=== PATIENT | female | born 1960 | race Two or more races ===

== ENCOUNTER → 2020-07-12 10:35 | Outpatient (BNVA) | payer MEDICAID, SELFPAY | PROVIDERS: PCP Nurse Practitioner Family; Referring Provider Nurse Practitioner Family; Visit Provider Internal Medicine Endocrinology, Diabetes & Metabolism | DX: C73 Malignant neoplasm of thyroid gland (principal); E89.0 Postprocedural hypothyroidism; M85.80 Other specified disorders of bone density and structure, unspecified site; Z79.899 Other long term (current) drug therapy | CPT/HCPCS: 99212 ==

== ENCOUNTER 2020-09-08 13:37 | Outpatient (REF) | payer MEDICAID, SELFPAY ==
--- NOTE | 2020-09-08 13:41 | US_ITS ---
EXAMINATION: US SOFT TISSUE OF THE NECK CLINICAL INFORMATION: Malignant neoplasm of thyroid gland. COMPARISON: Ultrasound soft tissue head/neck dated 09/16/2017 and 09/13/2016. TECHNIQUE: Linear transducer grayscale and color Doppler examination of the cervical lymph nodes. FINDINGS: Multiple right-sided neck lymph nodes (level IA, IB, IIA) appear normal in size and show normal morphology. The left-sided level IA and level IIB lymph nodes also appear morphologically normal and normal size. Specific note is made of slit-like or absent hilum involving left-sided level III lymph node measuring 0.9 cm at its maximum transverse dimension and a similar-appearing left-sided level IIA lymph node measuring 0.8 cm at its maximum transverse dimension. US/US soft tiss head and/or neck IMPRESSION: 1. Left-sided level III and level IIA lymph nodes show slit-like morphology or absent hilum and measure between 0.8-0.9 cm at their maximum dimension. 2. The remainder of the bilateral cervical lymph nodes appear normal in size and show normal morphology.
== END 2020-09-08 13:38 | disposition home or self-care (01) ==
LOC: HO.US 13:37
PROVIDERS: PCP Nurse Practitioner Family; Visit Provider Internal Medicine Endocrinology, Diabetes & Metabolism
DX: C73 Malignant neoplasm of thyroid gland (principal)
CPT/HCPCS: 76536

== ENCOUNTER 2020-10-11 10:05 | Outpatient (REF) | payer MEDICAID, SELFPAY ==
--- NOTE | ~2020-10-11 | MM_ITS ---
EXAMINATION: MM SCREENING DIGITAL BREAST TOMOSYNTHESIS, BILATERAL CLINICAL INFORMATION: Screening. Asymptomatic. Prior benign left breast biopsy 1994. The lifetime risk of breast cancer based on the Tyrer-Cuzick Model is 10%. COMPARISON: Mammography: 01/13/2019, 01/06/2018, 12/27/2016 TECHNIQUE: Digital breast tomosynthesis is performed in both the craniocaudal and mediolateral oblique views along with computer-aided detection (CAD). Synthesized 2D images are generated from the tomosynthesis. FINDINGS: There are scattered areas of fibroglandular density (ACR BI-RADS breast composition Category b). There is fine fibronodular parenchymal pattern similar to prior studies. Biopsy clip marker again noted mid upper outer left breast with mild stable surrounding scarring. There are scattered calcifications again seen in the breasts. Neither breast shows interval mass or architectural abnormality. There are no significant changes. MM/MM tomosynthesis screening BI IMPRESSION: No significant changes from prior exams. ASSESSMENT: BI-RADS 2: Benign RECOMMENDATION: Routine annual mammography screening. This patient's information was entered into a reminder system with a target due date for their next mammogram.
== END 2020-10-11 10:06 | disposition home or self-care (01) ==
LOC: HO.MAMMO 10:05
PROVIDERS: PCP Nurse Practitioner Family; Visit Provider Nurse Practitioner Family
DX: Z12.31 Encounter for screening mammogram for malignant neoplasm of breast (principal)
CPT/HCPCS: 77063; 77067

== ENCOUNTER 2020-11-22 13:12 | Outpatient (REF) | payer MEDICAID, SELFPAY ==
[2020-11-22 16:07] LABS: Free T4 (Free Thyroxine) 1.31 ng/dL (0.71-1.85); Thyroid Stimulating Hormone 0.02 uIU/mL (0.32-4.0); Vitamin D 25-OH Total 54.2 ng/mL (>30)
[2020-11-26 06:56] LABS: Thyroglobulin Antibody <1 IU/mL (<=1); Thyroglobulin Level <0.1 ng/mL
== END 2020-11-22 13:13 | disposition home or self-care (01) ==
LOC: HO.LAB 13:12
PROVIDERS: PCP Registered Nurse Community Health; Visit Provider Internal Medicine Endocrinology, Diabetes & Metabolism
DX: C73 Malignant neoplasm of thyroid gland (principal); E89.0 Postprocedural hypothyroidism; M85.80 Other specified disorders of bone density and structure, unspecified site
CPT/HCPCS: 36415; 82306; 84432; 84439; 84443; 86800; 99212

== ENCOUNTER 2021-08-08 13:11 | Outpatient (REF) | payer MEDICAID, SELFPAY ==
[2021-08-08 14:51] LABS: Free T4 (Free Thyroxine) 1.26 ng/dL (0.71-1.85); Thyroid Stimulating Hormone 0.38 uIU/mL (0.32-4.0); Vitamin D 25-OH Total 37.5 ng/mL (>30)
[2021-08-12 06:51] LABS: Thyroglobulin Antibody <1 IU/mL (<=1); Thyroglobulin Level <0.1 ng/mL
== END 2021-08-08 13:12 | disposition home or self-care (01) ==
LOC: HO.LAB 13:11
PROVIDERS: Visit Provider Internal Medicine Endocrinology, Diabetes & Metabolism
DX: C73 Malignant neoplasm of thyroid gland (principal)
CPT/HCPCS: 36415; 82306; 84432; 84439; 84443; 86800

== ENCOUNTER → 2021-08-09 13:15 | Outpatient (BNVA) | payer MEDICAID, SELFPAY | PROVIDERS: PCP Registered Nurse Community Health; Visit Provider Internal Medicine | DX: E89.0 Postprocedural hypothyroidism (principal); C73 Malignant neoplasm of thyroid gland | CPT/HCPCS: 99212 ==

== ENCOUNTER 2021-10-03 16:41 | Outpatient (REF) | payer MEDICAID, SELFPAY ==
[2021-10-03 18:00] LABS: Free T4 (Free Thyroxine) < 0.40 ng/dL (0.71-1.85); Thyroid Stimulating Hormone 57.14 uIU/mL (0.32-4.0)
[2021-10-07 02:46] LABS: Thyroglobulin 1.9 ng/mL
[2021-10-10 00:45] LABS: Thyroglobulin Antibodies <1 IU/mL (< or = 1)
== END 2021-10-03 16:42 | disposition home or self-care (01) ==
LOC: HO.LAB 16:41
PROVIDERS: PCP Registered Nurse Community Health; Visit Provider Internal Medicine
DX: C73 Malignant neoplasm of thyroid gland (principal)
CPT/HCPCS: 36415; 84432; 84439; 84443; 86800

== ENCOUNTER → 2021-10-19 09:30 | Outpatient (BNVA) | payer MEDICAID, SELFPAY | PROVIDERS: PCP Registered Nurse Community Health; Visit Provider Internal Medicine Endocrinology, Diabetes & Metabolism | DX: C73 Malignant neoplasm of thyroid gland (principal) | CPT/HCPCS: 99212 ==

== ENCOUNTER 2022-05-16 09:36 | Outpatient (REF) | payer MEDICAID, SELFPAY ==
[2022-05-16 12:30] LABS: Free T4 (Free Thyroxine) 1.17 ng/dL (0.71-1.85); Thyroid Stimulating Hormone 0.62 uIU/mL (0.32-4.0)
[2022-05-18 05:27] LABS: Thyroglobulin <0.1 ng/mL
== END 2022-05-16 09:37 | disposition home or self-care (01) ==
LOC: CF 09:36
PROVIDERS: PCP Registered Nurse Community Health; Visit Provider Internal Medicine Endocrinology, Diabetes & Metabolism
DX: C73 Malignant neoplasm of thyroid gland (principal)
CPT/HCPCS: 36415; 84432; 84439; 84443; 99212

== ENCOUNTER 2022-11-16 21:10 | Inpatient (IN) | payer MEDICAID, SELFPAY ==
--- NOTE | ~2022-11-16 | CT_ITS ---
EXAMINATION: NONCONTRAST HEAD CT NONCONTRAST CERVICAL SPINE CT INDICATION INFORMATION: EtOH. Fall. COMPARISON: 10/28/2014 TECHNIQUE: Separate noncontrast CT examinations of the head and cervical spine were performed. Coronal and sagittal images were created for each examination at the technologist workstation. This CT examination was performed using dose optimization techniques as appropriate, variously including the following: *Automated exposure control *Adjustment of mA and/or kV according to patient size (this includes techniques or standardized protocols for targeted exams where dose is matched to indication/reason for exam; i.e. extremities or head) *Use of iterative reconstruction technique DLP: 949 mGy-cm FINDINGS: Head: There is subtle high attenuation thickening along the falx, which is a change from the previous study from 2014. This is concerning for a trace parafalcine subdural hematoma. This measures 0.2 cm in thickness on series 7 image 44. There is no evidence of acute parenchymal hemorrhage or territorial infarction. No abnormal mass effect or midline shift is seen. Galindo to white matter differentiation is well preserved. No hydrocephalus. Proportional prominence of the ventricles and sulcal spaces is consistent with mild volume loss. Patchy periventricular and deep white matter hypoattenuation is consistent with mild small vessel ischemic changes. Right frontal soft tissue swelling/subgaleal hematoma. Associated laceration. No calvarial fracture. Mild mucoperiosteal thickening throughout both maxillary sinuses and the bilateral ethmoid air cells. Mucous retention cyst of the right sphenoid sinus.. The mastoid air cells and visualized portions of the paranasal sinuses are otherwise well aerated. Cervical spine: There is anatomic alignment of the vertebral bodies and posterior elements. The atlantoaxial and atlantooccipital articulations are intact. Vertebral body heights are maintained. There is multilevel intervertebral disc space narrowing with endplate osteophyte formation and facet arthropathy. No evidence of acute fracture. No prevertebral soft tissue swelling. Visualized portions of the lung apices are unremarkable. Surgical clips in the region of the thyroid bed.. CT/CT cervical spine wo IV con IMPRESSION: 1. Findings concerning for a trace parafalcine subdural hematoma. 2. No acute fracture or malalignment of the cervical spine. Mild degenerative changes. This critical result was discussed with FAINA Mensah by telephone at 11/16/2022 10:16 PM and it was ascertained that the content and urgency of the report was understood at the time of direct communication.
--- NOTE | ~2022-11-16 | CT_ITS ---
EXAMINATION: CT HEAD WITHOUT CONTRAST CLINICAL INFORMATION: Follow-up possible subdural hematoma. COMPARISON: Head CT scan dated 11/16/2022. TECHNIQUE: Contiguous axial imaging was performed from the skull base to vertex without intravenous administration of contrast. Coronal and sagittal reformatted images were obtained. This CT examination was performed using dose optimization techniques as appropriate, variously including the following: *Automated exposure control *Adjustment of mA and/or kV according to patient size (this includes techniques or standardized protocols for targeted exams where dose is matched to indication/reason for exam; i.e. extremities or head) *Use of iterative reconstruction technique DLP: 949 mGy-cm FINDINGS: The cortical sulci are normal. The lateral ventricles are symmetrical. The third and fourth ventricles are in their normal midline position. The basilar and prepontine cisterns are unremarkable. Mild falcine thickening seen previously has not significant change. There is no acute intra or extracerebral abnormality. There is no mass effect or midline shift. Again seen is a right frontal subgaleal hematoma with similar appearance. No acute underlying abnormality. The bony calvarium is intact. The paranasal sinuses show mild to moderate scattered mucosal thickening as well as a very small right maxillary air-fluid level without significant change. The bony orbits and orbital contents are unremarkable. CT/CT head/brain wo IV con IMPRESSION: 1. Mild falcine thickening seen on the previous study is nonspecific, but has not significant change. This may be baseline for the patient rather than represent a subdural hematoma. No significant new abnormality. Short-term CT follow-up is recommended as clinically indicated. 2. Right frontal subgaleal hematoma with similar appearance. No acute underlying abnormality.
[2022-11-16 21:15] VITALS: BP 165/92; BP 172/94; PULSE 80; RESP 18; TEMP 36.9; O2SAT 98; BMI 29.2
--- NOTE | 2022-11-16 21:24 | ED.FALL ---
HPI - Fall General Chief Complaint: Fall Stated Complaint: fall etoh Time Seen by Provider: 11/16/22 21:15 Source: patient and EMS Mode of arrival: EMS Limitations: no limitations History of Present Illness HPI Narrative: Patient comes to the emergency room via ambulance. Since that earlier today, patient [place], patient tripped, fell and has a laceration on the forehead. Patient admits to drinking alcohol today, states she only had 2 drinks. Patient complaining of localized pain in the forehead, no neck pain, no pain anywhere else. Patient did not lose consciousness, patient is not on blood thinners Related Data Home Medications Medication Instructions Recorded Confirmed albuterol sulfate 90 mcg/actuation 2 puff inhalation Q6H PRN 07/12/20 10/19/21 aerosol inhaler (ProAir HFA) amlodipine 10 mg tablet 10 mg PO DAILY 07/12/20 10/19/21 buspirone 15 mg tablet 15 mg PO BID 07/12/20 10/19/21 citalopram 20 mg tablet 20 mg PO DAILY 07/12/20 10/19/21 hydrochlorothiazide 25 mg tablet 25 mg PO DAILY 07/12/20 10/19/21 loratadine 10 mg capsule 10 mg PO DAILY 07/12/20 10/19/21 montelukast 10 mg tablet 10 mg PO BEDTIME 07/12/20 10/19/21 (Singulair) sennosides 8.6 mg capsule (senna) 8.6 mg PO DAILY 07/12/20 10/19/21 apremilast 30 mg tablet (Otezla) 30 mg PO BID 10/19/21 10/19/21 atorvastatin 20 mg tablet 20 mg PO BEDTIME 10/19/21 10/19/21 betamethasone dipropionate 0.05 % topical 10/19/21 10/19/21 topical ointment calcipotriene 0.005 % topical topical 10/19/21 10/19/21 ointment cetirizine 10 mg tablet 10 mg PO DAILY 10/19/21 10/19/21 ferrous sulfate 325 mg (65 mg 325 mg PO DAILY 10/19/21 10/19/21 iron) tablet (FeroSul) fluticasone 500 mcg-salmeterol 50 1 ea PO 10/19/21 10/19/21 mcg/dose blistr powdr for inhalation (Advair Diskus) ibuprofen 800 mg tablet 800 mg PO BID PRN 10/19/21 10/19/21 ketotifen fumarate 0.025 % (0.035 1 drp ophthalmic (eye) BID 10/19/21 10/19/21 %) eye drops tramadol 50 mg tablet 50 mg PO Q6H PRN 10/19/21 10/19/21 Previous Rx's Medication Instructions Recorded Levoxyl 112 mcg tablet 112 mcg PO DAILY 30 days #30 tabs 12/14/21 (levothyroxine) calcium citrate 500 mg PO BID #120 tabs 09/24/22 Allergies Allergy/AdvReac Type Severity Reaction Status Date / Time acetaminophen [Percocet] Allergy Unknown Unknown Verified 10/19/21 09:39 oxycodone [Percocet] Allergy Unknown Unknown Verified 10/19/21 09:39 No Known Allergies Allergy Verified 10/19/21 09:39 terazosin Allergy Unknown swelling/ti Uncoded 10/19/21 09:39 redness Review of Systems Review of Systems: Constitutional : No Weight loss, No Fever, No Chills, No Night Sweats, No Fatigue, No Malaise ENT/Mouth : No Hearing loss, No Ear Pain, No Nasal Congestion, No Sinus Pain, No Hoarseness, No sore throat, No Rhinorrhea, No Swallowing Difficulty Eyes: No Eye Pain, No Swelling, No Redness, No Foreign Body, No Discharge, No Vision Changes Cardiovascular : No Chest Pain, No SOB, No Dyspnea on Exertion, No Orthopnea, No Edema, No Palpitations Respiratory : No Cough, No Sputum, No Wheezing, No Smoke Exposure, No Dyspnea Gastrointestinal : No Nausea, No Vomiting, No Diarrhea, No Constipation, No abdominal Pain, No Hematochezia, No Melena Genitourinary : no irregular bleeding, No Dysuria, No Urinary Frequency, No Hematuria, No Urinary Incontinence, No Urgency, No Flank Pain, No Urinary Flow Changes, No Hesitancy Musculoskeletal : No joint pain, No Myalgias, No Joint Swelling Skin : Laceration on the forehead Neuro : No Weakness, No Numbness, No Paresthesias, No Loss of Consciousness, No Dizziness, No Headache Psych : No Anxiety/Panic, No Depression, No SI/HI/AH/VH, admits to drinking socially alcohol today Heme/Lymph: No Bruising, No Bleeding,No Lymphadenopathy Endocrine : No Polyuria, No Polydipsia, No Temperature Intolerance [facility] Past Medical History Medical History Anxiety Asthma Depression Dyslipidemia Hypertension Osteopenia Post-surgical hypothyroidism Primary thyroid cancer Surgical History Hx of breast surgery Hx of knee surgery Hx of thyroidectomy Family History Family History Father Unknown family medical history Mother Osteoporosis Diabetes Hypertension Social History Social History Alcohol intake: current Alcohol intake frequency: holidays/special occasions only Alcohol type: beer Patient Tobacco Use Status: Former Tobacco user Smoked in Last 30 Days: No Use of substances other than those prescribed or required for medical reasons: Yes Substance Use Type: Marijuana Substance Use Frequency: Weekly Advance Directives: No Advance Directives Information Provided: No Physical Exam Vital Signs: Vital Signs: Last Vital Signs Temp 98.5 F 11/16/22 21:15 Pulse 80 11/16/22 21:15 Resp 18 11/16/22 21:15 BP 165/92 H 11/16/22 21:15 Pulse Ox 98 11/16/22 21:15 O2 Del Method 11/16/22 21:15 BMI result Body Mass Index 29.2 Const: Other: Appearance: Alert. Oriented X3. No acute distress. Eyes: Pupils equal, round and reactive to light. ENT: Pharynx normal. Patient has a loss frontal tooth. But still in the socket. Neck: Neck is in C-spine precautions. No palpable step-offs, no C-spine tenderness CVS: Normal heart rate and rhythm. Pulses normal. Normal S1 and S2 Respiratory: No respiratory distress. Breath sounds normal. No Wheezing. No rales Abdomen: Soft and nontender. No rigidity. No distention. Skin: Skin warm and dry. Normal skin color. C-shaped laceration in the forehead, approximately 4 cm Extremities: No lower extremity edema. No Lacerations. No Rash Neuro: Oriented X 3. No motor deficit. No sensory deficit. Moving all extremities. No slurred speech. CN 2 through 12 grossly intact Psych: calm, cooperative, normal affect Course Course Course Narrative: -patient will need sutures on the forehead, patient asking if she will have any scars. I discussed with the patient that any laceration in the skin will leave scars, patient decided to go ahead and get stitches. -head CT and cervical spine CT pending. Medications Administered Discontinued Medications Generic Name Dose Route Start Last Admin Trade Name Aida PRN Reason Stop Dose Admin Tranexamic Acid 1,000 mg/ 60 mls @ 360 mls/hr 11/16/22 22:19 11/16/22 22:42 Sodium Chloride IV 11/16/22 22:28 Infused ONCE ONE Infusion Lidocaine HCl 6 ml 11/16/22 21:21 11/16/22 21:53 Lidocaine Hcl 2% 2 Ml Vial INFILTRATI 11/16/22 21:22 6 ml ONCE ONE Administration Procedures Laceration Laceration 1: Site: face (Forehead) Side (If applicable): left Size (cm): 5 Description: stellate and irregular Depth: simple, single layer Local Anesthetic: lidocaine 2% Amount of anesthesia used (mL): 6 Skin layer closed with: nylon Size (cm): 5-0 and 6-0 Number of sutures: 8 Technique: simple, interrupted Medical Decision Making Medical Decision Making [facility] Narrative: -[facility] called. Patient likely has a small parafalcine subdural hematoma, i discussed the patient, CT scan with Dr. Youssef from trauma at [facility]. Patient is stable, alert and oriented x3, no neurological deficits no headache, not on blood thinners. Patient may stay here at [facility] overnight, repeat CT scan in the morning -patient has a loose frontal tooth that will need to follow-up with dentist. The tooth is in the socket, is not the attached. I discussed the patient with Dr. Kennedy, patient being admitted, patient needs ICU level care for neuro checks and constant monitoring, per nursing spring assembler supervisor, patient cannot go to the floor. Differential Diagnosis Differential Diagnoses: The differential diagnosis associated with the presentation includes (subdural hematoma, epidural hematoma) Admission/Observation Consideration of admission/observation: Escalation of care including admission/observation considered Consult Healthcare Provider Management of the patient was discussed with: Hospitalist and Customer Service Manager Lab Data 11/16/22 22:55 Labs: Lab Results 11/16/22 11/16/22 Range/Units 22:55 22:55 PT 10.9 (10.0-13.1) SEC INR 1.0 (0.9-1.1) Sodium 141 (135-145) mmol/L Potassium 4.4 (3.3-5.1) mmol/L Chloride 108 (96-108) mmol/L Carbon Dioxide 22 (22-29) mmol/L Anion Gap 15 (12-20) BUN 14 (9-16) mg/dL Creatinine 0.79 (0.5-1.4) mg/dL Estim Creat Clear Calc 67.9 Estimated GFR > 60 Random Glucose 82 (60-115) mg/dL Calcium 9.3 (8.4-10.2) mg/dL Total Bilirubin 0.5 (0.0-1.0) mg/dL Direct Bilirubin < 0.2 (0.0-0.5) mg/dL AST 32 H (5-31) U/L ALT 24 (0-31) U/L Alkaline Phosphatase 68 (39-117) U/L Total Protein 7.8 (6.5-8.0) g/dL Albumin 4.6 (3.5-5.0) g/dL Critical Care Time Critical Care Time Critical Care Time: Yes Total Critical Care Time: 60 Attestation: I have personally provided critical care time. Time includes review of lab data, radiology results, discussion with consultants, and monitoring for potential decompensation. Intervention performed as documented. Discharge Plan Discharge Clinical Impression: Traumatic subdural hematoma Patient Disposition: Admitted As Inpatient
[2022-11-16] MEDS: Tranexamic Acid 1,000 MG in 0.9 % Sodium Chloride 50 ML 360 MG IV (22:31)
--- NOTE | 2022-11-16 22:38 | PC.NURSE ---
Pt A&Ox4, reports 10/10 head pain. Pt reports falling forward and hitting forehead on curb. Pt is c-collared, has open lac to R side of eyebrow. Reports having 3 beers tonight. Denies LOC. Provider at bedside. Earrings and necklaces taken off and given to son at bedside. Pt sent to CT scan.
--- NOTE | 2022-11-16 22:41 | MHC.EDTECH ---
[facility]'s Transfer line called at [phone] per spoke with Makayla gave patient demographics awaiting a call back, aware
--- NOTE | 2022-11-16 22:42 | MHC.EDTECH ---
Received a call back from [facility] at [phone] asked to speak with .
--- NOTE | 2022-11-16 22:59 | PC.NURSE ---
Pt changed to hospital attire. IV line placed, blood work collected and sent to lab. Visitor at bedside reassuring Pt.
[2022-11-16 23:04] LABS: Basophils Absolute Auto 0.1 X10*3/uL (0.0-0.2); Basophils Percent Auto 0.9 % (0-2); Eosinophils Absolute Auto 0.5 X10*3/uL (0.0-0.4); Eosinophils Percent Auto 9.2 % (0-4); Hematocrit 39.8 % (37.0-47.0); Hemoglobin 13.4 g/dl (12.0-16.0); Imm Gran Abs Auto 0.01 X10*3/uL (0.00-0.03); Imm Gran Pct Auto 0.2 % (0.0-0.4); Lymphocytes Absolute Auto 1.3 X10*3/uL (1.2-4.9); Lymphocytes Percent Auto 22.7 % (20-40); MANUAL DIFF FLAG NO; Mean Corpuscular HGB Conc 33.7 g/dl (31.0-35.0); Mean Corpuscular Hemoglobin 27.5 pg (27.0-33.0); Mean Corpuscular Volume 81.6 fL (80.0-98.0); Mean Platelet Volume 9.4 fL (9.4-12.3); Monocytes Absolute Auto 0.3 X10*3/uL (0.1-1.2); Monocytes Percent Auto 5.4 % (2-11); Neutrophils Absolute Auto 3.5 x10*3/uL (2.0-8.3); Neutrophils Percent Auto 61.6 % (45-73); Platelet Count 329 X10*3/uL (160-400); Red Blood Count 4.88 X10*6/uL (4.20-5.50); Red Cell Distribution Width 13.2 % (11.0-16.0); White Blood Count 5.7 X10*3/uL (4.8-10.8)
[2022-11-16 23:11] LABS: Prothrombin Time 10.9 SEC (10.0-13.1)
[2022-11-16 23:27] LABS: Alanine Aminotransferase 24 U/L (0-31); Albumin Level 4.6 g/dL (3.5-5.0); Alkaline Phosphatase 68 U/L (39-117); Anion Gap 15 (12-20); Aspartate Amino Transferase 32 U/L (5-31); Bilirubin Direct < 0.2 mg/dL (0.0-0.5); Bilirubin Total 0.5 mg/dL (0.0-1.0); Blood Urea Nitrogen 14 mg/dL (9-16); Calcium 9.3 mg/dL (8.4-10.2); Carbon Dioxide 22 mmol/L (22-29); Chloride 108 mmol/L (96-108); Creatinine Clr Calc Pharmacy 67.9; Estimated Glomerular Filt Rate > 60; Glucose Random 82 mg/dL (60-115); Potassium 4.4 mmol/L (3.3-5.1); Sodium 141 mmol/L (135-145); Total Protein 7.8 g/dL (6.5-8.0)
[2022-11-17] VITALS (14 sets, daily range): BP systolic 141–166; BP diastolic 69–90; PULSE 75–99; RESP 12–21; TEMP 36.4–37.2; O2SAT 93–97; BMI 27.4; BMI 28.5
[2022-11-17 00:02] LABS: Ethanol 125 mg/dL
[2022-11-17 00:31] LABS: COVID-19 Test Negative (Negative); IDNOW Serial# 6674DD1D
--- NOTE | 2022-11-17 00:32 | P.HPCC_ITS ---
History of Present Illness Date of Service: 11/17/22 Attending physician on admission: Guilherme Kennedy Chief Complaint: Fall Patient is a 62-year-old female with a past medical history of hypertension, dyslipidemia, history of thyroid cancer ( with thyroid removal [id number]),? who presented to the emergency room after a fall.? Patient [place] [address] [place] patient tripped, fell and has a laceration on the forehead.? Patient admits to drinking alcohol today, states she only had 3 beers. In the ED,? patient vital signs are stable,? forehead laceration closed with [address] of the head with small parafalcine subdural hematoma, Patient is stable, alert and oriented x3, no neurological deficits no headache, not on blood thinners. ? ED physician consulted [facility] Trauma Team, which states the patient is not a candidate to transfer, safe to stay at [facility] with frequent neuro checks.? ?Patient admitted to ICU for clinically monitoring of subdural hematoma Review of Systems Review of Systems: As per HPI Yes all other systems are reviewed and are negative [facility] Past Medical History Medical History Anxiety Asthma Depression Dyslipidemia Hypertension Osteopenia Post-surgical hypothyroidism Primary thyroid cancer Family History Family History Father Unknown family medical history Mother Osteoporosis Diabetes Hypertension Surgical History Surgical History Hx of breast surgery Hx of knee surgery Hx of thyroidectomy Social History Social History Alcohol intake: current Alcohol intake frequency: holidays/special occasions only Alcohol type: beer Patient Tobacco Use Status: Former Tobacco user Smoked in Last 30 Days: No Use of substances other than those prescribed or required for medical reasons: Yes Substance Use Type: Marijuana Substance Use Frequency: Weekly Advance Directives: No Advance Directives Information Provided: No Meds Allergies Allergy/AdvReac Type Severity Reaction Status Date / Time acetaminophen [Percocet] Allergy Unknown Sneezing Verified 11/16/22 23:47 oxycodone [Percocet] Allergy Unknown Sneezing Verified 11/16/22 23:47 No Known Allergies Allergy Verified 10/19/21 09:39 terazosin Allergy Unknown swelling/ti Uncoded 10/19/21 09:39 redness Home Medications Medication Instructions Recorded Confirmed Last Taken Type albuterol sulfate 90 mcg/actuation 2 puff inhalation Q6H PRN 07/12/20 10/19/21 Unknown History aerosol inhaler (ProAir HFA) amlodipine 10 mg tablet 10 mg PO DAILY 07/12/20 10/19/21 Unknown History buspirone 15 mg tablet 15 mg PO BID 07/12/20 10/19/21 Unknown History citalopram 20 mg tablet 20 mg PO DAILY 07/12/20 10/19/21 Unknown History hydrochlorothiazide 25 mg tablet 25 mg PO DAILY 07/12/20 10/19/21 Unknown History loratadine 10 mg capsule 10 mg PO DAILY 07/12/20 10/19/21 Unknown History montelukast 10 mg tablet 10 mg PO BEDTIME 07/12/20 10/19/21 Unknown History (Singulair) sennosides 8.6 mg capsule (senna) 8.6 mg PO DAILY 07/12/20 10/19/21 Unknown History apremilast 30 mg tablet (Otezla) 30 mg PO BID 10/19/21 10/19/21 Unknown History atorvastatin 20 mg tablet 20 mg PO BEDTIME 10/19/21 10/19/21 Unknown History betamethasone dipropionate 0.05 % topical 10/19/21 10/19/21 Unknown History topical ointment calcipotriene 0.005 % topical topical 10/19/21 10/19/21 Unknown History ointment cetirizine 10 mg tablet 10 mg PO DAILY 10/19/21 10/19/21 Unknown History ferrous sulfate 325 mg (65 mg 325 mg PO DAILY 10/19/21 10/19/21 Unknown History iron) tablet (FeroSul) fluticasone 500 mcg-salmeterol 50 1 ea PO 10/19/21 10/19/21 Unknown History mcg/dose blistr powdr for inhalation (Advair Diskus) ibuprofen 800 mg tablet 800 mg PO BID PRN 10/19/21 10/19/21 Unknown History ketotifen fumarate 0.025 % (0.035 1 drp ophthalmic (eye) BID 10/19/21 10/19/21 Unknown History %) eye drops tramadol 50 mg tablet 50 mg PO Q6H PRN 10/19/21 10/19/21 Unknown History albuterol sulfate 2.5 mg/3 mL 1 amp inhalation Q4-6H PRN SOB 11/16/22 11/16/22 Unknown History (0.083 %) solution for nebulization atorvastatin 20 mg tablet 1 tab PO QPM 11/16/22 11/16/22 Unknown History cholecalciferol (vitamin D3) 25 1 cap PO QAM 11/16/22 11/16/22 Unknown History mcg (1,000 unit) capsule (Vitamin D3) fluticasone 500 mcg-salmeterol 50 1 puff inhalation Q12H 11/16/22 11/16/22 Unknown History mcg/dose blistr powdr for inhalation (Advair Diskus) hydrochlorothiazide 25 mg tablet 1 tab PO DAILY 11/16/22 11/16/22 Unknown History levothyroxine 112 mcg tablet 1 tab PO DAILY 11/16/22 11/16/22 Unknown History (Levoxyl) montelukast 10 mg tablet 1 tab PO BEDTIME 11/16/22 11/16/22 Unknown History omeprazole 20 mg capsule,delayed 1 cap PO DAILY 11/16/22 11/16/22 Unknown History release sennosides 8.6 mg tablet (senna) 1 - 2 tab PO QD-BID 11/16/22 11/16/22 Unknown History tramadol 50 mg tablet 1 tab PO Q12H PRN severe pain 11/16/22 11/16/22 Unknown History Physical Exam Vital Signs: Vital Signs: Last Vital Signs Temp 98.5 F 11/16/22 21:15 Pulse 80 11/16/22 21:15 Resp 18 11/16/22 21:15 BP 165/92 H 11/16/22 21:15 Pulse Ox 98 11/16/22 21:15 O2 Del Method 11/16/22 21:15 BMI result Body Mass Index 29.2 Appearance: Alert.? Oriented X3.? No acute distress.? Eyes: Right eye swollen, bruised.? Pupils equal, round and reactive to light. ENT: Pharynx normal.? Patient has a loss frontal tooth.? But still in the socket. Neck:? Neck with no C-spine tenderness CVS: RRR.? S1 S2 regular. No murmurs, rubs or gallops. Respiratory: Lungs CTA, No respiratory distress.? no wheezes, rales or rhonchi. Abdomen: Abdomen soft, non-tender, non-distended. Normal bowel sounds. No pulsatile mass. No hepatosplenomegaly. Skin: C-shaped laceration in the forehead, approximately 4 cm, with 8 stitches. No lubbing or cyanosis.? No ulcers. Neuro: Oriented X 4.Cranial nerves II-XII grossly intact. No focal neurological deficits. Moves all extremities spontaneously. Sensation intact bilaterally. Psych: calm, cooperative, normal affect Results Labs 11/16/22 22:55 11/16/22 22:55 Labs: Laboratory Results - last 24 hr 11/16/22 11/16/22 11/16/22 22:55 22:55 22:55 MCV 81.6 MCH 27.5 MCHC 33.7 RDW 13.2 Plt Count 329 MPV 9.4 Immature Gran % (Auto) 0.2 Neut % (Auto) 61.6 Lymph % (Auto) 22.7 [place] % (Auto) 5.4 Eos % (Auto) 9.2 H Baso % (Auto) 0.9 Lymph # (Auto) 1.3 [place] # (Auto) 0.3 Eos # (Auto) 0.5 H Baso # (Auto) 0.1 Abs Immat Gran (auto) 0.01 Absolute Neuts (auto) 3.5 Absolute Nucleated RBC 0.000 Nucleated RBC % (auto) 0.0 PT 10.9 INR 1.0 Anion Gap 15 Estim Creat Clear Calc 67.9 Estimated GFR > 60 Random Glucose 82 Calcium 9.3 Total Bilirubin 0.5 Direct Bilirubin < 0.2 AST 32 H ALT 24 Alkaline Phosphatase 68 Total Protein 7.8 Albumin 4.6 Ethyl Alcohol 125 COVID-19 ([facility]) COVID-19 Clin Com 11/16/22 23:55 MCV MCH MCHC RDW Plt Count MPV Immature Gran % (Auto) Neut % (Auto) Lymph % (Auto) [place] % (Auto) Eos % (Auto) Baso % (Auto) Lymph # (Auto) [place] # (Auto) Eos # (Auto) Baso # (Auto) Abs Immat Gran (auto) Absolute Neuts (auto) Absolute Nucleated RBC Nucleated RBC % (auto) PT INR Anion Gap Estim Creat Clear Calc Estimated GFR Random Glucose Calcium Total Bilirubin Direct Bilirubin AST ALT Alkaline Phosphatase Total Protein Albumin Ethyl Alcohol COVID-19 ([facility]) Negative COVID-19 Clin Com See Note Imaging Radiologist's Impressions: Impressions Cervical Spine CT 11/16/22 22:04 IMPRESSION: 1. Findings concerning for a trace parafalcine subdural hematoma. 2. No acute fracture or malalignment of the cervical spine. Mild degenerative changes. This critical result was discussed with FAINA Mensah by telephone at 11/16/2022 10:16 PM and it was ascertained that the content and urgency of the report was understood at the time of direct communication. Head CT 11/16/22 22:04 IMPRESSION: 1. Findings concerning for a trace parafalcine subdural hematoma. 2. No acute fracture or malalignment of the cervical spine. Mild degenerative changes. This critical result was discussed with FAINA Mensah by telephone at 11/16/2022 10:16 PM and it was ascertained that the content and urgency of the report was understood at the time of direct communication. Assessment and Plan (1) Traumatic subdural hematoma: Status: Acute Plan Neuro:? trace parafalcine subdural hematoma- patient is not on anticoagulation, neuro assessment is intact. ? Avoid hypotension/? hypertension. SBP <180.? Frequent neuro checks.? Will obtain neurology consult in the morning Cardiac: ?No acute issues Pulmonary: ??No acute issues Renal:?No acute issues Endo:? No acute issues.? GI: No acute issues. heme/onc: No acute issues. Misc:?? ?ETOH-? ethanol? level 125,? patient does admit to drinking prior to arrival to the emergency room.? Denies? frequent alcohol consumption.? Will monitor for EtOH withdrawal DVT:? compression boots CODE FULL code? Case discussed with? attending Dr. Kennedy? ?Patient does not qualify for critical care time Time Spent With Patient Time: Total time managing care of this patient today ____ minutes.
--- NOTE | 2022-11-17 01:37 | PC.NURSE ---
Pt ambulated to BR with staff assist, steady gait. R eye bruising noted. Denies any pain, states can I go home now . 0138: Report given to Guillermina RN. Pt will be transferred to room 260 by roving technician. Pt aware of plan.
--- NOTE | 2022-11-17 02:00 | PC.NURSE ---
Admitted from ED s/p fall with head strike.Pt is A+O,[place] speaking.Admission through interpretor.Lac to right forehead,sutures intact,right eye bruised.Neuros stable,states sl blurry vision from right eye,surrounding tissue sl edematous.Denies any pain.Monitor SR,HR 70's.Oriented to unit and plan of care.
[2022-11-17 05:39] LABS: MANUAL DIFF FLAG NO
[2022-11-17 05:42] LABS: Basophils Absolute Auto 0.1 X10*3/uL (0.0-0.2); Basophils Percent Auto 0.7 % (0-2); Eosinophils Absolute Auto 0.3 X10*3/uL (0.0-0.4); Eosinophils Percent Auto 3.7 % (0-4); Hematocrit 37.3 % (37.0-47.0); Hemoglobin 12.6 g/dl (12.0-16.0); Imm Gran Abs Auto 0.02 X10*3/uL (0.00-0.03); Imm Gran Pct Auto 0.2 % (0.0-0.4); Lymphocytes Absolute Auto 1.2 X10*3/uL (1.2-4.9); Mean Corpuscular HGB Conc 33.8 g/dl (31.0-35.0); Mean Corpuscular Hemoglobin 27.2 pg (27.0-33.0); Mean Corpuscular Volume 80.6 fL (80.0-98.0); Mean Platelet Volume 9.3 fL (9.4-12.3); Monocytes Absolute Auto 0.4 X10*3/uL (0.1-1.2); Monocytes Percent Auto 4.9 % (2-11); Neutrophils Absolute Auto 6.6 x10*3/uL (2.0-8.3); Neutrophils Percent Auto 76.5 % (45-73); Platelet Count 322 X10*3/uL (160-400); Red Blood Count 4.63 X10*6/uL (4.20-5.50); Red Cell Distribution Width 13.2 % (11.0-16.0); White Blood Count 8.7 X10*3/uL (4.8-10.8)
[2022-11-17 05:50] LABS: Prothrombin Time 11.3 SEC (10.0-13.1)
[2022-11-17 06:00] LABS: Albumin Level 4.3 g/dL (3.5-5.0); Anion Gap 16 (12-20); Blood Urea Nitrogen 17 mg/dL (9-16); Calcium 9.1 mg/dL (8.4-10.2); Carbon Dioxide 20 mmol/L (22-29); Chloride 109 mmol/L (96-108); Creatinine Clr Calc Pharmacy 82.6; Estimated Glomerular Filt Rate > 60; Glucose Random 83 mg/dL (60-115); Magnesium 2.1 mg/dL (1.6-2.6); Phosphorus 3.7 mg/dL (2.7-4.5); Potassium 4.4 mmol/L (3.3-5.1); Sodium 141 mmol/L (135-145)
--- NOTE | 2022-11-17 08:08 | PHA.MEDREC ---
Pharmacy Consult ? Medication Reconciliation Pharmacy has completed the medication reconciliation.
--- NOTE | 2022-11-17 10:47 | P.EN_ITS ---
Event Note Date of Service: 11/17/22 Event Note: Discussed case with Biological Science Technician Fish, Dr. Kennedy. Patient admitted after sustaining a parafalcine subdural hematoma after a fall. Repeat Head CT today showed right frontal subgaleal hematoma and no worsening changes. Patient stable enough for tx to medical floor and will be monitored for 24 hours. Time Spent With Patient Time: Total time managing care of this patient today ____ minutes.
--- NOTE | 2022-11-17 10:53 | P.PNCC_ITS ---
Subjective Subjective Date of Service: 11/17/22 Interval History: 62-year-old lady with underlying surgical hypothyroidism, asthma, hypertension, hyperlipidemia admitted on 11/16/2022 with Critical Care Time (minutes): 0 Physical Exam Vital Signs: Vital Signs: Last Vital Signs Temp 97.5 F 11/17/22 08:00 Pulse 83 11/17/22 10:00 Resp 16 11/17/22 10:00 BP 150/90 H 11/17/22 09:00 Pulse Ox 96 11/17/22 10:00 O2 Del Method 11/17/22 10:00 BMI result Body Mass Index 28.5 Objective Data Labs 11/17/22 05:23 11/17/22 05:23 Labs: Laboratory Results - last 24 hr 11/16/22 11/16/22 11/16/22 22:55 22:55 22:55 WBC 5.7 RBC 4.88 Hgb 13.4 Hct 39.8 MCV 81.6 MCH 27.5 MCHC 33.7 RDW 13.2 Plt Count 329 MPV 9.4 Immature Gran % (Auto) 0.2 Neut % (Auto) 61.6 Lymph % (Auto) 22.7 [place] % (Auto) 5.4 Eos % (Auto) 9.2 H Baso % (Auto) 0.9 Lymph # (Auto) 1.3 [place] # (Auto) 0.3 Eos # (Auto) 0.5 H Baso # (Auto) 0.1 Abs Immat Gran (auto) 0.01 Absolute Neuts (auto) 3.5 Absolute Nucleated RBC 0.000 Nucleated RBC % (auto) 0.0 PT 10.9 INR 1.0 Sodium 141 Potassium 4.4 Chloride 108 Carbon Dioxide 22 Anion Gap 15 BUN 14 Creatinine 0.79 Estim Creat Clear Calc 67.9 Estimated GFR > 60 Random Glucose 82 Calcium 9.3 Phosphorus Magnesium Total Bilirubin 0.5 Direct Bilirubin < 0.2 AST 32 H ALT 24 Alkaline Phosphatase 68 Total Protein 7.8 Albumin 4.6 Ethyl Alcohol 125 COVID-19 ([facility]) COVID-19 Clin Com 11/16/22 11/17/22 11/17/22 23:55 05:23 05:23 WBC 8.7 RBC 4.63 Hgb 12.6 Hct 37.3 MCV 80.6 MCH 27.2 MCHC 33.8 RDW 13.2 Plt Count 322 MPV 9.3 L Immature Gran % (Auto) 0.2 Neut % (Auto) 76.5 H Lymph % (Auto) 14.0 L [place] % (Auto) 4.9 Eos % (Auto) 3.7 Baso % (Auto) 0.7 Lymph # (Auto) 1.2 [place] # (Auto) 0.4 Eos # (Auto) 0.3 Baso # (Auto) 0.1 Abs Immat Gran (auto) 0.02 Absolute Neuts (auto) 6.6 Absolute Nucleated RBC 0.000 Nucleated RBC % (auto) 0.0 PT 11.3 INR 1.0 Sodium Potassium Chloride Carbon Dioxide Anion Gap BUN Creatinine Estim Creat Clear Calc Estimated GFR Random Glucose Calcium Phosphorus Magnesium Total Bilirubin Direct Bilirubin AST ALT Alkaline Phosphatase Total Protein Albumin Ethyl Alcohol COVID-19 ([facility]) Negative COVID-19 Clin Com See Note 11/17/22 05:23 WBC RBC Hgb Hct MCV MCH MCHC RDW Plt Count MPV Immature Gran % (Auto) Neut % (Auto) Lymph % (Auto) [place] % (Auto) Eos % (Auto) Baso % (Auto) Lymph # (Auto) [place] # (Auto) Eos # (Auto) Baso # (Auto) Abs Immat Gran (auto) Absolute Neuts (auto) Absolute Nucleated RBC Nucleated RBC % (auto) PT INR Sodium 141 Potassium 4.4 Chloride 109 H Carbon Dioxide 20 L Anion Gap 16 BUN 17 H Creatinine 0.65 Estim Creat Clear Calc 82.6 Estimated GFR > 60 Random Glucose 83 Calcium 9.1 Phosphorus 3.7 Magnesium 2.1 Total Bilirubin Direct Bilirubin AST ALT Alkaline Phosphatase Total Protein Albumin 4.3 Ethyl Alcohol COVID-19 ([facility]) COVID-19 Clin Com Quality VTE VTE Risk Level:: Medical - moderate - high VTE Device Contraindication: N/A - Device Ordered VTE Drug Contraindication: Treatment Not Indicated
--- NOTE | 2022-11-17 10:54 | PM.CCN ---
Critical Care Event Note Summary Date of Service: 11/17/22 Code activated: No Narrative: Follow-up CT head results reviewed. Stable subgaleal/parafalcine hematoma. No neurologic deficits. At this time stable for transfer to [facility]. Transfer discussed with Sherry Chase N.P. Critical Care Time (minutes): 0
[2022-11-17] MEDS: Cholecalciferol (Vitamin D3) 25 MCG TABLET PO (14:55)
[2022-11-17] MEDS: Atorvastatin Calcium 20 MG TABLET PO ×2 (14:56→20:52)
[2022-11-17] MEDS: busPIRone HCl 5 MG TABLET 15 MG PO (20:52)
[2022-11-17] MEDS: Montelukast Sodium 10 MG TABLET PO (20:52)
[2022-11-17] MEDS: diphenhydrAMINE HCL 25 MG CAPSULE 50 MG PO (23:27)
[2022-11-18] VITALS: BP 163/85; PULSE 79; RESP 16; TEMP 36.6; O2SAT 95
[2022-11-18 03:08] VITALS: BP 141/82; PULSE 79; RESP 16; TEMP 36.1; O2SAT 96
[2022-11-18 07:27] VITALS: BP 126/76; PULSE 73; RESP 16; TEMP 37.2; O2SAT 95
[2022-11-18] MEDS: busPIRone HCl 5 MG TABLET 15 MG PO (08:25)
[2022-11-18] MEDS: hydroCHLOROthiazide 25 MG TABLET PO (08:25)
[2022-11-18] MEDS: Omeprazole 20 MG CAPSULE.DR PO (08:25)
[2022-11-18] MEDS: Cholecalciferol (Vitamin D3) 25 MCG TABLET PO (08:25)
[2022-11-18] MEDS: Levothyroxine Sodium 112 MCG TABLET PO (08:25)
--- NOTE | 2022-11-18 10:03 | PM.DS ---
DS: Providers Provider Date of Service: 11/18/22 Date of admission: 11/17/22 00:59 Primary care physician: Unknown Physician Attending [facility] on discharge: [facility] Discharging clinician: Sherry Chase DS: Diagnosis Discharge Diagnosis (1) Traumatic subdural hematoma: Status: Acute DS: Summary Hospital Course Hospital Course: HP as per admitting provider Patient is a 62-year-old female with a past medical history of hypertension, dyslipidemia, history of thyroid cancer ( with thyroid removal [id number]),? who presented to the emergency room after a fall.? Patient [place] [address] [place] patient tripped, fell and has a laceration on the forehead.? Patient admits to drinking alcohol today, states she only had 3 beers. In the ED,? patient vital signs are stable,? forehead laceration closed with [address]CT of the head with small parafalcine subdural hematoma, Patient is stable, alert and oriented x3, no neurological deficits no headache, not on blood thinners. ? ED physician consulted [facility] Trauma Team, which states the patient is not a candidate to transfer, safe to stay at [facility] with frequent neuro checks.?Patient admitted to ICU for clinically monitoring of subdural hematoma . Patient admitted after sustaining a parafalcine subdural hematoma after a fall. Repeat Head CT 11/17/22 showed right frontal subgaleal hematoma and no worsening changes. Patient transfered to medical floor and monitored overnight with no complications. Avoid aspirin and NSAIDs In follow-up with primary care provider for management. Asthma Continue home medications Hyperlipidemia Continue statin mental health Continue home medications Anemia Continue iron supplementation Hypertension Continue home medications Hypothyroidism Continue levothyroxine Time Spent with Patient Time attestation: Total time managing care of this patient today ____ minutes. Discharge coordination time: Greater than 30 minutes Quality: Safe Use of Opioids Does Pt have an Active Cancer Diagnosis on the Problem List?: No Quality: Stroke Does the patient have a stroke diagnosis?: No Physical Exam Vital Signs: Vital Signs: Last Vital Signs Temp 98.9 F 11/18/22 07:27 Pulse 73 11/18/22 07:27 Resp 16 11/18/22 07:27 BP 126/76 11/18/22 07:27 Pulse Ox 95 11/18/22 07:27 O2 Del Method 11/18/22 07:27 BMI result Body Mass Index 28.5 Appearing in no acute distress head is normocephalic atraumatic eyes pupils are PERRLA sclera is anicteric mouth throat mucous membranes are intact and moist neck is supple no lymphadenopathy, no JVD noted lung sounds are clear to auscultation heart regular rate rhythm, clear S1, S2 positive bowel sounds, abdomen is soft, nontender neuro patient is alert x3, no focal deficits Bruising to right eye and forehead Discharge Plan Discharge Anticipated Discharge Date/Time: 11/18/22 10:11 Patient Disposition: Home, Self-Care Discharge Diagnosis: Fall Subdural hematoma Discharge Medications: Continued calcium citrate 250 mg calcium tablet 500 mg PO BID Qty: 120 5RF sennosides [senna] 8.6 mg tablet 1 - 2 tab PO QD-BID atorvastatin 20 mg tablet 1 tab PO QPM albuterol sulfate 2.5 mg /3 mL (0.083 %) solution for nebulization 1 amp inhalation Q4-6H PRN (Reason: SOB ) tramadol 50 mg tablet 1 tab PO Q12H PRN (Reason: severe pain) fluticasone propion-salmeterol [Advair Diskus] 500-50 mcg/dose blister with device 1 puff inhalation Q12H omeprazole 20 mg capsule,delayed release(DR/EC) 1 cap PO DAILY montelukast 10 mg tablet 1 tab PO BEDTIME hydrochlorothiazide 25 mg tablet 1 tab PO DAILY levothyroxine [Levoxyl] 112 mcg tablet 1 tab PO DAILY cholecalciferol (vitamin D3) [Vitamin D3] 25 mcg (1,000 unit) capsule 1 cap PO QAM citalopram 20 mg tablet 20 mg PO DAILY albuterol sulfate [ProAir HFA] 90 mcg/actuation HFA aerosol inhaler 2 puff inhalation Q6H PRN (Reason: Wheezing) buspirone 15 mg tablet 15 mg PO BID calcipotriene 0.005 % ointment 1 appl topical DAILY ferrous sulfate [FeroSul] 325 mg (65 mg iron) tablet 325 mg PO DAILY Discontinued ibuprofen 800 mg tablet 800 mg PO BID PRN (Reason: Pain) Discharge Orders: Discharge Order (Routine); Ordered 11/18/22 Ordered By: Sherry Chase Diet: Advance to usual diet Activity on Discharge: As tolerated Stand Alone Forms: Patient Portal Discharge page Care Plan Goals: Avoid NSAIDs and aspirin for at least week Health Concerns: Fall Subdural hematoma Plan of Treatment: Follow-up with primary care provider as needed Return to the ER for any worsening symptoms including headache, visual changes Assessment: see discharge summary
--- NOTE | 2022-11-18 10:21 | MHC.CM.PN ---
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
== END 2022-11-18 09:45 | disposition home or self-care (01) | DRG 55 ==
LOC: HO.ED 11-17 00:02 → HO.EDOVER 11-17 01:06 → HO.ICU 11-17 01:09 → HO.S3 11-17 12:27
PROVIDERS: Admitting Provider Registered Nurse Community Health; Emergency Provider Emergency Medicine; PCP Registered Nurse; Visit Provider Nurse Practitioner Acute Care
DX: S06.5X0A Traumatic subdural hemorrhage without loss of consciousness, initial encounter (principal); D64.9 Anemia, unspecified; E78.5 Hyperlipidemia, unspecified; S01.81XA Laceration without foreign body of other part of head, initial encounter; E89.0 Postprocedural hypothyroidism; J45.909 Unspecified asthma, uncomplicated; Y93.01 Activity, walking, marching and hiking; W19.XXXA Unspecified fall, initial encounter; F41.9 Anxiety disorder, unspecified; Z20.822 Contact with and (suspected) exposure to COVID-19; Z87.891 Personal history of nicotine dependence; Z88.5 Allergy status to narcotic agent; Z88.6 Allergy status to analgesic agent; Z79.51 Long term (current) use of inhaled steroids; Z79.890 Hormone replacement therapy; Z79.899 Other long term (current) drug therapy
CPT/HCPCS: 36415; 70450; 72125; 80048; 80076; 82040; 82077; 83735; 84100; 85025; 85610; 87635; 99285

== ENCOUNTER 2022-11-23 12:39 | Emergency (ER) | payer MEDICAID, SELFPAY ==
--- NOTE | ~2022-11-23 | XR_ITS ---
EXAMINATION: XR RIBS, BILATERAL, PA CHEST CLINICAL INFORMATION: Chest wall pain. COMPARISON: Chest radiographs dated 06/09/2011. TECHNIQUE: 3 views of the bilateral ribs were obtained along with a PA chest. A skin marker overlies the medial right ribs. FINDINGS: Lungs are clear. No consolidation, pneumothorax, or pleural effusion. The cardiomediastinal silhouette and pulmonary vasculature are normal. Osseous structures are unremarkable. Ribs are intact. No fractures are identified. XR/XR ribs BI min 4V w [id number] IMPRESSION: Unremarkable examination.
--- NOTE | ~2022-11-23 | CT_ITS ---
EXAMINATION: CT ANGIOGRAM OF THE CHEST WITH AND WITHOUT CONTRAST (CT PULMONARY ANGIOGRAM FOR PE) CLINICAL INFORMATION: Reason for Exam pleauritic CP COMPARISON: Radiographs from today. TECHNIQUE: Prior to contrast administration, noncontrast localization images were obtained. Subsequently, multidetector volumetric imaging was performed from the thoracic inlet to below the diaphragms following the administration of 65 mL Omnipaque 350 intravenous contrast. No contrast reaction reported Sagittal, coronal, and MIP oblique sagittal reformatted images were obtained on the CT workstation, uploaded to PACS, and reviewed. This CT examination was performed using dose optimization techniques as appropriate, variously including the following: *Automated exposure control *Adjustment of mA and/or kV according to patient size (this includes techniques or standardized protocols for targeted exams where dose is matched to indication/reason for exam; i.e. extremities or head) *Use of iterative reconstruction technique Total exam dose-length product 272 mGy-cm FINDINGS: QUALITY OF STUDY/CONTRAST BOLUS: Satisfactory. PULMONARY ARTERIES: No central or segmental pulmonary emboli. THORACIC AORTA: No aneurysm or dissection. LUNG: No focal consolidation, nodules or masses. The central airways are patent. Mild bronchial wall thickening throughout. PLEURA: No pleural effusion or pneumothorax. MEDIASTINUM: Normal heart size. No pericardial effusion. No hilar or mediastinal lymphadenopathy. No evidence of septal bowing or right heart strain. CORONARY ARTERY CALCIFICATION: None visualized on this study. CHEST WALL/AXILLA: No axillary or internal mammary lymphadenopathy. OSSEOUS STRUCTURES: No acute or suspicious osseous abnormality. Degenerative change throughout the spine. UPPER ABDOMEN: Unremarkable. No reflux of contrast into the hepatic veins to suggest elevated right heart pressures. CT/CT angio chest PE protocol IMPRESSION: 1. No pulmonary embolism. 2. Bronchial wall thickening can be seen with a small airways process such as asthma or atypical/viral infection. VTE: negative
--- NOTE | 2022-11-23 12:43 | ECG_ITS ---
Test Reason : chest pain Blood Pressure : / mmHG Vent. Rate : 083 BPM Atrial Rate : 083 BPM P-R Int : 148 ms QRS Dur : 084 ms QT Int : 306 ms P-R-T Axes : 043 009 019 degrees QTc Int : 359 ms Normal sinus rhythm Nonspecific T wave abnormality Abnormal ECG When compared with ECG of 25-AUG-2006 10:36, Nonspecific T wave abnormality now evident in Lateral leads Referred By: Generic ED Physician Electronically Signed By:AUSTYN ORTEGA MD
--- NOTE | 2022-11-23 13:00 | ED.CHESTPAIN ---
HPI - Chest Pain General Chief Complaint: Chest Pain <FAINA Herndon - Last Filed: 11/23/22 13:14> Stated Complaint: CHEST PAIN <FAINA Herndon - Last Filed: 11/23/22 13:14> Time Seen by Provider: 11/23/22 17:43 <FAINA Herndon - Last Filed: 11/23/22 13:14> Source: patient <FAINA Clayton - Last Filed: 11/23/22 20:33> Mode of arrival: ambulatory <FAINA Clayton - Last Filed: 11/23/22 20:33> Limitations: no limitations <FAINA Clayton Last Filed: 11/23/22 20:33> History of Present Illness HPI narrative: This is a 62-year-old female history of anxiety, depression, asthma, hypertension, osteopenia, dyslipidemia, primary thyroid cancer presenting to the emergency department for evaluation of pleuritic chest pain since Saturday, patient tells me that the chest pain is sharp localized to the right side of the chest, nonradiating, tells me it is worse with deep breathing and sometimes movement better at rest. Patient tells me she feels slight shortness of breath. Patient reports she had a fall on Saturday, a week ago where she tripped hit her head and fell forward. She tells me she went to the emergency department got sutures to her head and was fully evaluated without significant findings. Patient tells me that she does not have any history of clots. Denies fevers, chills, nausea, vomiting, lower extremity swelling, headache, vision changes, dizziness or weakness. Tells me since she has been in the department she feels better however discomfort is still present in the right anterior chest. <FAINA Clayton Last Filed: 11/23/22 20:33> Related Data Home Medications: Home Medications Medication Instructions Recorded Confirmed albuterol sulfate 90 mcg/actuation 2 puff inhalation Q6H PRN Wheezing 07/12/20 11/17/22 aerosol inhaler (ProAir HFA) buspirone 15 mg tablet 15 mg PO BID 07/12/20 11/17/22 citalopram 20 mg tablet 20 mg PO DAILY 07/12/20 11/17/22 calcipotriene 0.005 % topical 1 appl topical DAILY 10/19/21 11/17/22 ointment ferrous sulfate 325 mg (65 mg 325 mg PO DAILY 10/19/21 11/17/22 iron) tablet (FeroSul) albuterol sulfate 2.5 mg/3 mL 1 amp inhalation Q4-6H PRN SOB 11/16/22 11/16/22 (0.083 %) solution for nebulization atorvastatin 20 mg tablet 1 tab PO QPM 11/16/22 11/16/22 cholecalciferol (vitamin D3) 25 1 cap PO QAM 11/16/22 11/16/22 mcg (1,000 unit) capsule (Vitamin D3) fluticasone 500 mcg-salmeterol 50 1 puff inhalation Q12H 11/16/22 11/16/22 mcg/dose blistr powdr for inhalation (Advair Diskus) hydrochlorothiazide 25 mg tablet 1 tab PO DAILY 11/16/22 11/16/22 levothyroxine 112 mcg tablet 1 tab PO DAILY 11/16/22 11/16/22 (Levoxyl) montelukast 10 mg tablet 1 tab PO BEDTIME 11/16/22 11/16/22 omeprazole 20 mg capsule,delayed 1 cap PO DAILY 11/16/22 11/16/22 release sennosides 8.6 mg tablet (senna) 1 - 2 tab PO QD-BID 11/16/22 11/16/22 tramadol 50 mg tablet 1 tab PO Q12H PRN severe pain 11/16/22 11/16/22 Previous Rx's Medication Instructions Recorded calcium citrate 500 mg PO BID #120 tabs 09/24/22 <FAINA Herndon - Last Filed: 11/23/22 13:14> Allergies/Adverse Reactions: Allergies Allergy/AdvReac Type Severity Reaction Status Date / Time acetaminophen [Percocet] Allergy Unknown Sneezing Verified 11/16/22 23:47 oxycodone [Percocet] Allergy Unknown Sneezing Verified 11/16/22 23:47 No Known Allergies Allergy Verified 10/19/21 09:39 terazosin Allergy Unknown swelling/ti Uncoded 10/19/21 09:39 redness <FAINA Herndon - Last Filed: 11/23/22 13:14> Review of Systems Review of Systems: Constitutional : No Weight loss, No Fever, No Chills, No Fatigue, No Malaise ENT/Mouth : No sore throat, No Rhinorrhea Eyes: No Eye Pain, No Swelling, No Redness Cardiovascular : + Chest Pain, + SOB, No Dyspnea on Exertion, No Orthopnea, No Edema, No Palpitations Respiratory : No Cough, No Sputum, No Wheezing Gastrointestinal : No Nausea, No Vomiting, No Diarrhea, No Constipation, No abdominal Pain, No Hematochezia, No Melena Genitourinary : No Dysuria, No Urinary Frequency, No Hematuria, Musculoskeletal : No joint pain, No Myalgias, No Joint Swelling Skin : No Skin Lesions, No rash Neuro : No Weakness, No Numbness, No Dizziness, No Headache Psych : No Anxiety/Panic, No Depression All other systems reviewed and are negative <FAINA Clayton - Last Filed: 11/23/22 20:33> Yes all other systems are reviewed and are negative <FAINA Clayton - Last Filed: 11/23/22 20:33> [facility] Past Medical History Attestation statement: The following information was validated with the patient. <FAINA Clayton - Last Filed: 11/23/22 20:33> Source: old records reviewed and nursing notes reviewed <FAINA Clayton - Last Filed: 11/23/22 20:33> Medical History: Medical History Anxiety Asthma Depression Dyslipidemia Hypertension Osteopenia Post-surgical hypothyroidism Primary thyroid cancer <FAINA Herndon - Last Filed: 11/23/22 13:14> Surgical History: Surgical History Hx of breast surgery Hx of knee surgery Hx of thyroidectomy <FAINA Herndon - Last Filed: 11/23/22 13:14> Family History Family History: Family History Father Unknown family medical history Mother Osteoporosis Diabetes Hypertension <FAINA Herndon - Last Filed: 11/23/22 13:14> Social History Social History: Social History Household Members: Children Housing: Apartment Do you presently have visiting nurse or other home services: Yes ([employer] 1 HOUR /WEEK) Alcohol intake: current Alcohol intake frequency: holidays/special occasions only Alcohol type: beer Patient Tobacco Use Status: Former Tobacco user Substance Use Type: Marijuana Advance Directives: No Advance Directives Information Provided: Yes service: No Current occupational status: retired <FAINA Herndon - Last Filed: 11/23/22 13:14> Physical Exam Vital Signs: Vital Signs: Last Vital Signs Temp 98.2 F 11/23/22 13:01 Pulse 86 11/23/22 13:01 Resp 16 11/23/22 13:01 BP 145/88 H 11/23/22 13:01 Pulse Ox 98 11/23/22 13:01 O2 Del Method Room Air 11/23/22 13:01 BMI result Body Mass Index 39.4 <FAINA Herndon - Last Filed: 11/23/22 13:14> Vital Signs: Last Vital Signs Temp 98.2 F 11/23/22 13:01 Pulse 86 11/23/22 13:01 Resp 16 11/23/22 13:01 BP 145/88 H 11/23/22 13:01 Pulse Ox 98 11/23/22 13:01 O2 Del Method Room Air 11/23/22 13:01 BMI result Body Mass Index 39.4 Vital signs stable <FAINA Clayton - Last Filed: 11/23/22 20:33> Appearance: Alert.? Oriented X3.? No acute distress.? Head: Normocephalic, atraumatic, no step-offs or deformities Eyes: Pupils equal, round and reactive to light.? ENT: Pharynx normal.? Neck: Normal inspection.? Neck supple.? CVS: Normal heart rate and rhythm.? Pulses normal.?+ right anterior chest wall pain on palpation Respiratory: No respiratory distress.? Breath sounds normal.? Abdomen: Soft and nontender.? Skin: Skin warm and dry.? Normal skin color.? Normal skin turgor.? Extremities: No lower extremity edema.? No calf ttp. 5/5 strength to bilateral upper and lower extremities Neuro: Oriented X 3.? No motor deficit.? No sensory deficit. CN 2-12 intact <FAINA Clayton Last Filed: 11/23/22 20:33> Course Course Course Narrative: RME--62yo F c/o anterior chest wall pain worse with movement since Saturday. Patient had mechanical trip & fall on Saturday, seen in our ED & admitted to the ICU for subdural hematoma. + right anterior lateral chest wall tenderness elicited, abdomen soft and nontender. sutures noted to forehead EKG, labs, CXR/rib x-ray ordered <FAINA Herndon Last Filed: 11/23/22 13:14> Reevaluation(s) Reevaluation #1: Patient's CBC appears to be around normal limits. Chemistry with no acute electrolyte abnormalities requiring intervention. Troponin negative, EKG nonischemic. Patient is noted to have positive D-dimer CTA pending. X-rays of chest and ribs unremarkable. <FAINA Clayton - Last Filed: 11/23/22 20:33> Time: 19:11 <FAINA Clayton Last Filed: 11/23/22 20:33> Reevaluation #2: CTA with no pulmonary embolism. Bronchial wall thickening noted however patient with out asthma or viral like symptoms. Therefore I do not suspect these. Patient now states she feels back to baseline, she did refuse Toradol and tells nursing she refused it because she feels fine. <FAINA Clayton Last Filed: 11/23/22 20:33> Medications Administered Discontinued Medications Generic Name Dose Route Start Last Admin Trade Name Freq PRN Reason Stop Dose Admin Iohexol 65 ml 11/23/22 19:50 11/23/22 19:51 Iohexol 350 Mg/Ml 100 Ml Infus..Btl IV 11/23/22 19:51 65 ml ONCE ONE Administration Ketorolac Tromethamine 30 mg 11/23/22 19:11 11/23/22 19:58 Ketorolac Tromethamine 15 Mg/Ml Vial IVPUSH 11/23/22 19:12 Not Given ONCE ONE <FAINA Herndon Last Filed: 11/23/22 13:14> Medications Administered Discontinued Medications Generic Name Dose Route Start Last Admin Trade Name Aida PRN Reason Stop Dose Admin Iohexol 65 ml 11/23/22 19:50 11/23/22 19:51 Iohexol 350 Mg/Ml 100 Ml Infus..Btl IV 11/23/22 19:51 65 ml ONCE ONE Administration Ketorolac Tromethamine 30 mg 11/23/22 19:11 11/23/22 19:58 Ketorolac Tromethamine 15 Mg/Ml Vial IVPUSH 11/23/22 19:12 Not Given ONCE ONE <FAINA Clayton - Last Filed: 11/23/22 20:33> Medical Decision Making Medical Decision Making [facility] Narrative: 1910 62-year-old female presents with right anterior sharp chest pain worse with inspiration better at rest. Reports recent fall. Not on blood thinners. Physical exam benign. However, is noted to have healing sutures to forehead and Leif orbital ecchymosis bilaterally. Extraocular movements intact and pain-free. Will rule out pulmonary embolism, rib fractures. Unlikely that this ACS. Unlikely pneumothorax or flail chest. Likely costochondritis or musculoskeletal pain Plan at this time basic labs, cardiac enzymes, dimer, CT of chest for PE if dimer is positive. <FAINA Clayton - Last Filed: 11/23/22 20:33> Differential Diagnosis Differential Diagnoses: The differential diagnosis associated with the presentation includes <FAINA Clayton - Last Filed: 11/23/22 20:33> Will rule out pulmonary embolism, rib fractures. Unlikely that this ACS. Unlikely pneumothorax or flail chest. Likely costochondritis or musculoskeletal pain <FAINA Clayton - Last Filed: 11/23/22 20:33> Admission/Observation Consideration of admission/observation: Escalation of care including admission/observation considered <FAINA Clayton Last Filed: 11/23/22 20:33> Unlikely <FAINA Clayton - Last Filed: 11/23/22 20:33> Lab Data [facility] Lab Attestation statement: I reviewed the patient's lab results. <FAINA Clayton Last Filed: 11/23/22 20:33> Result Diagrams: 11/23/22 13:16 11/23/22 13:16 <FAINA Herndon - Last Filed: 11/23/22 13:14> Labs: Lab Results 11/23/22 11/23/22 11/23/22 Range/Units 13:16 13:16 13:16 WBC 5.2 (4.8-10.8) X10*3/uL RBC 4.84 (4.20-5.50) X10*6/uL Hgb 13.4 (12.0-16.0) g/dl Hct 40.7 (37.0-47.0) % MCV 84.1 (80.0-98.0) fL MCH 27.7 (27.0-33.0) pg MCHC 32.9 (31.0-35.0) g/dl RDW 13.2 (11.0-16.0) % Plt Count 381 (160-400) X10*3/uL MPV 9.3 L (9.4-12.3) fL Immature Gran % (Auto) 0.2 (0.0-0.4) % Neut % (Auto) 52.9 (45-73) % Lymph % (Auto) 27.5 (20-40) % [place] % (Auto) 9.7 (2-11) % Eos % (Auto) 8.7 H (0-4) % Baso % (Auto) 1.0 (0-2) % Lymph # (Auto) 1.4 (1.2-4.9) X10*3/uL [place] # (Auto) 0.5 (0.1-1.2) X10*3/uL Eos # (Auto) 0.5 H (0.0-0.4) X10*3/uL Baso # (Auto) 0.1 (0.0-0.2) X10*3/uL Abs Immat Gran (auto) 0.01 (0.00-0.03) X10*3/uL Absolute Neuts (auto) 2.7 (2.0-8.3) x10*3/uL Absolute Nucleated RBC 0.000 (0.0-0.012) X10*3/uL Nucleated RBC % (auto) 0.0 (0.0-0.2) /100WBC PT (10.0-13.1) SEC INR (0.9-1.1) D-Dimer High Sensitivty NG/ML Sodium 144 (135-145) mmol/L Potassium 3.8 (3.3-5.1) mmol/L Chloride 109 H (96-108) mmol/L Carbon Dioxide 27 (22-29) mmol/L Anion Gap 12 (12-20) BUN 15 (9-16) mg/dL Creatinine 0.78 (0.5-1.4) mg/dL Estim Creat Clear Calc 45.3 Estimated GFR > 60 Random Glucose 94 (60-115) mg/dL Calcium 9.5 (8.4-10.2) mg/dL Total Bilirubin 0.6 (0.0-1.0) mg/dL Direct Bilirubin 0.2 (0.0-0.5) mg/dL AST 15 (5-31) U/L ALT 13 (0-31) U/L Alkaline Phosphatase 82 (39-117) U/L Troponin I High Sens < 3.5 (<3.5-17.0) ng/L Total Protein 7.1 (6.5-8.0) g/dL Albumin 4.2 (3.5-5.0) g/dL / Range/Units 13:16 WBC (4.8-10.8) X10*3/uL RBC (4.20-5.50) X10*6/uL Hgb (12.0-16.0) g/dl Hct (37.0-47.0) % MCV (80.0-98.0) fL MCH (27.0-33.0) pg MCHC (31.0-35.0) g/dl RDW (11.0-16.0) % Plt Count (160-400) X10*3/uL MPV (9.4-12.3) fL Immature Gran % (Auto) (0.0-0.4) % Neut % (Auto) (45-73) % Lymph % (Auto) (20-40) % [place] % (Auto) (2-11) % Eos % (Auto) (0-4) % Baso % (Auto) (0-2) % Lymph # (Auto) (1.2-4.9) X10*3/uL [place] # (Auto) (0.1-1.2) X10*3/uL Eos # (Auto) (0.0-0.4) X10*3/uL Baso # (Auto) (0.0-0.2) X10*3/uL Abs Immat Gran (auto) (0.00-0.03) X10*3/uL Absolute Neuts (auto) (2.0-8.3) x10*3/uL Absolute Nucleated RBC (0.0-0.012) X10*3/uL Nucleated RBC % (auto) (0.0-0.2) /100WBC PT 11.5 (10.0-13.1) SEC INR 1.0 (0.9-1.1) D-Dimer High Sensitivty 253 NG/ML Sodium (135-145) mmol/L Potassium (3.3-5.1) mmol/L Chloride (96-108) mmol/L Carbon Dioxide (22-29) mmol/L Anion Gap (12-20) BUN (9-16) mg/dL Creatinine (0.5-1.4) mg/dL Estim Creat Clear Calc Estimated GFR Random Glucose (60-115) mg/dL Calcium (8.4-10.2) mg/dL Total Bilirubin (0.0-1.0) mg/dL Direct Bilirubin (0.0-0.5) mg/dL AST (5-31) U/L ALT (0-31) U/L Alkaline Phosphatase (39-117) U/L Troponin I High Sens (<3.5-17.0) ng/L Total Protein (6.5-8.0) g/dL Albumin (3.5-5.0) g/dL <FAINA Herndon - Last Filed: 11/23/22 13:14> Lab Results 11/23/22 11/23/22 11/23/22 Range/Units 13:16 13:16 13:16 WBC 5.2 (4.8-10.8) X10*3/uL RBC 4.84 (4.20-5.50) X10*6/uL Hgb 13.4 (12.0-16.0) g/dl Hct 40.7 (37.0-47.0) % MCV 84.1 (80.0-98.0) fL MCH 27.7 (27.0-33.0) pg MCHC 32.9 (31.0-35.0) g/dl RDW 13.2 (11.0-16.0) % Plt Count 381 (160-400) X10*3/uL MPV 9.3 L (9.4-12.3) fL Immature Gran % (Auto) 0.2 (0.0-0.4) % Neut % (Auto) 52.9 (45-73) % Lymph % (Auto) 27.5 (20-40) % [place] % (Auto) 9.7 (2-11) % Eos % (Auto) 8.7 H (0-4) % Baso % (Auto) 1.0 (0-2) % Lymph # (Auto) 1.4 (1.2-4.9) X10*3/uL [place] # (Auto) 0.5 (0.1-1.2) X10*3/uL Eos # (Auto) 0.5 H (0.0-0.4) X10*3/uL Baso # (Auto) 0.1 (0.0-0.2) X10*3/uL Abs Immat Gran (auto) 0.01 (0.00-0.03) X10*3/uL Absolute Neuts (auto) 2.7 (2.0-8.3) x10*3/uL Absolute Nucleated RBC 0.000 (0.0-0.012) X10*3/uL Nucleated RBC % (auto) 0.0 (0.0-0.2) /100WBC PT (10.0-13.1) SEC INR (0.9-1.1) D-Dimer High Sensitivty NG/ML Sodium 144 (135-145) mmol/L Potassium 3.8 (3.3-5.1) mmol/L Chloride 109 H (96-108) mmol/L Carbon Dioxide 27 (22-29) mmol/L Anion Gap 12 (12-20) BUN 15 (9-16) mg/dL Creatinine 0.78 (0.5-1.4) mg/dL Estim Creat Clear Calc 45.3 Estimated GFR > 60 Random Glucose 94 (60-115) mg/dL Calcium 9.5 (8.4-10.2) mg/dL Total Bilirubin 0.6 (0.0-1.0) mg/dL Direct Bilirubin 0.2 (0.0-0.5) mg/dL AST 15 (5-31) U/L ALT 13 (0-31) U/L Alkaline Phosphatase 82 (39-117) U/L Troponin I High Sens < 3.5 (<3.5-17.0) ng/L Total Protein 7.1 (6.5-8.0) g/dL Albumin 4.2 (3.5-5.0) g/dL 11/23/22 Range/Units 13:16 WBC (4.8-10.8) X10*3/uL RBC (4.20-5.50) X10*6/uL Hgb (12.0-16.0) g/dl Hct (37.0-47.0) % MCV (80.0-98.0) fL MCH (27.0-33.0) pg MCHC (31.0-35.0) g/dl RDW (11.0-16.0) % Plt Count (160-400) X10*3/uL MPV (9.4-12.3) fL Immature Gran % (Auto) (0.0-0.4) % Neut % (Auto) (45-73) % Lymph % (Auto) (20-40) % [place] % (Auto) (2-11) % Eos % (Auto) (0-4) % Baso % (Auto) (0-2) % Lymph # (Auto) (1.2-4.9) X10*3/uL [place] # (Auto) (0.1-1.2) X10*3/uL Eos # (Auto) (0.0-0.4) X10*3/uL Baso # (Auto) (0.0-0.2) X10*3/uL Abs Immat Gran (auto) (0.00-0.03) X10*3/uL Absolute Neuts (auto) (2.0-8.3) x10*3/uL Absolute Nucleated RBC (0.0-0.012) X10*3/uL Nucleated RBC % (auto) (0.0-0.2) /100WBC PT 11.5 (10.0-13.1) SEC INR 1.0 (0.9-1.1) D-Dimer High Sensitivty 253 NG/ML Sodium (135-145) mmol/L Potassium (3.3-5.1) mmol/L Chloride (96-108) mmol/L Carbon Dioxide (22-29) mmol/L Anion Gap (12-20) BUN (9-16) mg/dL Creatinine (0.5-1.4) mg/dL Estim Creat Clear Calc Estimated GFR Random Glucose (60-115) mg/dL Calcium (8.4-10.2) mg/dL Total Bilirubin (0.0-1.0) mg/dL Direct Bilirubin (0.0-0.5) mg/dL AST (5-31) U/L ALT (0-31) U/L Alkaline Phosphatase (39-117) U/L Troponin I High Sens (<3.5-17.0) ng/L Total Protein (6.5-8.0) g/dL Albumin (3.5-5.0) g/dL <FAINA Clayton - Last Filed: 11/23/22 20:33> Independent Interpretation I performed an independent interpretation of an: EKG (EKG with normal sinus rhythm no ST elevations or inversions concerning for ischemia. Ventricular rate of 83, IL normal, QRS normal, QT/QTC normal.) and CT Scan ( CT/CT angio chest PE protocol IMPRESSION: 1. No pulmonary embolism. 2. Bronchial wall thickening can be seen with a small airways process such as asthma or atypical/viral infection. VTE: negative) <FAINA Clayton - Last Filed: 11/23/22 20:33> Radiology Impression Discussion of test interpretation with radiology: I have reviewed the radiologist's reading. <FAINA Clayton Last Filed: 11/23/22 20:33> External Record Review External record reviewed: Inpatient record, Office record, Outpatient record, Prior outpatient labs, Prior outpatient radiology, Primary care record and Outside ED record <FAINA Clayton Last Filed: 11/23/22 20:33> Core Measures AMI core measures followed: Yes <FAINA Clayton - Last Filed: 11/23/22 20:33> Measure exclusions: not indicated <FAINA Clayton Last Filed: 11/23/22 20:33> Critical Care Time Critical Care Time Critical Care Time: No <FAINA Clayton Last Filed: 11/23/22 20:33> Discharge Plan Discharge Clinical Impression: Chest pain <FAINA Herndon Last Filed: 11/23/22 13:14> Patient Disposition: Home, Self-Care <FAINA Herndon Last Filed: 11/23/22 13:14> Instructions: Chest Pain (DC), Chest Wall Pain (ED) <FAINA Herndon Last Filed: 11/23/22 13:14> Additional Instructions: Take your medications as prescribed. If you were prescribed antibiotics today, it is important that you take your medication to their entirety, do not skip any doses, do not finish them early. Follow-up with your primary care provider this week. Return to the emergency department with new or worsening symptoms. Such as fevers, chills, chest pain, shortness of breath, nausea, vomiting, dizziness, headache, vision changes, lethargy In case of emergency call 911 CT/CT angio chest PE protocol IMPRESSION: 1. No pulmonary embolism. 2. Bronchial wall thickening can be seen with a small airways process such as asthma or atypical/viral infection. VTE: negative Cardiac workup was reassuring. <FAINA Herndon Last Filed: 11/23/22 13:14> Prescriptions: No Action calcium citrate 250 mg calcium tablet 500 mg PO BID Qty: 120 5RF sennosides [senna] 8.6 mg tablet 1 - 2 tab PO QD-BID atorvastatin 20 mg tablet 1 tab PO QPM albuterol sulfate 2.5 mg /3 mL (0.083 %) solution for nebulization 1 amp inhalation Q4-6H PRN (Reason: SOB ) tramadol 50 mg tablet 1 tab PO Q12H PRN (Reason: severe pain) fluticasone propion-salmeterol [Advair Diskus] 500-50 mcg/dose blister with device 1 puff inhalation Q12H omeprazole 20 mg capsule,delayed release(DR/EC) 1 cap PO DAILY montelukast 10 mg tablet 1 tab PO BEDTIME hydrochlorothiazide 25 mg tablet 1 tab PO DAILY levothyroxine [Levoxyl] 112 mcg tablet 1 tab PO DAILY cholecalciferol (vitamin D3) [Vitamin D3] 25 mcg (1,000 unit) capsule 1 cap PO QAM citalopram 20 mg tablet 20 mg PO DAILY albuterol sulfate [ProAir HFA] 90 mcg/actuation HFA aerosol inhaler 2 puff inhalation Q6H PRN (Reason: Wheezing) buspirone 15 mg tablet 15 mg PO BID calcipotriene 0.005 % ointment 1 appl topical DAILY ferrous sulfate [FeroSul] 325 mg (65 mg iron) tablet 325 mg PO DAILY <FAINA Herndon - Last Filed: 11/23/22 13:14> Referrals: [facility] [place] Cardi[facility] Services [Provider Group] - 2 weeks Franchesca Sawant [Emergency Nurse] - 2 days <FAINA Herndon - Last Filed: 11/23/22 13:14> Stand Alone Forms: Work/School Release <FAINA Herndon - Last Filed: 11/23/22 13:14>
[2022-11-23 13:01] VITALS: BP 145/88; PULSE 86; RESP 16; TEMP 36.8; O2SAT 98; BMI 39.4
[2022-11-23 13:31] LABS: MANUAL DIFF FLAG NO
[2022-11-23 13:33] LABS: Basophils Absolute Auto 0.1 X10*3/uL (0.0-0.2); Eosinophils Absolute Auto 0.5 X10*3/uL (0.0-0.4); Eosinophils Percent Auto 8.7 % (0-4); Hematocrit 40.7 % (37.0-47.0); Hemoglobin 13.4 g/dl (12.0-16.0); Imm Gran Abs Auto 0.01 X10*3/uL (0.00-0.03); Imm Gran Pct Auto 0.2 % (0.0-0.4); Lymphocytes Absolute Auto 1.4 X10*3/uL (1.2-4.9); Lymphocytes Percent Auto 27.5 % (20-40); Mean Corpuscular HGB Conc 32.9 g/dl (31.0-35.0); Mean Corpuscular Hemoglobin 27.7 pg (27.0-33.0); Mean Corpuscular Volume 84.1 fL (80.0-98.0); Mean Platelet Volume 9.3 fL (9.4-12.3); Monocytes Absolute Auto 0.5 X10*3/uL (0.1-1.2); Monocytes Percent Auto 9.7 % (2-11); Neutrophils Absolute Auto 2.7 x10*3/uL (2.0-8.3); Neutrophils Percent Auto 52.9 % (45-73); Platelet Count 381 X10*3/uL (160-400); Red Blood Count 4.84 X10*6/uL (4.20-5.50); Red Cell Distribution Width 13.2 % (11.0-16.0); White Blood Count 5.2 X10*3/uL (4.8-10.8)
[2022-11-23 13:41] LABS: Prothrombin Time 11.5 SEC (10.0-13.1)
[2022-11-23 13:52] LABS: Alanine Aminotransferase 13 U/L (0-31); Albumin Level 4.2 g/dL (3.5-5.0); Alkaline Phosphatase 82 U/L (39-117); Anion Gap 12 (12-20); Aspartate Amino Transferase 15 U/L (5-31); Bilirubin Direct 0.2 mg/dL (0.0-0.5); Bilirubin Total 0.6 mg/dL (0.0-1.0); Blood Urea Nitrogen 15 mg/dL (9-16); Calcium 9.5 mg/dL (8.4-10.2); Carbon Dioxide 27 mmol/L (22-29); Chloride 109 mmol/L (96-108); Creatinine Clr Calc Pharmacy 45.3; Estimated Glomerular Filt Rate > 60; Glucose Random 94 mg/dL (60-115); Potassium 3.8 mmol/L (3.3-5.1); Sodium 144 mmol/L (135-145); Total Protein 7.1 g/dL (6.5-8.0)
[2022-11-23 14:00] LABS: Troponin-I High Sensitivity < 3.5 ng/L (<3.5-17.0)
[2022-11-23 18:27] LABS: D Dimer High Sensitivity 253 NG/ML
--- NOTE | 2022-11-23 18:58 | PC.NURSE ---
Report received from day shift team.
[2022-11-23] MEDS: iohexoL 350 MG/ML 100 ML INFUS..BTL 65 ML IV (19:51)
[2022-11-23 20:51] LABS: Troponin-I High Sensitivity < 3.5 ng/L (<3.5-17.0)
[2022-11-23 20:54] VITALS: BP 140/72; PULSE 78; RESP 19; TEMP 36.8; O2SAT 98
== END 2022-11-23 20:56 | disposition home or self-care (01) ==
PROVIDERS: Physician Assistant; Emergency Provider Emergency Medicine
DX: R07.89 Other chest pain (principal); I10 Essential (primary) hypertension; F33.1 Major depressive disorder, recurrent, moderate; R06.02 Shortness of breath; Z79.899 Other long term (current) drug therapy; Z87.891 Personal history of nicotine dependence
CPT/HCPCS: 36415; 71111; 71275; 80048; 80076; 84484; 85025; 85379; 85610; 93005; 99284; 99285; Q9967

== ENCOUNTER 2023-03-21 19:21 | Emergency (ER) | payer MEDICAID, SELFPAY ==
[2023-03-21 19:36] VITALS: BP 178/100; PULSE 94; O2SAT 97
[2023-03-21 19:49] VITALS: BP 209/99; PULSE 86; RESP 18; TEMP 36.2; O2SAT 98; BMI 34.6
--- NOTE | 2023-03-21 20:00 | ED_ITS ---
HPI - Animal Bite General Chief Complaint: Animal Bite Stated Complaint: BIT BY DOG ON HAND Time Seen by Provider: 03/21/23 20:00 Source: patient and RN notes reviewed Mode of arrival: ambulatory Limitations: no limitations History of Present Illness HPI narrative: This is a 62-year-old female presenting to the emergency department for evaluation of dog bite on left 4th finger which occurred just prior to arrival. Patient reports that her dog is aggressive and bit her in the hand. She cleansed the wound. She is unsure when her last tetanus was given to her. Her dog is up-to-date with all of its shots. No fevers or chills. No difficulty moving her finger. No changes in sensation of her hand. No other complaints or concerns at this time. MD complaint: animal bite Animal: dog Description of animal: household pet Related Data Home Medications Medication Instructions Recorded Confirmed albuterol sulfate 90 mcg/actuation 2 puff inhalation Q6H PRN Wheezing 07/12/20 11/17/22 aerosol inhaler (ProAir HFA) buspirone 15 mg tablet 15 mg PO BID 07/12/20 11/17/22 citalopram 20 mg tablet 20 mg PO DAILY 07/12/20 11/17/22 calcipotriene 0.005 % topical 1 appl topical DAILY 10/19/21 11/17/22 ointment ferrous sulfate 325 mg (65 mg 325 mg PO DAILY 10/19/21 11/17/22 iron) tablet (FeroSul) albuterol sulfate 2.5 mg/3 mL 1 amp inhalation Q4-6H PRN SOB 11/16/22 11/16/22 (0.083 %) solution for nebulization atorvastatin 20 mg tablet 1 tab PO QPM 11/16/22 11/16/22 cholecalciferol (vitamin D3) 25 1 cap PO QAM 11/16/22 11/16/22 mcg (1,000 unit) capsule (Vitamin D3) fluticasone 500 mcg-salmeterol 50 1 puff inhalation Q12H 11/16/22 11/16/22 mcg/dose blistr powdr for inhalation (Advair Diskus) hydrochlorothiazide 25 mg tablet 1 tab PO DAILY 11/16/22 11/16/22 montelukast 10 mg tablet 1 tab PO BEDTIME 11/16/22 11/16/22 omeprazole 20 mg capsule,delayed 1 cap PO DAILY 11/16/22 11/16/22 release sennosides 8.6 mg tablet (senna) 1 - 2 tab PO QD-BID 11/16/22 11/16/22 tramadol 50 mg tablet 1 tab PO Q12H PRN severe pain 11/16/22 11/16/22 Previous Rx's Medication Instructions Recorded calcium citrate 500 mg PO BID #120 tabs 01/29/23 Levoxyl 112 mcg tablet 112 mcg PO DAILY #30 tabs 02/15/23 (levothyroxine) amoxicillin 875 mg-potassium 1 tab PO BID 5 days #10 tabs 03/21/23 clavulanate 125 mg tablet Allergies Allergy/AdvReac Type Severity Reaction Status Date / Time acetaminophen [Percocet] Allergy Unknown Sneezing Verified 03/21/23 19:49 oxycodone [Percocet] Allergy Unknown Sneezing Verified 03/21/23 19:49 terazosin Allergy Unknown swelling/ti Uncoded 03/21/23 19:49 redness PMFSH Past Medical History Medical History Anxiety Asthma Depression Dyslipidemia Hypertension Osteopenia Post-surgical hypothyroidism Primary thyroid cancer Surgical History Hx of breast surgery Hx of knee surgery Hx of thyroidectomy Family History Family History Father Unknown family medical history Mother Osteoporosis Diabetes Hypertension Social History Social History Household Members: Children Housing: Apartment Do you presently have visiting nurse or other home services: Yes ([employer] 1 HOUR /WEEK) Alcohol intake: current Alcohol intake frequency: holidays/special occasions only Alcohol type: beer Patient Tobacco Use Status: Former Tobacco user Substance Use Type: Marijuana Advance Directives: No Advance Directives Information Provided: Yes service: No Current occupational status: retired Physical Exam ED Vital Signs: Vital Signs - 24 hr 03/21/23 19:49 Temperature 97.2 F Pulse Rate 86 Respiratory Rate 18 Blood Pressure 209/99 H Pulse Oximetry 98 Oxygen Delivery Method Room Air BMI result Body Mass Index 34.6 Const Other: General: Awake, alert, and oriented X3. No acute distress. HEENT: Normal inspection CVS: Normal heart rate and rhythm. Pulses normal. Respiratory: No respiratory distress Skin: Left hand dorsal aspect there a 1 cm superficial laceration to the 4th distal MCP, just medial to this there is a linear 0.5 cm superficial abrasion noted, no active drainage or bleeding. No surrounding erythema or warmth. Range of motion of the left hand and digits full and intact. Radial pulses 2+ Neuro: Oriented X 3. No motor deficit. No sensory deficit. Medications Administered Discontinued Medications Generic Name Dose Route Start Last Admin Trade Name Freq PRN Reason Stop Dose Admin Amoxicillin/Clavulanate Potassium 875 mg 03/21/23 20:23 03/21/23 20:35 Amoxicillin/Potassium Clav 875 Mg Tablet PO 03/21/23 20:24 875 mg ONCE ONE Administration Bacitracin 1 appl 03/21/23 20:00 03/21/23 20:14 Bacitracin Oint 0.9 Gm Packet TOPICAL 03/21/23 20:01 1 appl ONCE ONE Administration Protocol Diphtheria/Tetanus/Acell Pertussis 0.5 ml 03/21/23 19:56 03/21/23 20:02 Diphth,Pertus(Acell),Tet Adult 0.5 Ml Syringe IM 03/21/23 19:57 0.5 ml .ONCE ONE Administration Medical Decision Making Medical Decision Making MDM Narrative: 62-year-old female presenting to the emergency department for evaluation of dog bite on left hand which occurred today. This was her own dog, who reports that her dog is up to date with all immunizations. She is unsure when her last tetanus was. Lacerations are superficial and do not require any closure at this time. Wound cleansed using Betadine and saline, full sensation circulation is intact. Full flexion extension of 4th digit. Patient given 1st dose of Augmentin and department today as well as tetanus, educated the importance of keeping clean and dry and completing the full course of antibiotics. Patient understands and agrees with plan. Patient stable for discharge. Blood pressure elevated at 200/99, likely reactive due to pain and anxiety surrounding situation. Patient has no chest pain, shortness of breath, or headaches. Advised follow-up with primary care physician, has no history of high blood pressure. Differential Diagnosis Differential Diagnoses: The differential diagnosis associated with the presentation includes Dog bite, puncture wound, laceration, cellulitis Discharge Plan Discharge Clinical Impression: Dog bite Patient Disposition: Home, Self-Care Instructions: Animal Bite (ED) Additional Instructions: Please keep wound clean and dry. Please watch for any signs of infection including but not limited to worsening redness, pain, drainage, fevers or chills. We have given you a tetanus shot in the department today. Please complete the full course of antibiotic. If any new or worsening symptoms occur please return for re-evaluation. Prescriptions: New amoxicillin-pot clavulanate 875-125 mg tablet 1 tab PO BID 5 Days Qty: 10 0RF No Action calcium citrate 250 mg calcium tablet 500 mg PO BID Qty: 120 5RF levothyroxine [Levoxyl] 112 mcg tablet 112 mcg PO DAILY Qty: 30 11RF Rx Instructions: No substitution. Brand name medically necessary sennosides [senna] 8.6 mg tablet 1 - 2 tab PO QD-BID atorvastatin 20 mg tablet 1 tab PO QPM albuterol sulfate 2.5 mg /3 mL (0.083 %) solution for nebulization 1 amp inhalation Q4-6H PRN (Reason: SOB ) tramadol 50 mg tablet 1 tab PO Q12H PRN (Reason: severe pain) fluticasone propion-salmeterol [Advair Diskus] 500-50 mcg/dose blister with device 1 puff inhalation Q12H omeprazole 20 mg capsule,delayed release(DR/EC) 1 cap PO DAILY montelukast 10 mg tablet 1 tab PO BEDTIME hydrochlorothiazide 25 mg tablet 1 tab PO DAILY cholecalciferol (vitamin D3) [Vitamin D3] 25 mcg (1,000 unit) capsule 1 cap PO QAM citalopram 20 mg tablet 20 mg PO DAILY albuterol sulfate [ProAir HFA] 90 mcg/actuation HFA aerosol inhaler 2 puff inhalation Q6H PRN (Reason: Wheezing) buspirone 15 mg tablet 15 mg PO BID calcipotriene 0.005 % ointment 1 appl topical DAILY ferrous sulfate [FeroSul] 325 mg (65 mg iron) tablet 325 mg PO DAILY Interventions: ED Discharge Assessment Last Done: 03/21/23 20:38 Discharge Date/Time: 03/21/23 20:38
[2023-03-21] MEDS: Diphth,Pertus(ACell),Tet Adult 0.5 ML SYRINGE IM (20:02)
[2023-03-21] MEDS: Bacitracin Oint 0.9 GM PACKET 1 APPL TOPICAL (20:14)
[2023-03-21] MEDS: Amoxicillin/Potassium Clav 875 MG TABLET PO (20:35)
== END 2023-03-21 20:38 | disposition home or self-care (01) ==
PROVIDERS: Emergency Provider Emergency Medicine
DX: S60.475A Other superficial bite of left ring finger, initial encounter (principal); W54.0XXA Bitten by dog, initial encounter; Y93.9 Activity, unspecified; Y92.9 Unspecified place or not applicable; Y99.9 Unspecified external cause status
CPT/HCPCS: 90471; 90715; 99282; 99284

== ENCOUNTER 2023-04-10 10:33 | Outpatient (REF) | payer MEDICAID, SELFPAY ==
--- NOTE | ~2023-04-10 | CT_ITS ---
EXAMINATION: CT HEAD WITHOUT CONTRAST CLINICAL INFORMATION: Follow-up subdural hematoma. COMPARISON: CT brain dated 11/17/2022. TECHNIQUE: Contiguous axial imaging was performed from the skull base to vertex without intravenous administration of contrast. Multiplanar reformatted images are submitted. This CT examination was performed using dose optimization techniques as appropriate, variously including the following: *Automated exposure control *Adjustment of mA and/or kV according to patient size (this includes techniques or standardized protocols for targeted exams where dose is matched to indication/reason for exam; i.e. extremities or head) *Use of iterative reconstruction technique DLP: 635 mGy-cm FINDINGS: There is no acute intracranial hemorrhage or evidence of territorial infarction. No abnormal mass effect or midline shift is seen. Galindo to white matter differentiation is well preserved. There is no abnormal attenuation within the brain parenchyma. The ventricles are normal in size. No extra-axial fluid collections are identified. Previously noted falcine thickening is less apparent than was noted previously. A previously noted frontal scalp hematoma has diminished in the interim, with very mild residual. The calvarium is normal. No fracture is seen. The middle ear cavity and mastoid air cells are clear. There is bilateral ethmoid, right maxillary and right sphenoid sinus chamber sinusitis. CT/CT head/brain wo IV con IMPRESSION: 1. No acute intracranial pathology. 2. A frontal scalp hematoma is redemonstrated, with interim decrease in size. 3. There is paranasal sinusitis.
== END 2023-04-10 10:34 | disposition home or self-care (01) ==
LOC: HO.CT 10:33
PROVIDERS: PCP Registered Nurse; Visit Provider Registered Nurse
DX: S06.5XAA Traumatic subdural hemorrhage with loss of consciousness status unknown, initial encounter (principal); X58.XXXA Exposure to other specified factors, initial encounter; Y93.9 Activity, unspecified; Y92.9 Unspecified place or not applicable; Y99.9 Unspecified external cause status
CPT/HCPCS: 70450

== ENCOUNTER 2023-10-03 10:34 | Outpatient (REF) | payer MEDICAID, SELFPAY ==
[2023-10-03 11:06] LABS: MANUAL DIFF FLAG NO
[2023-10-03 11:28] LABS: Basophils Percent Auto 0.7 % (0-2); Eosinophils Absolute Auto 0.5 X10*3/uL (0.0-0.4); Eosinophils Percent Auto 7.9 % (0-4); Hematocrit 37.7 % (37.0-47.0); Hemoglobin 12.7 g/dl (12.0-16.0); Imm Gran Abs Auto 0.02 X10*3/uL (0.00-0.03); Imm Gran Pct Auto 0.4 % (0.0-0.4); Lymphocytes Absolute Auto 1.4 X10*3/uL (1.2-4.9); Lymphocytes Percent Auto 23.8 % (20-40); Mean Corpuscular HGB Conc 33.7 g/dl (31.0-35.0); Mean Corpuscular Hemoglobin 27.9 pg (27.0-33.0); Mean Corpuscular Volume 82.7 fL (80.0-98.0); Mean Platelet Volume 9.2 fL (9.4-12.3); Monocytes Absolute Auto 0.5 X10*3/uL (0.1-1.2); Monocytes Percent Auto 8.5 % (2-11); Neutrophils Absolute Auto 3.3 x10*3/uL (2.0-8.3); Neutrophils Percent Auto 58.7 % (45-73); Platelet Count 386 X10*3/uL (160-400); Red Blood Count 4.56 X10*6/uL (4.20-5.50); Red Cell Distribution Width 13.8 % (11.0-16.0); White Blood Count 5.7 X10*3/uL (4.8-10.8)
[2023-10-03 11:45] LABS: Estimated Average Glucose 111 mg/dL; Hemoglobin A1c % 5.5 % (<6.0)
[2023-10-03 12:25] LABS: Free T4 (Free Thyroxine) 1.24 ng/dL (0.71-1.85)
[2023-10-03 12:29] LABS: HBS Num1 0.83 mIU/mL (0-7.99); HBc Num1 0.23 S/CO (0.00-0.79); HBsAGNum1 0.37 S/CO (0.00-0.99); HIV AB/AG Nonreactive (Nonreactive); HIV Num 1 0.06 S/CO (0.00-0.99); Hepatitis B Core Antibody Nonreactive (Nonreactive); Hepatitis B Surface Antigen Negative (Negative); ~Hepatitis B Surface Antibody NONREACTIVE (Nonreactive)
[2023-10-03 12:32] LABS: Alanine Aminotransferase 26 U/L (0-31); Albumin Level 4.2 g/dL (3.5-5.0); Alkaline Phosphatase 83 U/L (39-117); Anion Gap 12 (12-20); Aspartate Amino Transferase 27 U/L (5-31); Bilirubin Total 0.8 mg/dL (0.0-1.0); Blood Urea Nitrogen 20 mg/dL (9-16); Carbon Dioxide 26 mmol/L (22-29); Chloride 106 mmol/L (96-108); Cholesterol 200 mg/dL (<200); Estimated Glomerular Filt Rate > 60; Glucose Random 82 mg/dL (60-115); HDL Cholesterol 61 mg/dL (>40); LDL Cholesterol Calculated 117 mg/dL (<100); Potassium 2.9 mmol/L (3.3-5.1); Sodium 141 mmol/L (135-145); TSH reflex Free T4 1.44 uIU/mL (0.32-4.0); Thyroid Stimulating Hormone 1.44 uIU/mL (0.32-4.0); Total Protein 7.7 g/dL (6.5-8.0); Triglycerides 112 mg/dL (<150); Vitamin D 25-OH Total 45.3 ng/mL (>30)
[2023-10-04 12:08] LABS: RPR Rapid Plasma Reagin NON-REACTIVE (NON-REACTIVE)
[2023-10-05 15:03] LABS: HCV Log PCR <1.18 NOT DETECTED Log IU/mL (NOT DETECTED); HepC Viral Load <15 NOT DETECTED IU/mL (NOT DETECTED)
[2023-10-08 04:38] LABS: Thyroglobulin Antibody <1 IU/mL (<=1); Thyroglobulin Level <0.1 ng/mL
== END 2023-10-03 10:35 | disposition home or self-care (01) ==
LOC: HO.HHCL 10:34
PROVIDERS: Referring Provider Internal Medicine Endocrinology, Diabetes & Metabolism; Visit Provider Registered Nurse
DX: Z00.00 Encounter for general adult medical examination without abnormal findings (principal); Z11.4 Encounter for screening for human immunodeficiency virus [HIV]; C73 Malignant neoplasm of thyroid gland
CPT/HCPCS: 36415; 80053; 80061; 82306; 83036; 84432; 84439; 84443; 85025; 86592; 86704; 86706; 86800; 87340; 87389; 87522

== ENCOUNTER 2023-10-04 13:24 | Outpatient (REF) | payer MEDICAID, SELFPAY ==
[2023-10-04 16:46] LABS: Anion Gap 12 (12-20); Blood Urea Nitrogen 17 mg/dL (9-16); Calcium 9.2 mg/dL (8.4-10.2); Carbon Dioxide 23 mmol/L (22-29); Chloride 109 mmol/L (96-108); Estimated Glomerular Filt Rate > 60; Glucose Random 114 mg/dL (60-115); Potassium 3.5 mmol/L (3.3-5.1); Sodium 140 mmol/L (135-145)
== END 2023-10-04 13:25 | disposition home or self-care (01) ==
LOC: HO.HHCL 13:24
PROVIDERS: Visit Provider Pediatrics
DX: E87.6 Hypokalemia (principal)
CPT/HCPCS: 36415; 80048

== ENCOUNTER 2023-10-08 16:10 | Outpatient (AMB) | payer MEDICAID, SELFPAY ==
--- NOTE | 2023-10-08 16:20 | MHC.OFFVIS ---
Intake Vital Signs 10/08/23 16:21 Height 4 ft 3.8 in Weight 164 lb 7.437 oz BMI 43.1 BP 144/88 H Blood Pressure Location Rt brachial Position Sitting Pulse 75 Pulse Source Pulse Oximeter Intake Visit Reasons: F/u thyroid cancer-mb is full Intake Note: Patient presents today for Thyroid Cancer follow up. Family Counselor Required: No Family Counselor Name: Refusal signed Accompanied by: Son Allergies acetaminophen [Percocet] Allergy (Unknown, Verified 10/08/23 16:23) Sneezing oxycodone [Percocet] Allergy (Unknown, Verified 10/08/23 16:23) Sneezing terazosin Allergy (Unknown, Uncoded 10/08/23 16:23) swelling/tiredness Medication List - Last Reconciled 10/08/23 by Glynn Gary MD albuterol sulfate 1 amp inhalation Q4-6H PRN albuterol sulfate 90 mcg/actuation (ProAir HFA) 2 puffs inhalation Q6H PRN atorvastatin 1 tab PO QPM betamethasone dipropionate 0.05% topical buspirone 15 mg PO BID calcipotriene 0.005% 1 appl topical DAILY calcium citrate 500 mg (2 x 250 mg calcium) PO BID cetirizine 10 mg PO DAILY PRN cholecalciferol (vitamin D3) (Vitamin D3) 1 cap PO QAM citalopram 20 mg PO DAILY ferrous sulfate (FeroSul) 325 mg PO DAILY fluticasone propion-salmeterol 500-50 mcg/dose (Advair Diskus) 1 puff inhalation Q12H fluticasone propionate 50 mcg/actuation 1 - 2 sprays intranasal DAILY PRN hydrochlorothiazide 1 tab PO DAILY Levoxyl (levothyroxine) 112 mcg PO DAILY NS lidocaine 5% patches topical montelukast 1 tab PO BEDTIME omeprazole 1 cap PO DAILY potassium chloride ER 20 mEq PO Q4H sennosides (senna) 1 - 2 tabs PO QD-BID tramadol 1 tab PO Q12H PRN HPI HPI Comments History of Present Illness Details [id number] Female with a PMHx of 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 History is gathered from Dr. Batres's note dated 04/21/2012. 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 She required a left radical neck dissection and radioactive iodine ablation in 1996 and again in 1998, for a total cumulative dose of 250 mCi. In 1998 she had a stimulated TG level of 77, which is what prompted a second dose of I131. Per reports, her post therapy WBS at that time revealed a faint focus of uptake in the left lateral upper abdomen, but CT was negative for any structural disease. She had a subsequent thyrogen stimulated scan 03/2000 which was negative for any abnormal uptake. Per Dr. Batres's records, her TG levels had remained <1 ng/ml. She was treated with levoxyl 150 with goal TSH 0.1-0.2 for many years. Post ablative whole body scan revealed faint uptake in the left lateral neck, upper abdomen but CT was negative for structural disease. She had undetectable TG from 2002 to 2016, she had negative antibodies up to 2013. Somehow in 2015 she developed low titer TG Ab 4 and 5 most recently 1. She had a repeat whole body scan on 03/2000 which was negative for uptake. She had another WBS completed 11/18/2018 which revealed no abnormal uptake. This was completed through the withdrawal method, and TSH at that time was 42.3 Labs 12/11/2019 with TSH 0.05, TG <0.4 and TGAb 2. She had an US head and neck 09/08/2020 which revealed no residual tissue in the thyroid bed, but there was mention of 2 abnormal appearing lymph nodes left level 1A and IIB. Labs repeated 08/08/2021 with TSH 0.38, TG <0.1 and TGAb negative. She was unable to tolerate a suppressive dose of levothyroxine, thus her dose of levoxyl was decreased to 112 mcg PO daily with a goal TSH of 0.1-0.5. The patient last saw Dr. Ndiaye on 08/09/2021. Since last visit, the patient had a stimulated thyroglobulin by Thyrogen of 1.9. There are some abnormal appearing level 3 lymph nodes She also saw Dr. Randa Adame in [place] who performed a neck ultrasound that showed normal lymph nodes.Dr. Adame recommended continuing following the patient with thyroglobulin and neck ultrasound US Head and Neck: 09/08/2020 FINDINGS: Multiple right-sided neck lymph nodes (level IA, IB, IIA) appear normal in size and show normal morphology. The left-sided level IA and level IIB lymph nodes also appear morphologically normal and normal size. Specific note is made of slit-like or absent hilum involving left-sided level III lymph node measuring 0.9 cm at its maximum transverse dimension and a similar-appearing left-sided level IIA lymph node measuring 0.8 cm at its maximum transverse dimension. Labs: Laboratory Tests 11/22/20 08/08/21 13:55 13:32 25-OH Vitamin D To tiffany 37.5 TSH 0.38 Free T4 1.26 Thyroglobulin <0.1 Thyroglobulin Anti body <1 PFSH Medical History Anxiety Asthma Depression Dyslipidemia Hypertension Osteopenia Post-surgical hypothyroidism Primary thyroid cancer Surgical History Hx of breast surgery Hx of knee surgery Hx of thyroidectomy Family History Father Unknown family medical history Mother Osteoporosis Diabetes Hypertension Social History Household Members: Children Housing: Apartment Do you presently have visiting nurse or other home services: Yes ([employer] 1 HOUR /WEEK) Alcohol intake: current Alcohol intake frequency: holidays/special occasions only Alcohol type: beer Patient Tobacco Use Status: Former Tobacco user Substance Use Type: Marijuana service: No Current occupational status: retired Physical Exam Vital Signs: Last Vital Signs Pulse 75 10/08/23 16:21 BP 144/88 H 10/08/23 16:21 BMI result Body Mass Index 43.1 Const Other: Healed scar status post thyroidectomy. There is no cervical adenopathy palpated Assessment & Plan Assessment & Plan (1) Primary thyroid cancer: Code(s): C73 - Malignant neoplasm of thyroid gland Plan She is 61-year-old female with history of metastatic papillary cancer with extrathyroidal extension and lymph node involvement status post neck dissection many years ago with radioactive iodine treatment twice and persistent anti-thyroglobulin antibodies now negative and thyroglobulin is now normalized. Patient is clinically and biochemically euthyroid on 112 mcg of levothyroxine The plan is to repeat neck ultrasound. If neck ultrasound shows any abnormal lymph nodes may need to follow-up with Dr. adame Orders: Orders US thyroid Today C73 - Malignant neoplasm of thyroid gland Coding Level of Care Code Est Pt Level 3 (43705) Diagnoses Primary thyroid cancer C73
[2023-10-08 16:21] VITALS: BP 144/88; PULSE 75; BMI 43.1
== END 2023-10-08 16:44 | disposition home or self-care (01) ==
PROVIDERS: PCP Registered Nurse; Referring Provider Registered Nurse; Visit Provider Internal Medicine Endocrinology, Diabetes & Metabolism
DX: C73 Malignant neoplasm of thyroid gland (principal)
CPT/HCPCS: 99213

== ENCOUNTER → 2023-10-08 16:10 | Outpatient (BNVA) | payer MEDICAID, SELFPAY | PROVIDERS: PCP Registered Nurse; Visit Provider Internal Medicine Endocrinology, Diabetes & Metabolism | DX: C73 Malignant neoplasm of thyroid gland (principal) | CPT/HCPCS: 99212 ==

== ENCOUNTER 2023-11-08 11:34 | Outpatient (REF) | payer MEDICAID, SELFPAY ==
[2023-11-08 13:08] LABS: MANUAL DIFF FLAG NO
[2023-11-08 13:32] LABS: Basophils Percent Auto 0.9 % (0-2); Eosinophils Absolute Auto 0.6 X10*3/uL (0.0-0.4); Eosinophils Percent Auto 12.3 % (0-4); Hematocrit 36.7 % (37.0-47.0); Hemoglobin 11.6 g/dl (12.0-16.0); Imm Gran Abs Auto 0.01 X10*3/uL (0.00-0.03); Imm Gran Pct Auto 0.2 % (0.0-0.4); Lymphocytes Absolute Auto 1.3 X10*3/uL (1.2-4.9); Mean Corpuscular HGB Conc 31.6 g/dl (31.0-35.0); Mean Corpuscular Hemoglobin 26.9 pg (27.0-33.0); Mean Corpuscular Volume 85.2 fL (80.0-98.0); Mean Platelet Volume 9.7 fL (9.4-12.3); Monocytes Absolute Auto 0.4 X10*3/uL (0.1-1.2); Monocytes Percent Auto 9.8 % (2-11); Neutrophils Absolute Auto 2.1 x10*3/uL (2.0-8.3); Neutrophils Percent Auto 47.8 % (45-73); Platelet Count 345 X10*3/uL (160-400); Red Blood Count 4.31 X10*6/uL (4.20-5.50); Red Cell Distribution Width 14.2 % (11.0-16.0); White Blood Count 4.5 X10*3/uL (4.8-10.8)
[2023-11-08 14:07] LABS: Alanine Aminotransferase 16 U/L (0-31); Albumin Level 4.1 g/dL (3.5-5.0); Alkaline Phosphatase 89 U/L (39-117); Anion Gap 12 (12-20); Aspartate Amino Transferase 17 U/L (5-31); Bilirubin Total 0.3 mg/dL (0.0-1.0); Blood Urea Nitrogen 19 mg/dL (9-16); Calcium 9.4 mg/dL (8.4-10.2); Carbon Dioxide 27 mmol/L (22-29); Chloride 111 mmol/L (96-108); Estimated Glomerular Filt Rate > 60; Glucose Random 96 mg/dL (60-115); Potassium 4.5 mmol/L (3.3-5.1); Sodium 145 mmol/L (135-145); Total Protein 7.3 g/dL (6.5-8.0)
== END 2023-11-08 11:35 | disposition home or self-care (01) ==
LOC: HO.HHCL 11:34
PROVIDERS: Visit Provider Internal Medicine
DX: L40.9 Psoriasis, unspecified (principal)
CPT/HCPCS: 36415; 80053; 85025

== ENCOUNTER 2023-12-18 08:55 | Outpatient (REF) | payer MEDICAID, SELFPAY ==
--- NOTE | ~2023-12-18 | MM_ITS ---
EXAMINATION: MM SCREENING DIGITAL BREAST TOMOSYNTHESIS, BILATERAL CLINICAL INFORMATION: Screening. Asymptomatic. COMPARISON: Mammography: This study is compared with prior exams dating back to 2018. TECHNIQUE: Digital breast tomosynthesis is performed in both the craniocaudal and mediolateral oblique views along with computer-aided detection (CAD). Synthesized 2D images are generated from the tomosynthesis. FINDINGS: There are scattered areas of fibroglandular density (ACR BI-RADS breast composition Category b). There are no significant masses, abnormal calcifications, or other abnormalities. There is a tissue marker associated with a small, mammographically benign, coarsely calcified mass in the upper outer quadrant of the left breast at middle depth.. This represents a biopsy-proven fibroadenoma. There is a 78-cm encapsulated area of normal breast tissue in the anterior half of the upper outer quadrant of the left breast. This is administrative representative of a hamartoma. This is benign. MM/MM tomosynthesis screening BI IMPRESSION: No mammographic evidence of malignancy. ASSESSMENT: BI-RADS BI-RADS 2 - Benign Findings RECOMMENDATION: Routine annual mammography screening. 1 year F/U This examination should not preclude the clinical evaluation of a suspicious palpable abnormality. This patient's information was entered into a reminder system with a target due date for their next mammogram.
--- NOTE | ~2023-12-18 | US_ITS ---
EXAMINATION: US SOFT TISSUE NECK CLINICAL INFORMATION: COMPARISON: None available. TECHNIQUE: Ultrasound of the neck soft tissues is performed with high- frequency torre-scale imaging and color Doppler. FINDINGS: THYROID BED: Prior thyroidectomy. No residual thyroid tissue demonstrated in the thyroid bed. No cystic or solid nodules demonstrated in the thyroid bed. RIGHT NECK SOFT TISSUES: Scattered architecturally normal nodes are present. The nodes show normal fatty hilus, normal cortical thickness, and no cystic change or calcification. No abnormal color flow. The largest nodes are as follows: Level 1B: 0.7 x 0.3 x 0.5 cm. Cystic with absent hilum. Prior: Not seen. Level 1B: 1.3 x 0.6 x 1.5 cm. Normal meagan architecture. Prior: 1.4 x 0.7 x 1.6 cm. Level 2: 0.3 x 0.5 x 0.5 cm. Normal meagan architecture. Prior: Not seen. Level 2: 2.1 x 0.5 x 1.0 cm. Normal meagan architecture. Prior: Not seen. Level 3: 0.4 x 0.3 x 0.4 cm. Normal meagan architecture. Prior: Not seen. Level 4: 1.3 x 0.3 x 0.7 cm. Normal meagan architecture. Prior: Not seen. LEFT NECK SOFT TISSUES: Scattered architecturally normal nodes are present. The nodes show normal fatty hilus, normal cortical thickness, and no cystic change or calcification. No abnormal color flow. The largest nodes are as follows: Level 1B: 1.1 x 0.6 x 0.6 cm. There is cortical thickening. Level 1B: 0.4 x 0.4 x 0.7 cm. Normal meagan architecture. Level 2: 0.3 x 0.5 x 0.5 cm. There is a slitlike hilum. Level 3: 2.1 x 0.6 x 1.5 cm. Normal meagan architecture. Prior: 1.6 x 0.6 x 1.7 cm. Level 4: 1.7 x 0.5 x 0.8 cm. Normal meagan architecture. Prior: 1.0 x 0.4 x 0.9 cm. Level 4: 0.6 x 0.4 x 0.5 cm. Cystic with absent hilum. US/US soft tiss head and/or neck IMPRESSION: Numerous bilateral thyroid nodules are seen, as detailed, some pathologically enlarged and further showing atypical architectural features. If clinically indicated further evaluation of the neck soft tissues and nodes may be performed with CT soft tissue neck with intravenous contrast. As well, sampling of lymph nodes may be considered, in particular of the dominant bilateral lymph nodes having abnormal architectural features. At a minimum, continued short-term ultrasound surveillance is recommended.
--- NOTE | ~2023-12-18 | MM_ITS ---
EXAMINATION: BONE DENSITOMETRY CLINICAL INDICATION: Osteopenia. COMPARISON: Baseline BD dated 06/23/2019. TECHNIQUE: Using a [employer] DXA System (software version: 13.1) manufactured by [employer], dual-energy x-ray absorptiometry was performed of the lumbar spine, left hip, and left forearm radius 33%. The images are of good technical quality. Summary results are attached. FINDINGS: LEFT FEMUR, NECK: Current: BMD 0.533 g/cm2, Z-score -2.3, T-score -3.6, osteoporosis. Baseline: BMD 0.786 g/cm2. LEFT FEMUR, TOTAL: Current: BMD 0.648 g/cm2, Z-score -1.8, T-score -2.9, osteoporosis, 24.0% decrease from baseline (<5% change is not significant). Baseline: BMD 0.853 g/cm2. AP SPINE L1-L4: Current: BMD 1.073 g/cm2, Z-score 0.5, T-score -0.9, normal, 1.3% decrease from baseline (<5% change is not significant). Baseline: BMD 1.087 g/cm2. LEFT FOREARM RADIUS 33%: BMD 0.848 g/cm2, Z-score 1.0, T-score -0.3, normal, 2.3% decrease from baseline (<5% change is not significant). Baseline: BMD 0.868 g/cm2. IDENTIFIED RISK FACTORS: Early menopause, secondary osteoporosis. HISTORY OF FRACTURE: None listed. MEDICATIONS: Calcium or multivitamin. Vitamin D. MM/XR DEXA appendicular skeleton IMPRESSION: 1. DIAGNOSIS: Osteoporosis based on the lowest T-score value of -3.6 in the femoral neck applying World Health Organization criteria. 2. 10-YEAR FRACTURE RISK PREDICTION, FRAX: According to the guidelines, FRAX calculation should only be performed on patients in the osteopenia bone density category. Therefore, FRAX was not performed on this patient. 3. Treatment Recommendations: NOF guidelines recommend consideration for treatment in postmenopausal women and men age 50 and older presenting with the following: -A hip or vertebral (clinical or morphometric) fracture. -T-score less than or equal to -2.5 at the femoral neck or spine after appropriate evaluation to exclude secondary causes. -Low bone mass at the hip or spine and a 10-year fracture probability by FRAX of greater than or equal to 3% for hip fracture or greater than or equal to 20% for major osteoporotic fracture based on the [place] adapted WHO algorithm. 4. Other Recommendations: All treatment decisions require clinical judgment and consideration of individual patient factors, including patient preferences, comorbidities, previous drug use, risk factors not captured in the FRAX model (e.g. frailty, falls, vitamin D deficiency, increased bone turnover, interval significant decline in bone density) and possible under or overestimation of fracture risk by FRAX. Additional medical evaluation for secondary cause of low bone mineral density may be appropriate. FUTURE SCAN RECOMMENDATION: People with diagnosed cases of osteoporosis or at high risk for fracture should have regular bone mineral density tests. For patients eligible for Medicare, routine testing is allowed once every 2 years. The testing frequency can be increased to one year for patients who have rapidly progressing disease, those who are receiving or discontinuing medical therapy to restore bone mass, or have additional risk factors.
== END 2023-12-18 08:56 | disposition home or self-care (01) ==
LOC: HO.MAMMO 08:55
PROVIDERS: PCP Registered Nurse; Visit Provider Registered Nurse
DX: Z12.31 Encounter for screening mammogram for malignant neoplasm of breast (principal); Z13.820 Encounter for screening for osteoporosis; Z78.0 Asymptomatic menopausal state; M85.80 Other specified disorders of bone density and structure, unspecified site; C73 Malignant neoplasm of thyroid gland
CPT/HCPCS: 76536; 77063; 77067; 77081

== ENCOUNTER → 2023-12-18 09:00 | Outpatient (BNV) | payer MEDICAID, SELFPAY | PROVIDERS: PCP Registered Nurse; Visit Provider Radiology Diagnostic Radiology | DX: Z12.31 Encounter for screening mammogram for malignant neoplasm of breast (principal) | CPT/HCPCS: 77063; 77067 ==

== ENCOUNTER 2023-12-18 09:41 | Outpatient (REF) | payer MEDICAID, SELFPAY | END 2023-12-18 09:42 | disposition home or self-care (01) | LOC: HO.US 09:41 | PROVIDERS: PCP Registered Nurse; Visit Provider Internal Medicine Endocrinology, Diabetes & Metabolism | DX: Z13.89 Encounter for screening for other disorder (principal) ==

== ENCOUNTER 2024-03-12 09:16 | Outpatient (AMB) | payer MEDICAID, SELFPAY ==
[2024-03-12 09:21] VITALS: BP 134/84; PULSE 78; BMI 42.1
--- NOTE | 2024-03-12 09:21 | MHC.OFFVIS ---
Vital Signs 03/12/24 09:21 Height 4 ft 3.8 in Weight 160 lb 11.472 oz BMI 42.1 BP 134/84 Blood Pressure Location Lt brachial Position Sitting Pulse 78 Pulse Source Pulse Oximeter Intake Visit Reasons: Thyroid cancer-lvm Intake Note: Patient present today for Thyroid cancer follow up visit. Implementation Specialist Payroll Required: Yes Implementation Specialist Payroll Language: Broadcast Supervisor Name: [id number] Mckeon Information Interpreted: non-clinical & clinical Accompanied by: Self / Same As Patient Allergies acetaminophen [Percocet] Allergy (Unknown, Verified 03/12/24 09:27) Sneezing oxycodone [Percocet] Allergy (Unknown, Verified 03/12/24 09:27) Sneezing terazosin Allergy (Unknown, Uncoded 03/12/24 09:27) swelling/tiredness Medication List - Last Reconciled 03/12/24 by Glynn Gary MD albuterol sulfate 1 amp inhalation Q4-6H PRN albuterol sulfate 90 mcg/actuation (ProAir HFA) 2 puffs inhalation Q6H PRN atorvastatin 1 tab PO QPM betamethasone dipropionate 0.05% topical buspirone 15 mg PO BID calcipotriene 0.005% 1 appl topical DAILY calcium citrate 500 mg (2 x 250 mg calcium) PO BID cetirizine 10 mg PO DAILY PRN cholecalciferol (vitamin D3) (Vitamin D3) 1 cap PO QAM citalopram 20 mg PO DAILY ferrous sulfate (FeroSul) 325 mg PO DAILY fluticasone propion-salmeterol 500-50 mcg/dose (Advair Diskus) 1 puff inhalation Q12H fluticasone propionate 50 mcg/actuation 1 - 2 sprays intranasal DAILY PRN hydrochlorothiazide 1 tab PO DAILY Levoxyl (levothyroxine) 112 mcg PO DAILY NS lidocaine 5% patches topical montelukast 1 tab PO BEDTIME omeprazole 1 cap PO DAILY potassium chloride ER 20 mEq PO Q4H sennosides (senna) 1 - 2 tabs PO QD-BID tramadol 1 tab PO Q12H PRN HPI Comments Details: 63YO Female with a PMHx of 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 History is gathered from Dr. Batres's note dated 04/21/2012. 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 She required a left radical neck dissection and radioactive iodine ablation in 1996 and again in 1998, for a total cumulative dose of 250 mCi. In 1998 she had a stimulated TG level of 77, which is what prompted a second dose of I131. Per reports, her post therapy WBS at that time revealed a faint focus of uptake in the left lateral upper abdomen, but CT was negative for any structural disease. She had a subsequent thyrogen stimulated scan 03/2000 which was negative for any abnormal uptake. Per Dr. Batres's records, her TG levels had remained <1 ng/ml. She was treated with levoxyl 150 with goal TSH 0.1-0.2 for many years. Post ablative whole body scan revealed faint uptake in the left lateral neck, upper abdomen but CT was negative for structural disease. She had undetectable TG from 2002 to 2016, she had negative antibodies up to 2013. Somehow in 2015 she developed low titer TG Ab 4 and 5 most recently 1. She had a repeat whole body scan on 03/2000 which was negative for uptake. She had another WBS completed 11/18/2018 which revealed no abnormal uptake. This was completed through the withdrawal method, and TSH at that time was 42.3 Labs 12/11/2019 with TSH 0.05, TG <0.4 and TGAb 2. She had an US head and neck 09/08/2020 which revealed no residual tissue in the thyroid bed, but there was mention of 2 abnormal appearing lymph nodes left level 1A and IIB. Labs repeated 08/08/2021 with TSH 0.38, TG <0.1 and TGAb negative. She was unable to tolerate a suppressive dose of levothyroxine, thus her dose of levoxyl was decreased to 112 mcg PO daily with a goal TSH of 0.1-0.5. The patient last saw Dr. Ndiaye on 08/09/2021. Since last visit, the patient had a stimulated thyroglobulin by Thyrogen of 1.9. There are some abnormal appearing level 3 lymph nodes She also saw Dr. Randa Mccarty in [place] who performed a neck ultrasound that showed normal lymph nodes.Dr. Mccarty recommended continuing following the patient with thyroglobulin and neck ultrasound US Head and Neck: 09/08/2020 FINDINGS: Multiple right-sided neck lymph nodes (level IA, IB, IIA) appear normal in size and show normal morphology. The left-sided level IA and level IIB lymph nodes also appear morphologically normal and normal size. Specific note is made of slit-like or absent hilum involving left-sided level III lymph node measuring 0.9 cm at its maximum transverse dimension and a similar-appearing left-sided level IIA lymph node measuring 0.8 cm at its maximum transverse dimension. Labs: Laboratory Tests 11/22/20 08/08/21 13:55 13:32 25-OH Vitamin D Total 37.5 TSH 0.38 Free T4 1.26 Thyroglobulin <0.1 Thyroglobulin Antibody <1 More recent ultrasound reports abnormal lymph nodes the previous ultrasound by Dr. Mccarty showed lymph nodes were normal [facility] Medical History Anxiety Asthma Depression Dyslipidemia Hypertension Osteopenia Post-surgical hypothyroidism Primary thyroid cancer Surgical History Hx of breast surgery Hx of knee surgery Hx of thyroidectomy Family History Father Unknown family medical history Mother Osteoporosis Diabetes Hypertension Social History Household Members: Children Housing: Apartment Do you presently have visiting nurse or other home services: Yes ([employer] 1 HOUR /WEEK) Alcohol intake: current Alcohol intake frequency: holidays/special occasions only Alcohol type: beer Patient Tobacco Use Status: Former Tobacco user Substance Use Type: Marijuana service: No Current occupational status: retired Physical Exam Vital Signs: Last Vital Signs Pulse 78 03/12/24 09:21 BP 134/84 03/12/24 09:21 BMI result Body Mass Index 42.1 Const Other: Healed scar status post thyroidectomy. There is no cervical adenopathy palpated Assessment & Plan Assessment & Plan (1) Primary thyroid cancer: Code(s): C73 - Malignant neoplasm of thyroid gland Category: Medical Plan She is 61-year-old female with history of metastatic papillary cancer with extrathyroidal extension and lymph node involvement status post neck dissection many years ago with radioactive iodine treatment twice and persistent anti-thyroglobulin antibodies now negative and thyroglobulin is now normalized. Patient is clinically euthyroid on 112 mcg of levothyroxine. Recent neck ultrasound showed abnormal lymph nodes The plan is to repeat TSH, free T4 and thyroglobulin. I will have her schedule a follow-up appointment with Dr. Mayorga in [place] starting in April 2024 with expertise in thyroid ultrasound Orders: Orders Thyroglobulin Tumor Marker Today C73 - Malignant neoplasm of thyroid gland Free T4 (Free Thyroxine) Today C73 - Malignant neoplasm of thyroid gland Thyroid Stimulating Hormone Today C73 - Malignant neoplasm of thyroid gland Coding Level of Care Code Est Pt Level 3 (68705) Diagnoses Primary thyroid cancer C73
== END 2024-03-12 09:43 | disposition home or self-care (01) ==
PROVIDERS: PCP Registered Nurse; Visit Provider Internal Medicine Endocrinology, Diabetes & Metabolism
DX: C73 Malignant neoplasm of thyroid gland (principal)
CPT/HCPCS: 99213

== ENCOUNTER → 2024-03-12 09:16 | Outpatient (BNVA) | payer MEDICAID, SELFPAY | PROVIDERS: PCP Registered Nurse; Visit Provider Internal Medicine Endocrinology, Diabetes & Metabolism | DX: C73 Malignant neoplasm of thyroid gland (principal) | CPT/HCPCS: 99212 ==

== ENCOUNTER 2024-03-12 09:56 | Outpatient (REF) | payer MEDICAID, SELFPAY ==
[2024-03-12 11:51] LABS: Free T4 (Free Thyroxine) 0.97 ng/dL (0.71-1.85); Thyroid Stimulating Hormone 4.69 uIU/mL (0.32-4.0)
[2024-03-15 03:09] LABS: Thyroglobulin Antibody <1 IU/mL (<=1)
[2024-03-15 05:39] LABS: Thyroglobulin Level 0.1 ng/mL
== END 2024-03-12 09:57 | disposition home or self-care (01) ==
LOC: HO.10HDL 09:56
PROVIDERS: Visit Provider Internal Medicine Endocrinology, Diabetes & Metabolism
DX: C73 Malignant neoplasm of thyroid gland (principal)
CPT/HCPCS: 36415; 84432; 84439; 84443; 86800; 99212

== ENCOUNTER 2024-04-10 14:55 | Outpatient (REF) | payer MEDICAID, SELFPAY ==
[2024-04-10 16:14] LABS: MANUAL DIFF FLAG NO
[2024-04-10 16:21] LABS: Basophils Percent Auto 0.7 % (0-2); Eosinophils Absolute Auto 0.3 X10*3/uL (0.0-0.4); Eosinophils Percent Auto 6.2 % (0-4); Hematocrit 39.7 % (37.0-47.0); Hemoglobin 13.1 g/dl (12.0-16.0); Imm Gran Abs Auto 0.02 X10*3/uL (0.00-0.03); Imm Gran Pct Auto 0.4 % (0.0-0.4); Lymphocytes Absolute Auto 1.2 X10*3/uL (1.2-4.9); Lymphocytes Percent Auto 21.9 % (20-40); Mean Corpuscular Hemoglobin 27.3 pg (27.0-33.0); Mean Corpuscular Volume 82.9 fL (80.0-98.0); Mean Platelet Volume 9.4 fL (9.4-12.3); Monocytes Absolute Auto 0.5 X10*3/uL (0.1-1.2); Monocytes Percent Auto 9.4 % (2-11); Neutrophils Absolute Auto 3.4 x10*3/uL (2.0-8.3); Neutrophils Percent Auto 61.4 % (45-73); Platelet Count 379 X10*3/uL (160-400); Red Blood Count 4.79 X10*6/uL (4.20-5.50); Red Cell Distribution Width 14.5 % (11.0-16.0); White Blood Count 5.5 X10*3/uL (4.8-10.8)
[2024-04-10 16:31] LABS: Anion Gap 13 (12-20); Blood Urea Nitrogen 12 mg/dL (9-16); Calcium 10.2 mg/dL (8.4-10.2); Carbon Dioxide 27 mmol/L (22-29); Chloride 102 mmol/L (96-108); Estimated Glomerular Filt Rate > 60; Glucose Random 102 mg/dL (60-115); Iron 63 mcg/dL (30-160); Percent Iron Saturation 20 % (15-50); Potassium 3.3 mmol/L (3.3-5.1); Sodium 139 mmol/L (135-145); Total Iron Binding Capacity 310 mcg/dL (228-428); Unsaturated Iron Binding 247 ug/dL
[2024-04-10 16:51] LABS: Ferritin 67 ng/mL (10-250); Free T4 (Free Thyroxine) 1.12 ng/dL (0.71-1.85); Thyroid Stimulating Hormone 3.45 uIU/mL (0.32-4.0)
[2024-04-10 17:04] LABS: Folate 13.4 ng/mL (> or = 4.0); Vitamin B12 475 pg/mL (200-900)
== END 2024-04-10 14:56 | disposition home or self-care (01) ==
LOC: HO.HHCL 14:55
PROVIDERS: Internal Medicine Endocrinology, Diabetes & Metabolism; Registered Nurse; Visit Provider Emergency Medicine
DX: E87.6 Hypokalemia (principal); I10 Essential (primary) hypertension; E89.0 Postprocedural hypothyroidism
CPT/HCPCS: 36415; 80048; 82607; 82728; 82746; 83540; 84439; 84443; 85025

== ENCOUNTER 2024-04-21 14:53 | Outpatient (REF) | payer MEDICAID, SELFPAY ==
[2024-04-21 16:43] LABS: Anion Gap 13 (12-20); Blood Urea Nitrogen 14 mg/dL (9-16); Calcium 9.4 mg/dL (8.4-10.2); Carbon Dioxide 26 mmol/L (22-29); Chloride 106 mmol/L (96-108); Estimated Glomerular Filt Rate > 60; Glucose Random 82 mg/dL (60-115); Potassium 3.3 mmol/L (3.3-5.1); Sodium 142 mmol/L (135-145)
== END 2024-04-21 14:54 | disposition home or self-care (01) ==
LOC: HO.HHCL 14:53
PROVIDERS: Visit Provider Emergency Medicine
DX: I10 Essential (primary) hypertension (principal)
CPT/HCPCS: 36415; 80048

== ENCOUNTER 2024-05-19 10:20 | Outpatient (AMB) | payer MEDICAID, SELFPAY ==
[2024-05-19 10:30] VITALS: BP 136/66; PULSE 85; BMI 41.8
--- NOTE | 2024-05-19 10:30 | MHC.OFFVIS ---
Vital Signs 05/19/24 10:30 Height 4 ft 3.8 in Weight 159 lb 6.307 oz BMI 41.8 BP 136/66 Blood Pressure Location Lt brachial Position Sitting Pulse 85 Pulse Source Pulse Oximeter Intake Visit Reasons: f/u thyroid cancer with Dr. Mayorga Intake Note: Patient present today for Hypothyroidism office visit. Geological Drafter Required: Yes Geological Drafter Language: Land Conservation Specialist Services: Geological Drafter Present Geological Drafter Name: Rene Information Interpreted: non-clinical & clinical Accompanied by: Self / Same As Patient Allergies acetaminophen [Percocet] Allergy (Unknown, Verified 03/12/24 09:27) Sneezing oxycodone [Percocet] Allergy (Unknown, Verified 03/12/24 09:27) Sneezing terazosin Allergy (Unknown, Uncoded 03/12/24 09:27) swelling/tiredness Medication List - Last Reconciled 05/19/24 by Kinsey Mayorga MD albuterol sulfate 1 amp inhalation Q4-6H PRN albuterol sulfate 90 mcg/actuation (ProAir HFA) 2 puffs inhalation Q6H PRN alendronate mg PO atorvastatin 1 tab PO QPM betamethasone dipropionate 0.05% topical buspirone 15 mg PO BID calcipotriene 0.005% 1 appl topical DAILY calcium citrate 500 mg (2 x 250 mg calcium) PO BID cetirizine 10 mg PO DAILY PRN cholecalciferol (vitamin D3) (Vitamin D3) 1 cap PO QAM citalopram 20 mg PO DAILY ferrous sulfate (FeroSul) 325 mg PO DAILY fluticasone propion-salmeterol 500-50 mcg/dose (Advair Diskus) 1 puff inhalation Q12H fluticasone propionate 50 mcg/actuation 1 - 2 sprays intranasal DAILY PRN hydrochlorothiazide 1 tab PO DAILY Levoxyl (levothyroxine) 125 mcg PO DAILY NS lidocaine 5% patches topical montelukast 1 tab PO BEDTIME olmesartan 20 mg PO DAILY omeprazole 1 cap PO DAILY potassium chloride ER 20 mEq PO Q4H sennosides (senna) 1 - 2 tabs PO QD-BID tramadol 1 tab PO Q12H PRN HPI Comments Details: 63-year-old female with past medical history significant for 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 She was previously seeing Dr. Ndiaye, then Dr. Gary, and briefly also saw Dr. Randa Mccarty in [place] for a 2nd opinion in 2021. Last visit with Dr. Gary March 2024 HPI of PTC Gathered from prior documentation 1996: Surgery at [facility]. 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 Status post left radical neck dissection and radioactive iodine ablation in 1996 and then again in 1998: For a total cumulative dose of 250 mCi. In 1998 stimulated TG level of 77 which prompted a 2nd dose of I 131. Per reports posttherapy whole-body scan revealed faint focus of uptake in the left lateral neck and upper abdomen, however CT was negative for any structural disease. 03/2000: Thyrogen stimulated whole-body scan negative for any abnormal uptake. TG levels remain less than 1 ng/mL. She was treated with Levoxyl 150 mcg with goal TSH 0.1-0.2 for many years. [id number]: Had undetectable TG, undetectable antibodies up to 2013. Somehow in 2016 she developed low titer of TG antibody around 4 and 5. 11/18/2018: Whole-body scan revealed no abnormal uptake, completed by withdrawal method, TSH of 42.3, TG was 5.6 12/11/2019: TSH 0.05, TG less than 0.4, TG antibody 2 09/08/2020: Ultrasound head and neck revealed no residual tissue in the thyroid bed, however noted to have normal-appearing lymph nodes in the right neck as well as left neck at level 1 A and 2 B noted. Also noted a left-sided level 3 lymph node measuring 0.9 cm with absent hilum and slit-like morphology, as well as a similar level 2 a lymph node measuring 0.8 cm. 11/22/2020: TSH 37.5, free T4 0.38, TG less than 0.1, TG antibody undetectable 08/08/2021: TSH 0.38, TG less than 0.1, TG antibody undetectable Subsequently she was unable to tolerate suppressive dose levothyroxine, dose was decreased to 112 mcg p.o. daily with goal TSH of 0.1-0.5. 10/03/2021: TSH 57.14, free T4 less than 0.4, stimulated TG 1.9, undetectable TG antibody 04/19/2022: Saw Dr. Randa Mccarty at [facility], she performed an ultrasound with multiple benign-appearing lymph nodes, noted bilaterally. Largest left level 6 lymph node measuring 1.4 cm. She also noted a 0.7 cm round hypoechoic lesion in the right level 6 below the carotid, not amenable to biopsy given location. 10/03/2023: TSH 1.44, TG less than 0.1, TG antibody <1 12/18/2023: Several right-sided level 1B, level 2, level 3 and level 4 nodes noted, with normal architecture. Left neck: Lymph nodes noted at level 1B, level 2. Level 3, 2.1 cm lymph node noted that was previously 1.7 cm in the maximum dimension. Level 4, 1.7 cm lymph node noted that was previously 1 cm in the maximum dimension, both of these have normal meagan architecture per report. Level 4 cystic 0.6 cm lymph node with absent hilum noted. I reviewed these images myself, in the nodes in the left neck at level 3 and 4, measuring 2.1 and 1.7 cm respectively, have normal meagan architecture with central hilum. 03/12/2024: TSH 4.69, TG 0.1, TG antibody less than 1 04/10/2024: TSH 3.45 Currently on levoxyl 125 mcg daily increased from 112 mcg in March 2024 Taking it appropirately, adherent No symptoms of hypo or hyperthyroidism No compressive symtoms No family history of thyroid nodule or cancer, no head or neck radiation in the past. Osteoporosis of the left hip Diagnosed December 2023 on bone density DXA scan 12/24 with comparison of baseline in 2019 I reviewed the images, shows T-score of -0.9 at the lumbar spine with 1.3% decrease from baseline, left radius T-score-0.3 2.3% decrease from baseline. At the left femoral neck T-score is reported as-3.6 and left femur total is reported T-score of-2.9 with 24% decrease in bone density from baseline. This appears highly inaccurate, when I reviewed the images, it seems like the box at the hip is jeff out in 1 of the regions, resulting in this reading. Fractures:None Treatment history : Fosamax 70 mg weekly started in 2023 per patient Mom had osteoporosis with no hip fracture Calcium and vitamin D: vitamin D 1000 units daily, calcium 500 mg BID, drinks multiple glasses of milk Review of systems Constitutional: no fevers, chills or weight loss HEENT: no changes in vision Cardiac: No chest pain, discomfort or palpitations. Pulmonary: No SOB GI:No abdominal pain, no nausea or vomiting, no anorexia, no blood in stool : no burning micturition, dysuria or increase in urinary frequency Neurologic: No dizziness, no weakness in extremities MSK: no back pain or joint stiffness Physical exam General: sitting comfortably in no acute distress HEENT: normocephalic/atraumatic,moist oral mucosa Neck: supple, symmetrical, no palpable masses or lymph nodes , no dorsocervical or supraclavicular fat pads Cardiac: normal heart sounds Pulm: normal breath sounds B/L, no added breath sounds Abd: not distended, no tenderness Extremities: no edema, no signs of myxedema Neuro: AAO x3, Speech: normal, no facial droop, moving all 4 extremities PFSH Medical History (Updated 05/19/24 @ 11:33 by Kinsey Mayorga MD) Osteoporosis Depression Anxiety Asthma Dyslipidemia Hypertension Osteopenia Post-surgical hypothyroidism Primary thyroid cancer Surgical History Hx of breast surgery Hx of knee surgery Hx of thyroidectomy Family History Father Unknown family medical history Mother Osteoporosis Diabetes Hypertension Social History Household Members: Children Housing: Apartment Do you presently have visiting nurse or other home services: Yes (STUDIO OPERATIONS ENGINEER IN CHARGE 1 HOUR /WEEK) Alcohol intake: current Alcohol intake frequency: holidays/special occasions only Alcohol type: beer Patient Tobacco Use Status: Former Tobacco user Substance Use Type: Marijuana service: No Current occupational status: retired Physical Exam Vital Signs: Last Vital Signs Pulse 85 05/19/24 10:30 BP 136/66 05/19/24 10:30 BMI result Body Mass Index 41.8 Results Reviewed Results Reviewed: Laboratory Tests 08/28/18 09/26/1810/14/19 11:38 11:20 10:54 Free T4 1.42 0.51 L < 0.40 L TSH Thyroglobulin Thyroglobulin LC-MS/MS <0.4 <0.4 Thyroglobulin Antibody 3 H 2 H 11/26/18 12/22/18 02/27/19 15:00 12:10 10:15 Free T4 < 0.40 L 1.14 1.35 TSH Thyroglobulin <0.1 Thyroglobulin LC-MS/MS 5.6 Thyroglobulin Antibody 2 H 1 06/01/19 09/08/19 12/22/19 11:06 09:50 10:00 Free T4 1.43 1.38 1.26 TSH Thyroglobulin <0.1 <0.1 Thyroglobulin LC-MS/MS <0.4 Thyroglobulin Antibody 1 1 2 H 11/22/20 08/08/21 10/03/21 13:55 13:32 16:57 Free T4 1.31 1.26 < 0.40 L TSH 0.02 L 0.38 57.14 H Thyroglobulin <0.1 <0.1 1.9 L Thyroglobulin LC-MS/MS Thyroglobulin Antibody <1 <1 <1 05/16/22 10/03/23 03/12/24 10:35 10:41 10:00 Free T4 1.17 1.24 0.97 TSH 0.62 1.44 4.69 H Thyroglobulin <0.1 L <0.1 0.1 H Thyroglobulin LC-MS/MS Thyroglobulin Antibody <1 <1 04/10/24 15:00 Free T4 1.12 TSH 3.45 Thyroglobulin Thyroglobulin LC-MS/MS Thyroglobulin Antibody DXA scan 12/24 with comparison of baseline in 2018 I reviewed the images, shows T-score of -0.9 at the lumbar spine with 1.3% decrease from baseline, left radius T-score-0.3 2.3% decrease from baseline. At the left femoral neck T-score is reported as-3.6 and left femur total is reported T-score of-2.9 with 24% decrease in bone density from baseline. This appears highly inaccurate, when I reviewed the images, it seems like the box at the hip is jeff out in 1 of the regions, resulting in this reading. US SOFT TISSUE NECK 12/18/23 CLINICAL INFORMATION: COMPARISON: None available. TECHNIQUE: Ultrasound of the neck soft tissues is performed with high- frequency torre-scale imaging and color Doppler. FINDINGS: THYROID BED: Prior thyroidectomy. No residual thyroid tissue demonstrated in the thyroid bed. No cystic or solid nodules demonstrated in the thyroid bed. RIGHT NECK SOFT TISSUES: Scattered architecturally normal nodes are present. The nodes show normal fatty hilus, normal cortical thickness, and no cystic change or calcification. No abnormal color flow. The largest nodes are as follows: Level 1B: 0.7 x 0.3 x 0.5 cm. Cystic with absent hilum. Prior: Not seen. Level 1B: 1.3 x 0.6 x 1.5 cm. Normal meagan architecture. Prior: 1.4 x 0.7 x 1.6 cm. Level 2: 0.3 x 0.5 x 0.5 cm. Normal meagan architecture. Prior: Not seen. Level 2: 2.1 x 0.5 x 1.0 cm. Normal meagan architecture. Prior: Not seen. Level 3: 0.4 x 0.3 x 0.4 cm. Normal meagan architecture. Prior: Not seen. Level 4: 1.3 x 0.3 x 0.7 cm. Normal meagan architecture. Prior: Not seen. LEFT NECK SOFT TISSUES: Scattered architecturally normal nodes are present. The nodes show normal fatty hilus, normal cortical thickness, and no cystic change or calcification. No abnormal color flow. The largest nodes are as follows: Level 1B: 1.1 x 0.6 x 0.6 cm. There is cortical thickening. Level 1B: 0.4 x 0.4 x 0.7 cm. Normal meagan architecture. Level 2: 0.3 x 0.5 x 0.5 cm. There is a slitlike hilum. Level 3: 2.1 x 0.6 x 1.5 cm. Normal meagan architecture. Prior: 1.6 x 0.6 x 1.7 cm. Level 4: 1.7 x 0.5 x 0.8 cm. Normal meagan architecture. Prior: 1.0 x 0.4 x 0.9 cm. Level 4: 0.6 x 0.4 x 0.5 cm. Cystic with absent hilum. 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 She initially had undetectable TG levels in the early 1999. [id number]: , undetectable antibodies up to 2013. in 2015 she developed low titer of TG antibody around 4 and 5. Whole-body scan in 2019 revealed no abnormal uptake however stimulated TG level was 5.6 consistent with FORTINO indeterminate response to therapy. Subsequently her stimulated TG has been in the range of 1.9-5.6. Subsequently her most recent TG levels unstimulated have gone down to 0.1. Most recently from March 2024. Her last ultrasound from from December 2023 reported some abnormal looking lymph nodes, however when I reviewed the images myself the lymph nodes appear normal to me. However given some stimulated TG elevations in the interim plus nonspecific changes on her previous ultrasounds, we would classify her as FORTINO indeterminate response to therapy. She is currently on Levoxyl 125 mcg daily. Her most recent TSH from April 2024 was 3.45, given FORTINO indeterminate response to therapy her goal TSH is between 0.1-0.5. We will increase her Levoxyl to 137 mcg daily. I will also have her repeat thyroglobulin tumor markers. Plan: -increase Levoxyl to 137 mcg daily -repeat TSH, free T4, TG and TG antibody levels in 6 weeks -ultrasound of the neck ordered for December 2024 which would be 1 year from the last 1, with follow up with me in clinic after (2) Post-surgical hypothyroidism: Code(s): E89.0 - Postprocedural hypothyroidism Category: Medical Plan: She is currently on Levoxyl 125 mcg daily. Her most recent TSH from April 2024 was 3.45, given FORTINO indeterminate response to therapy her goal TSH is between 0.1-0.5. We will increase her Levoxyl to 137 mcg daily. I will also have her repeat thyroglobulin tumor markers. Plan: -increase Levoxyl to 137 mcg daily -repeat TSH, free T4, TG and TG antibody levels in 6 weeks (3) Osteoporosis: Code(s): M81.0 - Age-related osteoporosis without current pathological fracture Category: Medical Qualifiers: Osteoporosis type: localized Presence of current pathological fracture: without current pathological fracture Qualified Code(s): M81.6 - Localized osteoporosis [Lequesne] Plan: I also reviewed the patient's bone density, she was diagnosed with osteoporosis in December 2023. She was started on Fosamax 70 mg weekly. DXA scan 12/24 with comparison of baseline in 2018 I reviewed the images, shows T-score of -0.9 at the lumbar spine with 1.3% decrease from baseline, left radius T-score-0.3 2.3% decrease from baseline. At the left femoral neck T-score is reported as-3.6 and left femur total is reported T-score of-2.9 with 24% decrease in bone density from baseline. This appears highly inaccurate, when I reviewed the images, it seems like the box at the hip is jeff out in 1 of the regions, resulting in this reading. She is on adequate amounts of vitamin-D and has a good calcium intake. I also advised her about weight-bearing exercise for bone health. However I would defer to primary care physician to repeat her bone density scan for more accurate reading for further management of osteoporosis. Plan: -primary care physician to consider repeating bone density Plan I spent 30 minutes in reviewing the record, seeing the patient and documenting in the medical record. Orders: Orders Thyroid Stimulating Hormone 6 Weeks C73 - Malignant neoplasm of thyroid gland, E89.0 - Postprocedural hypothyroidism Free T4 (Free Thyroxine) 6 Weeks C73 - Malignant neoplasm of thyroid gland, E89.0 - Postprocedural hypothyroidism Thyroglobulin Tumor Marker 6 Weeks C73 - Malignant neoplasm of thyroid gland, E89.0 - Postprocedural hypothyroidism Thyroglobulin 6 Weeks C73 - Malignant neoplasm of thyroid gland, E89.0 - Postprocedural hypothyroidism US soft tiss head and/or neck 11/24/24 C73 - Malignant neoplasm of thyroid gland Thyroglobulin Antibodies 6 Weeks C73 - Malignant neoplasm of thyroid gland, E89.0 - Postprocedural hypothyroidism Medications: New levothyroxine (Levoxyl) 137 mcg PO DAILY 30 tabs 6RF Discontinued Levoxyl (levothyroxine) Discontinued Reason: Patient no longer taking 125 mcg PO DAILY 30 tabs 5RF NS E89.0 - Postprocedural hypothyroidism Patient Instructions: Increase levoxyl to 137 mcg daily Do blood work in 6 weeks We will call you with results, make sure you get this call, if you dont hear back call our office for results during office hours Saturday to Saturday 8 to 4 Do ultrasound in December 2024 Follow up with me in clinic in December 2024 Aumentar levoxyl a 137 mcg al d?a Hacer an?lisis de courtney en 6 semanas. Lo llamaremos con los resultados, aseg?rese de recibir esta llamada, si no recibe respuesta, llame a nuestra oficina para obtener los resultados holli el horario de oficina de lunes a viernes de 8 a 4 Hacer ecograf?a en shreyas 2024. Seguimiento conmigo en la cl?alex en shreyas 2024. Coding Level of Care Code Est Pt Level 4 (23703) Complex EM visit Add On G2211 Diagnoses Primary thyroid cancer C73 Post-surgical hypothyroidism E89.0 Localized osteoporosis without current pathological fracture M81.6 Osteoporosis type: localized Presence of current pathological fracture: without current pathological fracture Time Spent (min) 30
== END 2024-05-19 11:12 | disposition home or self-care (01) ==
PROVIDERS: PCP Registered Nurse; Visit Provider Student in an Organized Health Care Education/Training Program
DX: C73 Malignant neoplasm of thyroid gland (principal); E89.0 Postprocedural hypothyroidism; M81.6 Localized osteoporosis [Lequesne]
CPT/HCPCS: 99214

== ENCOUNTER → 2024-05-19 10:20 | Outpatient (BNVA) | payer MEDICAID, SELFPAY | PROVIDERS: PCP Registered Nurse; Visit Provider Student in an Organized Health Care Education/Training Program | DX: C73 Malignant neoplasm of thyroid gland (principal); E89.0 Postprocedural hypothyroidism; M81.6 Localized osteoporosis [Lequesne] | CPT/HCPCS: 99212 ==

== ENCOUNTER 2024-07-02 13:16 | Outpatient (REF) | payer MEDICAID, SELFPAY ==
[2024-07-02 17:19] LABS: Free T4 (Free Thyroxine) 1.44 ng/dL (0.71-1.85); Thyroid Stimulating Hormone 0.21 uIU/mL (0.32-4.0)
[2024-07-03 12:24] LABS: Thyroglobulin <0.1 ng/mL; Thyroglobulin Antibodies <1 IU/mL (< or = 1)
[2024-07-07 05:08] LABS: Thyroglobulin Antibody <1 IU/mL (<=1); Thyroglobulin Level <0.1 ng/mL
== END 2024-07-02 13:17 | disposition home or self-care (01) ==
LOC: HO.HHCL 13:16
PROVIDERS: Visit Provider Student in an Organized Health Care Education/Training Program
DX: C73 Malignant neoplasm of thyroid gland (principal); E89.0 Postprocedural hypothyroidism
CPT/HCPCS: 36415; 84432; 84439; 84443; 86800

== ENCOUNTER 2024-10-28 10:11 | Outpatient (REF) | payer MEDICAID, SELFPAY ==
[2024-10-28 11:14] LABS: MANUAL DIFF FLAG NO
[2024-10-28 11:20] LABS: Basophils Percent Auto 0.9 % (0-2); Eosinophils Absolute Auto 0.4 X10*3/uL (0.0-0.4); Eosinophils Percent Auto 9.6 % (0-4); Hematocrit 33.5 % (37.0-47.0); Hemoglobin 11.1 g/dl (12.0-16.0); Imm Gran Abs Auto 0.01 X10*3/uL (0.00-0.03); Imm Gran Pct Auto 0.2 % (0.0-0.4); Lymphocytes Absolute Auto 1.1 X10*3/uL (1.2-4.9); Lymphocytes Percent Auto 25.2 % (20-40); Mean Corpuscular HGB Conc 33.1 g/dl (31.0-35.0); Mean Corpuscular Hemoglobin 27.5 pg (27.0-33.0); Mean Corpuscular Volume 82.9 fL (80.0-98.0); Mean Platelet Volume 9.1 fL (9.4-12.3); Monocytes Absolute Auto 0.5 X10*3/uL (0.1-1.2); Monocytes Percent Auto 10.7 % (2-11); Neutrophils Absolute Auto 2.3 x10*3/uL (2.0-8.3); Neutrophils Percent Auto 53.4 % (45-73); Platelet Count 344 X10*3/uL (160-400); Red Blood Count 4.04 X10*6/uL (4.20-5.50); Red Cell Distribution Width 13.7 % (11.0-16.0); White Blood Count 4.3 X10*3/uL (4.8-10.8)
[2024-10-28 11:26] LABS: Estimated Average Glucose 120 mg/dL; Hemoglobin A1c % 5.8 % (<6.0)
[2024-10-28 11:41] LABS: Alanine Aminotransferase 100 U/L (0-31); Alkaline Phosphatase 86 U/L (39-117); Anion Gap 11 (12-20); Aspartate Amino Transferase 36 U/L (5-31); Bilirubin Total 0.3 mg/dL (0.0-1.0); Blood Urea Nitrogen 19 mg/dL (9-16); Calcium 9.2 mg/dL (8.4-10.2); Carbon Dioxide 27 mmol/L (22-29); Chloride 107 mmol/L (96-108); Cholesterol 172 mg/dL (<200); Estimated Glomerular Filt Rate > 60; Glucose Random 103 mg/dL (60-115); HDL Cholesterol 57 mg/dL (>40); LDL Cholesterol Calculated 97 mg/dL (<100); Potassium 3.8 mmol/L (3.3-5.1); Sodium 141 mmol/L (135-145); Total Protein 7.6 g/dL (6.5-8.0); Triglycerides 93 mg/dL (<150)
[2024-10-28 11:48] LABS: TSH reflex Free T4 0.05 uIU/mL (0.32-4.0)
[2024-10-28 11:54] LABS: Thyroid Stimulating Hormone 0.05 uIU/mL (0.32-4.0)
[2024-10-28 12:19] LABS: Free T4 (Free Thyroxine) 1.44 ng/dL (0.71-1.85)
--- OUTSIDE RECORDS SUMMARY | 2024-10-28 12:21 | XMS_ITS | Encounter Summary ---
Author Organization [employer] Address [address] [facility] [place] [address] Care Team Providers Care Sample Tester Name Role Phone Mandie Fields Primary Care Provider [phone] Reason for Visit * Reason Onset Date Comments Chart Prep 10/23/2024 Encounter Details Date Type Department Care Team ([facility] st Contact Info) Description 10/23/2024 Telephone [facility] [address] [place] [address] Mandie Fields FNP [address] [place], [place] [id number] Chart Prep Social History Tobacco Use Types Packs/Day Years Used Date Smoking Tobacco: Never Smokeless Tobacco: Never Alcohol Use Standard Drinks/Week Comments Yes 2 (1 standard drink = 0.6 oz pur e alcohol) Special occasions Depression Answer Date Recorded Patient Health Questionnaire-9 Score 10 08/14/2023 Patient Health Questionnaire-9 Score 10 08/14/2023 Last PHQ-9: Questionnaire Data Not on file 1 10/15/2022 Housing Stability Answer Date Recorded What is your housing situation today? I have johnathan conway 10/14/[address] you li ve. Do you have problems with any of the following? None of the above 10/14/2024 Food Insecurity Answer Date Recorded Within the past 12 months, y ou worried that your food would run out before you got money to buy more: Often true 10/14/2024 Within the past 12 months,th e food you bought just didn't last and you didn't have enough money to get more: Often true 08/2025 Transportation Answer Date Recorded In the past 12 months, has l ack of transportation kept you from medical appts, meetings, work or from getting things needed for daily living? No 10/14/2024 Utilities Answer Date Recorded In the past 12 months, has t he electric, gas, oil or water company threatened to shut off services in your home? No 10/14/2024 Depression Answer Date Recorded Patient Health Questionnaire-2 Score 2 08/14/2023 Internet Access Answer Date Recorded Internet Access Q1 No 10/14/2024 Internet Access Q2 I do not want or need it 10/03 Comments Unknown Sex and Gender Information Value Date Recorded Sex Assigned at Female 07/02/2022 10:14 AM EDT Legal Sex Female 10:14 AM EDT Gender Identity Female 07/02/2022 10:14 AM EDT Sexual Orientation Don't know 07/02/2022 10 :14 AM EDT documented as of this encounter Miscellaneous Notes * Telephone Encounter - Keeley Yeung [place] - 10/23/2024 9:51 AM EST Chart Prep Labs: not applicable Images: not applicable Vaccines due: Covid Due, Flu Due, and RSV in Pharmacy Due Referrals: Not Applicable Screenings: Colonoscopy , PAP, and Mammogram Overdue care gaps: Sbirt and PHQ-9 documented in this encounter Plan of Treatment Upcoming Encounters Date Type Department Care Team ([facility] st Contact Info) Description 01/27/2025 9:45 AM EDT Office Visit [facility] [address] [place] [address] Mandie Fields FNP [address] [place] [address] documented as of this encounter Visit Diagnoses Not on filedocumented in this encounter Additional Health Concerns Assessment Noted Time PHQ-9 Depression Total Score: 10 023 9:34 AM EST documented as of this encounter Care Teams Sample Tester Relationship Specialty Start Date End Date Mandie Fielsd FNP [address] [place] [address] PCP - General Family Medicine 05/01/22 documented as of this encounter
--- OUTSIDE RECORDS SUMMARY | 2024-10-28 12:21 | XMS_ITS | Encounter Summary ---
Author Organization [employer] Address [address] [facility] [address] [place] [address] Care Team Providers Care Casino Gaming Worker Name Role Phone Mandie Fields Primary Care Provider [phone] Reason for Visit * Reason Comments Med Refill Encounter Details Date Type Department Care Team ([facility] st Contact Info) Description 10/14/2024 Refill [facility] [address] [place], [place] [phone] Mandie Fields FNP [address] [place] [address] Depressive disorder Social History Tobacco Use Types Packs/Day Years [...] AM EDT documented as of this encounter Plan of Treatment Upcoming Encounters Date Type Department Care Team (Late st Contact Info) Description 01/27/2025 9:45 AM EDT Office Visit [facility] MEDICINE [address] [place] [address] Mandie Fields FNP [address] [place] [address] documented as of this encounter Visit Diagnoses Diagnosis Depressive disorder Depressive disorder, not elsewhere classified documented in this encounter Additional Health Concerns Assessment Noted Time PHQ-9 Depression Total Score: 10 023 9:34 AM EST documented as of this encounter Care Teams Casino Gaming Worker Relationship Specialty Start Date End Date Mandie Fields FNP [address] [place] [address] PCP - General Family Medicine 05/01/22 documented as of this encounter
--- OUTSIDE RECORDS SUMMARY | 2024-10-28 12:21 | XMS_ITS | Encounter Summary ---
Author Organization [employer] Address [address] [facility] 7t [place] [address] Care Team Providers Care Food And Beverage Director Name Role Phone Mandie Fields Primary Care Provider [phone] Reason for Visit * Reason Comments Care Coordination CHW outreach for SDO H food needs-referral completed Encounter Details Date Type Department Care Team (Latest Contact Info) Description 10/14/2024 Patient Outreach [facility] [address] [place], [place] [phone] Mandie Fields FNP [address] [place] [address] Care Coordination (CHW outreach for SDOH food needs-referral completed /) Social History Tobacco Use Types Packs/Day Years [...] AM EDT documented as of this encounter Progress Notes * Arvin Baldwin - 10/14/2024 2:37 PM EST CHW Arvin Baldwin, placed outbound call to patient for assistance with SDOH as a referral was received by the provider. Patient's name and were confirmed. Patient screened positive for the following SDOH food insecurities. CHW referred patient to the HIP program and [facility] pantries in the local area. Patient agree to follow up with plan. Patient educated on extended clinic hours on Mondays thro wednesdays, and Walk-In Urgent Care Located in [facility]. Patient provided with after-hours line for [facility], , which offer night time triage service and option to transfer to lockstitch front maker provider if needed. documented in this encounter Plan of Treatment Upcoming Encounters Date Type Department Care Team (Late st Contact Info) Description 01/27/2025 9:45 AM EDT Office Visit [facility] [address] [place] [address] Mandie Fields FNP [address] [place] [address] documented as of this encounter Visit Diagnoses Not on filedocumented in this encounter Additional Health Concerns Assessment Noted Time PHQ-9 Depression Total Score: 10 023 9:34 AM EST documented as of this encounter Care Teams Food And Beverage Director Relationship Specialty Start Date End Date Mandie Fields FNP [address] [place] [address] PCP - General Family Medicine 05/01/22 documented as of this encounter
--- OUTSIDE RECORDS SUMMARY | 2024-10-28 12:21 | XMS_ITS | Encounter Summary ---
Author Organization [employer] Address [address] [facility] 7t [place] [address] Care Team Providers Care Bowling Teacher Name Role Phone Mandie Fields Primary Care Provider [phone] Reason for Visit * Reason Comments Med Refill Encounter Details Date Type Department Care Team ([facility] st Contact Info) Description 10/26/2024 Refill [facility] [address] [place], [place] [phone] Mandie Fields FNP [address] [place] [address] Gastroesophageal reflux disease, unspecified whether esophagitis present; Essential hypertension; Moderate persistent asthma without complication Social History Tobacco Use Types Packs/Day Years Used Date Smoking Tobacco: Never Smokeless Tobacco: Never Alcohol Use Standard Drinks/Week Comments Yes 2 (1 standard drink = 0.6 oz pur e alcohol) Special occasions Depression Answer Date Recorded Patient Health Questionnaire-9 Score 11 10/28/2024 Patient Health Questionnaire-9 Score 11 10/28/2024 Last PHQ-9: Questionnaire Data Not on file 0 10/28/2024 Housing Stability Answer Date Recorded What is [...] Answer Date Recorded Patient Health Questionnaire-2 Score 4 10/28/2024 Internet Access Answer Date Recorded Internet Access [...] Description 01/27/2025 9:45 AM EDT Office Visit [facility] [address] [place] [address] Mandie Fields FNP [address] [place] [address] documented as of this encounter Visit Diagnoses Diagnosis Gastroesophageal reflux disease, unspecified whether esophagitis present Essential hypertension Unspecified essential hypertension Moderate persistent asthma without complication documented in this encounter Additional Health Concerns Assessment Noted Time PHQ-9 Depression Total Score: 10 023 9:34 AM EST documented as of this encounter Care Teams Bowling Teacher Relationship Specialty Start Date End Date aMndie Fields FNP [address] [place] [address] PCP - General Family Medicine 05/01/22 documented as of this encounter
--- OUTSIDE RECORDS SUMMARY | 2024-10-28 12:21 | XMS_ITS | Encounter Summary ---
Author Organization [employer] [facility] Address [address] [facility] 7t [place] [address] Care Team Providers Care Gatehouse Attendant Name Role Phone Mandie Fields Primary Care Provider [phone] Reason for Referral * Imaging (Routine) - Authorized Specialty Diagnoses / Procedures Referred By Darian santiago Referred To Contact Radiology Diagnoses Encounter for screening mammogram for malignant neoplasm of breast Procedures BI Mammogram Screening Tomosynthesis Bilateral Mandie Fields FNP [address] [place] [address] Phone: tel: fax: [address] Phone: tel: fax: Referral ID Status Reason Start Date Expiration Date V isits Requested Visits Authorized [id number] Authorized 10/28/2024 10/28/2025 1 1 * Consultation (Routine) - Authorized Specialty Diagnoses / Procedures Referred By Darian santiago Referred To Contact Gastroenterology Diagnoses Colon cancer screening Mandie Fields FNP [address] [place] [address] Phone: tel: fax: Delon Torres MD [address] [place] [address] [place] [phone] Phone: tel: Referral ID Status Reason Start Date Expiration Date Visits Requested Visits Authorized [id number] Authorized Specialty Services Required 10/28/2024 10/28/2025 1 1 Encounter Details Date Type Department Care Team (Latest Contact Info) Description 10/28/2024 9:15 AM EST Office Visit [facility] [address] [place] [address] Mandie Fields FNP [address] [place] [address] Postoperative hypothyroidism (Primary Dx); Routine health maintenance; Encounter for immunization; Dietary counseling; Exercise counseling; Moderate persistent asthma without complication; Essential hypertension; Depressive disorder; Gastroesophageal reflux disease, unspecified whether esophagitis present; Moderate persistent asthma without complication; Hyperlipidemia, unspecified hyperlipidemia type; Osteoporosis without current pathological fracture, unspecified osteoporosis type; Vitamin D deficiency; Colon cancer screening; TSH (thyroid-stimulating hormone deficiency); Encounter for screening for infections with a predominantly sexual mode of transmission; Asymptomatic neurosyphilis; Chronic pain of both knees; Primary osteoarthritis of right knee; Encounter for screening mammogram for malignant neoplasm of breast Social History Tobacco Use Types Packs/Day Years [...] AM EDT documented as of this encounter Last Filed Vital Signs Vital Sign Reading Time Taken Comments Blood Pressure 132/64 10/28/2024 9:05 AM EST Pulse 95 10/28/2024 9:04 AM EST Temperature 36 ??C (96.8 ??F) 10/28/2024 9:04 AM EST Respiratory Rate 19 10/28/2024 9:04 AM EST Oxygen Saturation 98% 10/28/2024 9:04 AM EST Inhaled Oxygen Concentration - - Weight 73.7 kg (162 lb 8 oz) 10/28/2024 9:04 AM EST Height 157.5 cm (5' 2 ) 10/28/2024 9:04 AM EST Body Mass Index 29.72 10/28/2024 9:04 AM EST documented in this encounter Miscellaneous Notes * Assessment & Plan Note - IVANIA Boswell - 10/28/2024 9:13 AM ESTAssociated Problem(s): Depressive disorder -Continue following with behavioral health Reyna -Cont current med regimen: buspirone 15mg BID and citalopram 20mg daily * Assessment & Plan Note - IVANIA Boswell - 10/28/2024 9:13 AM ESTAssociated Problem(s): Moderate persistent asthma -Maintenance: Advair 1 puff BID, montelukast 10mg PO nightly -Rescue: albuterol PRN -Using rescue approx 2x/month, no night time coughing/awakenings. Well controlled. * Assessment & Plan Note - IVANIA Boswell - 10/28/2024 6:55 AM ESTAssociated Problem(s): Routine health maintenance -Pap: 09/27/20 NIL/HPV neg -Smoking status: former -Mammo: BIRADS 2020, repeat pending -DEXA: Jun 2019, osteopenia T-score -1.8. Re-ordered 09/05/23. -Colonoscopy: December 2014, normal. -Optometry: referral to [facility] eye care previously placed documented in this encounter Plan of Treatment Upcoming Encounters Date Type Department Care Team (Late st Contact Info) Description 01/27/2025 9:45 AM EDT Office Visit [facility] [address] [place] [address] Mandie Fields FNP [address] [place] [address] Scheduled Orders Name Type Priority Associated Diagnoses Orde r Schedule Chlamydia/N. Gonorrhoeae RNA, TMA, Urogenitial Microbiology Routine Routine health maintenance Encounter for screening for infections with a predominantly sexual mode of transmission Expected: 10/28/2024, Expires: 10/28/2025 Hepatitis C Viral RNA, Quantitative, Real-Time PCR Lab Routine Routine health maintenance Expected: 10/28/2024 (Approximate), Expires: 10/28/2025 RPR (Monitor) with Reflex to??Titer Lab Routine Routine health maintenance Encounter for screening for infections with a predominantly sexual mode of transmission Expected: 10/28/2024 (Approximate), Expires: 10/28/2025 HIV-1/2 Antigen and Antibodies, Fourth Generation, with Reflexes Lab Routine Routine health maintenance Expected: 10/28/2024 (Approximate), Expires: 10/28/2025 Hepatitis B Core Antibody, Total Lab Routine Routine health maintenance Asymptomatic neurosyphilis Expected: 10/28/2024 (Approximate), Expires: 10/28/2025 Hepatitis B Surface Antibody, Qualitative Lab Routine Routine health maintenance Encounter for screening for infections with a predominantly sexual mode of transmission Expected: 10/28/2024 (Approximate), Expires: 10/28/2025 Hepatitis B surface antigen, EIA Lab Routine Routine health maintenance Encounter for screening for infections with a predominantly sexual mode of transmission Expected: 10/28/2024 (Approximate), Expires: 10/28/2025 BI Mammogram Screening Tomosynthesis Bilateral Imaging Routine Encounter for screening mammogram for malignant neoplasm of breast Expected: 10/28/2024, Expires: 12/26/2025 Scheduled Referrals Name Type Priority Associated Diagnoses Order Schedule Referral to Gastroenterology Outpatient Referral Routine Colon cancer screening Expected: 10/28/2024 (Approximate), Expires: 10/28/2025 documented as of this encounter Procedures Procedure Name Priority Date/Time Associated Diagnosis Comments TSH W/REFLEX TO FT4 Routine 10/28/2024 1 0:15 AM EST Routine health maintenance CBC WITH AUTO DIFFERENTIAL Routine 10/28/2024 10:15 AM EST Routine health maintenance HEMOGLOBIN A1C Routine 10/28/2024 10:15 AM EST Routine health maintenance LIPID PANEL, STANDARD Routine 10/28/2024 10:15 AM EST Routine health maintenance COMPREHENSIVE METABOLIC PANEL Routine 10/28/2024 10:15 AM EST Routine health maintenance documented in this encounter Results * (ABNORMAL) TSH W/Reflex to FT4 (10/28/2024 10:15 AM EST) TSH reflex Free T4 0.05(L) 0.32 - 4.0 uIU/mL [facility] Blood Venous blood specimen / Unknown 10/28/2024 10:15 AM EST 10/28/2024 11:08 AM EST us Mandie Fields VICE PRESIDENT OF TALENT MANAGEMENT LAB BLOOD ORDERABLES Final Res ult [facility] [address] [place] [address] [phone] * (ABNORMAL) CBC auto differential (10/28/2024 10:15 AM EST) White Blood Count 4.3(L) 4.8 - 10.8 X10*3/uL [facility] Red Blood Count 4.04(L) 4.20 - 5.50 X10*6/uL [facility] Hemoglobin 11.1(L) 12.0 - 16.0 g/dl [facility] Hematocrit 33.5(L) 37.0 - 47.0 % [facility] Mean Corpuscular Volume 82.9 80.0 - 98.0 fL [facility] Mean Corpuscular Hemoglobin 27.5 27.0 - 33.0 pg [facility] Mean Corpuscular HGB Conc 33.1 31.0 - 35.0 g/dl [facility] Red Cell Distribution Width 13.7 11.0 - 16.0 % [facility] Platelet Count 344 160 - 400 X10*3/uL [facility] Mean Platelet Volume 9.1(L) 9.4 - 12.3 fL [facility] Neutrophils Percent Auto 53.4 45 - 73 % [facility] Imm Gran Pct Auto 0.2 0.0 - 0.4 % [facility] Lymphocytes Percent Auto 25.2 20 - 40 % [facility] Monocytes Percent Auto 10.7 2 - 11 % [facility] Eosinophils Percent Auto 9.6(H) 0 - 4 % [facility] Basophils Percent Auto 0.9 0 - 2 % [facility] NRBC Pct Auto 0.0 0.0 - 0.2 /100WBC [facility] Neutrophils Absolute Auto 2.3 2.0 - 8.3 x10*3/uL [facility] Imm Gran Abs Auto 0.01 0.00 - 0.03 X10*3/uL [facility] Lymphocytes Absolute Auto 1.1(L) 1.2 - 4.9 X10*3/uL [facility] Monocytes Absolute Auto 0.5 0.1 - 1.2 X10*3/uL [facility] Eosinophils Absolute Auto 0.4 0.0 - 0.4 X10*3/uL [facility] Basophils Absolute Auto 0.0 0.0 - 0.2 X10*3/uL [facility] NRBC Abs Auto 0.000 0.0 - 0.012 X10*3/uL [facility] Blood Venous blood specimen / Unknown 10/28/2024 10:15 AM EST 10/28/2024 11:08 AM EST us Mandie Fields VICE PRESIDENT OF TALENT MANAGEMENT LAB BLOOD ORDERABLES Final Res ult [facility] [address] [place] [address] [phone] * (ABNORMAL) Comprehensive Metabolic Panel (10/28/2024 10:15 AM EST) Sodium 141 135 - 145 mmol/L [facility] Potassium 3.8 3.3 - 5.1 mmol/L [facility] Chloride 107 96 - 108 mmol/L [facility] Carbon Dioxide 27 22 - 29 mmol/L [facility] Anion Gap 11(L) 12 - 20 [facility] Urea Nitrogen (BUN) 19(H) 9 - 16 mg/dL [facility] Creatinine, Serum 0.78 0.5 - 1.4 mg/dL [facility] Estimated Glomerular Filt Rate >60 [facility] Comment:Chronic Kidney Disea se: Estimated GFR < 60 mL/min/1.67d5Flddii Kidney Disease: Estimated GFR < 15 mL/min/1.73m2 Glucose 103 60 - 115 mg/dL [facility] Calcium 9.2 8.4 - 10.2 mg/dL [facility] Bilirubin, Total 0.3 0.0 - 1.0 mg/dL [facility] Aspartate Amino Transferase 36(H) 5 - 31 U/L [facility] Alanine Aminotransferase 100(H) 0 - 31 U/L [facility] Total Protein 7.6 6.5 - 8.0 g/dL [facility] Albumin Level 4.0 3.5 - 5.0 g/dL [facility] Alkaline Phosphatase 86 39 - 117 U/L [facility] Blood Venous blood specimen / Unknown 10/28/2024 10:15 AM EST 10/28/2024 11:08 [address] [facility] BLOOD ORDERABLES Final Res ult Performing Organization Address [facility] Co de Phone Number [facility] [address] [place] [phone] * Hemoglobin A1c (10/28/2024 10:15 AM EST) Hemoglobin A1c 5.8 <6.0 % [facility] Comment:Hemoglobin A1C Refer ence Range Adults: 4.8 - 6.0 % Non diabetic: < 6.0 % Goal: < 7.0 %Additional Action Suggested: > 8.0 %Note: Hemoglobin A1c results are invalid for patients with abnormal amounts of HbF. Blood transfusions may impact the HbA1c concentration in the patient sample. Estimated Average Glucose 120 mg/dL [facility] Comment:eAG = Estimated ave rage glucose which is %A1C expressed asaverage glucose, using the formula of the [id number]-[id number] Glucose study (ADAG), Diabetes Care, Vol.31,#8,Apr. 2007 Blood Venous blood specimen / Unknown 10/28/2024 10:15 AM EST 10/28/2024 11:08 AM EST Mandie Fields VICE PRESIDENT OF TALENT MANAGEMENT LAB BLOOD ORDERABLES Final Res ult Performing Organization Address [facility] Co de Phone Number [facility] [address] [place] [phone] * Lipid Panel, Standard (10/28/2024 10:15 AM EST) Triglycerides 93 <150 mg/dL [facility] Comment:Desirable Triglyceri de: less than 150 mg/dLBorderline High Triglyceride 150-199 mg/dLHigh Triglyceride: 200-499 mg/dLVery High Triglyceride: greater than or equal to 5OO mg/dL Cholesterol 172 <200 mg/dL [facility] Comment:Desirable Cholestero l: less than 200 mg/dLBorderline High Cholesterol: 200-239 mg/dLHigh Cholesterol: greater than 239 mg/dL LDL Cholesterol Calculated 97 <100 mg/dL [facility] Comment:Desirable LDL: less than 100 mg/dLNear Optimal/Above Optimal LDL: 110- 129 mg/dLBorderline High LDL: 130-159 mg/dLHigh LDL: 160-189 mg/dLVery High LDL: greater than or equal to 190 mg/dL HDL Cholesterol 57 >40 mg/dL [facility] Comment:Desirable HDL: great er than 40 mg/dL Note: This HDL assay may give artificially low results in patients with liver disease. Blood Venous blood specimen / Unknown 10/28/2024 10:15 AM EST 10/28/2024 11:08 AM EST us Mandie REDD LAB BLOOD ORDERABLES Final Res ult [facility] [address] [place] [phone] documented in this encounter Visit Diagnoses Diagnosis Postoperative hypothyroidism- Primary Postsurgical hypothyroidism Routine health maintenance Unspecified examination Encounter for immunization Dietary counseling Dietary surveillance and counseling Exercise counseling Moderate persistent asthma without complication Essential hypertension Unspecified essential hypertension Depressive disorder Depressive disorder, not elsewhere classified Gastroesophageal reflux disease, unspecified whether esophagitis present Hyperlipidemia, unspecified hyperlipidemia type Osteoporosis without current pathological fracture, unspecified osteoporosis type Vitamin D deficiency Colon cancer screening Special screening for malignant neoplasms, colon TSH (thyroid-stimulating hormone deficiency) Other specified acquired hypothyroidism Encounter for screening for infections with a predominantly sexual mode of transmission Asymptomatic neurosyphilis Chronic pain of both knees Primary osteoarthritis of right knee Encounter for screening mammogram for malignant neoplasm of breast documented in this encounter Additional Health Concerns Assessment Noted Time PHQ-9 Depression Total Score: 11 025 9:09 AM EST documented as of this encounter Care Teams Gatehouse Attendant Relationship Specialty Start Date End Date Mandie Fields FNP [address] [place] [address] PCP - General Family Medicine 05/01/22 documented as of this encounter
--- OUTSIDE RECORDS SUMMARY | 2024-10-28 12:21 | XMS_ITS | Encounter Summary ---
Author Organization [employer] Address [address] [facility] [address] [place] [address] Care Team Providers Care Beehive Kiln Supervisor Name Role Phone Mandie Fields IVANIA Primary Care Provider [phone] Encounter Details Date Type Department Care Team (Latest Contact Info) Description 10/28/2024 Travel Social History Tobacco Use Types Packs/Day Years [...] Description 01/27/2025 9:45 AM EDT Office Visit [facility] [address] [place] [address] Mandie Fields FNP [address] [place] [address] documented as of this encounter Visit Diagnoses Not on filedocumented in this encounter Additional Health Concerns Assessment Noted Time PHQ-9 Depression Total Score: 11 025 9:09 AM EST documented as of this encounter Care Teams Beehive Kiln Supervisor Relationship Specialty Start Date End Date Mandie Fields FNP [address] [place] [address] PCP - General Family Medicine 05/01/22 documented as of this encounter
--- OUTSIDE RECORDS SUMMARY | 2024-10-28 12:21 | XMS_ITS | Encounter Summary ---
Author Organization [employer] Address [address] [facility] [address] [place] [address] Care Team Providers Care Farm Boss Name Role Phone Mandie Fields Primary Care Provider [phone] Reason for Visit * Reason Comments Pre-visit Planning SDOH Screening negat dayanara and Tobacco screening negative Encounter Details Date Type Department Care Team ([facility] st Contact Info) Description 10/14/2024 Patient Outreach [facility] [address] [place], [place] [phone] Mandie Fields FNP [address] [place], [place] [phone] Pre-visit Planning (SDOH Screening negative and Tobacco screening negative) Social History Tobacco Use Types Packs/Day Years [...] as of this encounter Progress Notes * Radha Osuna - 10/14/2024 2:19 PM EST KARO Coffman placed successful outbound call to patient for pre-visit planning. Patient name and confirmed. Patient confirms appt date and time, and has transportation arrangements. Biggest concern for appointment at this time is no concerns. Patient advised to bring to appointment a photo id and insurance card. Appropriate screenings completed in anticipation of appointment. SDOH positive. Patient looking for assistance with Food insecurities. Referral will be placed. documented in this encounter Plan of Treatment Upcoming Encounters Date Type Department Care Team (Late st Contact Info) Description 01/27/2025 9:45 AM EDT Office Visit [facility] [address] [place] [address] Mandie Fields FNP [address] [place] [address] documented as of this encounter Visit Diagnoses Not on filedocumented in this encounter Additional Health Concerns Assessment Noted Time PHQ-9 Depression Total Score: 10 023 9:34 AM EST documented as of this encounter Care Teams Farm Boss Relationship Specialty Start Date End Date Mandie Fields FNP [address] [place] [address] PCP - General Family Medicine 05/01/22 documented as of this encounter
--- OUTSIDE RECORDS SUMMARY | 2024-10-28 12:21 | XMS_ITS | Encounter Summary ---
Author Organization [employer] Address [address] [place] [address] Care Team Providers Care Melter Helper Name Role Phone Mandie Fields IVANIA Primary Care Provider [phone] Encounter Details Date Type Department Care Team (Late st Contact Info) Description 10/28/2024 Orders Only GENERIC EXTERNAL DATA DEPARTMENT Provider, Generic External Data Social History Tobacco Use Types Packs/Day Years [...] Description 01/27/2025 9:45 AM EDT Office Visit [facility] MEDICINE [address] [place] [address] Mandie Fields, IVANIA [address] [place] [address] documented as of this encounter Procedures Procedure Name Priority Date/Time Associated Diagnosis Comments TSH Routine 10/28/2024 10:15 AM EST T4, FREE Routine 10/28/2024 10:15 AM EST documented in this encounter Results * T4, Free (10/28/2024 10:15 AM EST) Free T4 (Free Thyroxine) 1.44 0.71 - 1.85 ng/dL [facility] 10/28/2024 10:1 5 AM EST 10/28/2024 11:08 AM EST us Generic External Data Provider LAB BLOOD ORDERAB LES Final Result [facility] [address] [place] [phone] * (ABNORMAL) TSH (10/28/2024 10:15 AM EST) Thyroid Stimulating Hormone 0.05(L) 0.32 - 4.0 uIU/mL [facility] Comment:TSH 3rd Generation ( [facility]) 10/28/2024 10:1 5 AM EST 10/28/2024 11:08 AM EST us Generic External Data Provider LAB BLOOD ORDERAB LES Final Result [facility] [address] [place] [address] [phone] documented in this encounter Visit Diagnoses Not on filedocumented in this encounter Additional Health Concerns Assessment Noted Time PHQ-9 Depression Total Score: 11 025 9:09 AM EST documented as of this encounter Care Teams Melter Helper Relationship Specialty Start Date End Date Mandie Fields FNP [address] [place] [address] PCP - General Family Medicine 05/01/22 documented as of this encounter
--- OUTSIDE RECORDS SUMMARY | 2024-10-28 12:22 | XMS_ITS | Encounter Summary ---
Author Organization [employer] Address [address] [facility] [address] [place] [address] Care Team Providers Care Licensed Funeral Director And Embalmer Name Role Phone Mandie Fields Primary Care Provider [phone] Reason for Visit * Reason Comments Med Refill Encounter Details Date Type Department Care Team ([facility] st Contact Info) Description 04/10/2024 Refill [facility] MED & PEDS [address] [place], [place] [phone] Mandie Fields FNP [address] [place], [place] [phone] Essential (primary) hypertension Social History Tobacco Use Types Packs/Day Years [...] housing situation today? I have johnathan conway 06/18/[address] you li ve. Do you have problems with any of the following? None of the above 06/18/2023 Food Insecurity Answer Date Recorded Within the past 12 months, y ou worried that your food would run out before you got money to buy more: Never True 06/18/2023 Within the past 12 months,th e food you bought just didn't last and you didn't have enough money to get more: Never True Transportation Answer Date Recorded In the past 12 months, has l ack of transportation kept you from medical appts, meetings, work or from getting things needed for daily living? Yes, it has kept me from medical appointments or getting medications. 09/04/2023 Utilities Answer Date Recorded In the past 12 months, has t he electric, gas, oil or water company threatened to shut off services in your home? No 06/18/2023 Depression Answer Date Recorded Patient Health Questionnaire-2 Score 2 08/14/2023 Comments Unknown Sex and Gender Information Value [...] Office Visit [facility] MEDICINE [address] [place] [address] Mandie Fields FNP [address] [place] [address] documented as of this encounter Visit Diagnoses Diagnosis Essential (primary) hypertension Unspecified essential hypertension documented in this encounter Additional Health Concerns Assessment Noted Time PHQ-9 Depression Total Score: 10 023 9:34 AM EST documented as of this encounter Care Teams Licensed Funeral Director And Embalmer Relationship Specialty Start Date End Date Mandie Fields FNP [address] [place] [address] PCP - General Family Medicine 05/01/22 documented as of this encounter
--- OUTSIDE RECORDS SUMMARY | 2024-10-28 12:22 | XMS_ITS | Encounter Summary ---
Author Organization [employer] Address [address] [facility] [address]t [place] [address] Care Team Providers Care Individualized Education Plan Aide Name Role Phone Mandie Fields Primary Care Provider [phone] Encounter Details Date Type Department Care Team ([facility] st Contact Info) Description 08/15/2023 Abstract [facility] [address] [place] [address] Mandie Fields FNP [address] [place] [address] Social History Tobacco Use Types Packs/Day Years [...] getting things needed for daily living? No 06/18/2023 Utilities Answer Date Recorded In the past [...] Description 01/27/2025 9:45 AM EDT Office Visit [facility] [address] [place] [address] Mandie Fields FNP [address] [place] [address] documented as of this encounter Visit Diagnoses Not on filedocumented in this encounter Additional Health Concerns Assessment Noted Time PHQ-9 Depression Total Score: 10 023 9:34 AM EST documented as of this encounter Care Teams Individualized Education Plan Aide Relationship Specialty Start Date End Date Mandie Fields FNP [address] [place] [address] PCP - General Family Medicine 05/01/22 documented as of this encounter
--- OUTSIDE RECORDS SUMMARY | 2024-10-28 12:22 | XMS_ITS | Encounter Summary ---
Author Organization [facility] Address [address] [place] [address] 7t [place] [address] Care Team Providers Care Child Psychiatrist Name Role Phone Mandie Fields Primary Care Provider [phone] Reason for Visit * Reason Comments Med Refill Encounter Details Date Type Department Care Team (Late st Contact Info) Description 04/04/2023 Refill [facility] MEDICINE [address] [place], [place] [phone] Mandie Fields FNP [address] [place], [place] [phone] Moderate persistent asthma without complication Social History Tobacco Use Types Packs/Day Years Used Date Smoking Tobacco: Never Smokeless Tobacco: Never Alcohol Use Standard Drinks/Week Comments Yes 2 (1 standard drink = 0.6 oz pur e alcohol) Special occasions Depression Answer Date Recorded Patient Health Questionnaire-9 Score 10 08/03/2022 Depression Answer Date Recorded Patient Health Questionnaire-2 Score 5 08/03/2022 Comments Unknown Sex and Gender Information Value Date Recorded Sex Assigned at Female 07/02/2022 10:14 AM EDT Legal Sex Female 10:14 AM EDT Gender Identity Female 07/02/2022 10:14 AM EDT Sexual Orientation Don't know 07/02/2022 10 :14 AM EDT documented as of this encounter Plan of Treatment Upcoming Encounters Date Type Department Care Team (Late Contact Info) Description 01/27/2025 9:45 AM EDT Office Visit [facility] MEDICINE [address] [place] [address] Mandie Fields FNP [address] [place] [address] documented as of this encounter Visit Diagnoses Diagnosis Moderate persistent asthma without complication documented in this encounter Additional Health Concerns Assessment Noted Time PHQ-9 Depression Total Score: 10 022 10:45 AM EST documented as of this encounter Care Teams Child Psychiatrist Relationship Specialty Start Date End Date Mandie Fields FNP [address] [place] [address] PCP - General Family Medicine 05/01/22 documented as of this encounter
--- OUTSIDE RECORDS SUMMARY | 2024-10-28 12:22 | XMS_ITS | Encounter Summary ---
Author Organization [facility] Address [address] [facility] 7t [place] [address] Care Team Providers Care Psychological Tests Sales Agent Name Role Phone Mandie Fields IVANIA Primary Care Provider [phone] Reason for Visit * Reason Onset Date Comments partialsl broke again 02/13/2023 Encounter Details Date Type Department Care Team ([facility] st Contact Info) Description 02/13/2023 Telephone [facility] ADULT DENTAL [address] [place] [address] Desmond Chun, DMD [address] [place] [address] partialsl broke again Social History Tobacco Use Types Packs/Day Years [...] Don't know 07/02/2022 10 :14 AM EDT COVID-19 Exposure Response Date Recorded In the last 10 days, have yo u been in contact with someone who was confirmed or suspected to have Coronavirus/COVID-19? No / Unsure 02/15/2023 11:01 AM EDT documented as of this encounter Miscellaneous Notes * Telephone Encounter - Samra Lora - 02/13/2023 1:08 PM EDT Patient came in on 02/12 for delivery and partials broke. She called in today for repair. No room on schedule soon and she is looking to try to come in tomorrow from [address] documented in this encounter Plan of Treatment Upcoming Encounters Date Type Department Care Team (Late st Contact Info) Description 01/27/2025 9:45 AM EDT Office Visit [facility] MEDICINE [address] [place] [address] Mandie Fields FNP [address] [place] [address] documented as of this encounter Visit Diagnoses Not on filedocumented in this encounter Additional Health Concerns Assessment Noted Time PHQ-9 Depression Total Score: 10 022 10:45 AM EST documented as of this encounter Care Teams Psychological Tests Sales Agent Relationship Specialty Start Date End Date Mandie Fields FNP [address] [place] [address] PCP - General Family Medicine 05/01/22 documented as of this encounter
--- OUTSIDE RECORDS SUMMARY | 2024-10-28 12:22 | XMS_ITS | Encounter Summary ---
Author Organization [employer] Address [address] [place] [address] [address] [place] [address] Care Team Providers Care Sales Service Manager Name Role Phone Mandie Fields Primary Care Provider [phone] Reason for Visit * Reason Comments Med Refill Encounter Details Date Type Department Care Team (Late Contact Info) Description 11/14/2022 Refill [facility] CHC MED & PEDS [address] [place], [place] [phone] Mandie Fields FNP [address] [place], [place] [phone] Moderate persistent asthma without complication (Primary Dx) Social History Tobacco Use Types Packs/Day Years [...] Description 01/27/2025 9:45 AM EDT Office Visit [facility] MEDICINE [address] [place] [address] Mandie Fields FNP [address] [place] [address] documented as of this encounter Visit Diagnoses Diagnosis Moderate persistent asthma without complication- Primary documented in this encounter Additional Health Concerns Assessment Noted Time PHQ-9 Depression Total Score: 10 022 10:45 AM EST documented as of this encounter Care Teams Sales Service Manager Relationship Specialty Start Date End Date Mandie Fields FNP [address] [place] [address] PCP - General Family Medicine 05/01/22 documented as of this encounter
--- OUTSIDE RECORDS SUMMARY | 2024-10-28 12:22 | XMS_ITS | Encounter Summary ---
Author Organization [employer] [facility] Address [address] [facility] [address] [place] [address] Care Team Providers Care Hatchery Helper Name Role Phone Mandie Fields Primary Care Provider [phone] Encounter Details Date Type Department Care Team (Latest Contact Info) Description 03/16/2019 Abstract [facility] CONVERSIONS Dental, Provider, DDS Social History Tobacco Use Types Packs/Day Years Used Date Smoking Tobacco: Never Assessed Comments Unknown Sex and Gender Information Value [...] Description 01/27/2025 9:45 AM EDT Office Visit [facility] MEDICINE [address] [place] [address] Mandie Fields FNP [address] [place] [address] documented as of this encounter Visit Diagnoses Not on filedocumented in this encounter Care Teams Hatchery Helper Relationship Specialty Start Date End Date Mandie Fields FNP [address] [place] [address] PCP - General Family Medicine 05/01/22 documented as of this encounter
--- OUTSIDE RECORDS SUMMARY | 2024-10-28 12:22 | XMS_ITS | Encounter Summary ---
Author Organization [employer] Address [address] [place] [address] Care Team Providers Care Web Services Professional Name Role Phone Mandie Fields Primary Care Provider [phone] Reason for Visit * Reason Onset Date Comments FYI 12/26/2023 Encounter Details Date Type Department Care Team ([facility] st Contact Info) Description 12/26/2023 Telephone [facility] MEDICINE [address] [place] [address] Mandie Fields FNP [address] [place], [place] [phone] FYI Social History Tobacco Use Types Packs/Day Years [...] encounter Miscellaneous Notes * Telephone Encounter - Luisa Cox RN - 12/30/2023 9:08 AM EDT Call to [facility], at [phone], no answer, call continues to ring and does not forward to . * Telephone Encounter - Luisa Cox RN - 12/30/2023 9:06 AM EDT Call returned to [facility] at [phone] for triage. No answer, unable;e to [facility] as is full. Left SMS notification to [facility] [phone]. * Telephone Encounter - IVANIA Boswell - 12/30/2023 6:26 AM EDT Please attempt to call pt for triage s/p fall at home. Thank you! * Telephone Encounter - Wing Delbert RN - 12/27/2023 1:52 PM EDT Just as a FYI. Tc to [facility] regarding pt's fall. Unable to reach her and left message for her to callback. Attempted to call pt using [employer] [place], [place] [id number]. Fairground Operator unable to leave messagedue to mailbox being full. * Telephone Encounter - Esthela Paiz - 12/26/2023 4:15 PM EDT Tc from [facility] with [facility] calling to advise provider pt had a fall in home yesterday (12/24). States pt sustained no injuries. documented in this encounter Plan of Treatment Upcoming Encounters Date Type Department Care Team (Late st Contact Info) Description 01/27/2025 9:45 AM EDT Office Visit [facility] MEDICINE [address] [place] [address] Mandie Fields FNP [address] [place] [address] documented as of this encounter Visit Diagnoses Not on filedocumented in this encounter Additional Health Concerns Assessment Noted Time PHQ-9 Depression Total Score: 10 023 9:34 AM EST documented as of this encounter Care Teams Web Services Professional Relationship Specialty Start Date End Date Mandie Fields FNP [address] [place] [address] PCP - General Family Medicine 05/01/22 documented as of this encounter
--- OUTSIDE RECORDS SUMMARY | 2024-10-28 12:22 | XMS_ITS | Clinical Summary ---
Author Organization [employer] Address [address] [place] [address] Care Team Providers Care Podiatrist Name Role Phone Mandie Fields IVANIA Primary Care Provider [phone] Allergies Active Allergy Reactions Criticality Noted Date Comments Elias Inhibitors 03/08/2015 Other reaction(s): Cough on lisinopril Terazosin 12/08/2012 Other reaction(s): SWELLING AND TIREDNESS Medications ferrous sulfate 325 (65 Fe) MG EC tablet Take 1 tablet by mouth. 022 Active melatonin 10 MG tablet Take 1 tablet by mouth. 018 Active betamethasone dipropionate (Diprolene) 0.05 % ointment APPLY A THIN LAYER TOPICALLY TO AFFECTED AREA(S) TWICE DAILY FOR 14 DAYS, THEN STOP FOR 1 WEEK THEN REPEAT NEEDED 45 g 2 023 Active ceramides (CeraVe) moisturizing creamIndications: Psoriasis Apply 1 Application. topically if needed for dry skin. 453 g 024 Active cetirizine (ZyrTEC) 10 MG tabletIndications :Seasonal allergies TAKE 1 TABLET BY MOUTH EVERY DAY NEEDED FOR ALLERGIES 90 tablet 3 024 Active fluticasone (Flonase) 50 MCG/ACT nasal sprayIndications: Allergic rhinitis, unspecified seasonality, unspecified trigger INSTILL 1-2 SPRAYS IN EACH NOSTRIL ONCE DAILY NEEDED 48 g 1 024 Active calcium citrate 250 MG tablet Take 2 tablets by mouth 2 times daily. 024 Active Eye Itch Relief 0.035 % solution INSTILL 1 DROP INTO THE AFFECTED EYE(S) EVERY 12 HOURS 024 Active calcipotriene (Dovonex) 0.005 % ointmentIndicatio ns:Psoriasis APPLY A THIN LAYER TO AFFECTED AREA(S) TWICE DAILY SATURDAY a SATURDAY 60 g 1 024 Active Blood Pressure kitIndications:Es sential hypertension 1 kit 2 times daily. 1 kit 024 Active chlorthalidone (Hygroton) 25 MG tabletIndications :Essential hypertension Take 1 tablet (25 mg) by mouth in the morning. 90 tablet 1 024 Active lidocaine (Lidoderm) 5 % patchIndications: Intercostal muscle pain APPLY 1 PATCH TOPICALLY TO SKIN, LEAVE ON FOR 12 HOURS AND OFF FOR 12 HOURS DIRECTED 30 patch 11 024 Active busPIRone (Buspar) 15 MG tabletIndications :Depressive disorder TAKE 1 TABLET BY MOUTH TWICE DAILY 60 tablet 5 024 Active triamcinolone (Kenalog) 0.1 % creamIndications: Psoriasis MIX WITH cerave CREAM AND APPLY TO AFFECTED AREA(S) TWICE DAILY IN THE MORNING AND AT BEDTIME NEEDED FOR PAIN OR FOR SWELLING 80 g 2 024 Active Fluticasone-Salme terol (Advair Diskus) 500-50 MCG/ACT aerosol powderIndications :Moderate persistent asthma without complication INHALE 2 PUFFS BY MOUTH EVERY TWELVE HOURS RINSE MOUTH AFTER USING. 1 each 5 024 Active senna (Senokot) 8.6 MG tablet TAKE 1 TO 2 TABLETS BY MOUTH EVERY TWELVE HOURS NEEDED FOR CONSTIPATION 360 tablet 1 025 Active montelukast (Singulair) 10 MG tabletIndications :Moderate persistent asthma without complication,Seas onal allergic rhinitis, unspecified trigger TAKE 1 TABLET BY MOUTH AT BEDTIME 90 tablet 1 025 Active citalopram (CeleXA) 20 MG tabletIndications :Depressive disorder TAKE 1 TABLET BY MOUTH EVERY DAY 90 tablet 3 025 Active olmesartan (BENIcar) 20 MG tabletIndications :Essential hypertension TAKE 1 TABLET BY MOUTH EVERY DAY 90 tablet 3 025 Active ketorolac (Acular) 0.5 % ophthalmic solution INSTILL 1 DROP INTO THE AFFECTED EYE(S) THREE TIMES DAILY STARTING 2 DAYS BEFORE SURGERY TAPER DIRECTED Active Levoxyl 137 MCG tablet Take 1 tablet by mouth Once per day. Active omeprazole (PriLOSEC) [address] capsuleIndication s:Gastroesophagea l reflux disease, unspecified whether esophagitis present TAKE 1 CAPSULE BY MOUTH EVERY DAY BEFORE A MEAL 90 capsule Active acetaminophen (Tylenol 8 Hour) 650 MG ER tablet Take 1 tablet (650 mg) by mouth every 8 (eight) hours if needed for moderate pain. Do not crush, chew, or split. 100 tablet Active albuterol (2.5 MG/3ML) 0.083% nebulizer solutionIndicatio ns:Moderate persistent asthma without complication INHALE 1 AMPULE USING A NEBULIZER EVERY 4 TO 6 HOURS NEEDED 90 mL Active albuterol (Ventolin HFA) 108 (90 Base) MCG/ACT inhalerIndication s:Moderate persistent asthma without complication INHALE 2 PUFFS BY MOUTH EVERY 4 TO 6 HOURS NEEDED 18 g Active atorvastatin (Lipitor) 20 MG tabletIndications :Hyperlipidemia, unspecified hyperlipidemia type Take 1 tablet by mouth every evening 90 tablet Active alendronate (Fosamax) 70 MG tabletIndications :Osteoporosis without current pathological fracture, unspecified osteoporosis type Take 1 tablet (70 mg) by mouth 1 (one) time per week. Take in the morning with a full glass of water, on an empty stomach, and do not take anything else by mouth or lie down for the next 30 min. 4 tablet 2025 Active ferrous gluconate (Fergon) 324 (38 Fe) MG tablet Take 1 pill every Saturday, Saturday, and Saturday. Take with a full glass of water or Vit C containing juice, and ideally 1 hour before a meal or 2 hours after a meal 36 tablet Active cholecalciferol (Vitamin D High Potency) 25 MCG (1000 UT) capsuleIndication s:Vitamin D deficiency Take 1 capsule (25 mcg) by mouth in the morning. 90 capsule Active traMADol (Ultram) 50 MG tabletIndications :Chronic pain of both knees,Primary osteoarthritis of right knee Take 1 tablet (50 mg) by mouth every 12 (twelve) hours if needed for severe pain. 56 tablet 025 Active levothyroxine (Synthroid, Levoxyl) 112 MCG tablet Take 1 tablet by mouth. 2024 Discontinued(D ose adjustment) albuterol (2.5 MG/3ML) 0.083% nebulizer solutionIndicatio ns:Moderate persistent asthma without complication INHALE 1 AMPULE USING A NEBULIZER EVERY 4 TO 6 HOURS NEEDED 90 mL 3 023 2024 Discontinued(R eorder (will not trigger notification to Pharmacy)) albuterol (Ventolin HFA) 108 (90 Base) MCG/ACT inhalerIndication s:Moderate persistent asthma without complication INHALE 2 PUFFS BY MOUTH EVERY 4 TO 6 HOURS NEEDED 18 g 11 023 2024 Discontinued omeprazole (PriLOSEC) [address] capsuleIndication s:Gastroesophagea l reflux disease, unspecified whether esophagitis present TAKE 1 CAPSULE BY MOUTH ONCE DAILY BEFORE A MEAL. 90 capsule 3 024 2024 Discontinued citalopram (CeleXA) 20 MG tabletIndications :Depressive disorder TAKE 1 TABLET BY MOUTH EVERY DAY 90 tablet 3 024 2024 Discontinued atorvastatin (Lipitor) 20 MG tabletIndications :Hyperlipidemia, unspecified hyperlipidemia type TAKE 1 TABLET BY MOUTH EVERY EVENING 90 tablet 3 024 2024 Discontinued(R eorder (will not trigger notification to Pharmacy)) Vitamin D High Potency 25 MCG (1000 UT) capsuleIndication s:Vitamin D deficiency TAKE 1 CAPSULE BY MOUTH EVERY MORNING 90 capsule 3 024 2024 Discontinued(R eorder (will not trigger notification to Pharmacy)) alendronate (Fosamax) 70 MG tabletIndications :Osteoporosis without current pathological fracture, unspecified osteoporosis type Take 1 tablet (70 mg) by mouth 1 (one) time per week. Take in the morning with a full glass of water, on an empty stomach, and do not take anything else by mouth or lie down for the next 30 min. 4 tablet 11 024 2024 Discontinued(R eorder (will not trigger notification to Pharmacy)) potassium chloride CR (Klor-Con M20) 20 MEQ ER tablet TAKE 1 TABLET BY MOUTH EVERY 4 HOURS FOR ONE DAY UNTIL FINISHED 024 2024 Discontinued(T herapy completed) acetaminophen (Tylenol 8 Hour) 650 MG ER tablet Take 1 tablet (650 mg) by mouth every 8 (eight) hours if needed for moderate pain. Do not crush, chew, or split. 90 tablet 1 024 2024 Discontinued(R eorder (will not trigger notification to Pharmacy)) olmesartan (Benicar) 20 MG tabletIndications :Essential hypertension Take 1 tablet (20 mg) by mouth Once per day. 90 tablet 1 024 2024 Discontinued traMADol (Ultram) 50 MG tabletIndications :Chronic pain of both knees,Primary osteoarthritis of right knee Take 1 tablet (50 mg) by mouth every 12 (twelve) hours if needed for severe pain. 56 tablet 024 2024 Discontinued(R eorder (will not trigger notification to Pharmacy)) omeprazole (PriLOSEC) [address] capsuleIndication s:Gastroesophagea l reflux disease, unspecified whether esophagitis present TAKE 1 CAPSULE BY MOUTH EVERY DAY BEFORE A MEAL 90 capsule 3 025 2024 Discontinued(R eorder (will not trigger notification to Pharmacy)) albuterol (Ventolin HFA) 108 (90 Base) MCG/ACT inhalerIndication s:Moderate persistent asthma without complication INHALE 2 PUFFS BY MOUTH EVERY 4 TO 6 HOURS NEEDED 18 g 11 025 2024 Discontinued(R eorder (will not trigger notification to Pharmacy)) Active Problems Problem Noted Date Diagnosed Date Other osteoporosis without current pathological fracture 09/08/2024 Long-term current use of opiate analgesic 2023 Overview (05/12/2024): Medication: Tramadol 50mg BID Indication: OA right knee Last [employer] Agreement: 10/29/23 Routine health maintenance 08/03/2022 Assessment & Plan (10/28/2024 6:55 AM EST): -Pap: 09/27/20 NIL/HPV neg -Smoking status: former -Mammo: BIRADS 2020, repeat pending -DEXA: Jun 2019, osteopenia T-score -1.8. Re-ordered 09/05/23. -Colonoscopy: December 2014, normal. -Optometry: referral to [facility] eye care previously placed Assessment & Plan (09/05/2023 10:12 AM EST): -Pap: 09/27/20 NIL/HPV neg -Smoking status: former -Mammo: BIRADS 2020, repeat pending -DEXA: Jun 2019, osteopenia T-score -1.8. Re-ordered 09/05/23. -Colonoscopy: December 2014, normal. -Optometry: referral to [facility] eye care previously placed Assessment & Plan (08/15/2023 6:34 PM EST): -Pap: 09/27/20 NIL/HPV neg -Smoking status: former -Mammo: BIRADS 2020, repeat pending -DEXA: Jun 2019, osteopenia T-score -1.8 -Colonoscopy: reports UTD, although not currently in record. -Optometry: referral to [facility] eye care previously placed Assessment & Plan (03/17/2023 12:19 PM EDT): Pap/Results: 09/27/20 Smoking status: former smoker Mammo: 10/11/20 Bi-Rads 2, order placed March 2023 DEXA 06/2019: osteopenia, T-score: -1.8, on vitamin D and calcium citrate through endo C-scope: last on file 2014, per pt had recent colonoscopy at [facility], unable to find in [facility] chart Vaccine: PCV20 administered in office today Assessment & Plan (08/03/2022 10:48 AM EST): PHQ: 9, pt to f/u with behavioral health STI: Denies Pap/Results: 09/27/20 Smoking status: former smoker Mammo: 10/11/20 Bi-Rads 2 DEXA 06/2019: osteopenia, T-score: -1.8, on vitamin D and calcium citrate through endo C-scope: last on file 2014, per pt had recent colonoscopy at [facility], unable to find in [facility] chart Vaccine: Received J&J, due for Booster, advised pt to go to walk-in vaccine clinic after visit to see if she can be scheduled History of malignant neoplasm of thyroid 022 Osteoarthritis of both knees 04/29/2019 Overview (05/12/2024): XR Knee BL from Apr 2019: Moderate degenerative arthrosis primarily involving the medial compartments of both knees, greater on the left. Findings appear grossly unchanged when compared to recent prior imaging from 03/20/2019 Previous tx includes: physical therapy, steroid injections Currently prescribed Tramadol 50mg BID PRN severe pain. Engaged with [employer] Program Assessment & Plan (05/12/2024 7:56 PM EDT): -Continues with Tramadol 50mg BID. Reviewed med safety and SE. -UTOX and pill count as expected -Good engagement and participation with Group Medical Visit model -Encouraged multifactorial approach to pain control including pharm and non- pharm modalities Assessment & Plan (04/14/2024 2:40 PM EDT): -Continues with Tramadol 50mg BID. Reviewed med safety and SE. -UTOX and pill count as expected -Good engagement and participation with Group Medical Visit model -Encouraged multifactorial approach to pain control including pharm and non- pharm modalities Assessment & Plan (03/10/2024 3:32 PM EDT): -Continues with Tramadol 50mg BID. Reviewed med safety and SE. -UTOX and pill count as expected -Good engagement and participation with Group Medical Visit model -Encouraged multifactorial approach to pain control including pharm and non- pharm modalities Assessment & Plan (01/14/2024 1:18 PM EDT): -Continues with Tramadol 50mg BID. Reviewed med safety and SE. -Good engagement and participation with Group Medical Visit model -Encouraged multifactorial approach to pain control including pharm and non- pharm modalities Assessment & Plan (12/12/2023 10:33 AM EDT): -Continues with Tramadol 50mg BID. Reviewed med safety and SE. -Good engagement and participation with Group Medical Visit model -Encouraged multifactorial approach to pain control including pharm and non- pharm modalities Assessment & Plan (10/29/2023 1:23 PM EST): -Continues with Tramadol 50mg BID. Reviewed med safety and SE. -Good engagement and participation with Group Medical Visit model - today was first visit. -Encouraged multifactorial approach to pain control including pharm and non- pharm modalities -Narcan PRN Assessment & Plan (09/04/2023 8:31 AM EST): -Continues with Tramadol 50mg BID. Reviewed med safety and SE. Will need to establish with [employer] team. Interested in group visits. -Narcan PRN Assessment & Plan (08/15/2023 6:31 PM EST): -Continues with Tramadol 50mg BID. Reviewed med safety and SE. Will need to establish with [employer] team. Interested in group visits. -Narcan PRN Vitamin D deficiency 05/27/2018 Allergic rhinitis 07/25/2015 Depressive disorder 07/25/2015 Assessment & Plan (10/28/2024 9:13 AM EST): -Continue following with behavioral [facility]a -[facility] current med regimen: buspirone 15mg BID and citalopram 20mg daily Assessment & Plan (08/14/2023 9:19 AM EST): -Continue following with behavioral [facility] - Reyna -Cont current med regimen: buspirone 15mg BID and citalopram 20mg daily Essential hypertension 07/25/2015 Overview (04/20/2024): BP goal < 140/90 mmHg Cont chlorthalidone 25mg daily Cont olmesartan 20mg daily Assessment & Plan (04/20/2024 6:21 PM EDT): BP appears better controlled on current regimen, although pt had only been recording systolic number. Plan to cont as above, record BP readings at home and follow up in May 2024 as scheduled. Sooner as needed. Cont low salt diet, routine physical activity as able. -Repeat BMP pending Assessment & Plan (04/14/2024 2:39 PM EDT): Reviewed med safety and SE. Plan to start olmesartan. Repeat BMP in 1-2 weeks. Encouraged to record home readings and f/up in 1-2 weeks for re-check. Assessment & Plan (04/09/2024 8:19 PM EDT): 148/98 rechecked manually Thinks not took BP med this am -advised to be compliant w meds and bring home BP readings at next apt w PCP , pt unsure of home BP readings Assessment & Plan (10/29/2023 1:20 PM EST): Previous plan: -Feels as though urinating too frequently with hydrochlorothiazide -DC hydrochlorothiazide and start chlorthalidone. Reviewed med safety and SE. Repeat labs in 2 weeks. -Reports home readings well controlled -Follow up precautions reviewed Today's plan: BP elevated with machine. Pt would benefit from manual BP and review of home readings. Asymptomatic. Will ask nurses to reach out regarding RN BP visit in the next 1-2 weeks to determine if med adjustment appropriate. Assessment & Plan (09/05/2023 10:10 AM EST): -Feels as though urinating too frequently with hydrochlorothiazide -DC hydrochlorothiazide and start chlorthalidone. Reviewed med safety and SE. Repeat labs in 2 weeks. -Reports home readings well controlled -Follow up precautions reviewed Assessment & Plan (08/15/2023 6:32 PM EST): -Reports home readings well controlled -Follow up precautions reviewed Hypercholesterolemia 07/25/2015 Hypertensive retinopathy 07/25/2015 Moderate persistent asthma 07/25/2015 Assessment & Plan (10/28/2024 9:13 AM EST): -Maintenance: Advair 1 puff BID, montelukast 10mg PO nightly -Rescue: albuterol PRN -Using rescue approx 2x/month, no night time coughing/awakenings. Well controlled. Assessment & Plan (09/05/2023 10:09 AM EST): -Maintenance: Advair 1 puff BID, montelukast 10mg PO nightly -Rescue: albuterol PRN -Using rescue approx 2x/month, no night time coughing/awakenings. Well controlled. Assessment & Plan (08/13/2023 8:03 PM EST): -Maintenance: Advair 1 puff BID, montelukast 10mg PO nightly -Rescue: albuterol PRN Postoperative hypothyroidism 07/25/2015 Assessment & Plan (09/05/2023 10:11 AM EST): -History of thyroid CA followed by [facility] Endo -Last TSH WNL May 2022 -Continues with levothyroxine 112mcg daily -Upcoming appt scheduled Oct 2023 w/ Endo Assessment & Plan (08/13/2023 8:04 PM EST): -History of thyroid CA followed by [facility] Endo -Last TSH WNL May 2022 -Continues with levothyroxine 112mcg daily Psoriasis 07/25/2015 Assessment & Plan (09/04/2023 8:44 AM EST): ?? Currently tx with topicals - Dovonex and Diprolene ?? Referral to [facility] Derm team sent 08/14/23 ?? Follow up with any worsening or persistence of symptoms Assessment & Plan (08/15/2023 6:34 PM EST): ?? Currently tx with topicals - Dovonex and Diprolene ?? Referral to [facility] Derm team sent 08/14/23 ?? Follow up with any worsening or persistence of symptoms Resolved Problems Problem Noted Date Diagnosed Date Resolved Date Preop examination 04/09/2024 04/20/2024 Assessment & Plan (04/09/2024 8:19 PM EDT): -11/2023 Chem wnl, hb 11.6 RCRI is 0 going for low risk procedure No contraindications for surgery planned to undergo minimal risk procedure under MAC anesthesia BP is not at goal but pt unsure if took BP med today -advised against NSAIDS or ASA 7 days before procedure -not take alendronate day of surgery ,rest of meds to take including BP med w sip of water Polypharmacy 07/19/2022 04/20/2024 Impaired glucose tolerance 07/25/2015 0 10/28/2024 Obesity 07/25/2015 10/28/2024 Encounters Date Type Department Care Team Description 10/28/2024 9:15 AM EST Office Visit [facility] [address] [place] [phone] Mandie Fields FNP Postoperative hypothyroidism (Primary Dx); Routine health maintenance; [...] screening mammogram for malignant neoplasm of breast 10/28/2024 Orders Only GENERIC EXTERNAL DATA DEPARTMENT Provider, Generic External Data 10/28/2024 Travel 10/26/2024 Refill [facility] [address] [place] [address] Mandie Fields FNP Gastroesophageal reflux disease, unspecified whether esophagitis present; Essential hypertension; Moderate persistent asthma without complication 10/23/2024 Telephone [facility] [address] [place] [phone] Mandie Fields FNP Chart Prep 10/14/2024 Patient Outreach [facility] [address] [place], [place] [phone] Mandie Fields FNP Care Coordination (CHW outreach for SDOH food needs-referral completed /) 10/14/2024 Patient Outreach [facility] [address] [place] [address] Mandie Fields FNP Pre-visit Planning (SDOH Screening negative and Tobacco screening negative) 10/14/2024 Refill [facility] [address] [place] [address] Mandie Fields FNP Depressive disorder 09/09/2024 Refill [facility] [address] [place] [address] Mandie Fields, [employer]PER[employer] Moderate persistent asthma without complication; Seasonal allergic rhinitis, unspecified trigger 09/03/2024 Telephone [facility] [address] [place] [address] Fidelia Brody MA Chart Prep 08/28/2024 Patient Outreach [facility] [address] [place], [place] [phone] Mandie Fields, PIANO MACHINE OPERATOR Pre-visit Planning (Pre-visit planning - LVM ) 08/27/2024 Refill [facility] [address], [place] [phone] Mandie Fields FNP Moderate persistent asthma without complication 08/04/2024 Refill [facility] [address] [place] [address] Mandie Fields, [employer]ACHINE OPERATOR Psoriasis from Last 3 Months Immunizations Name Administration Dates Next Due Hep B, adult 05/27/2018,06/28/2017,05/29/2017 Influenza Injectable Quadriv alant Preservative Free IIV4 MDCK 06/10/2020 Influenza injectable quadriv alent IIV4 with preservative 05/27/2018,05/29/2017,07/06/2016,05/26 Influenza injectable quadriv alent preservative free 08/14/2023,07/11/2021,08/11/2019 Influenza, IIV3, injectable 08/03/2022,1 ,05/21/2011,09/21,07/22/2009 Influenza, Split (incl. payton fied surface antigen) 06/24/2013,07/09/2012 Influenza, seasonal, injecta ble, preservative free 10/28/2024 Cris SARS-CoV-2 Vaccination 11/23/2020 Pfizer Covid-19 Vaccine 12+ 07/11/2021 Pneumococcal Conjugate PCV 20 03/15/2023 Pneumococcal Polysaccharide PPSV23 06/23/1997 TD (adult), 2 Lf tetanus tox oid, preservative free, adsorbed 04/29/2019,10/30/1999 Tdap 03/21/2023,04/27/2009 Zoster, Recombinant 10/26/2019,08/25/2019 Family History Medical History Relation Name Comments Asthma Mother Dementia Mother Diabetes Mother Hypertension Mother Osteoporosis Mother Asthma Sister Colon polyps Son Relation Name Status Comments Mother Sister Son Social History Tobacco Use Types Packs/Day Years Used Date Smoking Tobacco: Never Smokeless Tobacco: Never Tobacco Cessation:Counseling Given: Not Answered Alcohol Use Standard Drinks/Week Comments Yes 2 [...] Don't know 07/02/2022 10 :14 AM EDT Last Filed Vital Signs Vital Sign Reading [...] Mass Index 29.72 10/28/2024 9:04 AM EST Plan of Treatment Upcoming Encounters Date Type Department Care Team (Late st Contact Info) Description 01/27/2025 9:45 AM EDT Office Visit [facility] [address] [place] [address] Mandie Fields, IVANIA [address] [place] [address] Health Maintenance Due Date Last Done Comments CT Colonography 1959 Dental Oral Exam 1959 Dental Prophylaxis 1959 Dental X-Ray: Bitewings 1959 Dental X-Ray: Full Mouth 1959 FIT DNA/Cologuard 1959 FIT 1959 FOBT 1959 Sigmoidoscopy 1959 Alcohol/Substance Use Screening 1971 RSV Patients and Patients Aged 60 years or older (1 - Risk 60-74 years 1-dose series) 2019 COVID-19 Vaccine ( season) 2024 07/11/2021, 11/23/2020 Colonoscopy 12/02/2024 12/02/2014 Colorectal Cancer Screening 12/02/2024 Mammogram 12/17/2024 12/18/2023, 10/03, 01/14/2019, Additional history exists Depression Monitoring (PHQ-9) 04/27/2025 10/28/2024, 10/28/2024 Cervical Cancer Screening 10/09/2025 HPV/Cotest 10/09/2025 10/09/2020 Pap Smear 10/09/2025 10/09/2020, 11/24/2014 SDOH Screening 10/14/2025 10/14/2024 Depression Screening 10/28/2025 10/28/2024, 10/28/19 Diabetes: Hemoglobin A1C 10/28/2025 025, 10/03/2023, 07/11/2021, Additional history exists Tobacco Screening 10/28/2025 10/28/2024 Lipid Panel 10/28/2029 10/28/2024, 02/09/2023, 07/11/2021, Additional history exists DTaP/Tdap/Td Vaccines (4 - Td or Tdap) 03/21/2033 03/21/2023, 04/29/2019, 04/27/2009, Additional history exists Hepatitis B Vaccines Completed 05/27/2018, 06/28/2017, 05/29/2017 Zoster Vaccines Completed 10/26/2019, 08/25/2019 Pneumococcal Vaccine: 50+ Years Completed 03/15/2023, 06/23/1997 Hepatitis C Screening Completed 10/03/2023 Influenza Vaccine Completed 10/28/2024, , 08/03/2022, Additional history exists HIB Vaccines Aged Out No longer eligi ble based on patient's age to complete this topic HPV Vaccines Aged Out No longer eligi ble based on patient's age to complete this topic Hepatitis A Vaccines Aged Out No long er eligible based on patient's age to complete this topic IPV Vaccines Aged Out No longer eligi ble based on patient's age to complete this topic Meningococcal Vaccine Aged Out No meagan cosme eligible based on patient's age to complete this topic RSV under 20 months Aged Out No longe r eligible based on patient's age to complete this topic Rotavirus Vaccines Aged Out No longer eligible based on patient's age to complete this topic Procedures Procedure Name Priority Date/Time Associated Diagnosis Comments T4, FREE Routine 10/28/2024 10:15 AM EST TSH Routine 10/28/2024 10:15 AM EST TSH W/REFLEX TO FT4 Routine 10/28/2024 1 0:15 AM EST Routine health maintenance CBC WITH AUTO DIFFERENTIAL Routine 10/28/2024 10:15 AM EST Routine health maintenance COMPREHENSIVE METABOLIC PANEL Routine 10/28/2024 10:15 AM EST Routine health maintenance HEMOGLOBIN A1C Routine 10/28/2024 10:15 AM EST Routine health maintenance LIPID PANEL, STANDARD Routine 10/28/2024 10:15 AM EST Routine health maintenance BI MAMMOGRAM SCREENING TOMOSYNTHESIS BILATERAL Routine 12/18/2023 9:30 AM EDT Encounter for screening mammogram for breast cancer HEPATITIS C VIRAL RNA, QUANTITATIVE, REAL-TIME PCR Routine 10/03/2023 10:41 AM EST Encounter for routine history and physical examination of adult ZZZ HISTORICAL HPV DNA, HIGH RISK, CERVICAL Routine 10/09/2020 3:12 PM EST THINPREP PAP Routine 10/09/2020 3:12 PM EST HM COLONOSCOPY Routine 12/02/2014 from Last 3 Months or Most Recently Relevant to Health Maintenance Results * (ABNORMAL) TSH W/Reflex to FT4 (10/28/2024 10:15 AM EST) TSH reflex Free T4 0.05(L) 0.32 - 4.0 uIU/mL [facility] Blood Venous blood specimen / Unknown 10/28/2024 10:15 AM EST 10/28/2024 11:08 AM EST us Mandie Fields PIANO MACHINE OPERATOR LAB BLOOD ORDERABLES Final Res ult [facility] [address] [place] [phone] * (ABNORMAL) CBC auto differential (10/28/2024 10:15 AM EST) White Blood Count 4.3(L) 4.8 - 10.8 X10*3/uL [facility] Red Blood Count 4.04(L) 4.20 - 5.50 X10*6/uL [facility] Hemoglobin 11.1(L) 12.0 - 16.0 g/dl [facility] Hematocrit 33.5(L) 37.0 - 47.0 % [facility] Mean Corpuscular Volume 82.9 80.0 - 98.0 fL [facility] Mean Corpuscular Hemoglobin 27.5 27.0 - 33.0 pg [facility] Mean Corpuscular HGB Conc 33.1 31.0 - 35.0 g/dl [facility] Red Cell Distribution Width 13.7 11.0 - 16.0 % [facility] Platelet Count 344 160 - 400 X10*3/uL [facility] Mean Platelet Volume 9.1(L) 9.4 - 12.3 fL [facility] Neutrophils Percent Auto 53.4 45 - 73 % [facility] Imm Gran Pct Auto 0.2 0.0 - 0.4 % [facility] Lymphocytes Percent Auto 25.2 20 - 40 % [facility] Monocytes Percent Auto 10.7 2 - 11 % [facility] Eosinophils Percent Auto 9.6(H) 0 - 4 % [facility] Basophils Percent Auto 0.9 0 - 2 % [facility] NRBC Pct Auto 0.0 0.0 - 0.2 /100WBC [facility] Neutrophils Absolute Auto 2.3 2.0 - 8.3 x10*3/uL [facility] Imm Gran Abs Auto 0.01 0.00 - 0.03 X10*3/uL [facility] Lymphocytes Absolute Auto 1.1(L) 1.2 - 4.9 X10*3/uL [facility] Monocytes Absolute Auto 0.5 0.1 - 1.2 X10*3/uL [facility] Eosinophils Absolute Auto 0.4 0.0 - 0.4 X10*3/uL [facility] Basophils Absolute Auto 0.0 0.0 - 0.2 X10*3/uL [facility] NRBC Abs Auto 0.000 0.0 - 0.012 X10*3/uL [facility] Blood Venous blood specimen / Unknown 10/28/2024 10:15 AM EST 10/28/2024 11:08 AM EST us Mandie Fields PIANO MACHINE OPERATOR LAB BLOOD ORDERABLES Final Res ult Performing Organization Address [facility]/ZIP Co de Phone Number [facility] [address] [place] [phone] * (ABNORMAL) TSH (10/28/2024 10:15 AM EST) Thyroid Stimulating Hormone 0.05(L) 0.32 - 4.0 uIU/mL [facility] Comment:TSH 3rd Generation ( [facility]) 10/28/2024 10:1 5 AM EST 10/28/2024 11:08 AM EST us Generic External Data Provider LAB BLOOD ORDERAB LES Final Result Performing Organization Address [facility] Co de Phone Number [facility] [address] [place] [phone] * T4, Free (10/28/2024 10:15 AM EST) Free T4 (Free Thyroxine) 1.44 0.71 - 1.85 ng/dL [facility] 10/28/2024 10:1 5 AM EST 10/28/2024 11:08 AM EST us Generic External Data Provider LAB BLOOD ORDERAB LES Final Result Performing Organization Address [facility] Co de Phone Number [facility] [address] [place] [phone] * Hemoglobin A1c (10/28/2024 10:15 AM EST) Hemoglobin A1c 5.8 <6.0 % [facility] Comment:Hemoglobin A1C Refer ence Range Adults: 4.8 - 6.0 % Non diabetic: < 6.0 % Goal: < 7.0 %Additional Action Suggested: > 8.0 %Note: Hemoglobin A1c results are invalid for patients with abnormal amounts of HbF. Blood transfusions may impact the HbA1c concentration in the patient sample. Estimated Average Glucose 120 mg/dL [facility] Comment:eAG = Estimated ave rage glucose which is %A1C expressed asaverage glucose, using the formula of the U7X-[id number] Glucose study (ADAG), Diabetes Care, Vol.31,#8,2007 Blood Venous blood specimen / Unknown 10/28/2024 10:15 AM EST 10/28/2024 11:08 AM EST us Mandie Fields PIANO MACHINE OPERATOR LAB BLOOD ORDERABLES Final Res ult [facility] [address] [place] [phone] * Lipid Panel, Standard (10/28/2024 10:15 AM EST) Triglycerides 93 <150 mg/dL [facility] Comment:Desirable Triglyceri de: less than 150 mg/dLBorderline High Triglyceride 150-199 mg/dLHigh Triglyceride: 200-499 mg/dLVery High Triglyceride: greater than or equal to 5OO mg/dL Cholesterol 172 <200 mg/dL [facility] Comment:Desirable Cholestero l: less than 200 mg/dLBorderline High Cholesterol: 200-239 mg/dLHigh Cholesterol: greater than 239 mg/dL LDL Cholesterol Calculated 97 <100 mg/dL [facility] Comment:Desirable LDL: less than 100 mg/dLNear Optimal/Above Optimal LDL: 110- 129 mg/dLBorderline High LDL: 130-159 mg/dLHigh LDL: 160-189 mg/dLVery High LDL: greater than or equal to 190 mg/dL HDL Cholesterol 57 >40 mg/dL [facility] Comment:Desirable HDL: great er than 40 mg/dL Note: This HDL assay may give artificially low results in patients with liver disease. Blood Venous blood specimen / Unknown 10/28/2024 10:15 AM EST 10/28/2024 11:08 AM EST us Mandie Oroscomike PIANO MACHINE OPERATOR LAB BLOOD ORDERABLES Final Res ult [facility] [address] [place] [phone] * (ABNORMAL) Comprehensive Metabolic Panel (10/28/2024 10:15 AM EST) Sodium 141 135 - 145 mmol/L [facility] Potassium 3.8 3.3 - 5.1 mmol/L [facility] Chloride 107 96 - 108 mmol/L [facility] Carbon Dioxide 27 22 - 29 mmol/L [facility] Anion Gap 11(L) 12 - 20 [facility] Urea Nitrogen (BUN) 19(H) 9 - 16 mg/dL [facility] Creatinine, Serum 0.78 0.5 - 1.4 mg/dL [facility] Estimated Glomerular Filt Rate >60 [facility] Comment:Chronic Kidney Disea se: Estimated GFR < 60 mL/min/1.57j1Kkkscf Kidney Disease: Estimated GFR < 15 mL/min/1.73m2 Glucose 103 60 - 115 mg/dL [facility] Calcium 9.2 8.4 - 10.2 mg/dL [facility] Bilirubin, Total 0.3 0.0 - 1.0 mg/dL [facility] Aspartate Amino Transferase 36(H) 5 - 31 U/L [facility] Alanine Aminotransferase 100(H) 0 - 31 U/L [facility] Total Protein 7.6 6.5 - 8.0 g/dL [facility] Albumin Level 4.0 3.5 - 5.0 g/dL [facility] Alkaline Phosphatase 86 39 - 117 U/L [facility] Blood Venous blood specimen / Unknown 10/28/2024 10:15 AM EST 10/28/2024 11:08 AM EST us Mandie Fields PIANO MACHINE OPERATOR LAB BLOOD ORDERABLES Final Res ult [facility] [address] [place] [phone] * BI Mammogram Screening Tomosynthesis Bilateral (12/18/2023 9:30 AM EDT) Anatomical Region Laterality Modality Breast Bilateral Mammography 12/18/2023 9:30 AM EDT Narrative 01/13/2024 9:34 AM EDT ? [facility] [place] ? [address] ?[place] [address] ? Mammography Report ? Signed with Addenda ? Patient: Stern,Anneliese ?MR#: [id number] ? : 1960 ?Acct:[id number] ? Age/Sex: 63 / F ?ADM Date: 12/17/ ? Loc: HO.MAMMO ? Attending Dr: Mandie Fields PIANO MACHINE OPERATOR ? Ordering Physician: Donnie,Mandie PIANO MACHINE OPERATOR ?Results: 2Benig ?? n Findings ? Date of Service: 12/17/ ?Follow Up: 1 Year From Orig ?? inal Mammogram ? Procedure(s): MM tomosynthesis screening BI ?? Accession Number(s): [id number] ? cc: Mandie Fields PIANO MACHINE OPERATOR ?ADDENDUM ?? ADDENDUM: ?? There is a 7 cm-8 cm encapsulated area of normal breast tissue in ?? the anterior half of the upper outer quadrant of the left breast. This ?? is customer solutions representative of a hamartoma. This is benign. ? OVERALL ASSESSMENT: ?? BI-RADS 2 - Benign Findings ? RECOMMENDATION: ?? 1 year F/U ? Addendum Dictated By: ?Jaclyn Barrientos MD ? Addendum Signed By: ? <Electronically signed by Jaclyn Barrientos MD in OV> ? 01/16/24 0857 ?? Addendum Cosigned By: ? DD/DT: 12/17 ? TD/TT: / ? EXAMINATION: ?? MM SCREENING DIGITAL BREAST TOMOSYNTHESIS, BILATERAL ? CLINICAL INFORMATION: ? Screening. Asymptomatic. ? COMPARISON: ?? Mammography: This study is compared with prior exams dating back to ?? 2017. ? TECHNIQUE: ?? Digital breast tomosynthesis is performed in both the craniocaudal and ?? mediolateral oblique views along with computer-aided detection (CAD). ?? Synthesized 2D images are generated from the tomosynthesis. ? FINDINGS: ?? There are scattered areas of fibroglandular density (ACR BI-RADS breast ?? composition Category b). ? There are no significant masses, abnormal calcifications, or other ?? abnormalities. ? There is a tissue marker associated with a small, mammographically ?? benign, coarsely calcified mass in the upper outer quadrant of the left ?? breast at middle depth.. This represents a biopsy-proven fibroadenoma. ? There is a 78-cm encapsulated area of normal breast tissue in the ?? anterior half of the upper outer quadrant of the left breast. This is ?? customer solutions representative of a hamartoma. This is benign. ? MM/MM tomosynthesis screening BI ?? IMPRESSION: ?? No mammographic evidence of malignancy. ? ASSESSMENT: ? BI-RADS BI-RADS 2 - Benign Findings ? RECOMMENDATION: ?? Routine annual mammography screening. ? 1 year F/U ? This examination should not preclude the clinical evaluation of a ?? suspicious palpable abnormality. ? This patient's information was entered into a reminder system with a ?? target due date for their next mammogram. ? Dictated By: ?Jaclyn Barrientos MD ? Signed By: ?<Electronically signed by Jaclyn Barrientos MD in OV> ? 01/13/24929 ? DD/ 9 ? TD/TT: ? Tire Tester: ? Procedure Note Donotdannyinterpreter, Image - 01/16/2024 [facility] [address] [place], [place] [address] Mammography Report Signed with Addenda Patient: Anneliese SternMR#: [id number] : 1960Acct:[id number] Age/Sex: 63 / FADM Date: 12/18/23 Loc: HO.MAMMO Attending Dr: Mandie Fields PIANO MACHINE OPERATOR Ordering Physician: Mandie Fields FNPResults: 2Benig n Findings Date of Service: 12/18/23Follow Up: 1 Year From [facility] Mammogram Procedure(s): MM tomosynthesis screening BI Accession Number(s): [id number] cc: Mandie Fields PIANO MACHINE OPERATOR ADDENDUM ADDENDUM: There is a 7 cm-8 cm encapsulated area of normal breast tissue in the anterior half of the upper outer quadrant of the left breast. This is customer solutions representative of a hamartoma. This is benign. OVERALL ASSESSMENT: BI-RADS 2 - Benign Findings RECOMMENDATION: 1 year F/U Addendum Dictated By: Jaclyn Barrientos MD Addendum Signed By: <Electronically signed by Jaclyn Barrientos MD in OV> 01/16/24 0857 Addendum Cosigned By: DD/ TD/TT: / EXAMINATION: MM SCREENING DIGITAL BREAST TOMOSYNTHESIS, BILATERAL CLINICAL INFORMATION: Screening. Asymptomatic. COMPARISON: Mammography: This study is compared with prior exams dating back to 2018. TECHNIQUE: Digital breast tomosynthesis is performed in both the craniocaudal and mediolateral oblique views along with computer-aided detection (CAD). Synthesized 2D images are generated from the tomosynthesis. FINDINGS: There are scattered areas of fibroglandular density (ACR BI-RADS breast composition Category b). There are no significant masses, abnormal calcifications, or other abnormalities. There is a tissue marker associated with a small, mammographically benign, coarsely calcified mass in the upper outer quadrant of the left breast at middle depth.. This represents a biopsy-proven fibroadenoma. There is a 78-cm encapsulated area of normal breast tissue in the anterior half of the upper outer quadrant of the left breast. This is customer solutions representative of a hamartoma. This is benign. MM/MM tomosynthesis screening BI IMPRESSION: No mammographic evidence of malignancy. ASSESSMENT: BI-RADS BI-RADS 2 - Benign Findings RECOMMENDATION: Routine annual mammography screening. 1 year F/U This examination should not preclude the clinical evaluation of a suspicious palpable abnormality. This patient's information was entered into a reminder system with a target due date for their next mammogram. Dictated By: Jaclyn Barrientos MD Signed By: <Electronically signed by Jaclyn Barrientos MD in OV> 01/13/24929 DD/ 9 TD/TT: Tire Tester: Mandie Fields [facility] IM BI PROCEDURES Edited Resul t - Final * Hepatitis C Viral RNA, Quantitative, Real-Time PCR (10/03/2023 10:41 AM EST) Hepatitis C Viral Load <15 NOT DETECTED NOT DETECTED IU/mL [facility] HCV Log PCR <1.18 NOT DETECTED NOT DETECTED Log IU/mL [facility] Comment:This test was perfor med using Real-Time Polymerase ChainReaction.Reportable Range: 15 IU/mL to 100,000,000 IU/mL(1.18 Log IU/mL to 8.00 Log IU/mL).The analytical performance characteristics of thisassay have been determined by [employer].The modifications have not been cleared or approved bythe FDA. This assay has been validated pursuant to theCLIA regulations and is used for clinical purposes.For more information on this test, go to:http://education.XYverify/faq/YBD93j8(This link is being provided for informational/educational purposes only.)THIS TEST WAS PERFORMED AT:[facility] [place] [phone] BUSBY MD Blood 10/03/2023 10:4 1 AM EST 10/03/2023 11:02 AM EST Mandiedrew Fields PIANO MACHINE OPERATOR LAB BLOOD ORDERABLES Final Res ult Performing Organization Address [facility]/ZIP Co de Phone Number [facility] [address] [place] [phone] * HPV DNA, HIGH RISK, CERVICAL (10/09/2020 3:12 PM EST) HPV DNA, HIGH RISK, CERVICAL Not Detected NOT DETECTED [facility] Comment: Not Detected High Risk HPV types (16,18,31,33,35,39,45,51,52, 56,58,59,66,68) were not detected. Other HPV types which cause anogenital lesions may be present. The significance of the other types of HPV in malignant processes has not been established. ?? Methodology: Real Time PCR ? NO COLLECTION DATE RECEIVED. WE HAVE USED THE DATE THE SPECIMEN WAS RECEIVED BY THIS LABORATORY THE COLLECTION DATE. IF THIS IS INCORRECT, PLEASE CONTACT CLIENT SERVICES. PHONE NUMBER: ?? 10/09/2020 3:12 PM EST Nathaly Lazaro NP HISTORICAL/NON ORDERABLE LABS Fi nal Result Performing Organization Address [facility] Co de Phone Number [facility] [address] * THINPREP PAP (10/09/2020 3:12 PM EST) Clinical Information: None given [facility] COMMENT SEE COMMENT [facility] Comment: EXPLANATORY NOTE: ? The Pap is a screening test for cervical cancer. It is ?? not a diagnostic test and is subject to false negative ?? and false positive results. It is most reliable when a ?? satisfactory sample, regularly obtained, is submitted ?? with relevant clinical findings and history, and when ?? the Pap result is evaluated along with historic and ?? current clinical information. ?? Aviation Electrician: SEE COMMENT [facility] Comment: SXA, CT(ASCP) CT screening location: [address] ??[address] Interpretation/Res ult: SEE COMMENT [facility] Comment: Negative for intraepithelial lesion or malignancy. Atrophic pattern; predominantly parabasal cells LMP: NONE GIVEN [facility] Prev. BX: NONE GIVEN [facility] Prev. PAP: NONE GIVEN [facility] SOURCE: None given [facility] Statement Of Adequacy: SATISFACTORY FOR EVALUATION [facility] 10/09/2020 3:12 PM EST Nathaly Lazaro NP LAB PATHOLOGY ORDERABLES Final R esult [facility] [address] * Colonoscopy (12/02/2014) Colonoscopy Normal Repeat in 10 yrs Historical Provider HEALTH MAINTENANCE Edited Result - Final from Last 3 Months or Most Recently Relevant to Health Maintenance Insurance [facility] STANDARD MEDICARE DENTAL-[facility] MEDICAID STAND ADULT Care Teams Podiatrist Relationship Specialty Start Date End Date Mandie Fields FNP [address] [place] [phone] PCP - General Family Medicine 05/01/22
--- OUTSIDE RECORDS SUMMARY | 2024-10-28 12:22 | XMS_ITS | Encounter Summary ---
Author Organization [facility] Address [address] [place] [address] [address] [place] [address] Care Team Providers Care Canvas Baster Name Role Phone Mandie Fields Primary Care Provider [phone] Reason for Visit * Reason Comments Med Refill Encounter Details Date Type Department Care Team (Late Contact Info) Description 03/29/2023 Refill [facility] [address] [place], [place] [phone] Mandie Fields FNP [address] [place], [place] [phone] Moderate persistent asthma without complication Social History [...] 9:45 AM EDT Office Visit [facility] [address] [place], [place] [phone] Mandie Fields FNP [address] [place] [phone] documented as of this encounter Visit Diagnoses Diagnosis Moderate persistent asthma without complication documented in this encounter Additional Health Concerns Assessment Noted Time PHQ-9 Depression Total Score: 10 022 10:45 AM EST documented as of this encounter Care Teams Canvas Baster Relationship Specialty Start Date End Date Mandie Fields FNP [address] [place] [phone] PCP - General Family Medicine 05/01/22 documented as of this encounter
[2024-10-29 08:58] LABS: HBS Num1 0.97 mIU/mL (0-7.99); HBsAGNum1 0.25 S/CO (0.00-0.99); HIV AB/AG Nonreactive (Nonreactive); HIV Num 1 0.08 S/CO (0.00-0.99); Hepatitis B Core Antibody Nonreactive (Nonreactive); Hepatitis B Surface Antigen Negative (Negative); ~Hepatitis B Surface Antibody NONREACTIVE (Nonreactive)
[2024-10-29 09:49] LABS: Thyroglobulin <0.1 ng/mL; Thyroglobulin Antibodies <1 IU/mL (< or = 1)
[2024-10-29 11:23] LABS: RPR Rapid Plasma Reagin NON-REACTIVE (NON-REACTIVE)
[2024-10-29 20:13] LABS: HCV Log PCR <1.18 NOT DETECTED Log IU/mL (NOT DETECTED); HepC Viral Load <15 NOT DETECTED IU/mL (NOT DETECTED)
[2024-10-31 06:35] LABS: Thyroglobulin Antibody <1 IU/mL (<=1); Thyroglobulin Level <0.1 ng/mL
== END 2024-10-28 10:12 | disposition home or self-care (01) ==
LOC: HO.HHCL 10:11
PROVIDERS: Registered Nurse; Visit Provider Student in an Organized Health Care Education/Training Program
DX: Z00.00 Encounter for general adult medical examination without abnormal findings (principal); E89.0 Postprocedural hypothyroidism; C73 Malignant neoplasm of thyroid gland; Z11.3 Encounter for screening for infections with a predominantly sexual mode of transmission; A52.2 Asymptomatic neurosyphilis
CPT/HCPCS: 36415; 80053; 80061; 83036; 84432; 84439; 84443; 85025; 86592; 86704; 86706; 86800; 87340; 87389; 87522

== ENCOUNTER 2024-11-24 12:57 | Outpatient (REF) | payer OTHER, SELFPAY ==
--- NOTE | ~2024-11-24 | US_ITS ---
CLINICAL HISTORY: C73 - Malignant neoplasm of thyroid gland Exam: Ultrasound of the neck. Comparison: None. Findings: Patient reportedly has a history of thyroid cancer status post thyroidectomy. Technologist notes that the patient has a history of lymph node involvement. Patient has undergone radioactive iodine treatment as well. Patient reportedly has prior ultrasound imaging from December 18, 2023. I do not have access to those images or report. Bilateral jugular lymph node evaluation was performed. A total of 6 measured right internal jugular lymph nodes are identified. There are adjacent level 1B right lymph nodes without a fatty hilum measuring 5 x 3 x 5 mm and 5 x 2 x 5 mm in size, respectively. A total of 6 left jugular lymph nodes were evaluated. There are 2 adjacent left level 4 lymph nodes which were not seen on the prior study per the technologist. These measure 11 x 5 x 10 mm and 7 x 4 x 5 mm in size, respectively. These do not have a definitive fatty hilum. Impression: Indeterminate bilateral jugular lymph nodes as discussed above. Disease recurrence can not be excluded based on these images alone. Correlation with the patient's clinical scenario and prior imaging studies is suggested. This document has been electronically signed by: Escobar Perez MD on 11/26/2024 06:44:32
--- OUTSIDE RECORDS SUMMARY | 2024-11-24 15:45 | XMS_ITS | Encounter Summary ---
Author Organization [employer] Address [address] [facility] [address] [place] [address] Care Team Providers Care Astrophysics Teacher Name Role Phone Mandie Fields Primary Care Provider [phone] Encounter Details Date Type Department Care Team ([facility] st Contact Info) Description 08/15/2023 Abstract [facility] [address] [place] [address] Mandie Fields FNP [address] [place] [address] Social History Tobacco Use Types Packs/Day Years [...] Description 01/27/2025 9:45 AM EDT Office Visit [facility] [address] [place] [address] Mandie Fields FNP [address] [place] [address] documented as of this encounter Visit Diagnoses Not on filedocumented in this encounter Additional Health Concerns Assessment Noted Time PHQ-9 Depression Total Score: 10 023 9:34 AM EST documented as of this encounter Care Teams Astrophysics Teacher Relationship Specialty Start Date End Date Mandie Fields FNP [address] [place] [address] PCP - General Family Medicine 05/01/22 documented as of this encounter
--- OUTSIDE RECORDS SUMMARY | 2024-11-24 15:45 | XMS_ITS | Clinical Summary ---
Author Organization [employer] Address [address] [facility] [address] [place] [address] Care Team Providers Care Behavioral Health Consultant Name Role Phone Mandie Fields IVANIA Primary Care Provider [phone] Allergies Active Allergy Reactions Criticality Noted Date [...] TWICE DAILY 60 tablet 5 024 Active Fluticasone-Salme terol (Advair Diskus) 500-50 [...] STARTING 2 DAYS BEFORE SURGERY TAPER DIRECTED 024 Active Levoxyl 137 MCG tablet Take 1 tablet by mouth Once per day. 025 Active omeprazole (PriLOSEC) [address] capsuleIndication [...] TO 6 HOURS NEEDED 18 g 11 Active atorvastatin (Lipitor) 20 MG tabletIndications :Hyperlipidemia, [...] if needed for severe pain. 56 tablet Active triamcinolone (Kenalog) 0.1 % creamIndications: Psoriasis MIX WITH CERAVE CREAM AND APPLY TOPICALLY TO AFFECTED AREA(S) TWICE DAILY IN THE MORNING AND AT BEDTIME NEEDED FOR PAIN OR SWELLING 80 g 2 025 Active levothyroxine (Synthroid, Levoxyl) 112 MCG [...] MEAL. 90 capsule 3 024 2024 Discontinued atorvastatin (Lipitor) 20 [...] eorder (will not trigger notification to Pharmacy)) triamcinolone (Kenalog) 0.1 % creamIndications: Psoriasis MIX WITH cerave CREAM AND APPLY TO AFFECTED AREA(S) TWICE DAILY IN THE MORNING AND AT BEDTIME NEEDED FOR PAIN OR FOR SWELLING 80 g 2 024 2024 Discontinued omeprazole (PriLOSEC) [address] [...] Active Problems Problem Noted Date Diagnosed Date Osteoporosis 09/08/2024 Overview (11/03/2024): December 2023 - DXA with dx osteoporosis based on T-score value -3.6 in the femoral neck. Initiated alendronate 70mg weekly 12/24/23 Endo consult May 2024 at [facility] - Dr. Mayorga. Reviewed DXA results and suspects DXA from December 2023 was an over-read. Suggested repeating DXA scan through PCP. Repeat ordered 11/03/24. Encouraged to continue with adequate intake of calcium and Vit D. Low weight bearing exercises. Long-term current use of opiate analgesic 2023 Overview (05/12/2024): Medication: Tramadol 50mg BID Indication: OA right knee Last PSYCHIATRIC ASSISTANT Agreement: 10/29/23 Routine health maintenance 08/03/2022 Assessment & Plan (11/03/2024 6:23 PM EST): -Pap: 09/27/20 NIL/HPV neg -Smoking status: former -Mammo: BIRADS 2 on 12/18/23. Noted 7-8cm encapsulated area of normal breast tissue in the anterior half of upper outer quadrant of left breast which is operations representative of a hamartoma (benign) -DEXA: December 2023, osteoporosis. Next due: December 2025. -Colonoscopy: December 2014, normal. Referral to GI placed 10/28/24 -Optometry: referral to [facility] eye care previously placed -Last comprehensive exam: 10/28/24 Assessment & Plan (09/05/2023 10:12 AM EST): -Pap: 09/27/20 NIL/HPV neg -Smoking status: former -Mammo: BIRADS 2020, repeat pending -DEXA: Jun 2019, osteopenia T-score -1.8. Re-ordered 09/05/23. -Colonoscopy: December 2014, normal. -Optometry: referral to [facility] eye care previously placed Assessment & Plan (08/15/2023 6:34 PM EST): -Pap: 09/27/20 NIL/HPV neg -Smoking status: former -Mammo: BIRADS 2020, repeat pending -DEXA: Jun 2019, osteopenia T-score -1.8 -Colonoscopy: reports UTD, although not currently in record. -Optometry: referral to [facility] eye care previously placed Assessment & Plan (03/17/2023 12:19 PM EDT): Pap/Results: 09/27/20 Smoking status: former smoker Mammo: 10/11/20 Bi-Rads 2, order placed March 2023 DEXA 06/2019: osteopenia, T-score: -1.8, on vitamin D and calcium citrate through endo C-scope: last on file 2014, per pt had recent colonoscopy at [facility], unable to find in [facility] chart Vaccine: PCV20 administered in office today Assessment & Plan (08/03/2022 10:48 AM EST): PHQ: 9, pt to f/u with behavioral health STI: Denies Pap/Results: 09/27/20 Smoking status: former smoker Mammo: 10/11/20 Bi-Rads 2 DEXA 06/2019: osteopenia, T-score: -1.8, on vitamin D and calcium citrate through endo C-scope: last on file 2014, per pt had recent colonoscopy at [facility], unable to find in [facility] chart Vaccine: Received J&J, due for Booster, advised pt to go to walk-in vaccine clinic after visit to see if she can be scheduled History of malignant neoplasm of thyroid 022 Overview (11/03/2024): - 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 - Following with [facility] Jerri/Dr. Mayorga/Dr. Herzog - December 2023: Thyroid US demonstrated numerous bilateral thyroid nodules, some pathologically enlarged and further showing atypical architectural features. Reviewed by Dr. Mayorga, plan repeat December 2024. Consult May 2024: [facility] Jer[facility] - Dr. Mayorga. 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 Osteoarthritis of both knees 04/29/2019 Overview (05/12/2024): XR Knee BL from Apr 2019: Moderate degenerative arthrosis primarily involving the medial compartments of both knees, greater on the left. Findings appear grossly unchanged when compared to recent prior imaging from 03/20/2019 Previous tx includes: physical therapy, steroid injections Currently prescribed Tramadol 50mg BID PRN severe pain. Engaged with PSYCHIATRIC ASSISTANT Program Assessment & Plan (05/12/2024 7:56 PM [...] and SE. Will need to establish with PSYCHIATRIC ASSISTANT team. Interested in group visits. -Narcan PRN Assessment & Plan (08/15/2023 6:31 PM EST): -Continues with Tramadol 50mg BID. Reviewed med safety and SE. Will need to establish with PSYCHIATRIC ASSISTANT team. Interested in group visits. -Narcan PRN Vitamin D deficiency 05/27/2018 Allergic rhinitis 07/25/2015 Depressive disorder 07/25/2015 Assessment & Plan (10/28/2024 9:13 AM EST): -Continue following with [facility] Lakisha Orellana -Cont current med regimen: buspirone 15mg BID and citalopram 20mg daily Assessment & Plan (08/14/2023 9:19 AM EST): -Continue following with [facility] Lakisha Orellana -Cont current med regimen: buspirone 15mg BID and citalopram 20mg daily Essential hypertension 07/25/2015 Overview (04/20/2024): BP goal < 140/90 mmHg Cont chlorthalidone 25mg daily Cont olmesartan 20mg daily Assessment & Plan (11/03/2024 6:22 PM EST): -Well controlled, encouraged to cont current regimen -Cont low salt diet, routine physical activity as able. Assessment & Plan (04/20/2024 6:21 PM EDT): [...] nightly -Rescue: albuterol PRN Postoperative hypothyroidism 07/25/2015 Overview (11/03/2024): History of thyroid CA now followed by [facility] Endo Continues with levothyroxine 137 mcg daily TSH goal: 0.1-0.5 Assessment & Plan (09/05/2023 10:11 AM EST): -History of thyroid CA followed by [facility] Endo -Last TSH WNL May 2022 -Continues with levothyroxine 112mcg daily -Upcoming appt scheduled Oct 2023 w/ Endo Assessment & Plan (08/13/2023 8:04 PM EST): -History of thyroid CA followed by [facility] Endo -Last TSH WNL May 2022 -Continues with levothyroxine 112mcg daily Psoriasis 07/25/2015 Assessment & Plan (11/03/2024 6:24 PM EST): Previous tx with topicals - Dovonex and Diprolene Referral to [facility] Derm team sent 08/14/23, re-sent on 11/03/24 Follow up with any worsening or persistence of symptoms Assessment & Plan (09/04/2023 8:44 AM EST): ?? Currently tx with topicals - Dovonex and Diprolene ?? Referral to [facility] Derm team sent 08/14/23 ?? Follow up with any worsening or persistence of symptoms Assessment & Plan (08/15/2023 6:34 PM EST): ?? Currently tx with topicals - Dovonex and Diprolene ?? Referral to [facility] Derm team sent 08/14/23 ?? Follow [...] Encounters Date Type Department Care Team Description 11/23/[address] [address] Mandie Fields FNP Call Back Request; Appointment Request 11/13/[address] [address] Mandie Fields FNP Psoriasis 11/02/[address] [address] Gina Villanueva RN 10/29/[address] [address] Mandie Fields FNP 10/28/2024 9:15 AM EST Office Visit [address] [address] Mandie Fields FNP Postoperative hypothyroidism (Primary Dx); [...] for screening mammogram for malignant neoplasm of breast; History of malignant neoplasm of thyroid; Other osteoporosis without current pathological fracture; Osteoporosis, unspecified osteoporosis type, unspecified pathological fracture presence; Osteopenia, unspecified location; Other specified disorders of bone density and structure, multiple sites; Psoriasis; Long-term current use of opiate analgesic; Primary osteoarthritis of both knees 10/28/2024 Telephone [facility] [address] [place] [phone] Mandie Fields FNP Results 10/28/2024 Orders Only [facility] [address] [place] [address] Mandie Fields FNP Healthcare maintenance (Primary Dx) 10/28/2024 Orders Only GENERIC EXTERNAL DATA DEPARTMENT Provider, Generic External Data 10/28/2024 Travel 10/26/2024 Refill [facility] [address] [place] [address] Mandie Fields FNP Gastroesophageal reflux disease, unspecified whether esophagitis present; Essential hypertension; Moderate persistent asthma without complication 10/23/[address] [address] Mandie Fields FNP Chart Prep 10/14/2024 Patient Outreach [facility] [address] [place] [address] Mandie Fields FNP Care Coordination (CHW outreach for SDOH food needs-referral completed /) 10/14/2024 Patient Outreach [facility] [address] [place] [address] Mandie Fields FNP Pre-visit Planning (SDOH Screening negative and Tobacco screening negative) 10/14/2024 Refill [facility] [address] [place] [address] Mandie Fields FNP Depressive disorder 09/09/2024 Refill [facility] [address] [place] [phone] Mandie Fields FNP Moderate persistent asthma without complication; Seasonal allergic rhinitis, unspecified trigger 09/03/2024 Telephone [facility] [address] [place] [address] Fidelia Brody MA Chart Prep 08/28/2024 Patient Outreach [facility] [address] [place] [address] Phalen, Mandie, PRODUCTION CONTROL EXPEDITER Pre-visit Planning (Pre-visit planning - LVM ) 08/27/2024 Refill [facility] [address] [place] [address] Mandie Fields FNP Moderate persistent asthma without complication from Last 3 Months Immunizations Name Administration Dates Next Due Hep B, adult 05/27/2018,06/28/2017,05/29/2017 Influenza Injectable Quadriv alant Preservative Free IIV4 MDCK 06/10/2020 Influenza injectable quadriv alent IIV4 with preservative 05/27/2018,05/29/2017,07/06/2016,05/26 Influenza injectable quadriv alent preservative free 08/14/2023,07/11/2021,08/11/2019 Influenza, IIV3, injectable 08/03/2022,1 ,05/21/2011,09/21,07/22/2009 Influenza, Split (incl. payton fied surface antigen) 06/24/2013,07/09/2012 Influenza, seasonal, injecta ble, preservative free 10/28/2024 [employer] SARS-CoV-2 Vaccination 11/23/2020 Pfizer Covid-19 Vaccine 12+ [...] Description 01/27/2025 9:45 AM EDT Office Visit [facility] [address] [place] [address] Mandie Fields, PRODUCTION CONTROL EXPEDITER [address] [place] [address] Health Maintenance Due Date Last Done Comments CT Colonography 1959 Dental Oral Exam 1959 Dental Prophylaxis 1959 Dental X-Ray: Bitewings 1959 Dental X-Ray: Full Mouth 1959 FIT DNA/Cologuard 1959 FIT 1959 FOBT 1959 Sigmoidoscopy 1959 Alcohol/Substance Use Screening 1971 RSV Patients and Patients Aged 60 years or older (1 - Risk 60-74 years 1-dose series) 2019 Colonoscopy 12/02/2024 12/02/2014 Colorectal Cancer Screening 12/02/2024 Mammogram 12/17/2024 12/18/2023, 10/03, 01/14/2019, Additional history exists Depression Monitoring (PHQ-9) 04/27/2025 10/28/2024, 10/28/2024 Cervical Cancer Screening 10/09/2025 HPV/Cotest 10/09/2025 10/09/2020 Pap Smear 10/09/2025 10/09/2020, 11/24/2014 SDOH Screening 10/14/2025 10/14/2024 Depression Screening 10/28/2025 10/28/2024, 10/28/19 25 Diabetes: Hemoglobin A1C 10/28/2025 025, 10/03/2023, 07/11/2021, Additional history exists Tobacco Screening 10/28/2025 10/28/2024 COVID-19 Vaccine ( season) 2025 07/11/2021, 11/23/2020 Postponed from 05/03/2024 (Patient Refused) Lipid Panel 10/28/2029 10/28/2024, 02/09/2023, 07/11/2021, Additional history exists DTaP/Tdap/Td Vaccines (4 - Td or Tdap) 03/21/2033 03/21/2023, 04/29/2019, 04/27/2009, Additional history exists Hepatitis B Vaccines Completed 05/27/2018, 06/28/2017, 05/29/2017 Zoster Vaccines Completed 10/26/2019, 08/25/2019 Pneumococcal Vaccine: 50+ Years Completed 03/15/2023, 06/23/1997 Hepatitis C Screening Completed 10/28/2024, 024 Influenza Vaccine Completed 10/28/2024, , 08/03/2022, Additional [...] Procedure Name Priority Date/Time Associated Diagnosis Comments THYROGLOBULIN, TUMOR MARKER W/REFLEX Routine 10/28/2024 10:15 AM EST Healthcare maintenance THYROGLOBULIN ANTIBODIES Routine 10/28/2024 10:15 AM EST Healthcare maintenance THYROGLOBULIN, LC/MS/MS Routine 10/28/2024 10:15 AM EST Healthcare maintenance T4, FREE Routine 10/28/2024 10:15 AM EST TSH Routine 10/28/2024 10:15 AM EST TSH W/REFLEX TO FT4 Routine 10/28/2024 1 0:15 AM EST Routine health maintenance HEPATITIS B SURFACE ANTIGEN, EIA Routine 10/28/2024 10:15 AM EST Routine health maintenance Encounter for screening for infections with a predominantly sexual mode of transmission HEPATITIS B SURFACE ANTIBODY, QUALITATIVE Routine 10/28/2024 10:15 AM EST Routine health maintenance Encounter for screening for infections with a predominantly sexual mode of transmission HEPATITIS B CORE AB TOTAL Routine 10/28/2024 10:15 AM EST Routine health maintenance Asymptomatic neurosyphilis HIV 1/2 ANTIGEN/ANTIBODY, FOURTH GENERATION W/RFL Routine 10/28/2024 10:15 AM EST Routine health maintenance RPR (MONITOR) W/REFL TITER Routine 10/28/2024 10:15 AM EST Routine health maintenance Encounter for screening for infections with a predominantly sexual mode of transmission HEPATITIS C VIRAL RNA, QUANTITATIVE, REAL-TIME PCR Routine 10/28/2024 10:15 AM EST Routine health maintenance CBC WITH [...] Encounter for screening mammogram for breast cancer ZZZ HISTORICAL HPV DNA, HIGH RISK, CERVICAL Routine 10/09/2020 3:12 PM EST THINPREP PAP Routine 10/09/2020 3:12 PM EST HM COLONOSCOPY Routine 12/02/2014 from Last 3 Months or Most Recently Relevant to Health Maintenance Results * (ABNORMAL) Thyroglobulin, LC/MS/MS (10/28/2024 10:15 AM EST) Thyroglobulin, LC/MS/MS <0.1(A) ng/mL [facility] Comment:Reference Range: Int act Thyroid 2.8-40.9 Athyrotic <0.1 Note: Abnormal flagging is based on the reference interval for patients with intact thyroid.This test was performed using the Eddy Coulterchemiluminescent method. Values obtained fromdifferent assay methods cannot be usedinterchangeably. Thyroglobulin levels, regardlessof value, should not be interpreted as absoluteevidence of the presence or absence of disease. Thyroglobulin Comment See Below [facility] Comment:Thyroglobulin antibo dies (TGAB) interfere withthyroglobulin (TG) assays; therefore, TGAB assayshould always be performed in conjunction with aTG assay.For additional information, please refer tohttp://education.[employer]/faq/EWN368(This link is being provided for informational/educational purposes only.)THIS TEST WAS PERFORMED AT:[employer] [place] [phone] BUSBY MD 10/28/2024 10:1 5 AM EST 10/28/2024 11:08 AM EST us Generic External Data Provider LAB BLOOD ORDERAB LES Final Result [facility] [address] [place] [phone] * Thyroblobulin, Tumor Marker w/Reflex (10/28/2024 10:15 AM EST) Thyroglobulin Antibody <1 <=1 IU/mL [facility] Comment:This Thyroglobulin a ntibody test was performedusing the Eddy Davin Chemiluminescent method.Values obtained from different assay methods cannot beused interchangeably. Thyroglobulin antibody levels,regardless of value, should not be interpreted asabsolute evidence of the presence or absence ofdisease. Thyroglobulin, LC/MS/MS TNP [facility] Thyroglobulin Level <0.1 ng/mL [facility] Comment:Reference Range: Ath yrotic: <0.1 ng/mLReference range applies to differentiated thyroidcancer patients following treatment. The presence ofmeasurable thyroglobulin indicates the presence ofthyroglobulin-producing thyroid tissue. Clinicalcorrelation is advised.This Thyroglobulin test was performed using theO[employer]ise [place] Chemiluminescent method. Valuesobtained from different assay methods cannot beused interchangeably. Thyroglobulin levels, regardlessof value, should not be interpreted as absoluteevidence of the presence or absence of disease.THIS TEST WAS PERFORMED AT:[employer]/[id number] [place] [phone] GRANADOS MD,PHD 10/28/2024 10:1 5 AM EST 10/28/2024 11:08 AM EST us Generic External Data Provider LAB BLOOD ORDERAB LES Final Result Performing Organization Address [facility] Co de Phone Number [facility] [address] [place] [phone] * (ABNORMAL) TSH W/Reflex to FT4 (10/28/2024 10:15 AM EST) TSH reflex Free T4 0.05(L) 0.32 - 4.0 uIU/mL [facility] Blood Venous blood specimen / Unknown 10/28/2024 10:15 AM EST 10/28/2024 11:08 AM EST us Mandie Fields PRODUCTION CONTROL EXPEDITER LAB BLOOD ORDERABLES Final Res ult Performing Organization Address [facility] Co de Phone Number [facility] [address] [place] [phone] * Hepatitis C Viral RNA, Quantitative, Real-Time PCR (10/28/2024 10:15 AM EST) Hepatitis C Viral Load <15 NOT DETECTED NOT DETECTED IU/mL [facility] HCV Log PCR <1.18 NOT DETECTED NOT DETECTED Log IU/mL [facility] Comment:For additional infor melchor, please refer tohttp://education.[employer]/faq/EGK91k4(This link is being provided for informational/educational purposes only.)THIS TEST WAS PERFORMED AT:[employer] [place] [phone] BUSBY MD Blood 10/28/2024 10:1 5 AM EST 10/28/2024 11:08 AM EST Mandie Fields PRODUCTION CONTROL EXPEDITER LAB BLOOD ORDERABLES Final Res ult [facility] [address] [place] [phone] * (ABNORMAL) CBC auto differential (10/28/2024 10:15 AM EST) White Blood Count 4.3(L) 4.8 - 10.8 X10*3/uL [facility] Red Blood Count 4.04(L) 4.20 - 5.50 X10*6/uL [facility] Hemoglobin 11.1(L) 12.0 - 16.0 g/dl [facility] Hematocrit 33.5(L) 37.0 - 47.0 % [facility] Mean Corpuscular Volume 82.9 80.0 - 98.0 fL [facility] Mean Corpuscular Hemoglobin 27.5 27.0 - 33.0 pg [facility] Mean Corpuscular HGB Conc 33.1 31.0 - 35.0 g/dl [facility] Red Cell Distribution Width 13.7 11.0 - 16.0 % [facility] Platelet Count 344 160 - 400 X10*3/uL [facility] Mean Platelet Volume 9.1(L) 9.4 - 12.3 fL [facility] Neutrophils Percent Auto 53.4 45 - 73 % [facility] Imm Gran Pct Auto 0.2 0.0 - 0.4 % [facility] Lymphocytes Percent Auto 25.2 20 - 40 % [facility] Monocytes Percent Auto 10.7 2 - 11 % [facility] Eosinophils Percent Auto 9.6(H) 0 - 4 % [facility] Basophils Percent Auto 0.9 0 - 2 % [facility] NRBC Pct Auto 0.0 0.0 - 0.2 /100WBC [facility] Neutrophils Absolute Auto 2.3 2.0 - 8.3 x10*3/uL [facility] Imm Gran Abs Auto 0.01 0.00 - 0.03 X10*3/uL [facility] Lymphocytes Absolute Auto 1.1(L) 1.2 - 4.9 X10*3/uL [facility] Monocytes Absolute Auto 0.5 0.1 - 1.2 X10*3/uL [facility] Eosinophils Absolute Auto 0.4 0.0 - 0.4 X10*3/uL [facility] Basophils Absolute Auto 0.0 0.0 - 0.2 X10*3/uL [facility] NRBC Abs Auto 0.000 0.0 - 0.012 X10*3/uL [facility] Blood Venous blood specimen / Unknown 10/28/2024 10:15 AM EST 10/28/2024 11:08 AM EST Mandie Evera [facility] LAB BLOOD ORDERABLES Final Res ult Performing Organization Address City/[facility] Co de Phone Number [facility] [address] [place] [phone] * Hepatitis B surface antigen, EIA (10/28/2024 10:15 AM EST) Hepatitis B Surface Ag Negative Negative [facility] Blood Venous blood specimen / Unknown 10/28/2024 10:15 AM EST 10/28/2024 11:08 AM EST Mandie Evera [employer] LAB BLOOD ORDERABLES Final Res ult Performing Organization Address [facility] Co de Phone Number [facility] [address] [place] [phone] * Hepatitis B Core Antibody, Total (10/28/2024 10:15 AM EST) Hepatitis B Core Antibody Nonreactive Nonreactive [facility] Blood Venous blood specimen / Unknown 10/28/2024 10:15 AM EST 10/28/2024 11:08 AM EST us Mandie Donnie PRODUCTION CONTROL EXPEDITER LAB BLOOD ORDERABLES Final Res ult Performing Organization Address City/[facility]/ZIP Co de Phone Number [facility] [address] [place] [phone] * Thyroglobulin Antibodies (10/28/2024 10:15 AM EST) Thyroglobulin Antibodies <1 < or = 1 IU/mL [facility] Comment:THIS TEST WAS PERFOR MED AT:[employer] [place] [phone] BUSBY MD 10/28/2024 10:1 5 AM EST 10/28/2024 11:08 AM EST us Generic External Data Provider LAB BLOOD ORDERAB LES Final Result Performing Organization Address [facility] Co de Phone Number [facility] [facility] [address] [place] [phone] * RPR (Monitor) with Reflex to??Titer (10/28/2024 10:15 AM EST) RPR (Monitor) w/Refl Titer NON-REACTI VE NON-REACT DEBBIE [facility] Comment:THIS TEST WAS PERFOR MED AT:[employer] [place] [phone] BUSBY MD Rapid Plasma Reagin Ab Titer TNP [facility] Blood Venous blood specimen / Unknown 10/28/2024 10:15 AM EST 10/28/2024 11:08 AM EST us Mandie Fields PRODUCTION CONTROL EXPEDITER LAB BLOOD ORDERABLES Final Res ult Performing Organization Address City/[facility]/ZIP Co de Phone Number [facility] [address] [place] [address] [place] [phone] * HIV-1/2 Antigen and Antibodies, Fourth Generation, with Reflexes (10/28/2024 10:15 AM EST) Pathologist [facility] [place] HIV AB/AG Nonreactive Nonreactive [facility] Comment:HIV-1 p24 Ag and/or HIV-1/HIV-2 Ab not detected.A test result that is nonreactive does not exclude thepossibility of exposure to or infection with HIV-1 and/orHIV-2. Nonreactive results in this assay for individualswith prior exposure to HIV-1 and/or HIV-2 may be due toantigen and antibody levels that are below the limit ofdetection of this assay.The [employer] HIV Ag/Ab Combo assay result andsupplemental assay results should be interpreted inconjunction with the patient's clinical presentation,history and other laboratory results. If the results areinconsistent with clinical evidence, additional testing issuggested to confirm the result. Blood Venous blood specimen / Unknown 10/28/2024 10:15 AM EST 10/28/2024 11:08 AM EST Mandie Fields [facility] BLOOD ORDERABLES Final Res ult Performing Organization Address City/[facility]/ZIP Co de Phone Number [facility] [address] [place] [phone] * Hepatitis B Surface Antibody, Qualitative (10/28/2024 10:15 AM EST) Pathologist [facility] [place] ~Hepatitis B Surface Antibody NONREACTIVE Nonreactive [facility] Comment:Nonreactive: < 8.00 mIU/mL Blood Venous blood specimen / Unknown 10/28/2024 10:15 AM EST 10/28/2024 11:08 AM EST Mandie Evera Medicalm[facility] BLOOD ORDERABLES Final Res ult [facility] [address] [place] [address] [phone] * (ABNORMAL) TSH (10/28/2024 10:15 AM EST) Thyroid Stimulating Hormone 0.05(L) 0.32 - 4.0 uIU/mL [facility] Comment:TSH 3rd Generation ( [facility]) 10/28/2024 10:1 5 AM EST 10/28/2024 11:08 AM EST Generic External Data Provider LAB BLOOD ORDERAB LES Final Result Performing Organization Address City/[facility]/ZIP Co de Phone Number [facility] [address] [place] [phone] * T4, Free (10/28/2024 10:15 AM EST) Free T4 (Free Thyroxine) 1.44 0.71 - 1.85 ng/dL [facility] 10/28/2024 10:1 5 AM EST 10/28/2024 11:08 AM EST Generic External Data Provider LAB BLOOD ORDERAB LES Final Result Performing Organization Address City/[facility]/ZIP Co de Phone Number [facility] [address] [place] [phone] * Hemoglobin A1c (10/28/2024 10:15 AM EST) Hemoglobin A1c 5.8 <6.0 % [facility] Comment:Hemoglobin A1C Refer ence Range Adults: 4.8 - 6.0 % Non diabetic: < 6.0 % Goal: < 7.0 %Additional Action Suggested: > 8.0 %Note: Hemoglobin A1c results are invalid for patients with abnormal amounts of HbF. Blood transfusions may impact the HbA1c concentration in the patient sample. Estimated Average Glucose 120 mg/dL [facility] Comment:eAG = Estimated ave rage glucose which is %A1C expressed asaverage glucose, using the formula of the T3V-PxsmvcfOkscyow Glucose study (ADAG), Diabetes Care, Vol.31,#8,2007 Blood Venous blood specimen / Unknown 10/28/2024 10:15 AM EST 10/28/2024 11:08 AM EST us Mandie Donnie [facility] BLOOD ORDERABLES Final Res ult Performing Organization Address City/[facility]/ZIP Co de Phone Number [facility] [address] [place] [address] [phone] * Lipid Panel, Standard (10/28/2024 10:15 AM EST) Triglycerides 93 <150 mg/dL [facility] Comment:Desirable Triglyceri de: less than 150 mg/dLBorderline High Triglyceride 150-199 mg/dLHigh Triglyceride: 200-499 mg/dLVery High Triglyceride: greater than or equal to 5OO mg/dL Cholesterol 172 <200 mg/dL [facility] Comment:Desirable Cholestero l: less than 200 mg/dLBorderline High Cholesterol: 200-239 mg/dLHigh Cholesterol: greater than 239 mg/dL LDL Cholesterol Calculated 97 <100 mg/dL [facility] Comment:Desirable LDL: less than 100 mg/dLNear Optimal/Above Optimal LDL: 110- 129 mg/dLBorderline High LDL: 130-159 mg/dLHigh LDL: 160-189 mg/dLVery High LDL: greater than or equal to 190 mg/dL HDL Cholesterol 57 >40 mg/dL [facility] Comment:Desirable HDL: great er than 40 mg/dL Note: This HDL assay may give artificially low results in patients with liver disease. Blood Venous blood specimen / Unknown 10/28/2024 10:15 AM EST 10/28/2024 11:08 AM EST us Mandie Fields [facility] BLOOD ORDERABLES Final Res ult Performing Organization Address City/[facility]/ZIP Co de Phone Number [facility] [address] [place] [address] [phone] * (ABNORMAL) Comprehensive Metabolic Panel (10/28/2024 10:15 AM EST) Sodium 141 135 - 145 mmol/L [facility] Potassium 3.8 3.3 - 5.1 mmol/L [facility] Chloride 107 96 - 108 mmol/L [facility] Carbon Dioxide 27 22 - 29 mmol/L [facility] Anion Gap 11(L) 12 - 20 [facility] Urea Nitrogen (BUN) 19(H) 9 - 16 mg/dL [facility] Creatinine, Serum 0.78 0.5 - 1.4 mg/dL [facility] Estimated Glomerular Filt Rate >60 [facility] Comment:Chronic Kidney Disea se: Estimated GFR < 60 mL/min/1.54k7Ylrlgm Kidney Disease: Estimated GFR < 15 mL/min/1.73m2 Glucose 103 60 - 115 mg/dL [facility] Calcium 9.2 8.4 - 10.2 mg/dL [facility] Bilirubin, Total 0.3 0.0 - 1.0 mg/dL [facility] Aspartate Amino Transferase 36(H) 5 - 31 U/L [facility] Alanine Aminotransferase 100(H) 0 - 31 U/L [facility] Total Protein 7.6 6.5 - 8.0 g/dL [facility] Albumin Level 4.0 3.5 - 5.0 g/dL [facility] Alkaline Phosphatase 86 39 - 117 U/L [facility] Blood Venous blood specimen / Unknown 10/28/2024 10:15 AM EST 10/28/2024 11:08 AM EST us Mandie Fields PRODUCTION CONTROL EXPEDITER LAB BLOOD ORDERABLES Final Res ult [facility] [address] [place] [phone] * BI Mammogram Screening Tomosynthesis Bilateral (12/18/2023 9:30 AM EDT) Anatomical Region Laterality Modality Breast Bilateral Mammography 12/18/2023 9:30 AM EDT Narrative 01/13/2024 9:34 AM EDT ? [facility] ? [address] ?[place] [address] ? Mammography Report ? Signed with Addenda ? Patient: Stern,Anneliese ?MR#: [id number] ? : 1960 ?Acct:[id number] ? Age/Sex: 63 / F ?ADM Date: 12/18/23 ? Loc: HO.MAMMO ? Attending Dr: Mandie Fields PRODUCTION CONTROL EXPEDITER ? Ordering Physician: Mandie Fields PRODUCTION CONTROL EXPEDITER ?Results: 2Benig ?? n Findings ? Date of Service: 12/18/23 ?Follow Up: 1 Year From Orig ?? inal Mammogram ? Procedure(s): MM tomosynthesis screening BI ?? Accession Number(s): [id number] ? cc: Mandie Fields PRODUCTION CONTROL EXPEDITER ?ADDENDUM ?? ADDENDUM: ?? There is a 7 cm-8 cm encapsulated area of normal breast tissue in ?? the anterior half of the upper outer quadrant of the left breast. This ?? is operations representative of a hamartoma. This is benign. ? OVERALL ASSESSMENT: ?? BI-RADS 2 - Benign Findings ? RECOMMENDATION: ?? 1 year F/U ? Addendum Dictated By: ?Jaclyn Barrientos MD ? Addendum Signed By: ? <Electronically signed by Jaclyn Barrientos MD in OV> ? 01/16/24856 ?? Addendum Cosigned By: ? DD/ ? TD/TT: / ? EXAMINATION: ?? MM SCREENING DIGITAL BREAST TOMOSYNTHESIS, BILATERAL ? CLINICAL INFORMATION: ? Screening. Asymptomatic. ? COMPARISON: ?? Mammography: This study is compared with prior exams dating back to ?? 2018. ? TECHNIQUE: ?? Digital breast tomosynthesis is [...] of the left breast. This is ?? operations representative of a hamartoma. This is benign. [...] by Jaclyn Barrientos MD in OV> ? 01/13/24 0930 ? DD/ 0930 ? TD/TT: ? Quality Assurance Monitor Chassis: ? Procedure Note Yodit, Image - 01/16/2024 [facility] [address] [place] [address] [place] [address] Mammography Report Signed with Bruce Patient: Anneliese SternMR#: [id number] : 1960Acct:[id number] Age/Sex: 63 / FADM Date: 12/18/23 Loc: HO.MAMMO Attending Dr: Mandie Fields PRODUCTION CONTROL EXPEDITER Ordering Physician: Mandie Fields FNPResults: 2Benig n Findings Date of Service: 12/18/23Follow Up: 1 Year From [facility] Mammogram Procedure(s): MM tomosynthesis screening BI Accession Number(s): [id number] cc: Mandie Fields IVANIA ADDENDUM ADDENDUM: There is a 7 cm-8 cm encapsulated area of normal breast tissue in the anterior half of the upper outer quadrant of the left breast. This is operations representative of a hamartoma. This is benign. [...] quadrant of the left breast. This is operations representative of a hamartoma. This is benign. [...] MD in OV> 01/13/24929 DD/ 9 TD/TT: Quality Assurance Monitor Chassis: Mandie Ana Luisamike PRODUCTION CONTROL EXPEDITER IMG BI PROCEDURES Edited Resul t - Final * HPV DNA, HIGH RISK, CERVICAL (10/09/2020 3:12 PM EST) HPV DNA, HIGH RISK, CERVICAL Not Detected NOT DETECTED [facility] Comment: Not Detected High Risk [...] NP HISTORICAL/NON ORDERABLE LABS Fi nal Result [facility] [address] * THINPREP PAP (10/09/2020 3:12 PM EST) Clinical Information: None given [facility] COMMENT SEE COMMENT [facility] ON [...] historic and ?? current clinical information. ?? Tanning Solution Maker: SEE COMMENT [facility] Comment: SXA, CT(ASCP) CT screening location: [address] ??[address] Interpretation/Res ult: SEE COMMENT [facility] Comment: Negative for intraepithelial lesion [...] NP LAB PATHOLOGY ORDERABLES Final R esult [facility] [address] [place] [address], * Colonoscopy (12/02/2014) Colonoscopy Normal Repeat in 10 yrs Historical Provider HEALTH MAINTENANCE Edited Result - Final from Last 3 Months or Most Recently Relevant to Health Maintenance Insurance [facility] STANDARD MEDICARE [place] STAND AD[place] Care Teams Behavioral Health Consultant Relationship Specialty Start Date End Date Mandie Fields FNP [address] [place] [address] PCP - General Family Medicine 05/01/22
--- OUTSIDE RECORDS SUMMARY | 2024-11-24 15:45 | XMS_ITS | Encounter Summary ---
Author Organization [employer] [facility] Address [address] [place] [address] 7t [place] [address] Care Team Providers Care Landscape Technician Name Role Phone Mandie Fields Primary Care Provider [phone] Reason for Visit * Reason Comments Med Refill Encounter Details Date Type Department Care Team (Late st Contact Info) Description 04/04/2023 Refill [facility] [address] [place], [place] [phone] Mandie Fields FNP [address] [place], [place] [phone] Moderate persistent asthma without complication Social History [...] 9:45 AM EDT Office Visit [facility] [address] [place] [address] Mandie Fields FNP [address] [place] [address] documented as of this encounter Visit Diagnoses Diagnosis Moderate persistent asthma without complication documented in this encounter Additional Health Concerns Assessment Noted Time PHQ-9 Depression Total Score: 10 022 10:45 AM EST documented as of this encounter Care Teams Landscape Technician Relationship Specialty Start Date End Date Mandie Fields FNP [address] [place] [address] PCP - General Family Medicine 05/01/22 documented as of this encounter
--- OUTSIDE RECORDS SUMMARY | 2024-11-24 15:45 | XMS_ITS | Encounter Summary ---
Author Organization [employer] [facility] Address [address] [facility] 7t [place] [address] Care Team Providers Care Shift Manager Name Role Phone Mandie Fields Primary Care Provider [phone] Encounter Details Date Type Department Care Team (Latest Contact Info) Description 03/16/2019 Abstract [facility] CONVERSION[facility] Dental, Provider, DDS Social History Tobacco [...] Description 01/27/2025 9:45 AM EDT Office Visit [facility] [address] [place] [address] Mandie Fields FNP [address] [place] [address] documented as of this encounter Visit Diagnoses Not on filedocumented in this encounter Care Teams Shift Manager Relationship Specialty Start Date End Date Mandie Fields FNP [address] [place] [address] PCP - General Family Medicine 05/01/22 documented as of this encounter
--- OUTSIDE RECORDS SUMMARY | 2024-11-24 15:45 | XMS_ITS | Encounter Summary ---
Author Organization [employer] [facility] Address [address] [facility] 7t [place] [address] Care Team Providers Care Inspection Supervisor Name Role Phone Mandie Fields IVNAIA Primary Care Provider Reason for Visit * Reason Onset Date Comments partialsl broke again 02/13/2023 Encounter Details Date Type Department Care Team ([facility] st Contact Info) Description 02/13/2023 Telephone [facility]ENTAL [address] [place] [address] Desmond Chun, DMD [address] [place] [address] partialsl broke again Social History Tobacco Use [...] encounter Miscellaneous Notes * Telephone Encounter - Samar Lora - 02/13/2023 1:08 PM EDT Patient [...] 9:45 AM EDT Office Visit [facility] MEDICINE [address] [place] [address] Mandie Fields FNP [address] [place] [address] documented as of this encounter Visit Diagnoses Not on filedocumented in this encounter Additional Health Concerns Assessment Noted Time PHQ-9 Depression Total Score: 10 022 10:45 AM EST documented as of this encounter Care Teams Inspection Supervisor Relationship Specialty Start Date End Date Mandie Fields FNP [address] [place] [address] PCP - General Family Medicine 05/01/22 documented as of this encounter
--- OUTSIDE RECORDS SUMMARY | 2024-11-24 15:45 | XMS_ITS | Encounter Summary ---
Author Organization [employer] Address [address] [facility] 7t [place] [address] Care Team Providers Care Actuarial Technician Name Role Phone Mandie Fields Primary Care Provider [phone] Reason for Visit * Reason Comments Med Refill Encounter Details Date Type Department Care Team ([facility] st Contact Info) Description 10/26/2024 Refill [facility] [address] [place], [place] [phone] Mandie Fields FNP [address] [place] [address] Gastroesophageal reflux disease, unspecified whether esophagitis present; [...] 9:45 AM EDT Office Visit [facility] MED[facility]INE [address] [place] [address] Mandie Fields FNP [address] [place] [address] documented as of this encounter Visit Diagnoses Diagnosis Gastroesophageal reflux disease, unspecified whether esophagitis present Essential hypertension Unspecified essential hypertension Moderate persistent asthma without complication documented in this encounter Additional Health Concerns Assessment Noted Time PHQ-9 Depression Total Score: 10 023 9:34 AM EST documented as of this encounter Care Teams Actuarial Technician Relationship Specialty Start Date End Date Mandie Fields FNP [address] [place] [address] PCP - General Family Medicine 05/01/22 documented as of this encounter
--- OUTSIDE RECORDS SUMMARY | 2024-11-24 15:45 | XMS_ITS | Encounter Summary ---
Author Organization [employer] Address [address] 7t [place] [address] Care Team Providers Care Gastroenterology Teacher Name Role Phone Mandie Fields IVANIA Primary Care Provider [phone] Encounter Details Date Type Department Care Team [...] Description 01/27/2025 9:45 AM EDT Office Visit [facility] MED[facility] [address] [place] [address] Mandie Fields, IVANIA [address] [place] [address] documented as of this encounter Procedures Procedure Name Priority Date/Time Associated Diagnosis Comments TSH Routine 10/28/2024 10:15 AM EST T4, FREE Routine 10/28/2024 10:15 AM EST documented in this encounter Results * T4, Free (10/28/2024 10:15 AM EST) Free T4 (Free Thyroxine) 1.44 0.71 - 1.85 ng/dL [facility] 10/28/2024 10:1 5 AM EST 10/28/2024 11:08 AM EST us Generic External Data Provider LAB BLOOD ORDERAB LES Final Result [facility] [address] [place] [phone] * (ABNORMAL) TSH (10/28/2024 10:15 AM EST) Thyroid Stimulating Hormone 0.05(L) 0.32 - 4.0 uIU/mL [facility] Comment:TSH 3rd Generation ( [facility]) 10/28/2024 10:1 5 AM EST 10/28/2024 11:08 AM EST us Generic External Data Provider LAB BLOOD ORDERAB LES Final Result [facility] [address] [place] [address] [phone] documented in this encounter Visit Diagnoses Not on filedocumented in this encounter Additional Health Concerns Assessment Noted Time PHQ-9 Depression Total Score: 11 025 9:09 AM EST documented as of this encounter Care Teams Gastroenterology Teacher Relationship Specialty Start Date End Date Mandie Fields FNP [address] [place] [address] PCP - General Family Medicine 05/01/22 documented as of this encounter
--- OUTSIDE RECORDS SUMMARY | 2024-11-24 15:45 | XMS_ITS | Encounter Summary ---
Author Organization [employer] Address [address] 7t [place] [address] Care Team Providers Care Racking Technician Name Role Phone Mandie Fields Primary Care Provider [phone] Reason for Visit * Reason Onset Date Comments FYI 12/26/2023 Encounter Details Date Type Department Care Team ([facility] st Contact Info) Description 12/26/2023 Telephone [facility] MED[facility] [address] [place] [address] Mandie Fields FNP [address] [place], [place] [phone] FYI Social History Tobacco Use Types Packs/Day [...] - 12/30/2023 9:08 AM EDT Call to [facility], at [phone], no answer, call continues to ring and does not forward to . * Telephone Encounter - Luisa Cox RN - 12/30/2023 9:06 AM EDT Call returned to [facility] at [phone] for triage. No answer, unable;e to [facility] as is full. Left SMS notification to return call to [facility] triage line [phone]. * Telephone Encounter - IVANIA Boswell - 12/30/2023 6:26 AM EDT Please attempt to call pt for triage s/p fall at home. Thank you! * Telephone Encounter - Wing Delbert RN - 12/27/2023 1:52 PM EDT Just as a FYI. Tc to [facility] regarding pt's fall. Unable to reach her and left message for her to callback. Attempted to call pt using [employer] Manager [place], [place] [id number]. Service Member unable to leave messagedue to mailbox being full. * Telephone Encounter - Esthela Paiz - 12/26/2023 4:15 PM EDT Tc from [facility] with [facility] calling to advise provider pt had a fall in home yesterday (12/24). States pt sustained no injuries. documented in this encounter Plan of Treatment Upcoming Encounters Date Type Department Care Team (Late st Contact Info) Description 01/27/2025 9:45 AM EDT Office Visit [facility] MED[facility]INE [address] [place] [address] Mandie Fields FNP [address] [place] [address] documented as of this encounter Visit Diagnoses Not on filedocumented in this encounter Additional Health Concerns Assessment Noted Time PHQ-9 Depression Total Score: 10 023 9:34 AM EST documented as of this encounter Care Teams Racking Technician Relationship Specialty Start Date End Date Mandie Fields FNP [address] [place] [address] PCP - General Family Medicine 05/01/22 documented as of this encounter
--- OUTSIDE RECORDS SUMMARY | 2024-11-24 15:45 | XMS_ITS | Encounter Summary ---
Author Organization [employer] [facility] Address [address] [place] [address] [address] [place] [address] Care Team Providers Care Residue Furnace Operator Name Role Phone Mandie Fiedls Primary Care Provider [phone] Reason for Visit * Reason Comments Med Refill Encounter Details Date Type Department Care Team (Late Contact Info) Description 03/29/2023 Refill [facility] MED[facility] [address] [place], [place] [phone] Mandie Fields FNP [address] [place], [place] [phone] Moderate persistent asthma without complication Social History [...] Description 01/27/2025 9:45 AM EDT Office Visit [facility] [address] [place], [place] [phone] Mandie Fields FNP [address] [place] [address] documented as of this encounter Visit Diagnoses Diagnosis Moderate persistent asthma without complication documented in this encounter Additional Health Concerns Assessment Noted Time PHQ-9 Depression Total Score: 10 022 10:45 AM EST documented as of this encounter Care Teams Residue Furnace Operator Relationship Specialty Start Date End Date Mandie Fields FNP [address] [place] [address] PCP - General Family Medicine 05/01/22 documented as of this encounter
--- OUTSIDE RECORDS SUMMARY | 2024-11-24 15:45 | XMS_ITS | Encounter Summary ---
Author Organization [facility] Address [address] [place] [address] Care Team Providers Care Crop Scout Name Role Phone Mandie Fields Primary Care Provider [phone] Reason for Referral * Consultation (Routine) - Authorized Specialty Diagnoses / Procedures Referred By Darian santiago Referred To Contact Family Medicine Diagnoses Psoriasis Mandie Fields FNP [address] [place] [address] Phone: tel: fax: Referral ID Status Reason Start Date Expiration Date Visits Requested Visits Authorized [id number] Authorized Specialty Services Required 11/03/2024 11/03/2025 1 1 * Imaging (Routine) - Authorized Specialty Diagnoses / Procedures Referred By Darian santiago Referred To Contact Radiology Diagnoses Osteopenia, unspecified location Other specified disorders of bone density and structure, multiple sites Procedures BD DEXA Axial Mandie Fields FNP [address] [place] [address] Phone: tel: fax: [facility] [address] [place], [place] Phone: tel: fax: Referral ID Status Reason Start Date Expiration Date V isits Requested Visits Authorized [id number] Authorized 11/03/2024 11/03/2025 1 1 * Imaging (Routine) - Authorized Specialty Diagnoses / Procedures Referred By Darian santiago Referred To Contact Radiology Diagnoses Encounter for screening mammogram for malignant neoplasm of breast Procedures BI Mammogram Screening Tomosynthesis Bilateral Mandie Fields FNP [address] [place] [address] Phone: tel: fax: [facility] [address] [place] [address] Phone: tel: fax: Referral ID Status Reason Start Date Expiration Date V isits Requested Visits Authorized [id number] Authorized 10/28/2024 10/28/2025 1 1 * Consultation (Routine) - Authorized Specialty Diagnoses / Procedures Referred By Darian santiago Referred To Contact Gastroenterology Diagnoses Colon cancer screening Mandie Fields FNP [address] [place] [address] Phone: tel: fax: Delon Torres MD [address] [place] [phone] Phone: tel: Referral ID Status Reason Start Date Expiration Date Visits Requested Visits Authorized [id number] Authorized Specialty Services Required 10/28/2024 10/28/2025 1 1 Encounter Details Date Type Department Care Team (Latest Contact Info) Description 10/28/2024 9:15 AM EST Office Visit [facility] [address] [place] [address] Mandie Fields FNP [address] [place] [address] Postoperative hypothyroidism (Primary Dx); Routine health maintenance; [...] opiate analgesic; Primary osteoarthritis of both knees Social History Tobacco Use Types Packs/Day Years [...] 9:04 AM EST documented in this encounter Progress Notes * IVANIA Boswell - 10/28/2024 9:15 AM EST Subjective: Anneliese Stern is a 64 y.o. female who presents to the office for a Transfer Patient visit/comprehensive medical evaluation. HPI: Last PCP visit: 09/04/23 Following with specialists - [facility] Endo for hypothyroidism s/p thyroidectomy due to hx thyroid cancer. Continues with daily levothyroxine. BANDER program - following with group visits. Continues with chronic knee pain. Patient Active Problem List Diagnosis Allergic rhinitis Depressive disorder Essential hypertension Hypercholesterolemia Hypertensive retinopathy Moderate persistent asthma Osteoarthritis of both knees Postoperative hypothyroidism Psoriasis Vitamin D deficiency History of malignant neoplasm of thyroid Routine health maintenance Long-term current use of opiate analgesic Osteoporosis Past Surgical History: Procedure Laterality Date BREAST BIOPSY Family History Problem Relation Diabetes Mother Hypertension Mother Asthma Mother Osteoporosis Mother Dementia Mother Asthma Sister Colon polyps Son Social History - Pet dog, lives alone - Substance use: none reported - Sexual activity: Denies current sexual activity - Mental health: Denies SI/HI/thoughts of self harm Allergies Allergen Reactions Elias Inhibitors Other reaction(s): Cough on lisinopril Terazosin Other reaction(s): SWELLING AND TIREDNESS Review of Systems Constitutional: Negative for chills, fatigue and fever. HENT: Negative for congestion and sore throat. Eyes: Negative for visual disturbance. Respiratory: Negative for cough, shortness of breath and wheezing. Cardiovascular: Negative for chest pain and palpitations. Gastrointestinal: Negative for constipation, diarrhea, nausea and vomiting. Skin: Negative for rash. Psychiatric/Behavioral: Negative for suicidal ideas. Visit Vitals BP 132/64 (BP Location: Right arm, Patient Position: Sitting, BP Cuff Size: Adult) Pulse 95 Temp 96.8 ??F (36 ??C) (Temporal) Resp 19 Ht 5' 2 (1.575 m) Wt 162 lb 8 oz (73.7 kg) LMP (LMP Unknown) SpO2 98% BMI 29.72 kg/m?? Smoking Status Never BSA 1.8 m?? Physical Exam Vitals reviewed. Constitutional: Appearance: Normal appearance. HENT: Head: Normocephalic and atraumatic. Right Ear: Tympanic membrane, ear canal and external ear normal. Left Ear: Tympanic membrane, ear canal and external ear normal. Nose: Nose normal. No congestion. Mouth/Throat: Mouth: Mucous membranes are moist. Pharynx: No oropharyngeal exudate or posterior oropharyngeal erythema. Eyes: General: Right eye: No discharge. Left eye: No discharge. Extraocular Movements: Extraocular movements intact. Pupils: Pupils are equal, round, and reactive to light. Cardiovascular: Rate and Rhythm: Normal rate and regular rhythm. Heart sounds: Normal heart sounds. Pulmonary: Effort: Pulmonary effort is normal. Breath sounds: Normal breath sounds. Abdominal: General: There is no distension. Palpations: Abdomen is soft. Musculoskeletal: General: Normal range of motion. Cervical back: Normal range of motion. No tenderness. Skin: General: Skin is warm. Neurological: Mental Status: She is alert and oriented to person, place, and time. Psychiatric: Mood and Affect: Mood normal. Behavior: Behavior normal. Problem List Items Addressed This Visit Respiratory Moderate persistent asthma Current Assessment & Plan -Maintenance: Advair 1 puff BID, montelukast 10mg PO nightly -Rescue: albuterol PRN -Using rescue approx 2x/month, no night time coughing/awakenings. Well controlled. Relevant Medications albuterol (2.5 MG/3ML) 0.083% nebulizer solution albuterol (Ventolin HFA) 108 (90 Base) MCG/ACT inhaler Circulatory Essential hypertension Overview BP goal < 140/90 mmHg Cont chlorthalidone 25mg daily Cont olmesartan 20mg daily Current Assessment & Plan -Well controlled, encouraged to cont current regimen -Cont low salt diet, routine physical activity as able. Musculoskeletal Osteoarthritis of both knees Overview XR Knee BL from Apr 2019: Moderate degenerative arthrosis primarily involving the medial compartments of both knees, greater on the left. Findings appear grossly unchanged when compared to recent prior imaging from 03/20/2019 Previous tx includes: physical therapy, steroid injections Currently prescribed Tramadol 50mg BID PRN severe pain. Engaged with BANDER Program Relevant Medications traMADol (Ultram) 50 MG tablet Osteoporosis Overview December 2023 - DXA with dx osteoporosis based on T-score value -3.6 in the femoral neck. Initiated alendronate 70mg weekly 12/24/23 Endo consult May 2024 at [facility] - Dr. Mayorga. Reviewed DXA results and suspects DXA from December 2023 mark over-read. Suggested repeating DXA scan through PCP. Repeat ordered 11/03/24. Encouraged to continue with adequate intake of calcium and Vit D. Low weight bearing exercises. Relevant Medications alendronate (Fosamax) 70 MG tablet Endocrine/Metabolic Postoperative hypothyroidism - Primary Overview History of thyroid CA now followed by [facility] Endo Continues with levothyroxine 137 mcg daily TSH goal: 0.1-0.5 Vitamin D deficiency Relevant Medications cholecalciferol (Vitamin D High Potency) 25 MCG (1000 UT) capsule Other Depressive disorder Current Assessment & Plan -Continue following with [facility] Reyna -Cont current med regimen: buspirone 15mg BID and citalopram 20mg daily Psoriasis Current Assessment & Plan Previous tx with topicals - Dovonex and Diprolene Referral to [facility] Derm team sent 08/14/23, re-sent on 11/03/24 Follow up with any worsening or persistence of symptoms Relevant Orders Referral to [facility] Derm Skin Adult History of malignant neoplasm of thyroid Overview - 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 - Following with [facility] Endo/Dr. Mayorga/Dr. Herzog - December 2023: Thyroid US demonstrated numerous bilateral thyroid nodules, some pathologically enlarged and further showing atypical architectural features. Reviewed by Dr. Mayorga, plan repeat December 2024. Consult May 2024: [facility] Endo - Dr. Mayorga. 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 Routine health maintenance Current Assessment & Plan -Pap: 09/27/20 NIL/HPV neg -Smoking status: former -Mammo: BIRADS 2 on 12/18/23. Noted 7-8cm encapsulated area of normal breast tissue in the anterior half of upper outer quadrant of left breast which is independent sales representative of a hamartoma (benign) -DEXA: December 2023, osteoporosis. Next due: December 2025. -Colonoscopy: December 2014, normal. Referral to GI placed 10/28/24 -Optometry: referral to [facility] eye care previously placed -Last comprehensive exam: 10/28/24 Relevant Orders Lipid Panel, Standard (Completed) Hemoglobin A1c (Completed) Comprehensive Metabolic Panel (Completed) CBC auto differential (Completed) Chlamydia/N. Gonorrhoeae RNA, TMA, Urogenitial Hepatitis C Viral RNA, Quantitative, Real-Time PCR (Completed) RPR (Monitor) with Reflex to Titer (Completed) HIV-1/2 Antigen and Antibodies, Fourth Generation, with Reflexes (Completed) Hepatitis B Core Antibody, Total (Completed) Hepatitis B Surface Antibody, Qualitative (Completed) Hepatitis B surface antigen, EIA (Completed) TSH W/Reflex to FT4 (Completed) Long-term current use of opiate analgesic Overview Medication: Tramadol 50mg BID Indication: OA right knee Last BANDER Agreement: 10/29/23 Other Visit Diagnoses Encounter for immunization Relevant Orders FLU VACCINE TRIVALENT (Fluarix) 6 mo + (Completed) Dietary counseling Exercise counseling Gastroesophageal reflux disease, unspecified whether esophagitis present Relevant Medications omeprazole (PriLOSEC) [address] capsule Hyperlipidemia, unspecified hyperlipidemia type Relevant Medications atorvastatin (Lipitor) 20 MG tablet Colon cancer screening Relevant Orders Referral to Gastroenterology TSH (thyroid-stimulating hormone deficiency) Encounter for screening for infections with a predominantly sexual mode of transmission Relevant Orders Chlamydia/N. Gonorrhoeae RNA, TMA, Urogenitial RPR (Monitor) with Reflex to Titer (Completed) Hepatitis B Surface Antibody, Qualitative (Completed) Hepatitis B surface antigen, EIA (Completed) Asymptomatic neurosyphilis Relevant Orders Hepatitis B Core Antibody, Total (Completed) Chronic pain of both knees Relevant Medications traMADol (Ultram) 50 MG tablet Primary osteoarthritis of right knee Relevant Medications traMADol (Ultram) 50 MG tablet Encounter for screening mammogram for malignant neoplasm of breast Relevant Orders BI Mammogram Screening Tomosynthesis Bilateral Osteopenia, unspecified location Relevant Orders BD DEXA Axial Other specified disorders of bone density and structure, multiple sites Relevant Orders BD DEXA Axial Follow up: 3 months, sooner as needed. Current Outpatient Medications Medication Sig Dispense Refill ketorolac (Acular) 0.5 % ophthalmic solution INSTILL 1 DROP INTO THE AFFECTED EYE(S) THREE TIMES DAILY STARTING 2 DAYS BEFORE SURGERY TAPER DIRECTED Levoxyl 137 MCG tablet Take 1 tablet by mouth Once per day. acetaminophen (Tylenol 8 Hour) 650 MG ER tablet Take 1 tablet (650 mg) by mouth every 8 (eight) hours if needed for moderate pain. Do not crush, chew, or split. 100 tablet 3 albuterol (2.5 MG/3ML) 0.083% nebulizer solution INHALE 1 AMPULE USING A NEBULIZER EVERY 4 TO 6 HOURS NEEDED 90 mL 3 albuterol (Ventolin HFA) 108 (90 Base) MCG/ACT inhaler INHALE 2 PUFFS BY MOUTH EVERY 4 TO 6 HOURS NEEDED 18 g 11 alendronate (Fosamax) 70 MG tablet Take 1 tablet (70 mg) by mouth 1 (one) time per week. Take in the morning with a full glass of water, on an empty stomach, and do not take anything else by mouth orlie down for the next 30 min. 4 tablet 11 atorvastatin (Lipitor) 20 MG tablet Take 1 tablet by mouth every evening 90 tablet 3 betamethasone dipropionate (Diprolene) 0.05 % ointment APPLY A THIN LAYER TOPICALLY TO AFFECTED AREA(S) TWICE DAILY FOR 14 DAYS, THEN STOP FOR 1 WEEK THEN REPEAT NEEDED 45 g 2 Blood Pressure kit 1 kit 2 times daily. 1 kit 0 busPIRone (Buspar) 15 MG tablet TAKE 1 TABLET BY MOUTH TWICE DAILY 60 tablet 5 calcipotriene (Dovonex) 0.005 % ointment APPLY A THIN LAYER TO AFFECTED AREA(S) TWICE DAILY SATURDAY a SATURDAY 60 g 1 calcium citrate 250 MG tablet Take 2 tablets by mouth 2 times daily. ceramides (CeraVe) moisturizing cream Apply 1 Application. topically if needed for dry skin. 453 g 0 cetirizine (ZyrTEC) 10 MG tablet TAKE 1 TABLET BY MOUTH EVERY DAY NEEDED FOR ALLERGIES 90 tablet3 chlorthalidone (Hygroton) 25 MG tablet Take 1 tablet (25 mg) by mouth in the morning. 90 tablet 1 cholecalciferol (Vitamin D High Potency) 25 MCG (1000 UT) capsule Take 1 capsule (25 mcg) by mouth in the morning. 90 capsule 3 citalopram (CeleXA) 20 MG tablet TAKE 1 TABLET BY MOUTH EVERY DAY 90 tablet 3 Eye Itch Relief 0.035 % solution INSTILL 1 DROP INTO THE AFFECTED EYE(S) EVERY 12 HOURS ferrous gluconate (Fergon) 324 (38 Fe) MG tablet Take 1 pill every Saturday, Saturday, and Saturday. Take with a full glass of water or Vit C containing juice, and ideally 1 hour before a mealor 2 hours after a meal 36 tablet 0 ferrous sulfate 325 (65 Fe) MG EC tablet Take 1 tablet by mouth. fluticasone (Flonase) 50 MCG/ACT nasal spray INSTILL 1-2 SPRAYS IN EACH NOSTRIL ONCE DAILY NEEDED 48 g 1 Fluticasone-Salmeterol (Advair Diskus) 500-50 MCG/ACT aerosol powder INHALE 2 PUFFS BY MOUTH EVERY TWELVE HOURS RINSE MOUTH AFTER USING. 1 each 5 lidocaine (Lidoderm) 5 % patch APPLY 1 PATCH TOPICALLY TO SKIN, LEAVE ON FOR 12 HOURS AND OFF FOR 12 HOURS DIRECTED 30 patch 11 melatonin 10 MG tablet Take 1 tablet by mouth. montelukast (Singulair) 10 MG tablet TAKE 1 TABLET BY MOUTH AT BEDTIME 90 tablet 1 olmesartan (BENIcar) 20 MG tablet TAKE 1 TABLET BY MOUTH EVERY DAY 90 tablet 3 omeprazole (PriLOSEC) [address] capsule TAKE 1 CAPSULE BY MOUTH EVERY DAY BEFORE A MEAL 90 capsule 3 senna (Senokot) 8.6 MG tablet TAKE 1 TO 2 TABLETS BY MOUTH EVERY TWELVE HOURS NEEDED FOR CONSTIPATION 360 tablet 1 traMADol (Ultram) 50 MG tablet Take 1 tablet (50 mg) by mouth every 12 (twelve) hours if needed forsevere pain. 56 tablet 0 triamcinolone (Kenalog) 0.1 % cream MIX WITH cerave CREAM AND APPLY TO AFFECTED AREA(S) TWICE DAILYIN THE MORNING AND AT BEDTIME NEEDED FOR PAIN OR FOR SWELLING 80 g 2 No current facility-administered medications for this visit. Immunization History Administered Date(s) Administered Hep B, adult 05/29/2017, 06/28/2017, 05/27/2018 Influenza Injectable Quadrivalant Preservative Free IIV4 MDCK 06/10/2020 Influenza injectable quadrivalent IIV4 with preservative 05/26/2015, 07/06/2016, 05/29/2017, 05/27/2018 Influenza injectable quadrivalent preservative free 08/11/2019, 07/11/2021, 08/14/2023 Influenza, IIV3, injectable 07/22/2009, 09/21/2009, 05/21/2011, 06/28/2014, 08/03/2022 Influenza, Split (incl. purified surface antigen) 07/09/2012, 06/24/2013 Influenza, seasonal, injectable, preservative free 10/28/2024 Cris SARS-CoV-2 Vaccination 11/23/2020 Pfizer Covid-19 Vaccine 12+ 07/11/2021 Pneumococcal Conjugate PCV 20 03/15/2023 Pneumococcal Polysaccharide PPSV23 06/23/1997 TD (adult), 2 Lf tetanus toxoid, preservative free, adsorbed 10/30/1999, 04/29/2019 Tdap 04/27/2009, 03/21/2023 Zoster, Recombinant 08/25/2019, 10/26/2019 documented in this encounter Miscellaneous Notes * Assessment & Plan Note - IVANIA Boswell - 11/03/2024 6:24 PM ESTAssociated Problem(s): Psoriasis Previous tx with topicals - Dovonex and Diprolene Referral to [facility] Derm team sent 08/14/23, re-sent on 11/03/24 Follow up with any worsening or persistence of symptoms * Assessment & Plan Note - IVANIA Boswell - 11/03/2024 6:22 PM ESTAssociated Problem(s): Essential hypertension -Well controlled, encouraged to cont current regimen -Cont low salt diet, routine physical activity as able. * Assessment & Plan Note - IVANIA [...] - IVANIA Boswell - 10/28/2024 6:55 AM EST Associated Problem(s): Routine health maintenance -Pap: 09/27/20 NIL/HPV neg -Smoking status: former -Mammo: BIRADS 2 on 12/18/23. Noted 7-8cm encapsulated area of normal breast tissue in the anterior half of upper outer quadrant of left breast which is independent sales representative of a hamartoma (benign) -DEXA: December 2023, osteoporosis. Next due: December 2025. -Colonoscopy: December 2014, normal. Referral to GI placed 10/28/24 -Optometry: referral to [facility] eye care previously placed -Last comprehensive exam: 10/28/24 documented in this encounter Plan of Treatment Upcoming Encounters Date Type Department Care Team (Late st Contact Info) Description 01/27/2025 9:45 AM EDT Office Visit [facility] [address] [place] [address] Mandie Fields, FERMENTOLOGIST [address] [place] [address] Pending Results Name Type Priority Associated Diagnoses Date /Time BI Mammogram Screening Tomosynthesis Bilateral Imaging Routine Encounter for screening mammogram for malignant neoplasm of breast 10/28/2024 Scheduled Orders Name Type Priority Associated Diagnoses Orde r Schedule Chlamydia/N. Gonorrhoeae RNA, TMA, Urogenitial Microbiology Routine Routine health maintenance Encounter for screening for infections with a predominantly sexual mode of transmission Expected: 10/28/2024, Expires: 10/28/2025 BI Mammogram Screening Tomosynthesis Bilateral Imaging Routine Encounter for screening mammogram for malignant neoplasm of breast Expected: 10/28/2024, Expires: 12/26/2025 BD DEXA Axial Imaging Routine Osteopenia, unspecified location Other specified disorders of bone density and structure, multiple sites Expected: 11/03/2024, Expires: 11/03/2025 Scheduled Referrals Name Type Priority Associated Diagnoses Order Schedule Referral to Gastroenterology Outpatient Referral Routine Colon cancer screening Expected: 10/28/2024 (Approximate), Expires: 10/28/2025 Referral to [facility] Derm Skin Adult Outpatient Referral Routine Psoriasis Expected: 11/03/2024 (Approximate), Expires: 11/03/2025 documented as of this encounter Procedures Procedure Name Priority Date/Time Associated Diagnosis Comments TSH W/REFLEX TO FT4 Routine 10/28/2024 1 0:15 AM EST Routine health maintenance HEPATITIS C VIRAL RNA, QUANTITATIVE, REAL-TIME PCR Routine 10/28/2024 10:15 AM EST Routine health maintenance CBC WITH AUTO DIFFERENTIAL Routine 10/28/2024 10:15 AM EST Routine health maintenance HEPATITIS B SURFACE ANTIGEN, EIA Routine 10/28/2024 10:15 AM EST Routine health maintenance Encounter for screening for infections with a predominantly sexual mode of transmission HEPATITIS B CORE AB TOTAL Routine 10/28/2024 10:15 AM EST Routine health maintenance Asymptomatic neurosyphilis RPR (MONITOR) W/REFL TITER Routine 10/28/2024 10:15 AM EST Routine health maintenance Encounter for screening for infections with a predominantly sexual mode of transmission HIV 1/2 ANTIGEN/ANTIBODY, FOURTH GENERATION W/RFL Routine 10/28/2024 10:15 AM EST Routine health maintenance HEPATITIS B SURFACE ANTIBODY, QUALITATIVE Routine 10/28/2024 10:15 AM EST Routine health maintenance Encounter for screening for infections with a predominantly sexual mode of transmission HEMOGLOBIN A1C Routine 10/28/2024 10:15 AM EST Routine health maintenance LIPID PANEL, STANDARD Routine 10/28/2024 10:15 AM EST Routine health maintenance COMPREHENSIVE METABOLIC PANEL Routine 10/28/2024 10:15 AM EST Routine health maintenance documented in this encounter Results * (ABNORMAL) TSH W/Reflex to FT4 (10/28/2024 10:15 AM EST) TSH reflex Free T4 0.05(L) 0.32 - 4.0 uIU/mL [facility] Blood Venous blood specimen / Unknown 10/28/2024 10:15 AM EST 10/28/2024 11:08 AM EST us Mandie Fields FERMENTOLOGIST LAB BLOOD ORDERABLES Final Res ult [facility] [address] [place] [phone] * Hepatitis B surface antigen, EIA (10/28/2024 10:15 AM EST) Hepatitis B Surface Ag Negative Negative [facility] Blood Venous blood specimen / Unknown 10/28/2024 10:15 AM EST 10/28/2024 11:08 AM EST us Mandie Fields FERMENTOLOGIST LAB BLOOD ORDERABLES Final Res ult Performing Organization Address [facility] Co de Phone Number [facility] [address] [place] [phone] * Hepatitis B Surface Antibody, Qualitative (10/28/2024 10:15 AM EST) ~Hepatitis B Surface Antibody NONREACTIVE Nonreactive [facility] Comment:Nonreactive: < 8.00 mIU/mL Blood Venous blood specimen / Unknown 10/28/2024 10:15 AM EST 10/28/2024 11:08 AM EST us Mandie Fields FERMENTOLOGIST LAB BLOOD ORDERABLES Final Res ult Performing Organization Address [facility] Co de Phone Number [facility] [address] [place] [phone] * Hepatitis B Core Antibody, Total (10/28/2024 10:15 AM EST) Pathologist [facility] Hepatitis B Core Antibody Nonreactive Nonreactive [facility] Blood Venous blood specimen / Unknown 10/28/2024 10:15 AM EST 10/28/2024 11:08 AM EST Mandie Fields FERMENTOLOGIST LAB BLOOD ORDERABLES Final Res ult Performing Organization Address [facility] de Phone Number [facility] [address] [place] [phone] * HIV-1/2 Antigen and Antibodies, Fourth Generation, with Reflexes (10/28/2024 10:15 AM EST) Pathologist [facility] HIV AB/AG Nonreactive Nonreactive [facility] Comment:HIV-1 p24 Ag and/or HIV-1/HIV-2 Ab not detected.A test result that is nonreactive does not exclude thepossibility of exposure to or infection with HIV-1 and/orHIV-2. Nonreactive results in this assay for individualswith prior exposure to HIV-1 and/or HIV-2 may be due toantigen and antibody levels that are below the limit ofdetection of this assay.The [employer] HIV Ag/Ab Combo assay result andsupplemental assay results should be interpreted inconjunction with the patient's clinical presentation,history and other laboratory results. If the results areinconsistent with clinical evidence, additional testing issuggested to confirm the result. Blood Venous blood specimen / Unknown 10/28/2024 10:15 AM EST 10/28/2024 11:08 AM EST Mandie Fields [facility] BLOOD ORDERABLES Final Res ult Performing Organization Address [facility] Co de Phone Number [facility] [address] [place] [address] [phone] * RPR (Monitor) with Reflex to??Titer (10/28/2024 10:15 AM EST) Pathologist [facility] RPR (Monitor) w/Refl Titer NON-REACTI VE NON-REACT DEBBIE [facility] Comment:THIS TEST WAS PERFOR MED AT:[employer] [address] [address] [id number] BUSBY MD Rapid Plasma Reagin Ab Titer TNP [facility] Blood Venous blood specimen / Unknown 10/28/2024 10:15 AM EST 10/28/2024 11:08 [address] EST [address] [facility] BLOOD ORDERABLES Final Res ult Performing Organization Address [facility] Co de Phone Number [facility] [address] [place] [phone] * Hepatitis C Viral RNA, Quantitative, Real-Time PCR (10/28/2024 10:15 AM EST) Pathologist [facility] Hepatitis C Viral Load <15 NOT DETECTED NOT DETECTED IU/mL [facility] HCV Log PCR <1.18 NOT DETECTED NOT DETECTED Log IU/mL [facility] Comment:For additional infor mation, please refer [email or web address]/[email or web address](This link is being provided for informational/educational purposes only.)THIS TEST WAS PERFORMED AT:[address] [place] [id number] BUSBY MD Blood 10/28/2024 10:1 5 AM EST 10/28/2024 11:08 AM EST Mandie Fields FERMENTOLOGIST LAB BLOOD ORDERABLES Final Res ult [facility] [address] [place] [phone] * (ABNORMAL) CBC auto differential (10/28/2024 10:15 AM EST) White Blood Count 4.3(L) 4.8 - 10.8 X10*3/uL [facility] Red Blood Count 4.04(L) 4.20 - 5.50 X10*6/uL [facility] Hemoglobin 11.1(L) 12.0 - 16.0 g/dl [facility] Hematocrit 33.5(L) 37.0 - 47.0 % [facility] Mean Corpuscular Volume 82.9 80.0 - 98.0 fL [facility] Mean Corpuscular Hemoglobin 27.5 27.0 - 33.0 pg [facility] Mean Corpuscular HGB Conc 33.1 31.0 - 35.0 g/dl [facility] Red Cell Distribution Width 13.7 11.0 - 16.0 % [facility] Platelet Count 344 160 - 400 X10*3/uL [facility] Mean Platelet Volume 9.1(L) 9.4 - 12.3 fL [facility] Neutrophils Percent Auto 53.4 45 - 73 % [facility] Imm Gran Pct Auto 0.2 0.0 - 0.4 % [facility] Lymphocytes Percent Auto 25.2 20 - 40 % [facility] Monocytes Percent Auto 10.7 2 - 11 % [facility] Eosinophils Percent Auto 9.6(H) 0 - 4 % [facility] Basophils Percent Auto 0.9 0 - 2 % [facility] NRBC Pct Auto 0.0 0.0 - 0.2 /100WBC [facility] Neutrophils Absolute Auto 2.3 2.0 - 8.3 x10*3/uL [facility] Imm Gran Abs Auto 0.01 0.00 - 0.03 X10*3/uL [facility] Lymphocytes Absolute Auto 1.1(L) 1.2 - 4.9 X10*3/uL [facility] Monocytes Absolute Auto 0.5 0.1 - 1.2 X10*3/uL [facility] Eosinophils Absolute Auto 0.4 0.0 - 0.4 X10*3/uL [facility] Basophils Absolute Auto 0.0 0.0 - 0.2 X10*3/uL [facility] NRBC Abs Auto 0.000 0.0 - 0.012 X10*3/uL [facility] Blood Venous blood specimen / Unknown 10/28/2024 10:15 AM EST 10/28/2024 11:08 AM EST us Mandie Fields [facility] BLOOD ORDERABLES Final Res ult [facility] [address] [place] [phone] * (ABNORMAL) Comprehensive Metabolic Panel (10/28/2024 10:15 AM EST) Sodium 141 135 - 145 mmol/L [facility] Potassium 3.8 3.3 - 5.1 mmol/L [facility] Chloride 107 96 - 108 mmol/L [facility] Carbon Dioxide 27 22 - 29 mmol/L [facility] Anion Gap 11(L) 12 - 20 [facility] Urea Nitrogen (BUN) 19(H) 9 - 16 mg/dL [facility] Creatinine, Serum 0.78 0.5 - 1.4 mg/dL [facility] Estimated Glomerular Filt Rate >60 [facility] Comment:Chronic Kidney Disea se: Estimated GFR < 60 mL/min/1.75s5Hdfhnb Kidney Disease: Estimated GFR < 15 mL/min/1.73m2 Glucose 103 60 - 115 mg/dL [facility] Calcium 9.2 8.4 - 10.2 mg/dL [facility] Bilirubin, Total 0.3 0.0 - 1.0 mg/dL [facility] Aspartate Amino Transferase 36(H) 5 - 31 U/L [facility] Alanine Aminotransferase 100(H) 0 - 31 U/L [facility] Total Protein 7.6 6.5 - 8.0 g/dL [facility] Albumin Level 4.0 3.5 - 5.0 g/dL [facility] Alkaline Phosphatase 86 39 - 117 U/L [facility] Blood Venous blood specimen / Unknown 10/28/2024 10:15 AM EST 10/28/2024 11:08 AM EST us Mandie Fields FERMENTOLOGIST LAB BLOOD ORDERABLES Final Res ult [facility] [address] [place] [phone] * Hemoglobin A1c (10/28/2024 10:15 AM EST) Hemoglobin A1c 5.8 <6.0 % [facility] Comment:Hemoglobin A1C Refer ence Range Adults: 4.8 - 6.0 % Non diabetic: < 6.0 % Goal: < 7.0 %Additional Action Suggested: > 8.0 %Note: Hemoglobin A1c results are invalid for patients with abnormal amounts of HbF. Blood transfusions may impact the HbA1c concentration in the patient sample. Estimated Average Glucose 120 mg/dL [facility] Comment:eAG = Estimated ave rage glucose which is %A1C expressed asaverage glucose, using the formula of the C3G-KlqzwfyLkucuua Glucose study (ADAG), Diabetes Care, Vol.31,#8,Apr. 2007 Blood Venous blood specimen / Unknown 10/28/2024 10:15 AM EST 10/28/2024 11:08 AM EST us Mandie Ana Luisamike [facility] BLOOD ORDERABLES Final Res ult Performing Organization Address [facility]/ZIP Co de Phone Number [facility] [address] [place] [phone] * Lipid Panel, Standard (10/28/2024 10:15 AM EST) Triglycerides 93 <150 mg/dL [facility] Comment:Desirable Triglyceri de: less than 150 mg/dLBorderline High Triglyceride 150-199 mg/dLHigh Triglyceride: 200-499 mg/dLVery High Triglyceride: greater than or equal to 5OO mg/dL Cholesterol 172 <200 mg/dL [facility] Comment:Desirable Cholestero l: less than 200 mg/dLBorderline High Cholesterol: 200-239 mg/dLHigh Cholesterol: greater than 239 mg/dL LDL Cholesterol Calculated 97 <100 mg/dL [facility] Comment:Desirable LDL: less than 100 mg/dLNear Optimal/Above Optimal LDL: 110- 129 mg/dLBorderline High LDL: 130-159 mg/dLHigh LDL: 160-189 mg/dLVery High LDL: greater than or equal to 190 mg/dL HDL Cholesterol 57 >40 mg/dL [facility] Comment:Desirable HDL: great er than 40 mg/dL Note: This HDL assay may give artificially low results in patients with liver disease. Blood Venous blood specimen / Unknown 10/28/2024 10:15 AM EST 10/28/2024 11:08 AM EST us Mandie Fields [facility] BLOOD ORDERABLES Final Res ult Performing Organization Address City/[facility]/ZIP Co de Phone Number [facility] [address] [place] [phone] documented in this encounter Visit Diagnoses [...] screening mammogram for malignant neoplasm of breast History of malignant neoplasm of thyroid Personal history of malignant neoplasm of thyroid Osteoporosis, unspecified osteoporosis type, unspecified pathological fracture presence Osteopenia, unspecified location Other specified disorders of bone density and structure, multiple sites Psoriasis Other psoriasis Long-term current use of opiate analgesic Encounter for long-term (current) use of other medications Primary osteoarthritis of both knees documented in this encounter Additional Health Concerns Assessment Noted Time PHQ-9 Depression Total Score: 11 025 9:09 AM EST documented as of this encounter Care Teams Crop Scout Relationship Specialty Start Date End Date Mandie Fields FNP [address] [place] [phone] PCP - General Family Medicine 05/01/22 documented as of this encounter
--- OUTSIDE RECORDS SUMMARY | 2024-11-24 15:45 | XMS_ITS | Encounter Summary ---
Author Organization [employer] Address [address] [facility] [address] [place] [address] Care Team Providers Care Trestle Builder Name Role Phone Mandie Fields IVANIA Primary Care Provider [phone] Encounter Details Date Type Department Care Team [...] Description 01/27/2025 9:45 AM EDT Office Visit [facility] [address] [place] [address] Mandie Fields FNP [address] [place] [address] documented as of this encounter Visit Diagnoses Not on filedocumented in this encounter Additional Health Concerns Assessment Noted Time PHQ-9 Depression Total Score: 11 025 9:09 AM EST documented as of this encounter Care Teams Trestle Builder Relationship Specialty Start Date End Date Mandie Fields FNP [address] [place] [address] PCP - General Family Medicine 05/01/22 documented as of this encounter
--- OUTSIDE RECORDS SUMMARY | 2024-11-24 15:46 | XMS_ITS | Encounter Summary ---
Author Organization [employer] Address [address] [place] [address] Care Team Providers Care Body Technician/Painter Name Role Phone Mandie Fields Primary Care Provider Reason for Visit * Reason Comments Med Refill Encounter Details Date Type Department Care Team (Late st Contact Info) Description 11/13/2024 Refill [facility] [address] [place] [address] Mandie Fields FNP [address] [place] [address] Psoriasis Social History Tobacco Use Types Packs/Day Years [...] Description 01/27/2025 9:45 AM EDT Office Visit [facility] [address] [place] [address] Mandie Fields FNP [address] [place] [address] documented as of this encounter Visit Diagnoses Diagnosis Psoriasis Other psoriasis documented in this encounter Additional Health Concerns Assessment Noted Time PHQ-9 Depression Total Score: 11 025 9:09 AM EST documented as of this encounter Care Teams Body Technician/Painter Relationship Specialty Start Date End Date Mandie Fields FNP [address] [place] [address] PCP - General Family Medicine 05/01/22 documented as of this encounter
--- OUTSIDE RECORDS SUMMARY | 2024-11-24 15:46 | XMS_ITS | Encounter Summary ---
Author Organization [employer] Address [address] [address] [place] [address] Care Team Providers Care Naphtha Washing System Operator Name Role Phone Mandie Fields Primary Care Provider Encounter Details Date Type Department Care Team ([facility] st Contact Info) Description 10/29/2024 Telephone [facility] [address] [place] [address] Mandie Fields FNP [address] [place] [address] Social History Tobacco Use Types Packs/Day Years [...] encounter Miscellaneous Notes * Telephone Encounter - Lauren Bruno RN - 10/29/2024 10:46 AM EST T/C placed to pt via BLS Hospital Administrative Assistant to advise of message from PCP re: lab results. No answer, v/m left to return call to [facility] nurses. * Telephone Encounter - Lauren Bruno RN - 10/29/2024 10:42 AM EST ----- Message from Mandie Fields sent at 10/28/2024 3:06 PM EST ----- Partial labs available: - Please call to let her know that from lab results available thus far, demonstrates that her TSH level is overly suppressed, and will likely need to decrease dose of levothyroxine. Please encourage her to contact Endo for consideration of dose adjustment. - Also noted increase in liver enzymes which is new compared to labs from last year. Mild abnormalities with red blood cell count. Cholesterol levels looked excellent. A1c is in prediabetes range. Please encourage lifestyle interventions and to repeat lab work fasting in 2-3 weeks. Orders active. Thanks! documented in this encounter Plan of Treatment Upcoming Encounters Date Type Department Care Team (Late st Contact Info) Description 01/27/2025 9:45 AM EDT Office Visit [facility] [address] [place] [address] Mandie Fields FNP [address] [place] [address] documented as of this encounter Visit Diagnoses Not on filedocumented in this encounter Additional Health Concerns Assessment Noted Time PHQ-9 Depression Total Score: 11 025 9:09 AM EST documented as of this encounter Care Teams Naphtha Washing System Operator Relationship Specialty Start Date End Date Mandie Fields FNP [address] [place] [address] PCP - General Family Medicine 05/01/22 documented as of this encounter
--- OUTSIDE RECORDS SUMMARY | 2024-11-24 15:46 | XMS_ITS | Encounter Summary ---
Author Organization [employer] Address [address] [facility] [address] [place] [address] Care Team Providers Care Striper Name Role Phone Mandie Fields Primary Care Provider [phone] Reason for Visit * Reason Onset Date Comments Call Back Request 11/23/2024 Appointment Request 11/23/2024 Encounter Details Date Type Department Care Team ([facility] st Contact Info) Description 11/23/2024 Telephone [facility] [address] [place] [address] Mandie Fields FNP [address] [place] [address] Call Back Request; Appointment Request Social History Tobacco Use Types Packs/Day Years [...] encounter Miscellaneous Notes * Telephone Encounter - Glendy Pond RN - 11/24/2024 1:24 PM EDT TC to pt and son. cellar supervisor used. No answer. Voicemail left with clinic number to call back. * Telephone Encounter - Glendy Pond RN - 11/24/2024 9:08 AM EDT TC to Mikki from [facility]. Pt needs medication for dizziness, having a hard time ambulation (home health?) and code for drepression in chart is wrong according to insurance company visit nurse. Pt had a fall on 11/22/24 and hurt hand. RN reached out to pt and son with principal clerk. No answer. Voicemail left. * Telephone Encounter - Mali Butcher - 11/24/2024 8:19 AM EDT Tc from Kimmy with [facility] regarding prior message. * Telephone Encounter - Sonny Malik - 11/23/2024 12:18 PM EDT TC from Kimmy requesting a call back regarding the F code for the Pt. Kimmy is stating that the Code that the pt has currently they aren't able to use. Contact Kimmy at [phone] documented in this encounter Plan of Treatment Upcoming Encounters Date Type Department Care Team (Late st Contact Info) Description 01/27/2025 9:45 AM EDT Office Visit [facility] [address] [place] [address] Mandie Fields FNP [address] [place] [address] documented as of this encounter Visit Diagnoses Not on filedocumented in this encounter Additional Health Concerns Assessment Noted Time PHQ-9 Depression Total Score: 11 025 9:09 AM EST documented as of this encounter Care Teams Striper Relationship Specialty Start Date End Date Mandie Fields FNP [address] [place] [address] PCP - General Family Medicine 05/01/22 documented as of this encounter
--- OUTSIDE RECORDS SUMMARY | 2024-11-24 15:46 | XMS_ITS | Encounter Summary ---
Author Organization [employer] Address [address] [facility] 7t [place] [address] Care Team Providers Care At Risk Specialist Name Role Phone Mandie Fields Primary Care Provider [phone] Reason for Visit * Reason Comments Med Refill Encounter Details Date Type Department Care Team ([facility] st Contact Info) Description 04/10/2024 Refill [facility] [address] [place], [place] [phone] Mandie Fields FNP [address] [place], [place] [phone] Essential (primary) hypertension Social History Tobacco Use [...] Description 01/27/2025 9:45 AM EDT Office Visit [facility] [address] [place] [address] Mandie Fields FNP [address] [place] [address] documented as of this encounter Visit Diagnoses Diagnosis Essential (primary) hypertension Unspecified essential hypertension documented in this encounter Additional Health Concerns Assessment Noted Time PHQ-9 Depression Total Score: 10 023 9:34 AM EST documented as of this encounter Care Teams At Risk Specialist Relationship Specialty Start Date End Date Mandie Fields FNP [address] [place] [address] PCP - General Family Medicine 05/01/22 documented as of this encounter
--- OUTSIDE RECORDS SUMMARY | 2024-11-24 15:46 | XMS_ITS | Encounter Summary ---
Author Organization [email or web address] Address [address] [facility] [address] [place] [address] Care Team Providers Care Dock Clerk Name Role Phone Mandie Fields Primary Care Provider [phone] Reason for Visit * Reason Onset Date Comments Results 10/28/2024 Encounter Details Date Type Department Care Team ([facility] st Contact Info) Description 10/28/2024 Telephone [facility] [address] [place] [address] Mandie Fields FNP [address] [place], [place] [phone] Results Social History Tobacco Use Types Packs/Day Years [...] encounter Miscellaneous Notes * Telephone Encounter - Dayanara Mejia RN - 10/28/2024 3:08 PM EST TC placed to pt via [employer] machinery dismantler (Eugenio ID#[id number]) to inform of below PCP message. No answer, mailbox is full, machinery dismantler left SMS message. TC x 2 placed to [phone]. No answer, call rang anddid not go through. [employer] Manager unable to leave voicemail. ----- Message from Mandie Fields sent at [...] 9:45 AM EDT Office Visit [facility] [address] [place] [address] Mandie Fields FNP [address] [place] [address] documented as of this encounter Visit Diagnoses Not on filedocumented in this encounter Additional Health Concerns Assessment Noted Time PHQ-9 Depression Total Score: 11 025 9:09 AM EST documented as of this encounter Care Teams Dock Clerk Relationship Specialty Start Date End Date Mandie Fields FNP [address] [place] [address] PCP - General Family Medicine 05/01/22 documented as of this encounter
--- OUTSIDE RECORDS SUMMARY | 2024-11-24 15:46 | XMS_ITS | Encounter Summary ---
Author Organization [employer] Address [address] [facility] [address] [place] [address] Care Team Providers Care Marine Radio Installer And Servicer Name Role Phone Mandie Fields IVANIA Primary Care Provider Encounter Details Date Type Department Care Team ([facility] st Contact Info) Description 11/02/2024 Telephone [facility] [address] [place], [place] [phone] Gina Villanueva RN Social History Tobacco Use Types Packs/Day Years [...] encounter Miscellaneous Notes * Telephone Encounter - Gina Villanueva RN - 11/02/2024 2:32 PM EST Tc to pt via bls id: [id number] to let them know per PCP - Thyroid testing: demonstrates that her TSH level is overly suppressed, and will likely need dose adjustment of levothyroxine. Please encourage her to contact [facility] for consideration of dose adjustment. Liver: Also noted increase in liver enzymes which is new compared to labs from last year. Mild abnormalities with red blood cell count. Cholesterol levels looked excellent. A1c is in prediabetes range. Please encourage lifestyle interventions and to repeat lab work fasting in 2-3 weeks. Orders active. STI testing negative. Hep B non-reactive, so she is eligible to complete Heplisav 2 dose series through the pharmacy. Please encourage her to schedule if interested. Thanks!. No answer, unable to lvm due to mailbox is full. Letter sent to address on file for pt to contact [facility] to speak with the nurses. * Telephone Encounter - Gina Villanueva RN - 11/02/2024 2:31 PM EST ----- Message from Mandie Fields sent at 11/02/2024 9:26 AM EST ----- Please call to review labs: - Thyroid testing: demonstrates that her TSH level is overly suppressed, and will likely need dose adjustment of levothyroxine. Please encourage her to contact Endo for consideration of dose adjustment. - Liver: Also noted increase in liver enzymes which is new compared to labs from last year. Mild abnormalities with red blood cell count. Cholesterol levels looked excellent. A1c is in prediabetes range. Please encourage lifestyle interventions and to repeat lab work fasting in 2-3 weeks. Orders active. - STI testing negative. Hep B non-reactive, so she is eligible to complete Heplisav 2 dose series through the pharmacy. Please encourage her to schedule if interested. Thanks! documented in this encounter Plan of Treatment Upcoming Encounters Date Type Department Care Team (Late st Contact Info) Description 01/27/2025 9:45 AM EDT Office Visit [facility] [address] [place] [address] Mandie Fields FNP [address] [place] [address] documented as of this encounter Visit Diagnoses Not on filedocumented in this encounter Additional Health Concerns Assessment Noted Time PHQ-9 Depression Total Score: 11 025 9:09 AM EST documented as of this encounter Care Teams Marine Radio Installer And Servicer Relationship Specialty Start Date End Date Mandie Fields FNP [address] [place] [address] PCP - General Family Medicine 05/01/22 documented as of this encounter
--- OUTSIDE RECORDS SUMMARY | 2024-11-24 15:46 | XMS_ITS | Encounter Summary ---
Author Organization [employer] Address [address] [place] [address] Care Team Providers Care Clinical Documentation Specialist Name Role Phone Mandie Fields Primary Care Provider [phone] Encounter Details Date Type Department Care Team ([facility] st Contact Info) Description 10/28/2024 Orders Only [facility] MED & PEDS [address] [place], [place] [phone] Mandie Fields FNP [address] [place] [address] Healthcare maintenance (Primary Dx) Social History Tobacco Use Types [...] Description 01/27/2025 9:45 AM EDT Office Visit [facility] MEDICINE [address] [place] [address] Mandie Fields, [employer]GER [address] [place] [address] Scheduled Orders Name Type Priority Associated Diagnoses Orde r Schedule Hepatic Function Panel Lab Routine Healthcare maintenance Expected: 10/28/2024 (Approximate), Expires: 10/28/2025 CBC auto differential Lab Routine Healthcare maintenance Expected: 10/28/2024 (Approximate), Expires: 10/28/2025 documented as of this encounter Procedures Procedure Name Priority Date/Time Associated Diagnosis Comments THYROGLOBULIN, LC/MS/MS Routine 10/28/2024 10:15 AM EST Healthcare maintenance THYROGLOBULIN, TUMOR MARKER W/REFLEX Routine 10/28/2024 10:15 AM EST Healthcare maintenance THYROGLOBULIN ANTIBODIES Routine 10/28/2024 10:15 AM EST Healthcare maintenance documented in this encounter Results * Thyroblobulin, Tumor Marker w/Reflex (10/28/2024 10:15 AM EST) Thyroglobulin Antibody <1 <=1 IU/mL [facility] Comment:This Thyroglobulin a ntibody test was performedusing the [employer] [place] Chemiluminescent method.Values obtained from different assay methods cannot beused interchangeably. Thyroglobulin antibody levels,regardless of value, should not be interpreted asabsolute evidence of the presence or absence ofdisease. Thyroglobulin, LC/MS/MS TNP [facility] Thyroglobulin Level <0.1 ng/mL [facility] Comment:Reference Range: Ath yrotic: <0.1 ng/mLReference range applies to differentiated thyroidcancer patients following treatment. The presence ofmeasurable thyroglobulin indicates the presence ofthyroglobulin-producing thyroid tissue. Clinicalcorrelation is advised.This Thyroglobulin test was performed using the[employer] Chemiluminescent method. Valuesobtained from different assay methods cannot beused interchangeably. Thyroglobulin levels, regardlessof value, should not be interpreted as absoluteevidence of the presence or absence of disease.THIS TEST WAS PERFORMED AT:[facility] [id number] [place] [id number] GRANADOS MD,PHD 10/28/2024 10:1 5 AM EST 10/28/2024 11:08 AM EST us Generic External Data Provider LAB BLOOD ORDERAB LES Final Result [facility] [address] [place] [phone] * Thyroglobulin Antibodies (10/28/2024 10:15 AM EST) Thyroglobulin Antibodies <1 < or = 1 IU/mL [facility] Comment:THIS TEST WAS PERFOR MED AT:[facility] [address] [id number] BUSBY MD 10/28/2024 10:1 5 AM EST 10/28/2024 11:08 AM EST us Generic External Data Provider LAB BLOOD ORDERAB LES Final Result Performing Organization Address [facility] Co de Phone Number [facility] [address] [place] [address] [phone] * (ABNORMAL) Thyroglobulin, LC/MS/MS (10/28/2024 10:15 AM EST) Thyroglobulin, LC/MS/MS <0.1(A) ng/mL [facility] Comment:Reference Range: Int act Thyroid 2.8-40.9 Athyrotic <0.1 Note: Abnormal flagging is based on the reference interval for patients with intact thyroid.This test was performed using the [employer] Coulterchemiluminescent method. Values obtained fromdifferent assay methods cannot be usedinterchangeably. Thyroglobulin levels, regardlessof value, should not be interpreted as absoluteevidence of the presence or absence of disease. Thyroglobulin Comment See Below [facility] Comment:Thyroglobulin antibo dies (TGAB) interfere withthyroglobulin (TG) assays; therefore, TGAB assayshould always be performed in conjunction with aTG assay.For additional information, please refer tohttp://education.[employer]/faq/QOW053(This link is being provided for informational/educational purposes only.)THIS TEST WAS PERFORMED AT:[facility] [place] [id number] BUSBY MD 10/28/2024 10:1 5 AM EST 10/28/2024 11:08 AM EST us Generic External Data Provider LAB BLOOD ORDERAB LES Final Result Performing Organization Address [facility]/ZIP Co de Phone Number [facility] [address] [place] [phone] documented in this encounter Visit Diagnoses Diagnosis Healthcare maintenance- Primary documented in this encounter Additional Health Concerns Assessment Noted Time PHQ-9 Depression Total Score: 11 025 9:09 AM EST documented as of this encounter Care Teams Clinical Documentation Specialist Relationship Specialty Start Date End Date Mandie Fields FNP [address] [place] [phone] PCP - General Family Medicine 05/01/22 documented as of this encounter
--- OUTSIDE RECORDS SUMMARY | 2024-11-24 15:46 | XMS_ITS | Encounter Summary ---
Author Organization [employer] Address [address] [place] [address] [address] [place] [address] Care Team Providers Care Informatics Analyst Name Role Phone Mandie Fields Primary Care Provider [phone] Reason for Visit * Reason Comments Med Refill Encounter Details Date Type Department Care Team (Late Contact Info) Description 11/14/[address] [facility] MED & PEDS [address] [place], [place] [phone] Mandie Fields FNP [address] [place], [place] [phone] Moderate persistent asthma without complication (Primary Dx) [...] Description 01/27/2025 9:45 AM EDT Office Visit [facility] MEDICINE [address] [place] [address] Mandie Fields FNP [address] [place] [address] documented as of this encounter Visit Diagnoses Diagnosis Moderate persistent asthma without complication- Primary documented in this encounter Additional Health Concerns Assessment Noted Time PHQ-9 Depression Total Score: 10 022 10:45 AM EST documented as of this encounter Care Teams Informatics Analyst Relationship Specialty Start Date End Date Mandie Fields FNP [address] [place] [address] PCP - General Family Medicine 05/01/22 documented as of this encounter
== END 2024-11-24 12:58 | disposition home or self-care (01) ==
LOC: HO.US 12:57
PROVIDERS: PCP Registered Nurse; Visit Provider Student in an Organized Health Care Education/Training Program
DX: C73 Malignant neoplasm of thyroid gland (principal)
CPT/HCPCS: 76536

== ENCOUNTER → 2024-11-24 13:02 | Outpatient (BNV) | payer OTHER, SELFPAY | PROVIDERS: PCP Registered Nurse; Visit Provider Radiology Diagnostic Radiology | DX: C73 Malignant neoplasm of thyroid gland (principal) | CPT/HCPCS: 76536 ==

== ENCOUNTER 2024-12-17 09:52 | Outpatient (AMB) | payer OTHER, SELFPAY ==
[2024-12-17 10:25] VITALS: BP 102/56; PULSE 74; O2SAT 95; BMI 43.2
--- NOTE | 2024-12-17 10:25 | MHC.OFFVIS ---
Vital Signs 12/17/24 10:25 Height 4 ft 3.8 in Weight 164 lb 14.492 oz BMI 43.2 BP 102/56 L Blood Pressure Location Lt brachial Position Sitting Pulse 74 Pulse Source Pulse Oximeter Pulse Oximetry (%) 95 Oxygen Delivery Method Room Air Intake Visit Reasons: f/u thyroid cancer Window Shade Ring Coverer Required: Yes Window Shade Ring Coverer Language: Implementation Director Services: Window Shade Ring Coverer Present Window Shade Ring Coverer Name: Ruddy [id number] Information Interpreted: non-clinical & clinical Accompanied by: Self / Same As Patient Allergies acetaminophen [Percocet] Allergy (Unknown, Verified 12/17/24 10:31) Sneezing oxycodone [Percocet] Allergy (Unknown, Verified 12/17/24 10:31) Sneezing terazosin Allergy (Unknown, Uncoded 12/17/24 10:31) swelling/tiredness Medication List - Last Reconciled 12/17/24 by Kinsey Mayorga MD albuterol sulfate 1 amp inhalation Q4-6H PRN albuterol sulfate 90 mcg/actuation (ProAir HFA) 2 puffs inhalation Q6H PRN alendronate mg PO atorvastatin 1 tab PO QPM betamethasone dipropionate 0.05% topical buspirone 15 mg PO BID calcipotriene 0.005% 1 appl topical DAILY calcium citrate 500 mg (2 x 250 mg calcium) PO BID cetirizine 10 mg PO DAILY PRN cholecalciferol (vitamin D3) (Vitamin D3) 1 cap PO QAM citalopram 20 mg PO DAILY ferrous sulfate (FeroSul) 325 mg PO DAILY fluticasone propion-salmeterol 500-50 mcg/dose (Advair Diskus) 1 puff inhalation Q12H fluticasone propionate 50 mcg/actuation 1 - 2 sprays intranasal DAILY PRN hydrochlorothiazide 1 tab PO DAILY Levoxyl (levothyroxine) 137 mcg orally; no substitution , brand name only, medically necessary 1 tablet daily Saturday to Saturday and only take half a tablet on Sundays NS lidocaine 5% patches topical montelukast 1 tab PO BEDTIME olmesartan 20 mg PO DAILY omeprazole 1 cap PO DAILY potassium chloride ER 20 mEq PO Q4H sennosides (senna) 1 - 2 tabs PO QD-BID tramadol 1 tab PO Q12H PRN HPI Comments Details: 63-year-old female with past medical history significant for 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 HPI of PTC Gathered from prior documentation 1996: Surgery at [facility]. 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 Status post left radical neck dissection and radioactive iodine ablation in 1996 and then again in 1998: For a total cumulative dose of 250 mCi. In 1998 stimulated TG level of 77 which prompted a 2nd dose of I 131. Per reports posttherapy whole-body scan revealed faint focus of uptake in the left lateral neck and upper abdomen, however CT was negative for any structural disease. 03/2000: Thyrogen stimulated whole-body scan negative for any abnormal uptake. TG levels remain less than 1 ng/mL. She was treated with Levoxyl 150 mcg with goal TSH 0.1-0.2 for many years. She has been treated with a Levoxyl because TSH was fluctuating on generic levothyroxine and patient also reports she was having headaches with generic and is tolerating the Levoxyl well. [id number]: Had undetectable TG, undetectable antibodies up to 2013. Somehow in 2016 she developed low titer of TG antibody around 4 and 5. 11/18/2018: Whole-body scan revealed no abnormal uptake, completed by withdrawal method, TSH of 42.3, TG was 5.6 12/11/2019: TSH 0.05, TG less than 0.4, TG antibody 2 09/08/2020: Ultrasound head and neck revealed no residual tissue in the thyroid bed, however noted to have normal-appearing lymph nodes in the right neck as well as left neck at level 1 A and 2 B noted. Also noted a left-sided level 3 lymph node measuring 0.9 cm with absent hilum and slit-like morphology, as well as a similar level 2 a lymph node measuring 0.8 cm. 11/22/2020: TSH 37.5, free T4 0.38, TG less than 0.1, TG antibody undetectable 08/08/2021: TSH 0.38, TG less than 0.1, TG antibody undetectable Subsequently she was unable to tolerate suppressive dose levothyroxine, dose was decreased to 112 mcg p.o. daily with goal TSH of 0.1-0.5. 10/03/2021: TSH 57.14, free T4 less than 0.4, stimulated TG 1.9, undetectable TG antibody 04/19/2022: Saw Dr. Randa Mccarty at [facility], she performed an ultrasound with multiple benign-appearing lymph nodes, noted bilaterally. Largest left level 6 lymph node measuring 1.4 cm. She also noted a 0.7 cm round hypoechoic lesion in the right level 6 below the carotid, not amenable to biopsy given location. 10/03/2023: TSH 1.44, TG less than 0.1, TG antibody <1 12/18/2023: Several right-sided level 1B, level 2, level 3 and level 4 nodes noted, with normal architecture. Left neck: Lymph nodes noted at level 1B, level 2. Level 3, 2.1 cm lymph node noted that was previously 1.7 cm in the maximum dimension. Level 4, 1.7 cm lymph node noted that was previously 1 cm in the maximum dimension, both of these have normal meagan architecture per report. Level 4 cystic 0.6 cm lymph node with absent hilum noted. I reviewed these images myself, in the nodes in the left neck at level 3 and 4, measuring 2.1 and 1.7 cm respectively, have normal meagan architecture with central hilum. 03/12/2024: TSH 4.69, TG 0.1, TG antibody less than 1 04/10/2024: TSH 3.45 Interval history 05/19/2024: Levoxyl increased from 125 mcg daily to 137 mcg daily Taking it appropirately, adherent No symptoms of hypo or hyperthyroidism No compressive symtoms 07/02/2024: TSH 0.21, free T4 1.44, TG less than 0.1, TG antibody less than 1 10/28/2024: TSH 0.05, free T4 1.44, TG less than 0.1, TG antibody less than 1 10/30/2024: Levoxyl reduced from 137 mcg daily to 137 mcg daily from Saturday to Saturday and half a pill on Sundays11/26/2024: Ultrasound of the neck reviewed by myself, bilateral normal-appearing lymph nodes with no concerns for recurrence of cancer. No family history of thyroid nodule or cancer, no head or neck radiation in the past. Physical exam General: sitting comfortably in no acute distress HEENT: normocephalic/atraumatic,moist oral mucosa Neck: supple, symmetrical, no palpable masses or lymph nodes , no dorsocervical or supraclavicular fat pads Cardiac: normal heart sounds Pulm: normal breath sounds B/L, no added breath sounds Abd: not distended, no tenderness Extremities: no edema, no signs of myxedema Neuro: AAO x3, Speech: normal, no facial droop, moving all 4 extremities Laboratory Tests 08/28/18 09/26/18 10/14/18 11:38 11:20 10:54 Free T4 1.42 0.51 L < 0.40 L TSH Thyroglobulin Thyroglobulin LC-MS/MS <0.4 <0.4 Thyroglobulin Antibody 3 H 2 H 11/26/18 12/22/18 02/27/19 15:00 12:10 10:15 Free T4 < 0.40 L 1.14 1.35 TSH Thyroglobulin <0.1 Thyroglobulin LC-MS/MS 5.6 Thyroglobulin Antibody 2 H 1 06/01/19 09/08/19 12/22/19 11:06 09:50 10:00 Free T4 1.43 1.38 1.26 TSH Thyroglobulin <0.1 <0.1 Thyroglobulin LC-MS/MS <0.4 Thyroglobulin Antibody 1 1 2 H 11/22/20 08/08/21 10/03/21 13:55 13:32 16:57 Free T4 1.31 1.26 < 0.40 L TSH 0.02 L 0.38 57.14 H Thyroglobulin <0.1 <0.1 1.9 L Thyroglobulin LC-MS/MS Thyroglobulin Antibody <1 <1 <1 05/16/22 10/03/23 03/12/24 10:35 10:41 10:00 Free T4 1.17 1.24 0.97 TSH 0.62 1.44 4.69 H Thyroglobulin <0.1 L <0.1 0.1 H Thyroglobulin LC-MS/MS Thyroglobulin Antibody <1 <1 04/10/24 15:00 Free T4 1.12 TSH 3.45 Thyroglobulin Thyroglobulin LC-MS/MS Thyroglobulin Antibody Laboratory Tests 08/28/18 09/26/18 10/14/18 11:38 11:20 10:54 Free T4 1.42 0.51 L < 0.40 L TSH Thyroglobulin Thyroglobulin LC-MS/MS <0.4 <0.4 Thyroglobulin Antibody 3 H 2 H 11/26/18 12/22/18 02/27/19 15:00 12:10 10:15 Free T4 < 0.40 L 1.14 1.35 TSH Thyroglobulin <0.1 Thyroglobulin LC-MS/MS 5.6 Thyroglobulin Antibody 2 H 1 06/01/19 09/08/19 12/22/19 11:06 09:50 10:00 Free T4 1.43 1.38 1.26 TSH Thyroglobulin <0.1 <0.1 Thyroglobulin LC-MS/MS <0.4 Thyroglobulin Antibody 1 1 2 H 11/22/20 08/08/21 10/03/21 13:55 13:32 16:57 Free T4 1.31 1.26 < 0.40 L TSH 0.02 L 0.38 57.14 H Thyroglobulin <0.1 <0.1 1.9 L Thyroglobulin LC-MS/MS Thyroglobulin Antibody <1 <1 <1 05/16/22 10/03/23 03/12/24 10:35 10:41 10:00 Free T4 1.17 1.24 0.97 TSH 0.62 1.44 4.69 H Thyroglobulin <0.1 L <0.1 0.1 H Thyroglobulin LC-MS/MS Thyroglobulin Antibody <1 <1 04/10/24 07/02/24 10/28/24 15:00 13:18 10:15 Free T4 1.12 1.44 1.44 TSH 3.45 0.21 L 0.05 L Thyroglobulin <0.1 <0.1 Thyroglobulin LC-MS/MS Thyroglobulin Antibody <1 <1 US SOFT TISSUE NECK 12/18/23 CLINICAL INFORMATION: COMPARISON: None available. TECHNIQUE: Ultrasound of the neck soft tissues is performed with high- frequency torre-scale imaging and color Doppler. FINDINGS: THYROID BED: Prior thyroidectomy. No residual thyroid tissue demonstrated in the thyroid bed. No cystic or solid nodules demonstrated in the thyroid bed. RIGHT NECK SOFT TISSUES: Scattered architecturally normal nodes are present. The nodes show normal fatty hilus, normal cortical thickness, and no cystic change or calcification. No abnormal color flow. The largest nodes are as follows: Level 1B: 0.7 x 0.3 x 0.5 cm. Cystic with absent hilum. Prior: Not seen. Level 1B: 1.3 x 0.6 x 1.5 cm. Normal meagan architecture. Prior: 1.4 x 0.7 x 1.6 cm. Level 2: 0.3 x 0.5 x 0.5 cm. Normal meagan architecture. Prior: Not seen. Level 2: 2.1 x 0.5 x 1.0 cm. Normal meagan architecture. Prior: Not seen. Level 3: 0.4 x 0.3 x 0.4 cm. Normal meagan architecture. Prior: Not seen. Level 4: 1.3 x 0.3 x 0.7 cm. Normal meagan architecture. Prior: Not seen. LEFT NECK SOFT TISSUES: Scattered architecturally normal nodes are present. The nodes show normal fatty hilus, normal cortical thickness, and no cystic change or calcification. No abnormal color flow. The largest nodes are as follows: Level 1B: 1.1 x 0.6 x 0.6 cm. There is cortical thickening. Level 1B: 0.4 x 0.4 x 0.7 cm. Normal meagan architecture. Level 2: 0.3 x 0.5 x 0.5 cm. There is a slitlike hilum. Level 3: 2.1 x 0.6 x 1.5 cm. Normal meagan architecture. Prior: 1.6 x 0.6 x 1.7 cm. Level 4: 1.7 x 0.5 x 0.8 cm. Normal meagan architecture. Prior: 1.0 x 0.4 x 0.9 cm. Level 4: 0.6 x 0.4 x 0.5 cm. Cystic with absent hilum. Exam: Ultrasound of the neck. 11/26/24 Comparison: None. Findings: Patient reportedly has a history of thyroid cancer status post thyroidectomy. Technologist notes that the patient has a history of lymph node involvement. Patient has undergone radioactive iodine treatment as well. Patient reportedly has prior ultrasound imaging from December 18, 2023. I do not have access to those images or report. Bilateral jugular lymph node evaluation was performed. A total of 6 measured right internal jugular lymph nodes are identified. There are adjacent level 1B right lymph nodes without a fatty hilum measuring 5 x 3 x 5 mm and 5 x 2 x 5 mm in size, respectively. A total of 6 left jugular lymph nodes were evaluated. There are 2 adjacent left level 4 lymph nodes which were not seen on the prior study per the technologist. These measure 11 x 5 x 10 mm and 7 x 4 x 5 mm in size, respectively. These do not have a definitive fatty hilum. Impression: Indeterminate bilateral jugular lymph nodes as discussed above. Disease recurrence can not be excluded based on these images alone. Correlation with the patient's clinical scenario and prior imaging studies is suggested. This document has been electronically signed by: Escobar Perez MD on 11/26/2024 06:44:32 [facility] Medical History (Updated 05/19/24 @ 11:33 by Kinsey Mayorga MD) Osteoporosis Depression Anxiety Asthma Dyslipidemia Hypertension Osteopenia Post-surgical hypothyroidism Primary thyroid cancer Surgical History Hx of breast surgery Hx of knee surgery Hx of thyroidectomy Family History Father Unknown family medical history Mother Osteoporosis Diabetes Hypertension Social History Household Members: Children Housing: Apartment Do you presently have visiting nurse or other home services: Yes ([employer] 1 HOUR /WEEK) Alcohol intake: current Alcohol intake frequency: holidays/special occasions only Alcohol type: beer Patient Tobacco Use Status: Former Tobacco user Substance Use Type: Marijuana service: No Current occupational status: retired Physical Exam Vital Signs: Last Vital Signs Pulse 74 12/17/24 10:25 BP 102/56 L 12/17/24 10:25 Pulse Ox 95 12/17/24 10:25 Oxygen Delivery Method Room Air 12/17/24 10:25 BMI result Body Mass Index 43.2 Results Reviewed Results Reviewed: Laboratory Last Values Glucose (Clinic) 111 mg/dL (60-115) 12/17/24 10:35 Assessment & Plan Assessment & Plan (1) Primary thyroid cancer: Code(s): C73 - Malignant neoplasm of thyroid gland Category: Medical Plan: 63-year-old female with past medical history significant for 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 She initially had undetectable TG levels in the early 1999. [id number]: , undetectable antibodies up to 2013. in 2016 she developed low titer of TG antibody around 4 and 5. Whole-body scan in 2019 revealed no abnormal uptake however stimulated TG level was 5.6 consistent with FORTINO indeterminate response to therapy. Subsequently her stimulated TG has been in the range of 1.9-5.6. Subsequently her most recent TG levels unstimulated have gone down to less than 0.1. Most recently from October 2024. Her last ultrasound from from October 2024 I reviewed the images myself shows bilateral normal-appearing lymph nodes. At this point I would Reclast if I her to FORTINO excellent response to therapy. She is currently on Levoxyl 137 mcg 6-1/2 pills a week. Her most recent TSH from October 2024 was 0.05, after which we had reduce the dose by half a pill on Sundays., given FORTINO excellent response to therapy her goal TSH is between 0.5-2. She is due for repeat labs now. Plan: -TSH, free T4 to be done now -continue Levoxyl 137 mcg daily Saturday to Saturday and half a pill on Sundays - TG and TG antibody levels to be repeated prior to follow up in 1 year in December 2025 -ultrasound of the neck to be done in October 2025 with follow up in December 2025 (2) Post-surgical hypothyroidism: Code(s): E89.0 - Postprocedural hypothyroidism Category: Medical Plan: She is currently on Levoxyl 137 mcg 6-1/2 pills a week. Her most recent TSH from October 2024 was 0.05, after which we had reduce the dose by half a pill on Sundays., given FORTINO excellent response to therapy her goal TSH is between 0.5-2. She is due for repeat labs now. Plan: -TSH, free T4 to be done now -continue Levoxyl 137 mcg daily Saturday to Saturday and half a pill on Sundays Plan I spent 30 minutes in reviewing the record, seeing the patient and documenting in the medical record. Orders: Orders US soft tiss head and/or neck 11/01/25 C73 - Malignant neoplasm of thyroid gland Medications: Refilled Levoxyl (levothyroxine) 137 mcg orally; no substitution , brand name only, medically necessary 1 tablet daily Saturday to Saturday and only take half a tablet on Sundays 30 tabs 10RF NS Patient Instructions: Continue Levoxyl 137 mcg (1 tablet Saturday to Saturday and half a tablet on Sundays) Do blood work today , we will reach out with results and let you know if any dose change in Levoxyl is needed Do US of the neck in October 2025, someone will call you to schedule this Follow up in clinic in December 2025 Contin?e con Levoxyl 137 mcg (1 tableta de a ?bado y media tableta los ana). Fred un an?lisis de courtney hoy. Nos comunicaremos con los resultados y le informaremos si es necesario cambiar la dosis de Levoxyl. Fred rhonda ecograf?a de tevin en 2025. Se le llamar? para programarla. Maeve de seguimiento en la cl?alex en shreyas 2025. Coding Level of Care Code Est Pt Level 4 (24327) Complex EM visit Add On G2211 Diagnoses Primary thyroid cancer C73 Post-surgical hypothyroidism E89.0 Time Spent (min) 30
[2024-12-17 10:38] LABS: Glucose, Whole Blood 111 mg/dL (60-115)
== END 2024-12-17 11:18 | disposition home or self-care (01) ==
PROVIDERS: PCP Registered Nurse; Visit Provider Student in an Organized Health Care Education/Training Program
DX: C73 Malignant neoplasm of thyroid gland (principal); E89.0 Postprocedural hypothyroidism
CPT/HCPCS: 99214; G2211

== ENCOUNTER → 2024-12-17 09:52 | Outpatient (BNVA) | payer OTHER, SELFPAY | PROVIDERS: PCP Registered Nurse; Visit Provider Student in an Organized Health Care Education/Training Program | DX: Z13.89 Encounter for screening for other disorder (principal) | CPT/HCPCS: 82947; 99212 ==

== ENCOUNTER 2024-12-17 11:41 | Outpatient (REF) | payer OTHER, SELFPAY ==
--- OUTSIDE RECORDS SUMMARY | 2024-12-17 14:35 | XMS_ITS | Encounter Summary ---
Author Organization [employer] Address [address] [facility] [address] [place] [address] Care Team Providers Care Depositing Machine Operator Name Role Phone Mandie Fields Primary Care Provider [phone] Reason for Visit * Reason Comments Med Refill Encounter Details Date Type Department Care Team ([facility] st Contact Info) Description 12/14/2024 Refill [facility] [address] [place], [place] [phone] Mandie Fields FNP [address] [place], [place] [phone] Seasonal allergies Social History Tobacco Use Types Packs/Day Years [...] Care Team (Late st Contact Info) Description 01/12/2025 11:00 AM EDT Office Visit [facility] [address] [place] [phone] 01/27/2025 9:45 AM EDT Office Visit [facility] [address] [place] [phone] Mandie Fields FNP [address] [place] [address] 04/02/2025 9:30 AM EDT Office Visit [facility] [address] [place] [address] Palomo, Tammy, OD [address] [place] [address] documented as of this encounter Visit Diagnoses Diagnosis Seasonal allergies Allergic rhinitis, cause unspecified documented in this encounter Additional Health Concerns Assessment Noted Time PHQ-9 Depression Total Score: 11 025 9:09 AM EST documented as of this encounter Care Teams Depositing Machine Operator Relationship Specialty Start Date End Date Mandie Fields FNP [address] [place] [address] PCP - General Family Medicine 05/01/22 documented as of this encounter
--- OUTSIDE RECORDS SUMMARY | 2024-12-17 14:35 | XMS_ITS | Encounter Summary ---
Author Organization [employer] Address [address] [place] [address] Care Team Providers Care Landscape Architect And Planner Name Role Phone Mandie Fields Primary Care Provider [phone] Encounter Details Date Type Department Care Team ([facility] st Contact Info) Description 08/15/2023 [facility] [address] [place] [address] Mandie Fields FNP [address] [place] [address] Social History Tobacco Use Types Packs/Day Years [...] Description 01/12/2025 11:00 AM EDT Office Visit [facility] MED[facility] [address] [place] [phone] 01/27/2025 9:45 AM EDT Office Visit [facility] [address] [place] [phone] Mandie Fields FNP [address] [place] [address] 04/02/2025 9:30 AM EDT Office Visit [facility] OPTOMETRY [address] [place] [address] Palomo, Tammy, OD [address] [place] [address] documented as of this encounter Visit Diagnoses Not on filedocumented in this encounter Additional Health Concerns Assessment Noted Time PHQ-9 Depression Total Score: 10 023 9:34 AM EST documented as of this encounter Care Teams Landscape Architect And Planner Relationship Specialty Start Date End Date Mandie Fields FNP [address] [place] [phone] PCP - General Family Medicine 05/01/22 documented as of this encounter
--- OUTSIDE RECORDS SUMMARY | 2024-12-17 14:35 | XMS_ITS | Encounter Summary ---
Author Organization [employer] Address [address] [place] [address] Care Team Providers Care [employer] Social Studies Tutor Name Role Phone Mandie Fields IVANIA Primary Care Provider [phone] Encounter Details Date Type Department Care Team (Late st Contact Info) Description 12/17/2024 Orders Only GENERIC EXTERNAL DATA DEPARTMENT Provider, [...] Description 01/12/2025 11:00 AM EDT Office Visit [facility] [address] [place] [address] 01/27/2025 9:45 AM EDT Office Visit [facility] [address] [place] [address] Mandie Fields, CENTRAL STERILE TECHNICIAN [address] [place] [address] 04/02/2025 9:30 AM EDT Office Visit [facility] OPTOMETRY [address] [place] [address] Palomo, Tammy, OD [address] [place] [address] documented as of this encounter Procedures Procedure Name Priority Date/Time Associated Diagnosis Comments GLUCOSE, WHOLE BLOOD Routine 12/17/2024 10:35 AM EDT documented in this encounter Results * Glucose, Whole Blood (12/17/2024 10:35 AM EDT) Glucose, Whole Blood 111 60 - 115 mg/dL [facility] Comment:METER #: [id number] Testing performed in the Endocrinology Department [address] , [address], [facility]. 12/17/2024 10:3 5 AM EDT 12/17/2024 10:38 AM EDT us Generic External Data Provider LAB BLOOD ORDERAB LES Final Result [facility] [address] [place] [address] [phone] documented in this encounter Visit Diagnoses Not on filedocumented in this encounter Additional Health Concerns Assessment Noted Time PHQ-9 Depression Total Score: 11 10/28/ 025 9:09 AM EST documented as of this encounter Care Teams High School Social Studies Tutor Relationship Specialty Start Date End Date Mandie Fields FNP [address] [place] [address] PCP - General Family Medicine 05/01/22 documented as of this encounter
--- OUTSIDE RECORDS SUMMARY | 2024-12-17 14:35 | XMS_ITS | Encounter Summary ---
Author Organization [employer] Address [address] [place] [address] Care Team Providers Care Account Development Specialist Name Role Phone Mandie Fields Primary Care Provider [phone] Reason for Visit * Reason Comments Med Refill Encounter Details Date Type Department Care Team (Late st Contact Info) Description 12/16/2024 Refill [facility] [address] [place] [address] Mandie Fields FNP [address] [place] [address] Social History Tobacco Use Types Packs/Day Years [...] Description 01/12/2025 11:00 AM EDT Office Visit [facility] [address] [place] [phone] 01/27/2025 9:45 AM EDT Office Visit [facility] [address] [place] [address] Mandie Fields FNP [address] [place] [address] 04/02/2025 9:30 AM EDT Office Visit [facility] OPTOMETRY [address] [place] [address] Palomo, Tammy, OD [address] [place] [address] documented as of this encounter Visit Diagnoses Not on filedocumented in this encounter Additional Health Concerns Assessment Noted Time PHQ-9 Depression Total Score: 11 025 9:09 AM EST documented as of this encounter Care Teams Account Development Specialist Relationship Specialty Start Date End Date Mandie Fields FNP [address] [place] [phone] PCP - General Family Medicine 05/01/22 documented as of this encounter
--- OUTSIDE RECORDS SUMMARY | 2024-12-17 14:35 | XMS_ITS | Encounter Summary ---
Author Organization [employer] Address [address] [facility] 7t [place] [address] Care Team Providers Care 5Th Grade Teacher Name Role Phone Mandie Fields Primary Care Provider [phone] Reason for Visit * Reason Comments Med Refill Encounter Details Date Type Department Care Team (Late Contact Info) Description 03/29/2023 Refill [facility] [address] [place] [address] Mandie Fielsd FNP [address] [place] [phone] Moderate persistent asthma without complication Social History [...] Upcoming Encounters Date Type Department Care Team ([facility] Contact Info) Description 01/12/2025 11:00 AM EDT Office Visit [facility] [address] [place] [address] [phone] 01/27/2025 9:45 AM EDT Office Visit [facility] [address] [place] [address] Mandie Fields FNP [address] [place] [address] 04/02/2025 9:30 AM EDT Office Visit [facility] [address] [place] [address] PalomoTammy enrique, OD [address] [place] [address] documented as of this encounter Visit Diagnoses Diagnosis Moderate persistent asthma without complication documented in this encounter Additional Health Concerns Assessment Noted Time PHQ-9 Depression Total Score: 10 022 10:45 AM EST documented as of this encounter Care Teams 5Th Grade Teacher Relationship Specialty Start Date End Date Mandie Fields FNP [address] [place] [address] PCP - General Family Medicine 05/01/22 documented as of this encounter
--- OUTSIDE RECORDS SUMMARY | 2024-12-17 14:35 | XMS_ITS | Encounter Summary ---
Author Organization [employer] Address [address] [facility] [address] [place] [address] Care Team Providers Care Carroter Name Role Phone Mandie Fields IVANIA Primary Care Provider [phone] Reason for Visit * Reason Comments Med Refill Encounter Details Date Type Department Care Team ([facility] st Contact Info) Description 12/14/[address] [facility] [address] [place] [address] Davide Villeda MD [address] [place] [address] Essential hypertension Social History Tobacco Use Types Packs/Day [...] Description 01/12/2025 11:00 AM EDT Office Visit [facility] [address] [place] [address] 01/27/2025 9:45 AM EDT Office Visit [facility] [address] [place] [address] Mandie Fields FNP [address] [place] [address] 04/02/2025 9:30 AM EDT Office Visit [facility] [address] [place] [address] Palomo, Tammy, OD [address] [place] [address] documented as of this encounter Visit Diagnoses Diagnosis Essential hypertension Unspecified essential hypertension documented in this encounter Additional Health Concerns Assessment Noted Time PHQ-9 Depression Total Score: 11 025 9:09 AM EST documented as of this encounter Care Teams Carroter Relationship Specialty Start Date End Date Mandie Fields FNP [address] [place] [phone] PCP - General Family Medicine 8/30/22 documented as of this encounter
--- OUTSIDE RECORDS SUMMARY | 2024-12-17 14:35 | XMS_ITS | Encounter Summary ---
Author Organization [facility] [facility] Address [address] [facility] 7t [place] [address] Care Team Providers Care Sort Worker Name Role Phone Mandie Fields IVANIA Primary Care Provider [phone] Reason for Visit * Reason Onset Date Comments partialsl broke again 02/13/2023 Encounter Details Date Type Department Care Team ([facility] st Contact Info) Description 02/13/2023 Telephone [facility] [address] [place] [address] Desmond Chun, DMD [address] [place] [address] partialsl broke again Social History Tobacco Use [...] Description 01/12/2025 11:00 AM EDT Office Visit [facility] [address] [place] [address] 01/27/2025 9:45 AM EDT Office Visit [facility] [address] [place] [address] Mandie Fields FNP [address] [place] [address] 04/02/2025 9:30 AM EDT Office Visit [facility] [address] [place] [address] Palomo, Tammy, OD [address] [place] [address] documented as of this encounter Visit Diagnoses Not on filedocumented in this encounter Additional Health Concerns Assessment Noted Time PHQ-9 Depression Total Score: 10 022 10:45 AM EST documented as of this encounter Care Teams Sort Worker Relationship Specialty Start Date End Date Mandie Fields FNP [address] [place] [address] PCP - General Family Medicine 05/01/22 documented as of this encounter
--- OUTSIDE RECORDS SUMMARY | 2024-12-17 14:35 | XMS_ITS | Encounter Summary ---
Author Organization [employer] Address [address] [facility] [address] 7[address] [place] [address] Care Team Providers Care Reconciliation Machine Operator Name Role Phone Mandie Fields Primary Care Provider [phone] Reason for Visit * Reason Onset Date Comments FYI 12/26/2023 Encounter Details Date Type Department Care Team ([facility] st Contact Info) Description 12/26/2023 Telephone [facility] [address] [place] [address] Mandie Fields FNP [address] [place], [place] [phone] FYI Social History Tobacco Use Types Packs/Day [...] - 12/30/2023 9:08 AM EDT Call to [facility], at [phone], no answer, call continues to ring and does not forward to . * Telephone Encounter - Luisa Cox RN - 12/30/2023 9:06 AM EDT Call returned to [facility] at [phone] for triage. No answer, unable;e to [facility] as is full. Left SMS notification to return call to [facility] triage line [phone]. * Telephone Encounter - IVANIA Boswell - 12/30/2023 6:26 AM EDT Please attempt to call pt for triage s/p fall at home. Thank you! * Telephone Encounter - Wing Delbert RN - 12/27/2023 1:52 PM EDT Just as a FYI. Tc to [facility] regarding pt's fall. Unable to reach her and left message for her to callback. Attempted to call pt using [employer] [place], [place] [phone]. Toll Operator unable to leave messagedue to mailbox being full. * Telephone Encounter - Esthela Paiz - 12/26/2023 4:15 PM EDT Tc from [facility] with [facility] calling to advise provider pt had a fall in home yesterday (12/24). States pt sustained no injuries. documented in this encounter Plan of Treatment Upcoming Encounters Date Type Department Care Team (Late st Contact Info) Description 01/12/2025 11:00 AM EDT Office Visit [facility] [address] [place] [address] 01/27/2025 9:45 AM EDT Office Visit [facility] [address] [place] [address] Mandie Fields FNP [address] [place] [address] 04/02/2025 9:30 AM EDT Office Visit [facility] [address] [place] [address] Tammy Culver, OD [address] [place] [address] documented as of this encounter Visit Diagnoses Not on filedocumented in this encounter Additional Health Concerns Assessment Noted Time PHQ-9 Depression Total Score: 10 023 9:34 AM EST documented as of this encounter Care Teams Reconciliation Machine Operator Relationship Specialty Start Date End Date Mandie Fields FNP [address] [place] [address] PCP - General Family Medicine 05/01/22 documented as of this encounter
--- OUTSIDE RECORDS SUMMARY | 2024-12-17 14:35 | XMS_ITS | Encounter Summary ---
Author Organization [employer] Address [address] [facility] 7t [place] [address] Care Team Providers Care Stamp Collector Name Role Phone Mandie Fields Primary Care Provider Reason for Visit * Reason Comments Med Refill Encounter Details Date Type Department Care Team ([facility] st Contact Info) Description 04/10/2024 Refill [facility] [address] [place], [place] [phone] Mandie Fields FNP [address] [place], [place] [phone] Essential (primary) hypertension Social History Tobacco Use [...] Description 01/12/2025 11:00 AM EDT Office Visit [facility] [address] [place] [address] 01/27/2025 9:45 AM EDT Office Visit [facility] [address] [place] [address] Mandie Fields FNP [address] [place] [address] 04/02/2025 9:30 AM EDT Office Visit [facility] OPT[facility] [address] [place] [address] Palomo, Tammy, OD [address] [place] [address] documented as of this encounter Visit Diagnoses Diagnosis Essential (primary) hypertension Unspecified essential hypertension documented in this encounter Additional Health Concerns Assessment Noted Time PHQ-9 Depression Total Score: 10 023 9:34 AM EST documented as of this encounter Care Teams Stamp Collector Relationship Specialty Start Date End Date Mandie Fields FNP [address] [place] [address] PCP - General Family Medicine 05/01/22 documented as of this encounter
--- OUTSIDE RECORDS SUMMARY | 2024-12-17 14:35 | XMS_ITS | Encounter Summary ---
Author Organization [employer] Address 75 [facility] 7t [place] [address] Care Team Providers Care Manager Plumbing Name Role Phone Mandie Fields Primary Care Provider [phone] Reason for Visit * Reason Comments Med Refill Encounter Details Date Type Department Care Team (Late Contact Info) Description 04/04/[address] [facility] [address] [place] [address] Mandie Fields FNP [address] [place] [phone] Moderate persistent asthma without complication Social History [...] Department Care Team (Late Contact Info) Description 01/12/2025 11:00 AM EDT Office Visit [facility] [address] [place] [address] [phone] 01/27/2025 9:45 AM EDT Office Visit [facility] [address] [place] [address] Mandie Fields FNP [address] [place] [address] 04/02/2025 9:30 AM EDT Office Visit [facility] OPTOMETRY [address] [place] [address] PalomoTammy enrique, OD [address] [place] [address] documented as of this encounter Visit Diagnoses Diagnosis Moderate persistent asthma without complication documented in this encounter Additional Health Concerns Assessment Noted Time PHQ-9 Depression Total Score: 10 022 10:45 AM EST documented as of this encounter Care Teams Manager Plumbing Relationship Specialty Start Date End Date Mandie Fields FNP [address] [place] [address] PCP - General Family Medicine 05/01/22 documented as of this encounter
--- OUTSIDE RECORDS SUMMARY | 2024-12-17 14:35 | XMS_ITS | Clinical Summary ---
Author Organization [employer] Address [address] [facility] [address] [place] [address] Care Team Providers Care Police Superintendent Name Role Phone Mandie Fields IVANIA Primary Care Provider [phone] Allergies Active Allergy Reactions Criticality Noted Date Comments Elias Inhibitors 03/08/2015 Other reaction(s): Cough on lisinopril Terazosin 12/08/2012 Other reaction(s): SWELLING AND TIREDNESS Medications melatonin 10 MG tablet Take 1 tablet by mouth. 018 Active betamethasone dipropionate (Diprolene) 0.05 % ointment APPLY A THIN LAYER TOPICALLY TO AFFECTED AREA(S) TWICE DAILY FOR 14 DAYS, THEN STOP FOR 1 WEEK THEN REPEAT NEEDED 45 g 2 023 Active ceramides (CeraVe) moisturizing creamIndications: Psoriasis Apply 1 Application. topically if needed for dry skin. 453 g 024 Active fluticasone (Flonase) 50 MCG/ACT nasal [...] 2 times daily. 1 kit 024 Active lidocaine (Lidoderm) 5 % patchIndications: [...] HOURS RINSE MOUTH AFTER USING. 1 each 024 Active senna (Senokot) 8.6 MG tablet [...] BEFORE A MEAL 90 capsule 3 025 Active acetaminophen (Tylenol 8 Hour) 650 MG ER tablet Take 1 tablet (650 mg) by mouth every 8 (eight) hours if needed for moderate pain. Do not crush, chew, or split. 100 tablet 3 025 Active albuterol (2.5 MG/3ML) 0.083% nebulizer solutionIndicatio ns:Moderate persistent asthma without complication INHALE 1 AMPULE USING A NEBULIZER EVERY 4 TO 6 HOURS NEEDED 90 mL 3 025 Active albuterol (Ventolin HFA) 108 (90 Base) MCG/ACT inhalerIndication s:Moderate persistent asthma without complication INHALE 2 PUFFS BY MOUTH EVERY 4 TO 6 HOURS NEEDED 18 g 11 025 Active atorvastatin (Lipitor) 20 MG tabletIndications :Hyperlipidemia, unspecified hyperlipidemia type Take 1 tablet by mouth every evening 90 tablet 3 025 Active alendronate (Fosamax) 70 MG tabletIndications :Osteoporosis without current pathological fracture, unspecified osteoporosis type Take 1 tablet (70 mg) by mouth 1 (one) time per week. Take in the morning with a full glass of water, on an empty stomach, and do not take anything else by mouth or lie down for the next 30 min. 4 tablet 11 2025 Active cholecalciferol (Vitamin D High Potency) 25 MCG (1000 UT) capsuleIndication s:Vitamin D deficiency Take 1 capsule (25 mcg) by mouth in the morning. 90 capsule 025 Active triamcinolone (Kenalog) 0.1 % creamIndications: Psoriasis MIX WITH CERAVE CREAM AND APPLY TOPICALLY TO AFFECTED AREA(S) TWICE DAILY IN THE MORNING AND AT BEDTIME NEEDED FOR PAIN OR SWELLING 80 g 025 Active traMADol (Ultram) 50 MG tabletIndications :Chronic pain of both knees,Primary osteoarthritis of right knee Take 1 tablet (50 mg) by mouth every 12 (twelve) hours if needed for severe pain. 56 tablet 025 Active cetirizine (ZyrTEC) 10 MG tabletIndications :Seasonal allergies TAKE 1 TABLET BY MOUTH EVERY DAY NEEDED FOR ALLERGIES 90 tablet 3 025 Active chlorthalidone (Hygroton) 25 MG tabletIndications :Essential hypertension TAKE 1 TABLET BY MOUTH EVERY DAY IN THE MORNING 90 tablet 1 025 Active ferrous gluconate (Fergon) 324 (38 Fe) MG tablet TAKE 1 TABLET BY MOUTH ON SATURDAY, SATURDAY AND SATURDAY WITH FULL GLASS OF WATER OR JUICE WITH VITAMINA C. TAKE 1 HOUR BEFORE MEAL OR 2 HOURS AFTER MEAL. 12 tablet 2 025 Active ferrous sulfate 325 (65 Fe) MG EC tablet Take 1 tablet by mouth. 022 2024 Discontinued(T herapy completed) cetirizine (ZyrTEC) 10 MG tabletIndications :Seasonal allergies TAKE 1 TABLET BY MOUTH EVERY DAY NEEDED FOR ALLERGIES 90 tablet 3 024 2024 Discontinued chlorthalidone (Hygroton) 25 MG tabletIndications :Essential hypertension Take 1 tablet (25 mg) by mouth in the morning. 90 tablet 1 024 2024 Discontinued ferrous gluconate (Fergon) 324 (38 Fe) MG tablet Take 1 pill every Saturday, Saturday, and Saturday. Take with a full glass of water or Vit C containing juice, and ideally 1 hour before a meal or 2 hours after a meal 36 tablet 025 2024 Discontinued traMADol (Ultram) 50 MG tabletIndications :Chronic pain of both knees,Primary osteoarthritis of right knee Take 1 tablet (50 mg) by mouth every 12 (twelve) hours if needed for severe pain. 56 tablet 025 2024 Discontinued(R eorder (will not trigger notification to Pharmacy)) Active Problems Problem Noted Date Diagnosed Date Osteoporosis 09/08/2024 Overview (11/03/2024): December 2023 - DXA with dx osteoporosis based on T-score value -3.6 in the femoral neck. Initiated alendronate 70mg weekly 12/24/23 Endo consult May 2024 at [facility] - Dr. Mayorga. Reviewed DXA results and suspects DXA from December 2023 was an over-read. Suggested repeating DXA scan through PCP. Repeat ordered 11/03/24. Encouraged to continue with adequate intake of calcium and Vit D. Low weight bearing exercises. Long-term current use of opiate analgesic 2023 Overview (12/09/2024): Medication: Tramadol 50mg BID Indication: OA right knee Last [employer] Agreement: 10/29/23 Tier II (visit every 3 months) Routine health maintenance 08/03/2022 Assessment & Plan (11/03/2024 6:23 PM EST): -Pap: 09/27/20 NIL/HPV neg -Smoking status: former -Mammo: BIRADS 2 on 12/18/23. Noted 7-8cm encapsulated area of normal breast tissue in the anterior half of upper outer quadrant of left breast which is circulation representative of a hamartoma (benign) -DEXA: December 2023, osteoporosis. Next due: December 2025. -Colonoscopy: December 2014, normal. Referral to GI placed 10/28/24 -Optometry: referral to [facility] eye care previously placed -Last comprehensive exam: 10/28/24 Assessment & Plan (09/05/2023 10:12 AM EST): -Pap: 09/27/20 NIL/HPV neg -Smoking status: former -Mammo: BIRADS 2020, repeat pending -DEXA: Jun 2019, osteopenia T-score -1.8. Re-ordered 09/05/23. -Colonoscopy: December 2014, normal. -Optometry: referral to [facility] eye care previously placed Assessment & Plan (08/15/2023 6:34 PM EST): -Pap: 09/27/20 NIL/HPV neg -Smoking status: former -Mammo: BIRADS 2020, repeat pending -DEXA: Jun 2019, osteopenia T-score -1.8 -Colonoscopy: reports UTD, although not currently in record. -Optometry: referral to [facility] eye care previously placed Assessment & Plan (03/17/2023 12:19 PM EDT): Pap/Results: 09/27/20 Smoking status: former smoker Mammo: 10/11/20 Bi-Rads 2, order placed March 2023 DEXA 06/2019: osteopenia, T-score: -1.8, on vitamin D and calcium citrate through endo C-scope: last on 2014, per pt had recent colonoscopy at [facility], unable to find in [facility] chart Vaccine: PCV20 administered in office today Assessment & Plan (08/03/2022 10:48 AM EST): PHQ: 9, pt to f/u with behavioral health STI: Denies Pap/Results: 09/27/20 Smoking status: former smoker Mammo: 10/11/20 Bi-Rads 2 DEXA 06/2019: osteopenia, T-score: -1.8, on vitamin D and calcium citrate through endo C-scope: last on file 2014, per pt had recent colonoscopy at [facility], unable to find in [facility] chart Vaccine: Received J&J, due for Booster, advised pt to go to walk-in vaccine clinic after visit to see if she can be scheduled History of malignant neoplasm of thyroid 022 Overview (11/03/2024): - 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 - Following with [facility] Endo/Dr. Mayorga/Dr. Herzog - December 2023: Thyroid US demonstrated numerous bilateral thyroid nodules, some pathologically enlarged and further showing atypical architectural features. Reviewed by Dr. Mayorga, plan repeat December 2024. Consult May 2024: [facility] Endo - Dr. Mayorga. Med hx of [...] 50mg BID PRN severe pain. Engaged with [employer] Program Assessment & Plan (05/12/2024 7:56 PM [...] and SE. Will need to establish with [employer] team. Interested in group visits. -Narcan PRN Assessment & Plan (08/15/2023 6:31 PM EST): -Continues with Tramadol 50mg BID. Reviewed med safety and SE. Will need to establish with [employer] team. Interested in group visits. -Narcan PRN Vitamin D deficiency 05/27/2018 Allergic rhinitis 07/25/2015 Depressive disorder 07/25/2015 Assessment & Plan (10/28/2024 9:13 AM EST): -Continue following with [facility] Reyna -Cont current med regimen: buspirone 15mg BID and citalopram 20mg daily Assessment & Plan (08/14/2023 9:19 AM EST): -Continue following with behavioral [facility] Reyna -Cont current med regimen: buspirone [...] History of thyroid CA now followed by [facility] Endo Continues with levothyroxine 137 mcg daily TSH goal: 0.1-0.5 Assessment & Plan (09/05/2023 10:11 AM EST): -History of thyroid CA followed by [facility] Endo -Last TSH WNL May 2022 -Continues with levothyroxine 112mcg daily -Upcoming appt scheduled Oct 2023 w/ Endo Assessment & Plan (08/13/2023 8:04 PM EST): -History of thyroid CA followed by [facility] Endo -Last TSH WNL May 2022 -Continues with levothyroxine 112mcg daily Psoriasis 07/25/2015 Assessment & Plan (11/03/2024 6:24 PM EST): Previous tx with topicals - Dovonex and Diprolene Referral to [facility] Derm team sent 08/14/23, re-sent on 11/03/24 Follow up with any worsening or persistence of symptoms Assessment & Plan (09/04/2023 8:44 AM EST): ?? Currently tx with topicals - Dovonex and Diprolene ?? Referral to [facility] Derm team sent 08/14/23 ?? Follow up with any worsening or persistence of symptoms Assessment & Plan (08/15/2023 6:34 PM EST): ?? Currently tx with topicals - Dovonex and Diprolene ?? Referral to [facility] Derm team sent 08/14/23 ?? Follow [...] Encounters Date Type Department Care Team Description 12/17/2024 Orders Only GENERIC EXTERNAL DATA DEPARTMENT Provider, Generic External Data 12/16/2024 Refill [facility] [address] [place] [address] Mandie Fields FNP 12/14/2024 Refill [facility] [address] [place] [address] Davide Villeda MD Essential hypertension 12/14/2024 Refill [facility] [address] [place] [address] Mandie Fields FNP Seasonal allergies 12/09/2024 Travel 12/09/2024 Refill [facility] [address] [place] [address] Mandie Fields FNP Long-term current use of opiate analgesic (Primary Dx); Chronic pain of both knees; Primary osteoarthritis of right knee 12/07/2024 Telephone [facility] [address] [place] [address] Mandie Fields FNP Results 11/26/2024 Telephone [facility] [address] [place] [address] Mandie Fields FNP Pap smear appt 11/24/2024 Orders Only [facility] External Provider, [facility] 11/23/2024 Telephone [facility] [address] [place] [phone] Mandie Fields FNP Call Back Request; Appointment Request 11/13/2024 Refill [facility] [address] [place] [address] Mandie Fields FNP Psoriasis 11/02/2024 Telephone [facility] [address] [place] [address] Gina Villanueva, LATRELL 10/29/2024 Telephone [facility] [address] [place] [address] Mandie Fields FNP 10/28/2024 9:15 AM EST Office Visit [facility] [address] [place] [phone] Mandie Fields FNP Postoperative hypothyroidism (Primary Dx); [...] Primary osteoarthritis of both knees 10/28/2024 Telephone [facility] [address] [place] [phone] Mandie Fields FNP Results 10/28/2024 Orders Only [facility] [address] [place] [address] Mandie Fields FNP Healthcare maintenance (Primary Dx) 10/28/2024 Orders Only GENERIC EXTERNAL DATA DEPARTMENT Provider, Generic External Data 10/28/2024 Travel 10/26/2024 Refill [facility] [address] [place] [address] Mandie Fields FNP Gastroesophageal reflux disease, unspecified whether esophagitis present; Essential hypertension; Moderate persistent asthma without complication 10/23/2024 Telephone [facility] [address] [place] [address] Mandie Fields FNP Chart Prep 10/14/2024 Patient Outreach [facility] [address] [place] [address] Mandie Fields FNP Care Coordination (CHW outreach for SDOH food needs-referral completed /) 10/14/2024 Patient Outreach [facility] [address] [place] [address] Mandie Fields FNP Pre-visit Planning (SDOH Screening negative and Tobacco screening negative) 10/14/2024 Refill [facility] [address] [place] [address] Mandie Fields, IVANIA Depressive disorder from Last 3 Months Immunizations Name Administration Dates Next Due Hep B, adult 05/27/2018,06/28/2017,05/29/2017 Influenza Injectable Quadriv alant Preservative Free IIV4 MDCK 06/10/2020 Influenza injectable quadriv alent IIV4 with preservative 05/27/2018,05/29/2017,07/06/2016,05/26 Influenza injectable quadriv alent preservative free 08/14/2023,07/11/2021,08/11/2019 Influenza, IIV3, injectable 08/03/2022,1 ,05/21/2011,09/21,07/22/2009 Influenza, Split (incl. payton fied surface antigen) 06/24/2013,07/09/2012 Influenza, seasonal, injecta ble, preservative free 10/28/2024 [employer] SARS-CoV-2 Vaccination 11/23/2020 Pfizer Covid-19 Vaccine 12+ [...] 11:00 AM EDT Office Visit [facility] [address] [place] [address] 01/27/2025 9:45 AM EDT Office Visit [facility] [address] [place] [address] Mandie Fields, SERVER DEVELOPER [address] [place] [address] 04/02/2025 9:30 AM EDT Office Visit [facility] OPTOMETRY [address] [place] [address] Palomo, Tammy, OD [address] [place] [address] Health Maintenance Due Date Last Done Comments [...] 10/03, 01/14/2019, Additional history exists Depression Monitoring 04/27/2025 10/28/2024, 025 Cervical Cancer Screening 10/09/2025 HPV/Cotest 10/09/2025 10/09/2020 [...] WHOLE BLOOD Routine 12/17/2024 10:35 AM EDT US HEAD NECK SOFT TISSUE Routine 11/26/2024 6:44 AM EDT THYROGLOBULIN, TUMOR MARKER W/REFLEX Routine 10/28/2024 10:15 [...] Recently Relevant to Health Maintenance Results * Glucose, Whole Blood (12/17/2024 10:35 AM EDT) Glucose, Whole Blood 111 60 - 115 mg/dL [facility] Comment:METER #: [id number] Testing performed in the Endocrinology Department [address] , [address], [place]. 12/17/2024 10:3 5 AM EDT 12/17/2024 10:38 AM EDT us Generic External Data Provider LAB BLOOD ORDERAB LES Final Result Performing Organization Address City/State/[facility] Co de Phone Number [facility] [address] [place] [address] [phone] * US Head Neck Soft Tissue (11/26/2024 6:44 AM EDT) Anatomical Region Laterality Modality Head, Neck Ultrasound 11/26/2024 6:44 AM EDT Narrative 11/26/2024 6:46 AM EDT ? [facility] ?[address] ?[place] [address] ? Ultrasound Report ? Signed ? Patient: Stern,Anneliese ?MR#: [id number] ? : 1960 ?Acct:[id number] ? Age/Sex: 64 / F ?ADM Date: 03/25/25 ? Loc: HO.US ? Attending Dr: Kinsey Mayorga MD ? Ordering Physician: Kinsey Mayorga MD ?? Date of Service: 11/24/24 ?? Procedure(s): US soft tiss head and/or neck ?? Accession Number(s): [id number] ? cc: Kinsey Mayorga MD; Mandie Fields ? CLINICAL HISTORY: C73 - Malignant neoplasm of thyroid gland ? Exam: Ultrasound of the neck. ? Comparison: None. ? Findings: ? Patient reportedly has a history of thyroid cancer status post ?? thyroidectomy. Technologist notes that the patient has a history of lymph ?? node involvement. Patient has undergone radioactive iodine treatment as ?? well. ? Patient reportedly has prior ultrasound imaging from December 18, 2023. I do ?? not have access to those images or report. ? Bilateral jugular lymph node evaluation was performed. ? A total of 6 measured right internal jugular lymph nodes are identified. ?? There are adjacent level 1B right lymph nodes without a fatty hilum ?? measuring 5 x 3 x 5 mm and 5 x 2 x 5 mm in size, respectively. ? A total of 6 left jugular lymph nodes were evaluated. There are 2 adjacent ?? left level 4 lymph nodes which were not seen on the prior study per the ?? technologist. These measure 11 x 5 x 10 mm and 7 x 4 x 5 mm in size, ?? respectively. These do not have a definitive fatty hilum. ? Impression: ? Indeterminate bilateral jugular lymph nodes as discussed above. Disease ?? recurrence can not be excluded based on these images alone. Correlation ?? with the patient's clinical scenario and prior imaging studies is ?? suggested. ? This document has been electronically signed by: Escobar Perez MD on ?? 11/26/2024 06:44:32 ? Dictated By: ?Escobar Perez MD ? Signed By: ?<Electronically signed by Escobar Perez MD in OV> ? 11/26/24 0645 ? DD/ 0644 ? TD/TT: 11/26/24 0644 ? Optics Test Technician: ? Procedure Note Yodit, Phill - 11/26/[address] [address] Ultrasound Report Signed Patient: Anneliese Stern#: [id number] : 1960Acct:[id number] Age/Sex: 64 / FADM Date: 11/24/24 Loc: HO.US Attending Dr: Kinsey Mayorga MD Ordering Physician: Kinsey Mayorga MD Date of Service: 11/24/24 Procedure(s): US soft tiss head and/or neck Accession Number(s): [id number] cc: Kinsey Mayorga MD; Mandie Fields CLINICAL HISTORY: C73 - Malignant neoplasm of thyroid gland Exam: Ultrasound of the neck. Comparison: None. Findings: Patient reportedly has a history of thyroid cancer status post thyroidectomy. Technologist notes that the patient has a history of lymph node involvement. Patient has undergone radioactive iodine treatment as well. Patient reportedly has prior ultrasound imaging from December 18, 2023. I do not have access to those images or report. Bilateral jugular lymph node evaluation was performed. A total of 6 measured right internal jugular lymph nodes are identified. There are adjacent level 1B right lymph nodes without a fatty hilum measuring 5 x 3 x 5 mm and 5 x 2 x 5 mm in size, respectively. A total of 6 left jugular lymph nodes were evaluated. There are 2 adjacent left level 4 lymph nodes which were not seen on the prior study per the technologist. These measure 11 x 5 x 10 mm and 7 x 4 x 5 mm in size, respectively. These do not have a definitive fatty hilum. Impression: Indeterminate bilateral jugular lymph nodes as discussed above. Disease recurrence can not be excluded based on these images alone. Correlation with the patient's clinical scenario and prior imaging studies is suggested. This document has been electronically signed by: Escobar Perez MD on 11/26/2024 06:44:32 Dictated By: Escobar Perez MD Signed By: <Electronically signed by Escobar Perez MD in OV> 11/26/24 0645 DD/ TD/TT: 11/26/2444 Optics Test Technician: us [facility] External Provider IMG US PROCEDURES Final Result * (ABNORMAL) Thyroglobulin, LC/MS/MS (10/28/2024 10:15 AM EST) Thyroglobulin, LC/MS/MS <0.1(A) ng/mL [facility] Comment:Reference Range: Int act Thyroid 2.8-40.9 Athyrotic <0.1 Note: Abnormal flagging is based on the reference interval for patients with intact thyroid.This test was performed using the [employer] Coulterchemiluminescent method. Values obtained fromdifferent assay methods cannot be usedinterchangeably. Thyroglobulin levels, regardlessof value, should not be interpreted as absoluteevidence of the presence or absence of disease. Thyroglobulin Comment See Below [facility] Comment:Thyroglobulin antibo dies (TGAB) interfere withthyroglobulin (TG) assays; therefore, TGAB assayshould always be performed in conjunction with aTG assay.For additional information, please refer tohttp://education.SnapLayout/faq/PPF844(This link is being provided for informational/educational purposes only.)THIS TEST WAS PERFORMED AT:[facility] [place] [phone] BUSBY MD 10/28/2024 10:1 5 AM EST 10/28/2024 11:08 AM EST us Generic External Data Provider LAB BLOOD ORDERAB LES Final Result [facility] [address] [place] [address] [phone] * Thyroblobulin, Tumor Marker w/Reflex (10/28/2024 10:15 AM EST) Thyroglobulin Antibody <1 <=1 IU/mL [facility] Comment:This Thyroglobulin a ntibody test was performedusing the [employer] Chemiluminescent method.Values obtained from different assay methods cannot beused interchangeably. Thyroglobulin antibody levels,regardless of value, should not be interpreted asabsolute evidence of the presence or absence ofdisease. Thyroglobulin, LC/MS/MS TNP [facility] Thyroglobulin Level <0.1 ng/mL [facility] Comment:Reference Range: Ath yrotic: <0.1 ng/mLReference range applies to differentiated thyroidcancer patients following treatment. The presence ofmeasurable thyroglobulin indicates the presence ofthyroglobulin-producing thyroid tissue. Clinicalcorrelation is advised.This Thyroglobulin test was performed using the[employer] Chemiluminescent method. Valuesobtained from different assay methods cannot beused interchangeably. Thyroglobulin levels, regardlessof value, should not be interpreted as absoluteevidence of the presence or absence of disease.THIS TEST WAS PERFORMED AT:[employer]/[id number] [place] [address]EGVOZYWGALEN GRANADOS MD,PHD 10/28/2024 10:1 5 AM EST 10/28/2024 11:08 AM EST us Generic External Data Provider LAB BLOOD ORDERAB LES Final Result Performing Organization Address [facility]/ZIP Co de Phone Number [facility] [address] [place] [phone] * (ABNORMAL) TSH W/Reflex to FT4 (10/28/2024 10:15 AM EST) Pathologist [facility] TSH reflex Free T4 0.05(L) 0.32 - 4.0 uIU/mL [facility] Blood Venous blood specimen / Unknown 10/28/2024 10:15 AM EST 10/28/2024 11:08 AM EST us Mandie Fields SERVER DEVELOPER LAB BLOOD ORDERABLES Final Res ult Performing Organization Address [facility] Co de Phone Number [facility] [address] [place] [address] [phone] * Hepatitis C Viral RNA, Quantitative, Real-Time PCR (10/28/2024 10:15 AM EST) Pathologist [facility] Hepatitis C Viral Load <15 NOT DETECTED NOT DETECTED IU/mL [facility] HCV Log PCR <1.18 NOT DETECTED NOT DETECTED Log IU/mL [facility] Comment:For additional infor mation, please refer tohttp://education.yepme.com.DianDian/faq/JQX77i8(This link is being provided for informational/educational purposes only.)THIS TEST WAS PERFORMED AT:[employer] [address] [phone] BUSBY MD Blood 10/28/2024 10:1 5 AM EST 10/28/2024 11:08 AM EST us Mandie Fields SERVER DEVELOPER LAB BLOOD ORDERABLES Final Res ult [facility] [address] [place] [phone] [phone] * (ABNORMAL) CBC auto differential (10/28/2024 10:15 AM EST) White Blood Count 4.3(L) 4.8 - 10.8 X10*3/uL [facility] Red Blood Count 4.04(L) 4.20 - 5.50 X10*6/uL [facility] Hemoglobin 11.1(L) 12.0 - 16.0 g/dl [facility] Hematocrit 33.5(L) 37.0 - 47.0 % [facility] Mean Corpuscular Volume 82.9 80.0 - 98.0 fL [facility] Mean Corpuscular Hemoglobin 27.5 27.0 - 33.0 pg [facility] Mean Corpuscular HGB Conc 33.1 31.0 - 35.0 g/dl [facility] Red Cell Distribution Width 13.7 11.0 - 16.0 % [facility] Platelet Count 344 160 - 400 X10*3/uL [facility] Mean Platelet Volume 9.1(L) 9.4 - 12.3 fL [facility] Neutrophils Percent Auto 53.4 45 - 73 % [facility] Imm Gran Pct Auto 0.2 0.0 - 0.4 % [facility] Lymphocytes Percent Auto 25.2 20 - 40 % [facility] Monocytes Percent Auto 10.7 2 - 11 % [facility] Eosinophils Percent Auto 9.6(H) 0 - 4 % [facility] Basophils Percent Auto 0.9 0 - 2 % [facility] NRBC Pct Auto 0.0 0.0 - 0.2 /100WBC [facility] Neutrophils Absolute Auto 2.3 2.0 - 8.3 x10*3/uL [facility] Imm Gran Abs Auto 0.01 0.00 - 0.03 X10*3/uL [facility] Lymphocytes Absolute Auto 1.1(L) 1.2 - 4.9 X10*3/uL [facility] Monocytes Absolute Auto 0.5 0.1 - 1.2 X10*3/uL [facility] Eosinophils Absolute Auto 0.4 0.0 - 0.4 X10*3/uL [facility] Basophils Absolute Auto 0.0 0.0 - 0.2 X10*3/uL [facility] NRBC Abs Auto 0.000 0.0 - 0.012 X10*3/uL [facility] Blood Venous blood specimen / Unknown 10/28/2024 10:15 AM EST 10/28/2024 11:08 AM EST Mandie Fields SERVER DEVELOPER LAB BLOOD ORDERABLES Final Res ult Performing Organization Address City/[facility]/ZIP Co de Phone Number [facility] [address] [place] [phone] * Hepatitis B surface antigen, EIA (10/28/2024 10:15 AM EST) Hepatitis B Surface Ag Negative Negative [facility] Blood Venous blood specimen / Unknown 10/28/2024 10:15 AM EST 10/28/2024 11:08 AM EST Mandie Fields SERVER DEVELOPER LAB BLOOD ORDERABLES Final Res ult [facility] [address] [place] [phone] * Hepatitis B Core Antibody, Total (10/28/2024 10:15 AM EST) Hepatitis B Core Antibody Nonreactive Nonreactive [facility] Blood Venous blood specimen / Unknown 10/28/2024 10:15 AM EST 10/28/2024 11:08 AM EST Mandie Fields SERVER DEVELOPER LAB BLOOD ORDERABLES Final Res ult Performing Organization Address [facility]/ZIP Co de Phone Number [facility] [address] [place] [phone] * Thyroglobulin Antibodies (10/28/2024 10:15 AM EST) Thyroglobulin Antibodies <1 < or = 1 IU/mL [facility] Comment:THIS TEST WAS PERFOR MED AT:[employer] [address] [id number] BUSBY MD 10/28/2024 10:1 5 AM EST 10/28/2024 11:08 AM EST us Generic External Data Provider LAB BLOOD ORDERAB LES Final Result Performing Organization Address [facility] Co de Phone Number [facility] [address] [place] [address] [phone] * RPR (Monitor) with Reflex to??Titer (10/28/2024 10:15 AM EST) Pathologist [facility] RPR (Monitor) w/Refl Titer NON-REACTI VE NON-REACT DEBBIE [facility] Comment:THIS TEST WAS PERFOR MED AT:[employer] [address] [id number] BUSBY MD Rapid Plasma Reagin Ab Titer TNP [facility] Blood Venous blood specimen / Unknown 10/28/2024 10:15 AM EST 10/28/2024 11:08 AM EST Mandie Fields [facility] LAB BLOOD ORDERABLES Final Res ult Performing Organization Address [facility] Co de Phone Number [facility] [address], [place] [phone] * HIV-1/2 Antigen and Antibodies, Fourth Generation, with Reflexes (10/28/2024 10:15 AM EST) HIV AB/AG Nonreactive Nonreactive [facility] Comment:HIV-1 p24 Ag and/or HIV-1/HIV-2 Ab not detected.A test result that is nonreactive does not exclude thepossibility of exposure to or infection with HIV-1 and/orHIV-2. Nonreactive results in this assay for individualswith prior exposure to HIV-1 and/or HIV-2 may be due toantigen and antibody levels that are below the limit ofdetection of this assay.The [employer] HIV Ag/Ab Combo assay result andsupplemental assay results should be interpreted inconjunction with the patient's clinical presentation,history and other laboratory results. If the results areinconsistent with clinical evidence, additional testing issuggested to confirm the result. Blood Venous blood specimen / Unknown 10/28/2024 10:15 AM EST 10/28/2024 11:08 AM EST Mandie Fields [facility] LAB BLOOD ORDERABLES Final Res ult Performing Organization Address [facility]/ZIP Co de Phone Number [facility] [address] [place] [phone] * Hepatitis B Surface Antibody, Qualitative (10/28/2024 10:15 AM EST) Pathologist [facility] ~Hepatitis B Surface Antibody NONREACTIVE Nonreactive [facility] Comment:Nonreactive: < 8.00 mIU/mL Blood Venous blood specimen / Unknown 10/28/2024 10:15 AM EST 10/28/2024 11:08 AM EST Mandie Fields [facility] LAB BLOOD ORDERABLES Final Res ult Performing Organization Address [facility]/ZIP Co de Phone Number [facility] [address] [place] [phone] * (ABNORMAL) TSH (10/28/2024 10:15 AM EST) Thyroid Stimulating Hormone 0.05(L) 0.32 - 4.0 uIU/mL [facility] Comment:TSH 3rd Generation ( [facility]) 10/28/2024 10:1 5 AM EST 10/28/2024 11:08 AM EST us Generic External Data Provider LAB BLOOD ORDERAB LES Final Result Performing Organization Address [facility] Co de Phone Number [facility] [address] [place] [phone] * T4, Free (10/28/2024 10:15 AM EST) Free T4 (Free Thyroxine) 1.44 0.71 - 1.85 ng/dL [facility] 10/28/2024 10:1 5 AM EST 10/28/2024 11:08 AM EST us Generic External Data Provider LAB BLOOD ORDERAB LES Final Result Performing Organization Address [facility] Phone Number [facility] [address] [place] [phone] * Hemoglobin A1c (10/28/2024 10:15 AM EST) Hemoglobin A1c 5.8 <6.0 % [facility] Comment:Hemoglobin A1C Refer ence Range Adults: 4.8 - 6.0 % Non diabetic: < 6.0 % Goal: < 7.0 %Additional Action Suggested: > 8.0 %Note: Hemoglobin A1c results are invalid for patients with abnormal amounts of HbF. Blood transfusions may impact the HbA1c concentration in the patient sample. Estimated Average Glucose 120 mg/dL [facility] Comment:eAG = Estimated ave rage glucose which is %A1C expressed asaverage glucose, using the formula of the F1P-MeodwjdVonpnsm Glucose study (ADAG), Diabetes Care, Vol.31,#8,Apr. 2007 Blood Venous blood specimen / Unknown 10/28/2024 10:15 AM EST 10/28/2024 11:08 AM EST us Mandie Fields SERVER DEVELOPER LAB BLOOD ORDERABLES Final Res ult Performing Organization Address [facility]/ZIP Co de Phone Number [facility] [address] [place] [phone] * Lipid Panel, Standard (10/28/2024 10:15 AM EST) Triglycerides 93 <150 mg/dL [facility] Comment:Desirable Triglyceri de: less than 150 mg/dLBorderline High Triglyceride 150-199 mg/dLHigh Triglyceride: 200-499 mg/dLVery High Triglyceride: greater than or equal to 5OO mg/dL Cholesterol 172 <200 mg/dL [facility] Comment:Desirable Cholestero l: less than 200 mg/dLBorderline High Cholesterol: 200-239 mg/dLHigh Cholesterol: greater than 239 mg/dL LDL Cholesterol Calculated 97 <100 mg/dL [facility] Comment:Desirable LDL: less than 100 mg/dLNear Optimal/Above Optimal LDL: 110- 129 mg/dLBorderline High LDL: 130-159 mg/dLHigh LDL: 160-189 mg/dLVery High LDL: greater than or equal to 190 mg/dL HDL Cholesterol 57 >40 mg/dL [facility] Comment:Desirable HDL: great er than 40 mg/dL Note: This HDL assay may give artificially low results in patients with liver disease. Blood Venous blood specimen / Unknown 10/28/2024 10:15 AM EST 10/28/2024 11:08 AM EST us Mandie Fields SERVER DEVELOPER LAB BLOOD ORDERABLES Final Res ult [facility] [address] [place] [phone] * (ABNORMAL) Comprehensive Metabolic Panel (10/28/2024 10:15 AM EST) Sodium 141 135 - 145 mmol/L [facility] Potassium 3.8 3.3 - 5.1 mmol/L [facility] Chloride 107 96 - 108 mmol/L [facility] Carbon Dioxide 27 22 - 29 mmol/L [facility] Anion Gap 11(L) 12 - 20 [facility] Urea Nitrogen (BUN) 19(H) 9 - 16 mg/dL [facility] Creatinine, Serum 0.78 0.5 - 1.4 mg/dL [facility] Estimated Glomerular Filt Rate >60 [facility] Comment:Chronic Kidney Disea se: Estimated GFR < 60 mL/min/1.49i0Vpowlu Kidney Disease: Estimated GFR < 15 mL/min/1.73m2 Glucose 103 60 - 115 mg/dL [facility] Calcium 9.2 8.4 - 10.2 mg/dL [facility] Bilirubin, Total 0.3 0.0 - 1.0 mg/dL [facility] Aspartate Amino Transferase 36(H) 5 - 31 U/L [facility] Alanine Aminotransferase 100(H) 0 - 31 U/L [facility] Total Protein 7.6 6.5 - 8.0 g/dL [facility] Albumin Level 4.0 3.5 - 5.0 g/dL [facility] Alkaline Phosphatase 86 39 - 117 U/L [facility] Blood Venous blood specimen / Unknown 10/28/2024 10:15 AM EST 10/28/2024 11:08 AM EST Mandie Fields SERVER DEVELOPER LAB BLOOD ORDERABLES Final Res ult Performing Organization Address City/State/[facility] Co de Phone Number [facility] [address] [place] [phone] * BI Mammogram Screening Tomosynthesis Bilateral (12/18/2023 9:30 AM EDT) Anatomical Region Laterality Modality Breast Bilateral Mammography 12/18/2023 9:30 AM EDT Narrative 01/13/2024 9:34 AM EDT ? [facility] ? [address] ?[place] [address] ? Mammography Report ? Signed with Addenda ? Patient: Stern,Anneliese ?MR#: [id number] ? : 1960 ?Acct:[id number] ? Age/Sex: 63 / F ?ADM Date: 04/17/24 ? Loc: HO.MAMMO ? Attending Dr: Mandie Fields SERVER DEVELOPER ? Ordering Physician: Mandie Fields SERVER DEVELOPER ?Results: 2Benig ?? n Findings ? Date of Service: 12/18/23 ?Follow Up: 1 Year From Orig ?? inal Mammogram ? Procedure(s): MM tomosynthesis screening BI ?? Accession Number(s): [id number] ? cc: Mandie Fields SERVER DEVELOPER ?ADDENDUM ?? ADDENDUM: ?? There is a 7 cm-8 cm encapsulated area of normal breast tissue in ?? the anterior half of the upper outer quadrant of the left breast. This ?? is circulation representative of a hamartoma. This is benign. ? OVERALL ASSESSMENT: ?? BI-RADS 2 - Benign Findings ? RECOMMENDATION: ?? 1 year F/U ? Addendum Dictated By: ?Jaclyn Barrientos MD ? Addendum Signed By: ? <Electronically signed by Jaclyn Barrientos MD in OV> ? /16/ 0857 ?? Addendum Cosigned By: ? DD/DT: 04/ ? TD/TT: / ? EXAMINATION: ?? MM [...] of the left breast. This is ?? circulation representative of a hamartoma. This is benign. [...] 0930 ? DD/ 0930 ? TD/TT: ? Optics Test Technician: ? Procedure Note Phill Monsivais - 01/16/2024 [facility] [address] [place], [place] [address] Mammography Report Signed with Bruce Patient: Anneliese SternMR#: [id number] : 1960Acct:[id number] Age/Sex: 63 / FADM Date: 12/18/23 Loc: HO.MAMMO Attending Dr: Mandie REDD Ordering Physician: Mandie Fields FNPResults: 2Benig n Findings Date of Service: 12/18/23Follow Up: 1 Year From Orig inal Mammogram Procedure(s): MM tomosynthesis screening BI Accession Number(s): [id number] cc: Mandie Fields ADDENDUM ADDENDUM: There is a 7 cm-8 cm encapsulated area of normal breast tissue in the anterior half of the upper outer quadrant of the left breast. This is circulation representative of a hamartoma. This is benign. [...] quadrant of the left breast. This is circulation representative of a hamartoma. This is benign. [...] MD in OV> 01/13/24929 DD/ 9 TD/TT: Optics Test Technician: Mandie Fields [facility] IMG BI PROCEDURES Edited Resul t - [...] NP HISTORICAL/NON ORDERABLE LABS Fi nal Result [facility] [address] * THINPREP PAP (10/09/2020 3:12 PM EST) Pathologist [facility] Clinical Information: None given [facility] [...] historic and ?? current clinical information. ?? Banquet Cook: SEE COMMENT [facility] Comment: SXA, CT(ASCP) CT screening location: [address] ??[address] Interpretation/Res ult: SEE COMMENT [facility] [...] NP LAB PATHOLOGY ORDERABLES Final R esult [facility] [address] * Colonoscopy (12/02/2014) Colonoscopy Normal Repeat in 10 yrs Historical Provider HEALTH MAINTENANCE Edited Result - Final from Last 3 Months or Most Recently Relevant to Health Maintenance Insurance [facility] STANDARD MEDICARE DENTAL-[facility] [place] [id number] Care Teams Police Superintendent Relationship Specialty Start Date End Date Mandie Fields FNP [address] [place] [phone] PCP - General Family Medicine 05/01/22
--- OUTSIDE RECORDS SUMMARY | 2024-12-17 14:35 | XMS_ITS | Encounter Summary ---
Author Organization [email or web address] Address [address] [place] [address] [address] [place] [address] Care Team Providers Care Mosquito Sprayer Name Role Phone Mandie Fields Primary Care Provider [phone] Reason for Visit * Reason Comments Med Refill Encounter Details Date Type Department Care Team (Late st Contact Info) Description 11/14/2022 Refill [facility] [address] [place], [place] [phone] Mandie Fields FNP [address] [place] [address] Moderate persistent asthma without complication (Primary Dx) [...] Description 01/12/2025 11:00 AM EDT Office Visit [facility] MEDICINE [address] [place], [place] [phone] 01/27/2025 9:45 AM EDT Office Visit [facility] MEDICINE [address] [place] [address] Mandei Fields FNP [address] [place] [address] 04/02/2025 9:30 AM EDT Office Visit [facility] OPTOMETRY [address] [place] [address] Tammy Culver, OD [address] [place] [address] documented as of this encounter Visit Diagnoses Diagnosis Moderate persistent asthma without complication- Primary documented in this encounter Additional Health Concerns Assessment Noted Time PHQ-9 Depression Total Score: 10 022 10:45 AM EST documented as of this encounter Care Teams Mosquito Sprayer Relationship Specialty Start Date End Date Mandie Fields FNP [address] [place] [address] PCP - General Family Medicine 05/01/22 documented as of this encounter
--- OUTSIDE RECORDS SUMMARY | 2024-12-17 14:35 | XMS_ITS | Encounter Summary ---
Author Organization [facility] Address [address] [facility] [address] [place] [address] Care Team Providers Care Ancillary Services Manager Name Role Phone Mandie Fields Primary Care Provider [phone] Encounter Details Date Type Department Care Team (Latest Contact Info) Description 03/16/2019 Abstract [facility] CONVERSIONS Dental, Provider, DDS Social History [...] Description 01/12/2025 11:00 AM EDT Office Visit [facility] MEDICINE [address] [place] [address] 01/27/2025 9:45 AM EDT Office Visit [facility] MEDICINE [address] [place] [address] Mandie Fields FNP [address] [place] [address] 04/02/2025 9:30 AM EDT Office Visit [facility] OPTOMETRY [address] [place] [address] Palomo, Tammy, OD [address] [place] [address] documented as of this encounter Visit Diagnoses Not on filedocumented in this encounter Care Teams Ancillary Services Manager Relationship Specialty Start Date End Date Mandie Fields FNP [address] [place] [address] PCP - General Family Medicine 05/01/22 documented as of this encounter
[2024-12-17 15:24] LABS: Free T4 (Free Thyroxine) 1.44 ng/dL (0.71-1.85); Thyroid Stimulating Hormone 0.11 uIU/mL (0.32-4.0)
== END 2024-12-17 11:42 | disposition home or self-care (01) ==
LOC: HO.10HDL 11:41
PROVIDERS: Visit Provider Student in an Organized Health Care Education/Training Program
DX: E89.0 Postprocedural hypothyroidism (principal); C73 Malignant neoplasm of thyroid gland; Z13.1 Encounter for screening for diabetes mellitus
CPT/HCPCS: 36415; 82947; 84439; 84443; 99212

== ENCOUNTER 2025-01-06 12:26 | Outpatient (REF) | payer OTHER, SELFPAY ==
--- OUTSIDE RECORDS SUMMARY | 2025-01-06 13:37 | XMS_ITS | Clinical Summary ---
Author Organization [employer] Address [address] [facility] [address] [place] [address] Care Team Providers Care Stonemason Helper Name Role Phone Mandie Fields IVANIA Primary Care Provider [phone] Allergies Active Allergy Reactions Criticality Noted Date [...] the next 30 min. 4 tablet 11 025 2025 Active cholecalciferol (Vitamin D High Potency) 25 MCG (1000 UT) capsuleIndication s:Vitamin D deficiency Take 1 capsule (25 mcg) by mouth in the morning. 90 capsule 3 025 Active triamcinolone (Kenalog) 0.1 % creamIndications: Psoriasis MIX WITH CERAVE CREAM AND APPLY TOPICALLY TO AFFECTED AREA(S) TWICE DAILY IN THE MORNING AND AT BEDTIME NEEDED FOR PAIN OR SWELLING 80 g 2 025 Active traMADol (Ultram) 50 MG tabletIndications [...] weekly 12/24/23 Endo consult May 2024 at [facility] - Dr. Mayorga. Reviewed DXA results and suspects DXA from December 2023 was an over-read. Suggested repeating DXA scan through PCP. Repeat ordered 11/03/24. Encouraged to continue with adequate intake of calcium and Vit D. Low weight bearing exercises. Long-term current use of opiate analgesic 2023 Overview (12/09/2024): Medication: Tramadol 50mg BID Indication: OA right knee Last HEALTHCARE EDUCATOR Agreement: 10/29/23 Tier II (visit every 3 months) Routine health maintenance 08/03/2022 Assessment & Plan (11/03/2024 6:23 PM EST): -Pap: 09/27/20 NIL/HPV neg -Smoking status: former -Mammo: BIRADS 2 on 12/18/23. Noted 7-8cm encapsulated area of normal breast tissue in the anterior half of upper outer quadrant of left breast which is advertising account representative of a hamartoma (benign) -DEXA: December 2023, osteoporosis. Next due: December 2025. -Colonoscopy: December 2014, normal. Referral to GI placed 10/28/24 -Optometry: referral to [facility] eye care previously placed -Last comprehensive exam: 10/28/24 Assessment & Plan (09/05/2023 10:12 AM EST): -Pap: 09/27/20 NIL/HPV neg -Smoking status: former -Mammo: BIRADS 2020, repeat pending -DEXA: Jun 2019, osteopenia T-score -1.8. Re-ordered 09/05/23. -Colonoscopy: December 2014, normal. -Optometry: referral to [facility] eye care previously placed Assessment & Plan (08/15/2023 6:34 PM EST): -Pap: 09/27/20 NIL/HPV neg -Smoking status: former -Mammo: BIRADS 2020, repeat pending -DEXA: Jun 2019, osteopenia T-score -1.8 -Colonoscopy: reports UTD, although not currently in record. -Optometry: referral to [facility] eye care previously placed Assessment & Plan (03/17/2023 12:19 PM EDT): Pap/Results: 09/27/20 Smoking status: former smoker Mammo: 10/11/20 Bi-Rads 2, order placed March 2023 DEXA 06/2019: osteopenia, T-score: -1.8, on vitamin D and calcium citrate through endo C-scope: last on 2014, per pt had recent colonoscopy at [facility], unable to find in [facility] chart Vaccine: PCV20 administered in office today Assessment & Plan (08/03/2022 10:48 AM EST): PHQ: 9, pt to f/u with behavioral health STI: Denies Pap/Results: 09/27/20 Smoking status: former smoker Mammo: 10/11/20 Bi-Rads 2 DEXA 06/2019: osteopenia, T-score: -1.8, on vitamin D and calcium citrate through endo C-scope: last on file 2014, per pt had recent colonoscopy at [facility], unable to find in [facility] chart Vaccine: Received J&J, due for Booster, advised pt to go to walk-in vaccine clinic after visit to see if she can be scheduled History of malignant neoplasm of thyroid 022 Overview (11/03/2024): - 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 - Following with [facility] Endo/Dr. Mayorga/Dr. Herzog - December 2023: Thyroid US demonstrated numerous bilateral thyroid nodules, some pathologically enlarged and further showing atypical architectural features. Reviewed by Dr. Mayorga, plan repeat December 2024. Consult May 2024: [facility] Endo - Dr. Mayorga. Med hx of [...] 50mg BID PRN severe pain. Engaged with HEALTHCARE EDUCATOR Program Assessment & Plan (05/12/2024 7:56 PM [...] and SE. Will need to establish with HEALTHCARE EDUCATOR team. Interested in group visits. -Narcan PRN Assessment & Plan (08/15/2023 6:31 PM EST): -Continues with Tramadol 50mg BID. Reviewed med safety and SE. Will need to establish with HEALTHCARE EDUCATOR team. Interested in group visits. -Narcan PRN Vitamin D deficiency 05/27/2018 Allergic rhinitis 07/25/2015 Depressive disorder 07/25/2015 Assessment & Plan (10/28/2024 9:13 AM EST): -Continue following with [facility] Reyna -Cont current med regimen: buspirone 15mg BID and citalopram 20mg daily Assessment & Plan (08/14/2023 9:19 AM EST): -Continue following with [facility] - Reyna -Cont current med regimen: [...] History of thyroid CA now followed by [facility] Endo Continues with levothyroxine 137 mcg daily TSH goal: 0.1-0.5 Assessment & Plan (09/05/2023 10:11 AM EST): -History of thyroid CA followed by [facility] Endo -Last TSH WNL May 2022 -Continues with levothyroxine 112mcg daily -Upcoming appt scheduled Oct 2023 w/ Endo Assessment & Plan (08/13/2023 8:04 PM EST): -History of thyroid CA followed by [facility] Endo -Last TSH WNL May 2022 -Continues with levothyroxine 112mcg daily Psoriasis 07/25/2015 Assessment & Plan (11/03/2024 6:24 PM EST): Previous tx with topicals - Dovonex and Diprolene Referral to [facility] Derm team sent 08/14/23, re-sent on 11/03/24 Follow up with any worsening or persistence of symptoms Assessment & Plan (09/04/2023 8:44 AM EST): ?? Currently tx with topicals - Dovonex and Diprolene ?? Referral to [facility] Derm team sent 08/14/23 ?? Follow up with any worsening or persistence of symptoms Assessment & Plan (08/15/2023 6:34 PM EST): ?? Currently tx with topicals - Dovonex and Diprolene ?? Referral to [facility] Derm team sent 08/14/23 ?? Follow up [...] Encounters Date Type Department Care Team Description 12/23/2024 Telephone [facility] [address] [place] [address] Mandie Fields FNP DERM APPT 12/17/2024 Orders Only GENERIC EXTERNAL DATA DEPARTMENT Provider, Generic External Data 12/16/2024 Refill [facility] MEDICINE [address] [place] [address] Mandie Fields FNP 12/14/2024 Refill [facility] WALK-IN CENTER [address] [place] [phone] Davide Villeda MD Essential hypertension 12/14/2024 Refill [facility] [address] [place] [address] Mandie Fields FNP Seasonal allergies 12/09/2024 Travel 12/09/2024 Refill [facility] [address] [place] [address] Mandie Fields FNP Long-term current use of opiate analgesic (Primary Dx); Chronic pain of both knees; Primary osteoarthritis of right knee 12/07/2024 Telephone [facility] [address] [place] [address] Mandie Fields FNP Results 11/26/2024 Telephone [facility] [address] [place] [address] Mandie Fields FNP Pap smear appt 11/24/2024 Orders Only [facility] External Provider, [facility] 11/23/2024 Telephone [facility] MEDICINE [address] [place] [phone] Mandie Fields FNP Call Back Request; Appointment Request 11/13/2024 Refill [facility] MEDICINE [address] [place] [phone] Mandie Fields FNP Psoriasis 11/02/2024 Telephone [facility] MEDICINE [address] [place] [phone] Gina Villanueva RN 10/29/2024 Telephone [facility] MEDICINE [address] [place] [phone] Mandie Fields FNP 10/28/2024 9:15 AM EST Office Visit [facility] MEDICINE [address] [place] [address] Mandie Fields FNP Postoperative hypothyroidism (Primary Dx); [...] Primary osteoarthritis of both knees 10/28/2024 Telephone [facility] MEDICINE [address] [place] [address] Mandie Fields FNP Results 10/28/2024 Orders Only [facility] [address] [place] [address] Mandie Fields FNP Healthcare maintenance (Primary Dx) 10/28/2024 Orders Only GENERIC EXTERNAL DATA DEPARTMENT Provider, Generic External Data 10/28/2024 Travel 10/26/2024 Refill [facility] [address] [place] [address] Mandie Fields FNP Gastroesophageal reflux disease, unspecified whether esophagitis present; Essential hypertension; Moderate persistent asthma without complication 10/23/2024 Telephone [facility] MEDICINE [address] [place] [address] Mandie Fields FNP Chart Prep 10/14/2024 Patient Outreach [facility] [address] [place] [address] Mandie Fields FNP Care Coordination (CHW outreach for SDOH food needs-referral completed /) 10/14/2024 Patient Outreach [facility] [address] [place] [address] Mandie Fields FNP Pre-visit Planning (SDOH Screening negative and Tobacco screening negative) 10/14/2024 Refill [facility] [address] [place] [address] Mandie Fields FNP Depressive disorder from Last 3 Months Immunizations Name Administration Dates Next Due Hep B, adult 05/27/2018,06/28/2017,05/29/2017 Influenza Injectable Quadriv alant Preservative Free IIV4 MDCK 06/10/2020 Influenza injectable quadriv alent IIV4 with preservative 05/27/2018,05/29/2017,07/06/2016,05/26 Influenza injectable quadriv alent preservative free 08/14/2023,07/11/2021,08/11/2019 Influenza, IIV3, injectable 08/03/2022,1 ,05/21/2011,09/21,07/22/2009 Influenza, Split (incl. payton fied surface antigen) 06/24/2013,07/09/2012 Influenza, seasonal, injecta ble, preservative free 10/28/2024 [employer] SARS-CoV-2 Vaccination 11/23/2020 Pfizer Covid-19 Vaccine 12+ [...] Description 01/12/2025 11:00 AM EDT Office Visit [facility] MEDICINE [address] [place] [address] 01/27/2025 9:45 AM EDT Office Visit [facility] MEDICINE [address] [place] [address] Mandie Fields, PROMOTIONAL MARKETING ANALYST [address] [place] [address] 04/02/2025 9:30 AM EDT Office Visit [facility] OPTOMETRY [address] [place] [address] Palomo, Tammy, OD [address] [place] [address] Health Maintenance Due Date Last Done Comments [...] 12/17/2024 12/18/2023, 10/03, 01/14/2019, Additional history exists Cervical Cancer Screening 10/09/2025 HPV/Cotest 10/09/2025 10/09/2020 Pap Smear 10/09/2025 10/09/2020, 11/24/2014 SDOH Screening 10/14/2025 10/14/2024 Depression Screening 10/28/2025 10/28/2024, 10/28/19 Diabetes: Hemoglobin A1C 10/28/2025 025, 10/03/2023, 07/11/2021, Additional history exists Tobacco Screening 10/28/2025 10/28/2024 COVID-19 Vaccine ( season) 2025 07/11/2021, 11/23/2020 Postponed from 05/03/2024 (Patient Refused) Lipid Panel 10/28/2029 10/28/2024, 0209/2023, 07/11/2021, Additional history exists DTaP/Tdap/Td Vaccines (4 [...] Whole Blood 111 60 - 115 mg/dL [facility] Comment:METER #: [id number] Testing performed in the Endocrinology Department [address] , [address], [place]. 12/17/2024 10:3 5 AM EDT 12/17/2024 10:38 AM EDT us Generic External Data Provider LAB BLOOD ORDERAB LES Final Result [facility] [address] [place] [address] [phone] * US Head Neck Soft Tissue (11/26/2024 6:44 AM EDT) Anatomical Region Laterality Modality Head, Neck Ultrasound 11/26/2024 6:44 AM EDT Narrative 11/26/2024 6:46 AM EDT ? [facility] ?[address] ?[place] [address] ? Ultrasound Report ? Signed ? Patient: Stern,Anneliese ?MR#: [id number] ? : 1960 ?Acct:[id number] ? Age/Sex: 64 / F ?ADM Date: 03/25/25 ? Loc: HO.US ? Attending Dr: Kinsey Mayorga MD ? Ordering Physician: Kinsey Mayorga MD ?? Date of Service: 11/24/24 ?? Procedure(s): US soft tiss head and/or neck ?? Accession Number(s): [id number] ? cc: Kinsey Mayorga MD; Mandie Fields PROMOTIONAL MARKETING ANALYST ? CLINICAL HISTORY: C73 - Malignant neoplasm [...] DD/ 0644 ? TD/TT: 11/26/24 0644 ? Senior Maintenance Technician: ? Procedure Note Yodit, Image - 11/26/[address] [address] Ultrasound Report Signed Patient: Anneliese Stern#: [id number] : 1960Acct:[id number] Age/Sex: 64 / FADM Date: 11/24/24 Loc: HO.US Attending Dr: Kinsey Mayorga MD Ordering Physician: Kinsey Mayorga MD Date of Service: 11/24/24 Procedure(s): US soft tiss head and/or neck Accession Number(s): [id number] cc: Kinsey Mayorga MD; Mandie Fields CLINICAL [...] in OV> 11/26/24 0645 DD/ TD/TT: 11/26/2444 Senior Maintenance Technician: us [facility] External Provider IMG US PROCEDURES Final Result * (ABNORMAL) Thyroglobulin, LC/MS/MS (10/28/2024 10:15 AM EST) Thyroglobulin, LC/MS/MS <0.1(A) ng/mL [facility] Comment:Reference Range: Int act Thyroid 2.8-40.9 Athyrotic <0.1 Note: Abnormal flagging is based on the reference interval for patients with intact thyroid.This test was performed using the Health Data Visionchemiluminescent method. Values obtained fromdifferent assay methods cannot be usedinterchangeably. Thyroglobulin levels, regardlessof value, should not be interpreted as absoluteevidence of the presence or absence of disease. Thyroglobulin Comment See Below [facility] Comment:Thyroglobulin antibo dies (TGAB) interfere withthyroglobulin (TG) assays; therefore, TGAB assayshould always be performed in conjunction with aTG assay.For additional information, please refer tohttp://education.P2P-Next/faq/KVV949(This link is being provided for informational/educational purposes only.)THIS TEST WAS PERFORMED AT:[employer] [place] [phone] BUSBY MD 10/28/2024 10:1 5 AM EST 10/28/2024 11:08 AM EST us Generic External Data Provider LAB BLOOD ORDERAB LES Final Result [facility] [address] [place] [address] [phone] * Thyroblobulin, Tumor Marker w/Reflex (10/28/2024 10:15 AM EST) Thyroglobulin Antibody <1 <=1 IU/mL [facility] Comment:This Thyroglobulin a ntibody test was performedusing the [employer] Chemiluminescent method.Values obtained from different assay methods cannot beused interchangeably. Thyroglobulin antibody levels,regardless of value, should not be interpreted asabsolute evidence of the presence or absence ofdisease. Thyroglobulin, LC/MS/MS TNP [facility] Thyroglobulin Level <0.1 ng/mL [facility] Comment:Reference Range: Ath yrotic: <0.1 ng/mLReference range applies to differentiated thyroidcancer patients following treatment. The presence ofmeasurable thyroglobulin indicates the presence ofthyroglobulin-producing thyroid tissue. Clinicalcorrelation is advised.This Thyroglobulin test was performed using theHealth Data Vision Chemiluminescent method. Valuesobtained from different assay methods cannot beused interchangeably. Thyroglobulin levels, regardlessof value, should not be interpreted as absoluteevidence of the presence or absence of disease.THIS TEST WAS PERFORMED AT:[employer]/[id number] [place] [phone] GRANADOS MD,PHD 10/28/2024 10:1 5 AM EST 10/28/2024 11:08 AM EST us Generic External Data Provider LAB BLOOD ORDERAB LES Final Result Performing Organization Address [facility] Co de Phone Number [facility] [address] [place] [phone] * (ABNORMAL) TSH W/Reflex to FT4 (10/28/2024 10:15 AM EST) Pathologist [facility] TSH reflex Free T4 0.05(L) 0.32 - 4.0 uIU/mL [facility] Blood Venous blood specimen / Unknown 10/28/2024 10:15 AM EST 10/28/2024 11:08 AM EST us Mandie Fields PROMOTIONAL MARKETING ANALYST LAB BLOOD ORDERABLES Final Res ult Performing Organization Address [facility] de Phone Number [facility] [address] [place] [phone] * Hepatitis C Viral RNA, Quantitative, Real-Time PCR (10/28/2024 10:15 AM EST) Pathologist [facility] Hepatitis C Viral Load <15 NOT DETECTED NOT DETECTED IU/mL [facility] HCV Log PCR <1.18 NOT DETECTED NOT DETECTED Log IU/mL [facility] Comment:For additional infor mation, please refer tohttp://education.P2P-Next/faq/JEI60w3(This link is being provided for informational/educational purposes only.)THIS TEST WAS PERFORMED AT:[employer] [address] [phone] BUSBY MD Blood 10/28/2024 10:1 5 AM EST 10/28/2024 11:08 AM EST us Mandie Fields PROMOTIONAL MARKETING ANALYST LAB BLOOD ORDERABLES Final Res ult [facility] [address] [place] [address] [phone] * (ABNORMAL) CBC auto differential (10/28/2024 10:15 AM EST) White Blood Count 4.3(L) 4.8 - 10.8 X10*3/uL [facility] Red Blood Count 4.04(L) 4.20 - 5.50 X10*6/uL [facility] Hemoglobin 11.1(L) 12.0 - 16.0 g/dl [facility] Hematocrit 33.5(L) 37.0 - 47.0 % [facility] Mean Corpuscular Volume 82.9 80.0 - 98.0 fL [facility] Mean Corpuscular Hemoglobin 27.5 27.0 - 33.0 pg [facility] Mean Corpuscular HGB Conc 33.1 31.0 - 35.0 g/dl [facility] Red Cell Distribution Width 13.7 11.0 - 16.0 % [facility] Platelet Count 344 160 - 400 X10*3/uL [facility] Mean Platelet Volume 9.1(L) 9.4 - 12.3 fL [facility] Neutrophils Percent Auto 53.4 45 - 73 % [facility] Imm Gran Pct Auto 0.2 0.0 - 0.4 % [facility] Lymphocytes Percent Auto 25.2 20 - 40 % [facility] Monocytes Percent Auto 10.7 2 - 11 % [facility] Eosinophils Percent Auto 9.6(H) 0 - 4 % [facility] Basophils Percent Auto 0.9 0 - 2 % [facility] NRBC Pct Auto 0.0 0.0 - 0.2 /100WBC [facility] Neutrophils Absolute Auto 2.3 2.0 - 8.3 x10*3/uL [facility] Imm Gran Abs Auto 0.01 0.00 - 0.03 X10*3/uL [facility] Lymphocytes Absolute Auto 1.1(L) 1.2 - 4.9 X10*3/uL [facility] Monocytes Absolute Auto 0.5 0.1 - 1.2 X10*3/uL [facility] Eosinophils Absolute Auto 0.4 0.0 - 0.4 X10*3/uL [facility] Basophils Absolute Auto 0.0 0.0 - 0.2 X10*3/uL [facility] NRBC Abs Auto 0.000 0.0 - 0.012 X10*3/uL [facility] Blood Venous blood specimen / Unknown 10/28/2024 10:15 AM EST 10/28/2024 11:08 AM EST Mandie Ana Luisamike PROMOTIONAL MARKETING ANALYST LAB BLOOD ORDERABLES Final Res ult Performing Organization Address City/[facility]/ZIP Co de Phone Number [facility] [address] [place] [phone] * Hepatitis B surface antigen, EIA (10/28/2024 10:15 AM EST) Hepatitis B Surface Ag Negative Negative [facility] Blood Venous blood specimen / Unknown 10/28/2024 10:15 AM EST 10/28/2024 11:08 AM EST Mandie Fields PROMOTIONAL MARKETING ANALYST LAB BLOOD ORDERABLES Final Res ult Performing Organization Address City/[facility]/ZIP Co de Phone Number [facility] [address] [place] [phone] * Hepatitis B Core Antibody, Total (10/28/2024 10:15 AM EST) Hepatitis B Core Antibody Nonreactive Nonreactive [facility] Blood Venous blood specimen / Unknown 10/28/2024 10:15 AM EST 10/28/2024 11:08 AM EST us Mandie Fields PROMOTIONAL MARKETING ANALYST LAB BLOOD ORDERABLES Final Res ult Performing Organization Address [facility] Co de Phone Number [facility] [address] [place] [phone] * Thyroglobulin Antibodies (10/28/2024 10:15 AM EST) Thyroglobulin Antibodies <1 < or = 1 IU/mL [facility] Comment:THIS TEST WAS PERFOR MED AT:[employer] [address] [phone] BUSBY MD 10/28/2024 10:1 5 AM EST 10/28/2024 11:08 AM EST us Generic External Data Provider LAB BLOOD ORDERAB LES Final Result Performing Organization Address [facility] Phone Number [facility] [address] [place] [phone] * RPR (Monitor) with Reflex to??Titer (10/28/2024 10:15 AM EST) Pathologist [facility] RPR (Monitor) w/Refl Titer NON-REACTI VE NON-REACT DEBBIE [facility] Comment:THIS TEST WAS PERFOR MED AT:[employer] [address] [phone] BUSBY MD Rapid Plasma Reagin Ab Titer TNP [facility] Blood Venous blood specimen / Unknown 10/28/2024 10:15 AM EST 10/28/2024 11:08 AM EST us Madnie Fields PROMOTIONAL MARKETING ANALYST LAB BLOOD ORDERABLES Final Res ult Performing Organization Address [facility] Co de Phone Number [facility] [address] [place] [phone] * HIV-1/2 Antigen and Antibodies, Fourth Generation, with Reflexes (10/28/2024 10:15 AM EST) HIV AB/AG Nonreactive Nonreactive [facility] Comment:HIV-1 p24 Ag and/or HIV-1/HIV-2 Ab not detected.A test result that is nonreactive does not exclude thepossibility of exposure to or infection with HIV-1 and/orHIV-2. Nonreactive results in this assay for individualswith prior exposure to HIV-1 and/or HIV-2 may be due toantigen and antibody levels that are below the limit ofdetection of this assay.The Notch HIV Ag/Ab Combo assay result andsupplemental assay results should be interpreted inconjunction with the patient's clinical presentation,history and other laboratory results. If the results areinconsistent with clinical evidence, additional testing issuggested to confirm the result. Blood Venous blood specimen / Unknown 10/28/2024 10:15 AM EST 10/28/2024 11:08 AM EST Mandie SteadyFaremike PROMOTIONAL MARKETING ANALYST LAB BLOOD ORDERABLES Final Res ult Performing Organization Address City[facility]/ZIP Co de Phone Number [facility] [address] [place] [phone] * Hepatitis B Surface Antibody, Qualitative (10/28/2024 10:15 AM EST) [facility] ~Hepatitis B Surface Antibody NONREACTIVE Nonreactive [facility] Comment:Nonreactive: < 8.00 mIU/mL Blood Venous blood specimen / Unknown 10/28/2024 10:15 AM EST 10/28/2024 11:08 AM EST Mandie RAREFORM PROMOTIONAL MARKETING ANALYST LAB BLOOD ORDERABLES Final Res ult Performing Organization Address City[facility]/ZIP Co de Phone Number [facility] [address] [place] [phone] * (ABNORMAL) TSH (10/28/2024 10:15 AM EST) [facility] Thyroid Stimulating Hormone 0.05(L) 0.32 - 4.0 uIU/mL [facility] Comment:TSH 3rd Generation ( [facility]) 10/28/2024 10:1 5 AM EST 10/28/2024 11:08 AM EST us Generic External Data Provider LAB BLOOD ORDERAB LES Final Result Performing Organization Address [facility]/ZIP Co de Phone Number [facility] [address] [place] [phone] * T4, Free (10/28/2024 10:15 AM EST) Free T4 (Free Thyroxine) 1.44 0.71 - 1.85 ng/dL [facility] 10/28/2024 10:1 5 AM EST 10/28/2024 11:08 AM EST us Generic External Data Provider LAB BLOOD ORDERAB LES Final Result Performing Organization Address [facility] de Phone Number [facility] [address] [place] [phone] * Hemoglobin A1c (10/28/2024 10:15 AM EST) Hemoglobin A1c 5.8 <6.0 % [facility] Comment:Hemoglobin A1C Refer ence Range Adults: 4.8 - 6.0 % Non diabetic: < 6.0 % Goal: < 7.0 %Additional Action Suggested: > 8.0 %Note: Hemoglobin A1c results are invalid for patients with abnormal amounts of HbF. Blood transfusions may impact the HbA1c concentration in the patient sample. Estimated Average Glucose 120 mg/dL [facility] Comment:eAG = Estimated ave rage glucose which is %A1C expressed asaverage glucose, using the formula of the H2B-WjdqdopTqijtlk Glucose study (ADAG), Diabetes Care, Vol.31,#8,Apr. 2007 Blood Venous blood specimen / Unknown 10/28/2024 10:15 AM EST 10/28/2024 11:08 AM EST us Mandie Fields PROMOTIONAL MARKETING ANALYST LAB BLOOD ORDERABLES Final Res ult Performing Organization Address [facility] de Phone Number [facility] [address] [place] [address] [phone] * Lipid Panel, Standard (10/28/2024 10:15 AM EST) Triglycerides 93 <150 mg/dL [facility] Comment:Desirable Triglyceri de: less than 150 mg/dLBorderline High Triglyceride 150-199 mg/dLHigh Triglyceride: 200-499 mg/dLVery High Triglyceride: greater than or equal to 5OO mg/dL Cholesterol 172 <200 mg/dL [facility] Comment:Desirable Cholestero l: less than 200 mg/dLBorderline High Cholesterol: 200-239 mg/dLHigh Cholesterol: greater than 239 mg/dL LDL Cholesterol Calculated 97 <100 mg/dL [facility] Comment:Desirable LDL: less than 100 mg/dLNear Optimal/Above Optimal LDL: 110- 129 mg/dLBorderline High LDL: 130-159 mg/dLHigh LDL: 160-189 mg/dLVery High LDL: greater than or equal to 190 mg/dL HDL Cholesterol 57 >40 mg/dL [facility] Comment:Desirable HDL: great er than 40 mg/dL Note: This HDL assay may give artificially low results in patients with liver disease. Blood Venous blood specimen / Unknown 10/28/2024 10:15 AM EST 10/28/2024 11:08 AM EST Mandie Fields PROMOTIONAL MARKETING ANALYST LAB BLOOD ORDERABLES Final Res ult Performing Organization Address [facility] Co de Phone Number [facility] [address] [place] [address] [phone] * (ABNORMAL) Comprehensive Metabolic Panel (10/28/2024 10:15 AM EST) Sodium 141 135 - 145 mmol/L [facility] Potassium 3.8 3.3 - 5.1 mmol/L [facility] Chloride 107 96 - 108 mmol/L [facility] Carbon Dioxide 27 22 - 29 mmol/L [facility] Anion Gap 11(L) 12 - 20 [facility] Urea Nitrogen (BUN) 19(H) 9 - 16 mg/dL [facility] Creatinine, Serum 0.78 0.5 - 1.4 mg/dL [facility] Estimated Glomerular Filt Rate >60 [facility] Comment:Chronic Kidney Disea se: Estimated GFR < 60 mL/min/1.44u5Lmcwxq Kidney Disease: Estimated GFR < 15 mL/min/1.73m2 Glucose 103 60 - 115 mg/dL [facility] Calcium 9.2 8.4 - 10.2 mg/dL [facility] Bilirubin, Total 0.3 0.0 - 1.0 mg/dL [facility] Aspartate Amino Transferase 36(H) 5 - 31 U/L [facility] Alanine Aminotransferase 100(H) 0 - 31 U/L [facility] Total Protein 7.6 6.5 - 8.0 g/dL [facility] Albumin Level 4.0 3.5 - 5.0 g/dL [facility] Alkaline Phosphatase 86 39 - 117 U/L [facility] Blood Venous blood specimen / Unknown 10/28/2024 10:15 AM EST 10/28/2024 11:08 AM EST us Mandie Fields PROMOTIONAL MARKETING ANALYST LAB BLOOD ORDERABLES Final Res ult [facility] [address] [place] [phone] * BI Mammogram Screening Tomosynthesis Bilateral (12/18/2023 9:30 AM EDT) Anatomical Region Laterality Modality Breast Bilateral Mammography 12/18/2023 9:30 AM EDT Narrative 01/13/2024 9:34 AM EDT ? [facility] ? [address] ?[place] [address] ? Mammography Report ? Signed with Addenda ? Patient: Stern,Anneliese ?MR#: [id number] ? : 1960 ?Acct:[id number] ? Age/Sex: 63 / F ?ADM Date: 04/17/24 ? Loc: HO.MAMMO ? Attending Dr: Mandie Fields PROMOTIONAL MARKETING ANALYST ? Ordering Physician: Mandie Fields PROMOTIONAL MARKETING ANALYST ?Results: 2Benig ?? n Findings ? Date of Service: 12/18/23 ?Follow Up: 1 Year From Orig ?? inal Mammogram ? Procedure(s): MM tomosynthesis screening BI ?? Accession Number(s): [id number] ? cc: Mandie Fields PROMOTIONAL MARKETING ANALYST ?ADDENDUM ?? ADDENDUM: ?? There is a 7 cm-8 cm encapsulated area of normal breast tissue in ?? the anterior half of the upper outer quadrant of the left breast. This ?? is advertising account representative of a hamartoma. This is benign. [...] of the left breast. This is ?? advertising account representative of a hamartoma. This is benign. [...] by Jaclyn Barrientos MD in OV> ? 01/13/2430 ? DD/ 9 ? TD/TT: ? Senior Maintenance Technician: ? Procedure Note Yodit, Image - 01/16/2024 [facility] [address] [place] [address] Mammography Report Signed with Bruce Patient: Anneliese SternMR#: [id number] : 1960Acct:[id number] Age/Sex: 63 / FADM Date: 12/18/23 Loc: HO.MAMMO Attending Dr: Mandie REDD Ordering Physician: Mandie Fields FNPResults: 2Benig n Findings Date of Service: 12/18/23Follow Up: 1 Year From Orig inal Mammogram Procedure(s): MM tomosynthesis screening BI Accession Number(s): [id number] cc: Mandie Fields ADDENDUM ADDENDUM: There is a 7 cm-8 cm encapsulated area of normal breast tissue in the anterior half of the upper outer quadrant of the left breast. This is advertising account representative of a hamartoma. This is benign. [...] quadrant of the left breast. This is advertising account representative of a hamartoma. This is benign. [...] MD in OV> 01/13/24929 DD/ 9 TD/TT: Senior Maintenance Technician: us Mandie Fields PROMOTIONAL MARKETING ANALYST IMG BI PROCEDURES Edited Resul t - [...] NP HISTORICAL/NON ORDERABLE LABS Fi nal Result [facility] [address] [place] [address], * THINPREP PAP (10/09/2020 3:12 PM EST) Pathologist [facility] Clinical Information: None given [facility] COMMENT SEE COMMENT [facility] [...] historic and ?? current clinical information. ?? Supervisor Pumping Station: SEE COMMENT [facility] Comment: SXA, CT(ASCP) CT screening location: [address] ??[address] Interpretation/Res ult: SEE COMMENT [facility] Comment: Negative for intraepithelial lesion or malignancy. Atrophic pattern; predominantly parabasal cells LMP: NONE [facility]IV[facility] Prev. BX: NONE [facility]IV[facility] Prev. PAP: NONE [facility]IVEN [facility] SOURCE: None given [facility] Statement Of Adequacy: SATISFACTORY FOR EVALUATION [facility] 10/09/2020 3:12 PM EST Nathaly Lazaro NP LAB PATHOLOGY ORDERABLES Final R esult [facility] [address] * Hm Colonoscopy (12/02/2014) Colonoscopy Normal Repeat in 10 yrs Historical Provider HEALTH MAINTENANCE Edited Result - Final from Last 3 Months or Most Recently Relevant to Health Maintenance Insurance [facility] STANDARD MEDICARE DENTAL-[facility] MEDICAID STAND ADULT Care Teams Stonemason Helper Relationship Specialty Start Date End Date Mandie Fields FNP [address] [place] [address] PCP - General Family Medicine 05/01/22
--- OUTSIDE RECORDS SUMMARY | 2025-01-06 13:37 | XMS_ITS | Patient Health Record ---
Author Organization [facility] Address [address] [place] [address] Care Team Providers Care Coin Wrapping Machine Operator Name Role Phone RAMON ARELLANO MD Primary Care Provider Miguel Ángel Torres Jr, Delon Cook Reason For Referral No Information Encounters Encounter Location Date Provider Diagnosis [facility] [address] [place] [address] 12/24/2024 Delon Torres Jr Plan Of Treatment Next Appt Details Provider Name:Delon freeman Jr, 02/01/2025 11:00:00 AM, [address], [address], [place], [address], Insurance Providers Payer Name Payer Address Payer Phone Subscriber Number Group Number Insured Name Patient Relationship to Insured Coverage Start Date Coverage End Date [facility] [address] [address] [place] [address] [phone] [id number] ANGEL HERRERA Self - patient is the insured
--- OUTSIDE RECORDS SUMMARY | 2025-01-06 13:38 | XMS_ITS | Encounter Summary ---
Author Organization [employer] Address [address] [facility] 7t [place] [address] Care Team Providers Care Machine Tool Operator Name Role Phone Mandie Fields Primary Care Provider [phone] Encounter Details Date Type Department Care Team (Late st Contact Info) Description 08/15/2023 Abstract [facility] [address] [place] [address] Mandie Fields FNP [address] [place] [address] Social History Tobacco Use Types Packs/Day Years [...] Description 01/12/2025 11:00 AM EDT Office Visit [facility] [address] [place] [address] 01/27/2025 9:45 AM EDT Office Visit [facility] [address] [place] [address] Mandie Fields FNP [address] [place] [address] 04/02/2025 9:30 AM EDT Office Visit [facility] [address] [place] [address] Palomo, Tammy, OD [address] [place] [address] documented as of this encounter Visit Diagnoses Not on filedocumented in this encounter Additional Health Concerns Assessment Noted Time PHQ-9 Depression Total Score: 10 023 9:34 AM EST documented as of this encounter Care Teams Machine Tool Operator Relationship Specialty Start Date End Date Mandie Fields FNP [address] [place] [address] PCP - General Family Medicine 05/01/22 documented as of this encounter
--- OUTSIDE RECORDS SUMMARY | 2025-01-06 13:38 | XMS_ITS | Encounter Summary ---
Author Organization [employer] Address [address] [facility] 7t [place] [address] Care Team Providers Care Outside Cutter Name Role Phone Mandie Fields Primary Care Provider [phone] Reason for Visit * Reason Comments Med Refill Encounter Details Date Type Department Care Team (Late st Contact Info) Description 11/14/2022 Refill [facility] CHC MED & PEDS [address] [place], [place] [phone] Mandie Fields FNP [address] [place] [address] Moderate persistent asthma without complication (Primary Dx) [...] Description 01/12/2025 11:00 AM EDT Office Visit [facility] MEDICINE [address] [place], [place] [phone] 01/27/2025 9:45 AM EDT Office Visit [facility] MEDICINE [address] [place] [address] Mandie Fields FNP [address] [place] [address] 04/02/2025 9:30 AM EDT Office Visit [facility] OPTOMETRY [address] [place] [address] Tammy uClver, OD [address] [place] [address] documented as of this encounter Visit Diagnoses Diagnosis Moderate persistent asthma without complication- Primary documented in this encounter Additional Health Concerns Assessment Noted Time PHQ-9 Depression Total Score: 10 022 10:45 AM EST documented as of this encounter Care Teams Outside Cutter Relationship Specialty Start Date End Date Mandie Fields FNP [address] [place] [address] PCP - General Family Medicine 05/01/22 documented as of this encounter
--- OUTSIDE RECORDS SUMMARY | 2025-01-06 13:38 | XMS_ITS | Encounter Summary ---
Author Organization [employer] Address [address] [address] 7t [place] [address] Care Team Providers Care It Software Engineer Name Role Phone Mandie Fields Primary Care Provider [phone] Reason for Visit * Reason Onset Date Comments FYI 12/26/2023 Encounter Details Date Type Department Care Team ([facility] st Contact Info) Description 12/26/2023 Telephone [facility] MEDICINE [address] [place] [address] Mandie Fields FNP [address] [place], [place] [phone] FYI Social History Tobacco Use Types Packs/Day [...] - 12/30/2023 9:08 AM EDT Call to [facility], at [phone], no answer, call continues to ring and does not forward to . * Telephone Encounter - Luisa Cox RN - 12/30/2023 9:06 AM EDT Call returned to [facility] at [phone] for triage. No answer, unable;e to [facility] as is full. Left SMS notification to return call to [facility] triage line [phone]. * Telephone Encounter - IVANIA Boswell - 12/30/2023 6:26 AM EDT Please attempt to call pt for triage s/p fall at home. Thank you! * Telephone Encounter - Wing Delbert RN - 12/27/2023 1:52 PM EDT Just as a FYI. Tc to [facility] regarding pt's fall. Unable to reach her and left message for her to callback. Attempted to call pt using [employer] [place], [place] [phone]. Import/Export Freight Forwarder unable to leave messagedue to mailbox being full. * Telephone Encounter - Esthela Paiz - 12/26/2023 4:15 PM EDT Tc from [facility] with [facility] calling to advise provider pt had a fall in home yesterday (12/24). States pt sustained no injuries. documented in this encounter Plan of Treatment Upcoming Encounters Date Type Department Care Team (Late st Contact Info) Description 01/12/2025 11:00 AM EDT Office Visit [facility] [address] [place] [address] 01/27/2025 9:45 AM EDT Office Visit [facility] [address] [place] [address] Mandie Fields FNP [address] [place] [address] 04/02/2025 9:30 AM EDT Office Visit [facility] OPTOMETRY [address] [place] [address] Tammy Culver, OD [address] [place] [address] documented as of this encounter Visit Diagnoses Not on filedocumented in this encounter Additional Health Concerns Assessment Noted Time PHQ-9 Depression Total Score: 10 023 9:34 AM EST documented as of this encounter Care Teams It Software Engineer Relationship Specialty Start Date End Date Mandie Fields FNP [address] [place] [address] PCP - General Family Medicine 05/01/22 documented as of this encounter
--- OUTSIDE RECORDS SUMMARY | 2025-01-06 13:38 | XMS_ITS | Encounter Summary ---
Author Organization [employer] Address [address] [facility] 7t [place] [address] Care Team Providers Care Configuration Manager Name Role Phone Mandie Fields IVANIA Primary Care Provider [phone] Reason for Visit * Reason Onset Date Comments partialsl broke again 02/13/2023 Encounter Details Date Type Department Care Team ([facility] st Contact Info) Description 02/13/2023 Telephone [facility] ADULT DENTAL [address] [place] [address] Desmond Chun, DMD [address] [place] [address] partialsl broke again Social History Tobacco Use [...] encounter Miscellaneous Notes * Telephone Encounter - Samrathanh Byerss - 02/13/2023 1:08 PM EDT Patient came [...] Description 01/12/2025 11:00 AM EDT Office Visit [facility] MED[facility] [address] [place] [address] 01/27/2025 9:45 AM EDT Office Visit [facility] MED[facility] [address] [place] [address] Mandie Fields FNP [address] [place] [address] 04/02/2025 9:30 AM EDT Office Visit [facility] OPTOMETRY [address] [place] [address] Palomo, Tammy, OD [address] [place] [address] documented as of this encounter Visit Diagnoses Not on filedocumented in this encounter Additional Health Concerns Assessment Noted Time PHQ-9 Depression Total Score: 10 08/03/ 022 10:45 AM EST documented as of this encounter Care Teams Configuration Manager Relationship Specialty Start Date End Date Mandie Fields FNP [address] [place] [address] PCP - General Family Medicine 05/01/22 documented as of this encounter
--- OUTSIDE RECORDS SUMMARY | 2025-01-06 13:38 | XMS_ITS | Encounter Summary ---
Author Organization [employer] Address [address] [facility] 7t [place] [address] Care Team Providers Care Nephrologist Name Role Phone Mandie Fields Primary Care Provider [phone] Reason for Visit * Reason Comments Med Refill Encounter Details Date Type Department Care Team ([facility] Contact Info) Description 03/29/2023 Refill [facility] [address] [place] [address] Mandie Fields FNP [address] [place] [address] Moderate persistent asthma without complication Social History [...] Upcoming Encounters Date Type Department Care Team ([facility] Contact Info) Description 01/12/2025 11:00 AM EDT Office Visit [facility] [address] [place] [phone] 01/27/2025 9:45 AM EDT Office Visit [facility] MED[facility]INE [address] [place] [address] Mandie Fields FNP [address] [place] [address] 04/02/2025 9:30 AM EDT Office Visit [facility] OPTOMETRY [address] [place] [address] PalomoTammy enrique, OD [address] [place] [address] documented as of this encounter Visit Diagnoses Diagnosis Moderate persistent asthma without complication documented in this encounter Additional Health Concerns Assessment Noted Time PHQ-9 Depression Total Score: 10 08/03/ 022 10:45 AM EST documented as of this encounter Care Teams Nephrologist Relationship Specialty Start Date End Date Mandie Fields FNP [address] [place] [address] PCP - General Family Medicine 05/01/22 documented as of this encounter
--- OUTSIDE RECORDS SUMMARY | 2025-01-06 13:38 | XMS_ITS | Encounter Summary ---
Author Organization [employer] Address [address] [facility] 7t [place] [address] Care Team Providers Care Recycling Center Operator Name Role Phone Mandie Fields Primary Care Provider [phone] Encounter Details Date Type Department Care Team (Latest Contact Info) Description 03/16/[address] [facility] CONVERSIONS Dental, Provider, DDS Social History [...] Upcoming Encounters Date Type Department Care Team ( st Contact Info) Description 01/12/2025 11:00 AM EDT Office [address] [facility] [address] [place] [address] 01/27/2025 9:45 AM EDT Office [facility] [address] [place] [address] Mandie Fields FNP [address] [place] [address] 04/02/2025 9:30 AM EDT Office Visit [facility] OPTOMETRY [address] [place] [address] Palomo, Tammy, OD [address] [place] [address] documented as of this encounter Visit Diagnoses Not on filedocumented in this encounter Care Teams Recycling Center Operator Relationship Specialty Start Date End Date Mandie Fields FNP [address] [place] [address] PCP - General Family Medicine 05/01/22 documented as of this encounter
--- OUTSIDE RECORDS SUMMARY | 2025-01-06 13:38 | XMS_ITS ---
Author Organization [facility] Address [address] [place] [address] Care Team Providers Care Vice President Of Brand Management Name Role Phone EILEEN TAVAREZ, RAMON Primary Care Provider Miguel Ángel Torres Jr, Delon Cook REASON FOR VISIT [facility]? Encounters Encounter Location Date Provider Diagnosis [facility] [address] [place] [address] 12/24/2024 Delon Torres Jr Plan Of Treatment Next Appt Details Provider Name:Delon freeman Jr, 02/01/2025 11:00:00 AM, [address], [address], [place], [address], Progress Notes * ANGEL HERRERADOB:1960 (64 yo F)Acc No.[id number]:12/24/2024 Patient:?ANGEL HERRERA :1960???Age:64 Y???Sex:Female Address:[address] [place] [address] [address], [place] [address] * true * Date:? Generated for Zeus hu/Oz/eTransmitting on:?01/06/2025 01:37 PM EDT
--- OUTSIDE RECORDS SUMMARY | 2025-01-06 13:38 | XMS_ITS | Encounter Summary ---
Author Organization [employer] Address [address] [facility] 7t [place] [address] Care Team Providers Care Steam Drier Tender Name Role Phone Mandie Fields Primary Care Provider Reason for Visit * Reason Comments Med Refill Encounter Details Date Type Department Care Team (Late Contact Info) Description 04/04/2023 Refill [facility] MEDICINE [address] [place] [address] Mandie Fields FNP [address] [place] [address] Moderate persistent asthma without complication Social History [...] Upcoming Encounters Date Type Department Care Team ([facility] Contact Info) Description 01/12/2025 11:00 AM EDT Office Visit [facility] MEDICINE [address] [place] [phone] 01/27/2025 9:45 AM EDT Office Visit [facility] MEDICINE [address] [place] [address] Mandie Fields FNP [address] [place] [address] 04/02/2025 9:30 AM EDT Office Visit [facility] OPTOMETRY [address] [place] [address] PalomoTammy enrique, OD [address] [place] [address] documented as of this encounter Visit Diagnoses Diagnosis Moderate persistent asthma without complication documented in this encounter Additional Health Concerns Assessment Noted Time PHQ-9 Depression Total Score: 10 08/03/ 022 10:45 AM EST documented as of this encounter Care Teams Steam Drier Tender Relationship Specialty Start Date End Date Mandie Fields FNP [address] [place] [address] PCP - General Family Medicine 05/01/22 documented as of this encounter
--- OUTSIDE RECORDS SUMMARY | 2025-01-06 13:38 | XMS_ITS | Encounter Summary ---
Author Organization [employer] Address [address] [facility] 7t [place] [address] Care Team Providers Care Medical Delivery Driver Name Role Phone Mandie Fields Primary Care Provider [phone] Reason for Visit * Reason Comments Med Refill Encounter Details Date Type Department Care Team ([facility] st Contact Info) Description 04/10/2024 Refill [facility] CH[facility] MED & PEDS [address] [place], [place] [phone] Mandie Fields FNP [address] [place], [place] [phone] Essential (primary) hypertension Social History Tobacco Use [...] 11:00 AM EDT Office Visit [facility] MEDICINE [address] [place] [address] 01/27/2025 9:45 AM EDT Office Visit [facility] MEDICINE [address] [place] [address] Mandie Fields FNP [address] [place] [address] 04/02/2025 9:30 AM EDT Office Visit [facility] OPTOMETRY [address] [place] [address] Palomo, Tammy, OD [address] [place] [address] documented as of this encounter Visit Diagnoses Diagnosis Essential (primary) hypertension Unspecified essential hypertension documented in this encounter Additional Health Concerns Assessment Noted Time PHQ-9 Depression Total Score: 10 023 9:34 AM EST documented as of this encounter Care Teams Medical Delivery Driver Relationship Specialty Start Date End Date Mandie Fields FNP [address] [place] [address] PCP - General Family Medicine 05/01/22 documented as of this encounter
== END 2025-01-06 12:27 | disposition home or self-care (01) ==
LOC: HO.MAMMO 12:26
PROVIDERS: PCP Registered Nurse; Visit Provider Registered Nurse
DX: Z12.31 Encounter for screening mammogram for malignant neoplasm of breast (principal)
CPT/HCPCS: 77063; 77067

== ENCOUNTER → 2025-01-06 13:30 | Outpatient (BNV) | payer OTHER, SELFPAY | PROVIDERS: PCP Registered Nurse; Visit Provider Internal Medicine | DX: Z12.31 Encounter for screening mammogram for malignant neoplasm of breast (principal) | CPT/HCPCS: 77063; 77067 ==

== ENCOUNTER 2025-01-27 10:02 | Outpatient (REF) | payer OTHER, SELFPAY ==
--- OUTSIDE RECORDS SUMMARY | 2025-01-27 10:58 | XMS_ITS | Encounter Summary ---
Author Organization [facility] Address [address] [facility] 7t [place] [address] Care Team Providers Care Base Brander Name Role Phone Mandie Fields IVANIA Primary Care Provider [phone] Encounter Details Date Type Department Care Team (Latest Contact Info) Description 01/27/2025 Travel Social History Tobacco Use Types Packs/Day [...] AM EDT documented as of this encounter Functional Status * Over the last 2 weeks, how often have you been bothered by any of the following problems? Question Answer Date of Assessment Author Feeling nervous, anxious, or on edge 1 01/01 9:04 AM EDT Pasquale Veras [place] Not being able to stop or co ntrol worrying 0 01/27/2025 9:04 AM EDT Pasquale Veras [place] Worrying too much about diff erent things 0 01/27/2025 9:04 AM EDT Pasquale Veras [place] Trouble relaxing 0 01/27/2025 9:04 AM EDT S rigobertoPasquale [place] Being so restless that it is hard to sit still 0 01/27/2025 9:04 AM EDT Pasquale Veras [place] Becoming easily annoyed or irritable 0 01/01 9:04 AM EDT Pasquale Vreas [place] Feeling afraid as if somethi ng awful might happen 0 01/27/2025 9:04 AM EDT Pasquale Veras [place] RICA-7 Total Score 1 01/27/2025 9:04 AM EDT Pasquale Veras [place] documented as of this encounter Plan of Treatment Upcoming Encounters Date Type Department Care Team (Late st Contact Info) Description 02/09/2025 11:00 AM EDT Office Visit [facility] [address] [place] [address] 04/02/2025 9:30 AM EDT Office Visit [facility] [address] [place] [address] Tammy Culver, OD [address] [place] [address] 04/28/2025 10:00 AM EDT Office Visit [facility] [address] [place] [address] Mandie Fields FNP [address] [place] [address] documented as of this encounter Visit Diagnoses Not on filedocumented in this encounter Additional Health Concerns Assessment Noted Time PHQ-9 Depression Total Score: 11 025 9:09 AM EST documented as of this encounter Care Teams Base Brander Relationship Specialty Start Date End Date Mandie Fields FNP [address] [place] [address] PCP - General Family Medicine 01/12/25 documented as of this encounter
[2025-01-27 11:11] LABS: MANUAL DIFF FLAG NO
[2025-01-27 11:16] LABS: Basophils Percent Auto 0.8 % (0-2); Eosinophils Absolute Auto 0.4 X10*3/uL (0.0-0.4); Eosinophils Percent Auto 7.9 % (0-4); Hematocrit 35.5 % (37.0-47.0); Hemoglobin 11.8 g/dl (12.0-16.0); Imm Gran Abs Auto 0.01 X10*3/uL (0.00-0.03); Imm Gran Pct Auto 0.2 % (0.0-0.4); Lymphocytes Absolute Auto 1.5 X10*3/uL (1.2-4.9); Lymphocytes Percent Auto 28.5 % (20-40); Mean Corpuscular HGB Conc 33.2 g/dl (31.0-35.0); Mean Corpuscular Hemoglobin 27.8 pg (27.0-33.0); Mean Corpuscular Volume 83.7 fL (80.0-98.0); Mean Platelet Volume 9.1 fL (9.4-12.3); Monocytes Absolute Auto 0.4 X10*3/uL (0.1-1.2); Monocytes Percent Auto 8.7 % (2-11); Neutrophils Absolute Auto 2.7 x10*3/uL (2.0-8.3); Neutrophils Percent Auto 53.9 % (45-73); Platelet Count 384 X10*3/uL (160-400); Red Blood Count 4.24 X10*6/uL (4.20-5.50); Red Cell Distribution Width 13.9 % (11.0-16.0); White Blood Count 5.1 X10*3/uL (4.8-10.8)
[2025-01-27 12:29] LABS: Alanine Aminotransferase 25 U/L (0-31); Albumin Level 4.5 g/dL (3.5-5.0); Alkaline Phosphatase 66 U/L (39-117); Aspartate Amino Transferase 20 U/L (5-31); Bilirubin Direct 0.2 mg/dL (0.0-0.5); Total Protein 7.7 g/dL (6.5-8.0)
[2025-01-27 12:41] LABS: Free T4 (Free Thyroxine) 1.37 ng/dL (0.71-1.85); Thyroid Stimulating Hormone 0.33 uIU/mL (0.32-4.0)
[2025-01-27 13:10] LABS: Bilirubin Total 0.5 mg/dL (0.0-1.0)
== END 2025-01-27 10:03 | disposition home or self-care (01) ==
LOC: HO.HHCL 10:02
PROVIDERS: Registered Nurse; Visit Provider Student in an Organized Health Care Education/Training Program
DX: Z00.00 Encounter for general adult medical examination without abnormal findings (principal); C73 Malignant neoplasm of thyroid gland; E89.0 Postprocedural hypothyroidism
CPT/HCPCS: 36415; 80076; 84439; 84443; 85025

== ENCOUNTER 2025-05-11 13:46 | Outpatient (REF) | payer OTHER, SELFPAY ==
--- OUTSIDE RECORDS SUMMARY | 2025-02-01 07:00 | XMS_ITS ---
Author Organization [facility] Address [address] [place] [phone] Care Team Providers Care Soil Engineer Name Role Phone EILEEN TAVAREZ, RAMON Primary Care Provider Miguel Ángel Torres Jr, Delon Cook REASON FOR VISIT Patient presents today for a COLON SCREENING Encounters Encounter Location Date Provider Diagnosis [facility] [address] [place] [phone] 02/01/2025 Delon Torres Jr Plan Of Treatment No Information Progress Notes * ANGEL HERRERADOB:1960 (64 yo F)Acc No.[id number]:02/01/2025 Progress Notes Patient: ANGEL GUZMAN Provider: Bonnie Torres MD :1960 A ge:64 Y S ex:Female Date:02/01/2025 Address:[address] [place], [place] [id number] Pcp:RAMON ARELLANO MD Subjective: * Chief Complaints: * 1 . Patient presents today for a COLON SCREENING. * Medical History: Objective: * Vitals: Assessment: Plan: * Treatment: * * The named appointment provid er may or may not be the originator of this progress note, and it is not deemed complete until electronically signed by the appointment provider. Sign off status: Pending * Provider: Bonnie Torres MD Date: 02/01/2025 Generated for Zeus hu/Oz/Salvadoritting on: 05/11/2025 04:21 PM EDT
--- OUTSIDE RECORDS SUMMARY | 2025-05-07 14:00 | XMS_ITS | Encounter Summary ---
Author Organization [facility] Address [address] [facility] 7t [place] [address] Care Team Providers Care Card Writer Hand Name Role Phone Mandie Fields IVANIA Primary Care Provider [phone] Reason for Visit * Reason Comments Routine Cleaning Encounter Details Date Type Department Care Team ([facility] st Contact Info) Description 05/07/2025 2:00 PM EDT Office Visit [facility] ADULT DENTAL [address] [place] [address] Carline Carnes [address] [place], [place] [phone] Social History Tobacco Use Types Packs/Day Years [...] Sign Reading Time Taken Comments Blood Pressure 138/74 05/07/2025 2:00 PM EDT Pulse - - Temperature - - Respiratory Rate - - Oxygen Saturation - - Inhaled Oxygen Concentration - - Weight - - Height - - Body Mass Index - - documented in this encounter Progress Notes * Carline Carnes - 05/07/2025 2:00 PM EDT Patient ID: Anneliese Stern is a 64 y.o. female. Time Out: Date: 05/07/2025 Location: [facility] Tooth: all Procedure: Exam, X-rays, and Prophylaxis Verified the above with patient, certified teacher assistant, and provider. Confirmed via patient's chart, intraorally and by radiographs. Schedule Analyst: not applicable Treatment Provided Dental procedures in this visit D9450 - CASE PRESENTATION, DETAILED AND EXTENSIVE TREATMENT PLANNING (Completed) Service provider: Carline Judd provider: Desmond Chun DMD D0274 - BITEWINGS - 4 RADIOGRAPHIC IMAGES (Completed) Service provider: Carline Judd provider: Desmond Chun DMD D0220 - INTRAORAL - PERIAPICAL FIRST RADIOGRAPHIC IMAGE (Completed) Service provider: Carline Judd provider: Desmond Chun DMD D1110 - PROPHYLAXIS - ADULT (Completed) Service provider: Carline Judd provider: Desmond Chun DMD Instruments Used: Ultrasonic Scalers, Hand Scalers, and Prophy angle Calculus: Moderate Plaque: Light Stain: Light Bleeding: Light Gingiva: Perio Charting Completed and Recession- localized OH: Poor OCS: neg findings HNE: neg findings Oral hygiene instructions provided to patient including brushing technique and flossing. Recommendations: Floss daily Recall Frequency: 6 mo NV: Hygienist: Carline Carnes RDH Patient presents with periodontal disease. Calculus present Supragingivally and Localized that can be seen radiographically. BOP: none Exudate: Not Present Mobility: Grade I and Grade II Generalized Probing Depths Range: 4 to 5 mm Recession: Localized ranging from 2 to 3 mm. Gingiva: Inflamed Bone loss visible radiographically: Generalized Pre Authorization requested for SRP. SRP treatment needed to promote gingival health, arrest disease progression of periodontal disease and prevent tooth loss. Provider: Carline Carnes Cosigned by Desmond Chun DMD at 05/07/2025 3:06 PM EDT * Desmond Chun DMD - 05/07/2025 2:00 PM EDT C/C: dental exam I.O.E: erythematous and edematous gingiva, gen plaque and calculus accumulation, mobile #7, extruded #7, gen periodontal bone loss, gen calculus accumulation, no sensitive to percussion of #7 E.O.E: no significant finding OCS: NSF Head and neck: NSF Radiographic: gen moderate to localized advanced periodontal bone loss, gen calculus accumulation Dx: gen chronic moderate to localized advanced periodontitis Tx: prophy, recall exam, SRP Pt does not want to have #7 exo or any other exo at this time Jayme documented in this encounter Plan of Treatment Upcoming Encounters Date Type Department Care Team (Late st Contact Info) Description 05/18/2025 10:00 AM EDT Office Visit [facility] & [facility] [address] [place] [address] Cortes hC MD [address] [place] [address] 05/18/2025 11:15 AM EDT Procedure Visit [facility] [address] [place] [address] Dayna Juarez, CNM [address] [place] [address] 06/15/2025 11:00 AM EDT Office Visit [address] [address] 07/07/2025 9:45 AM EST Office Visit [address] [address] Mandie Fields, MULTI DISCIPLINED LANGUAGE ANALYST [address] [place] [address] Scheduled Orders Name Type Priority Associated Diagnoses Orde r Schedule PROPHYLAXIS - ADULT Dental Routine 1 Occ urrences starting 05/07/2025 LL LL PERIODONTAL SCALING AND ROOT PLANING - 1 TO 3 TEETH PER QUADRANT Dental Routine [address] arting 05/07/2025 UL UL PERIODONTAL SCALING AND ROOT PLANING - 1 TO 3 TEETH PER QUADRANT Dental Routine [address] arting 05/07/2025 UR UR PERIODONTAL SCALING AND ROOT PLANING - 1 TO 3 TEETH PER QUADRANT Dental Routine [address] arting 05/07/2025 LR LR PERIODONTAL SCALING AND ROOT PLANING - 1 TO 3 TEETH PER QUADRANT Dental Routine [address] arting 05/07/2025 documented as of this encounter Procedures Procedure Name Priority Date/Time Associated Diagnosis Comments PROPHYLAXIS - ADULT Routine 05/07/2025 2 :00 PM EDT PERIODIC ORAL EVALUATION - ESTABLISHED PATIENT Routine 05/07/2025 2:00 PM EDT INTRAORAL - PERIAPICAL FIRST RADIOGRAPHIC IMAGE Routine 05/07/2025 2:00 PM EDT INTRAORAL - PERIAPICAL EACH ADDITIONAL RADIOGRAPHIC IMAGE Routine 05/07/2025 2:00 PM EDT CASE PRESENTATION, DETAILED AND EXTENSIVE TREATMENT PLANNING Routine 05/07/2025 2:00 PM EDT BITEWINGS - 4 RADIOGRAPHIC IMAGES Routine 05/07/2025 2:00 PM EDT documented in this encounter Visit Diagnoses Not on filedocumented in this encounter Additional Health Concerns Assessment Noted Time PHQ-9 Depression Total Score: 11 10/28/2 025 9:09 AM EST documented as of this encounter Care Teams Card Writer Hand Relationship Specialty Start Date End Date Mandie Fields FNP [address] [place] [address] PCP - General Family Medicine 01/12/25 documented as of this encounter
--- OUTSIDE RECORDS SUMMARY | 2025-05-11 11:00 | XMS_ITS | Encounter Summary ---
Author Organization [employer] Address [address] [facility] 7t [place] [address] Care Team Providers Care Casket Assembler Metal Name Role Phone Mandie Fields Primary Care Provider [phone] Encounter Details Date Type Department Care Team (Latest Contact Info) Description 05/11/2025 11:00 AM EDT Office Visit [facility] [address] [place] [address] Mandie Fields FNP [address] [place], [place] [phone] Primary osteoarthritis of both knees (Primary Dx); Long-term current use of opiate analgesic Social History Tobacco Use Types Packs/Day Years [...] as of this encounter Progress Notes * Mandie Fields, AGILE TEST LEAD - 05/11/2025 11:00 AM EDT Subjective: Anneliese Stern is a 64 y.o. female w/ PMH hypertension, OA right knee, hypothyroid, HLD, hx of thyroid CA, and depression, who presents to the office for - Chronic Pain Clinic Group visits. Initial Group visit: 10/29/23 Group Topic: Stretching Chronic Pain History: Associated Diagnosis: osteoarthritis of right knee Relevant Imaging: XR Knee BL from Apr 2019: Moderate degenerative arthrosis primarily involving the medial compartments of both knees, greater on the left. Findings appear grossly unchanged when compared to recent prior imaging from 03/20/2019 Current pharm tx: Medication: Tramadol 50mg BID PRN. States taking medication as prescribed. Non-pharm tx: History of completion of physical therapy, as well as hx of steroid injections in bilat knees Related Specialists: hx of knee arthroscopy in Social History Social History Narrative - Living situation: lives alone. Has a pet dog named Lavell - Employment: previously employed on [employer] - Diet/exercise: enjoys walking for physical activity - Substance use: -alcohol: socially (not daily) -tobacco: none reported -opioids: denies use of any illicit opioid use - Sexual activity: none reported, although interested in asymptomatic STI testing (ordered 09/04/23) - Mental health: following with therapist Q1-2 weeks. Denies SI/HI/thoughts of self harm Review of Systems Constitutional: Negative for chills and fever. HENT: Negative for congestion. Respiratory: Negative for cough and wheezing. Cardiovascular: Negative for chest pain and palpitations. Musculoskeletal: Positive for arthralgias. Physical Exam HENT: Head: Atraumatic. Pulmonary: Effort: Pulmonary effort is normal. Neurological: Mental Status: She is alert and oriented to person, place, and time. Psychiatric: Mood and Affect: Mood normal. Behavior: Behavior normal. Problem List Items Addressed This Visit Mental Health Long-term current use of opiate analgesic Overview Medication: Tramadol 50mg BID Indication: OA right knee Last TRAFFIC POLICE OFFICER Agreement: 01/12/25 Tier II (visit every 3 months) Current Assessment & Plan Timeline: - 01/12/25: Group visit - pill count wnl, utox pos for cocaine (pt admitted to use). Plan: f/up 4 weeks. - 02/09/25: Group visit - pill count 3 short, utox as expected. Pt admitted to using a few extra d/tpain. Plan: f/up 4 weeks - 05/11/25: Group visit - pill count wnl, utox pos for cocaine --> confirmatory pending Relevant Orders Drug Monitoring, Cocaine Metabolite, Quantitative, Urine POCT REGGIE-14 Urine Drug Screen (Completed) Musculoskeletal and Injuries Osteoarthritis of both knees - Primary Overview XR Knee BL from Apr 2019: Moderate degenerative arthrosis primarily involving the medial compartments of both knees, greater on the left. Findings appear grossly unchanged when compared to recent prior imaging from 03/20/2019 Previous tx includes: physical therapy, steroid injections Currently prescribed Tramadol 50mg BID PRN severe pain. Engaged with TRAFFIC POLICE OFFICER Program Current Assessment & Plan -Continues with Tramadol 50mg BID. Reviewed med safety and SE. -Encouraged multifactorial approach to pain control including pharm and non- pharm modalities Follow up: 1 month for Group Chronic Pain Clinic. Follow up for primary care visit as scheduled, sooner as needed. * Ana Pinzon RN - 05/11/2025 11:00 AM EDT TRAFFIC POLICE OFFICER fire observer: PDMP reviewed today. Last fill date: 03/24/25 Tramadol 50mg BID count was 18, anticipated 0 to be remaining. UTOX completed. Positive for FRANKLYN & THC, Negative for AMP, BAR, BUP, BZO, FTY, MDMA, MET, MOP, MTD, OXY, PCP, TCA, . UTOX not as expected. PCP verbally made aware of UTOX results. UTOX sent out for confirmation of FRANKLYN. documented in this encounter Miscellaneous Notes * Assessment & Plan Note - IVANIA Boswell - 05/11/2025 1:02 PM EDTAssociated Problem(s): Long-term current use of opiate analgesic Timeline: - 01/12/25: Group visit - pill count wnl, utox pos for cocaine (pt admitted to use). Plan: f/up 4 weeks. - 02/09/25: Group visit - pill count 3 short, utox as expected. Pt admitted to using a few extra d/tpain. Plan: f/up 4 weeks - 05/11/25: Group visit - pill count wnl, utox pos for cocaine --> confirmatory pending * Assessment & Plan Note - IVANIA Boswell - 05/11/2025 1:00 PM EDTAssociated Problem(s): Osteoarthritis of both knees -Continues with Tramadol 50mg BID. Reviewed med safety and SE. -Encouraged multifactorial approach to pain control including pharm and non- pharm modalities documented in this encounter Plan of Treatment Upcoming Encounters Date Type Department Care Team (Late st Contact Info) Description 05/18/2025 10:00 AM EDT Office Visit [facility] MED & PEDS [address] [place] [address] Cortes Ch MD [address] [place] [address] 05/18/2025 11:15 AM EDT Procedure Visit [address] [address] Dayna Juarez, YAREDM [address] [place] [address] 06/15/2025 11:00 AM EDT Office Visit [address] [address] 07/07/2025 9:45 AM EST Office Visit [address] [address] Mandie Fields, AGILE TEST LEAD [address] [place] [address] Scheduled Orders Name Type Priority Associated Diagnoses Orde r Schedule Drug Monitoring, Cocaine Metabolite, Quantitative, Urine Lab Routine Long-term current use of opiate analgesic Ordered: 05/11/2025 documented as of this encounter Procedures Procedure Name Priority Date/Time Associated Diagnosis Comments POCT REGGIE-14 URINE DRUG SCREEN Routine 05/11/2025 11:32 AM EDT Long-term current use of opiate analgesic documented in this encounter Results * (ABNORMAL) POCT REGGIE-14 Urine Drug Screen (05/11/2025 11:32 AM EDT) THC Positive Negative Cocaine Screen, Urine Positive(A) Negative Opiate Screen, Urine Negative Negative Methamphetamine Screen Urine Negative Negative Amphetamine Screen, Urine Negative Negative Benzodiazepines Screen, Urine Negative Negative Barbiturate Screen, Urine Negative Negative Methadone Screen, Urine Negative Negative Buprenophine Screen, Urine Negative Negative TCA, Urine Negative Negative MDMA Urine Negative Negative ng/mL Oxycodone Screen, Urine Negative Negative Phencyclidine (PCP), Urine Negative Negative Propoxyphene, Urine Negative Negative Fentanyl, Urine Negative Negative Urine Urine specimen obtained by clean catch procedure / Unknown 05/11/2025 11:32 AM EDT Ana Nye RN - 05/11/2025 11:32 AM EDT UTOX cup Lot#[id number] Exp. 06/08/26 Internal Pass Control Mandie REDD POINT OF CARE TEST ENTER/EDIT ORDERABLES Final Result documented in this encounter Visit Diagnoses Diagnosis Primary osteoarthritis of both knees- Primary Long-term current use of opiate analgesic Encounter for long-term (current) use of other medications documented in this encounter Additional Health Concerns Assessment Noted Time PHQ-9 Depression Total Score: 11 10/28/ 025 9:09 AM EST documented as of this encounter Care Teams Casket Assembler Metal Relationship Specialty Start Date End Date Mandie Fields FNP [address] [place] [address] PCP - General Family Medicine 01/12/25 documented as of this encounter
--- OUTSIDE RECORDS SUMMARY | 2025-05-11 16:22 | XMS_ITS | Patient Health Record ---
Author Organization [facility] Address [address] [place] [address] Care Team Providers Care Inventory Technician Name Role Phone RAMON ARELLANO MD Primary Care Provider Delon Dobson Jr [phone] Reason For Referral No Information Encounters Encounter Location Date Provider Diagnosis [facility] [address] [place] [phone] 12/24/2024 Delon Torres Jr [facility] [address] [place] [address] 02/01/2025 Delon Torres Jr Plan Of Treatment No Information Insurance Providers Payer Name Payer Address Payer Phone Subscriber Number Group Number Insured Name Patient Relationship to Insured Coverage Start Date Coverage End Date [facility] [address] [address] [place] [id number] ANGEL HERRERA Self - patient is the insured
--- OUTSIDE RECORDS SUMMARY | 2025-05-11 16:22 | XMS_ITS | Encounter Summary ---
Author Organization [employer] Address [address] [facility] 7t [place] [address] Care Team Providers Care Flying Ii Instructor Name Role Phone Mandie Fields Primary Care Provider [phone] Mandie Fields Primary Care Provider [phone] Encounter Details Date Type Department Care Team ([facility] st Contact Info) Description 08/15/2023 Abstract [facility] [address] [place] [address] Mandie Fields FNP [address] [place], [place] [phone] Social History Tobacco Use Types Packs/Day Years [...] is your housing situation today? I have johanthan conway 06/18/[address] you [...] Description 05/18/2025 10:00 AM EDT Office Visit [facility] MED [facility] PED[facility] [address] [place] [address] Cortes Ch MD [address] [place] [address] 05/18/2025 11:15 AM EDT Procedure Visit [facility] MEDICINE [address] [place] [address] Dayna Juarez CNM [address] [place] [address] 06/15/2025 11:00 AM EDT Office Visit [address] [address] 07/07/2025 9:45 AM EST Office Visit [address] [address] Mandie Fields FNP [address] [place] [address] documented as of this encounter Visit Diagnoses Not on filedocumented in this encounter Additional Health Concerns Assessment Noted Time PHQ-9 Depression Total Score: 10 023 9:34 AM EST documented as of this encounter Care Teams Flying Ii Instructor Relationship Specialty Start Date End Date Mandie Fields FNP [address] [place] [address], [place] [address] PCP - General Family Medicine 05/01/22 01/11/25 Mandie Fields FNP [address] [place] [address] PCP - General Family Medicine 01/12/25 documented as of this encounter
--- OUTSIDE RECORDS SUMMARY | 2025-05-11 16:22 | XMS_ITS | Encounter Summary ---
Author Organization [employer] Address [address] [facility] 7t [place] [address] Care Team Providers Care Ibm Websphere Portal Developer Name Role Phone Mandie Fields Primary Care Provider [phone] Mandie Fields Primary Care Provider [phone] Reason for Visit * Reason Onset Date Comments partialsl broke again 02/13/2023 Encounter Details Date Type Department Care Team ([facility] st Contact Info) Description 02/13/2023 Telephone [facility] ADULT DENTAL [address] [place] [address] Desmond Chun, DMD [address] [place] [address] partialsl broke again Social History Tobacco Use [...] to come in tomorrow from 9 on. documented in this encounter Plan of Treatment Upcoming Encounters Date Type Department Care Team (Late st Contact Info) Description 05/18/2025 10:00 AM EDT Office Visit [facility] & PEDS [address] [place] [address] Cortes Ch MD [address] [place] [address] 05/18/2025 11:15 AM EDT Procedure Visit [facility] MEDICINE [address] [place] [address] Dayna Juarez CNM [address] [place] [address] 06/15/2025 11:00 AM EDT Office Visit [address] [address] 07/07/2025 9:45 AM EST Office Visit [address] [address] Mandie Fields FNP [address] [place] [address] documented as of this encounter Visit Diagnoses Not on filedocumented in this encounter Additional Health Concerns Assessment Noted Time PHQ-9 Depression Total Score: 10 08/03/ 022 10:45 AM EST documented as of this encounter Care Teams Ibm Websphere Portal Developer Relationship Specialty Start Date End Date Mandie Fields FNP [address] [place] [address] PCP - General Family Medicine 05/01/22 01/11/25 Mandie Fields FNP [address] [place] [address] PCP - General Family Medicine 01/12/25 documented as of this encounter
--- OUTSIDE RECORDS SUMMARY | 2025-05-11 16:22 | XMS_ITS | Encounter Summary ---
Author Organization [employer] Address [address] [facility] 7 [place] [address] Care Team Providers Care Accident Examiner Name Role Phone Mandie Fields Primary Care Provider [phone] Mandie Fields Primary Care Provider [phone] Reason for Visit * Reason Comments Med Refill Encounter Details Date Type Department Care Team ([facility] Contact Info) Description 03/29/2023 Refill [facility] MEDICINE [address] [place], [place] [phone] Mandie Fields FNP [address] [place], [place] [phone] Moderate persistent asthma without complication Social History [...] Upcoming Encounters Date Type Department Care Team ([facility] Contact Info) Description 05/18/2025 10:00 AM EDT Office Visit [facility] CHC MED & PEDS [address] [place], [place] [phone] Cortes Ch MD 505 [place] [address] 05/18/2025 11:15 AM EDT Procedure Visit [address] [address] Dayna Juarez CNEmily [address] [place] [address] 06/15/2025 11:00 AM EDT Office Visit [address] [address] 07/07/2025 9:45 AM EST Office Visit [address] [address] Mnadie Fields FNP [address] [place] [address] documented as of this encounter Visit Diagnoses Diagnosis Moderate persistent asthma without complication documented in this encounter Additional Health Concerns Assessment Noted Time PHQ-9 Depression Total Score: 10 022 10:45 AM EST documented as of this encounter Care Teams Accident Examiner Relationship Specialty Start Date End Date Mandie Fields FNP [address] [place] [address] PCP - General Family Medicine 05/01/22 01/11/25 Mandie Fields FNP [address] [place] [address] PCP - General Family Medicine 01/12/25 documented as of this encounter
--- OUTSIDE RECORDS SUMMARY | 2025-05-11 16:22 | XMS_ITS | Encounter Summary ---
Author Organization [employer] Address [address] [facility] 7t [place] [address] Care Team Providers Care Blackjack Pit Boss Name Role Phone Mandie Fields Primary Care Provider [phone] Mandie Fields Primary Care Provider [phone] Reason for Visit * Reason Onset Date Comments FYI 12/26/2023 Encounter Details Date Type Department Care Team (Late st Contact Info) Description 12/26/2023 Telephone [facility] MEDICINE [address] [place] [address] Mandie Fields FNP [address] [place], [place] [phone] FYI Social History Tobacco Use Types Packs/Day [...] encounter Miscellaneous Notes * Telephone Encounter - Luias Cox RN - 12/30/2023 9:08 AM EDT Call to [facility], at [phone], no answer, call continues to ring and does not forward to . * Telephone Encounter - Luisa Cox RN - 12/30/2023 9:06 AM EDT Call returned to [facility] at [phone] for triage. No answer, unable;e to [facility] as is full. Left SMS notification to return call to [facility] triage line [phone]. * Telephone Encounter - IVANIA Boswell - 12/30/2023 6:26 AM EDT Please attempt to call pt for triage s/p fall at home. Thank you! * Telephone Encounter - Wing Delbert RN - 12/27/2023 1:52 PM EDT Just as a FYI. Tc to [facility] regarding pt's fall. Unable to reach her and left message for her to callback. Attempted to call pt using [facility] Nurse Practitioner [place], [place] [phone]. Gas Check Pad Maker unable to leave messagedue to mailbox being full. * Telephone Encounter - Esthela Chencho - 12/26/2023 4:15 PM EDT Tc from [facility] with [facility] calling to advise provider pt had a fall in home yesterday (12/24). States pt sustained no injuries. documented in this encounter Plan of Treatment Upcoming Encounters Date Type Department Care Team (Late st Contact Info) Description 05/18/2025 10:00 AM EDT Office Visit [facility] CHC MED & PEDS [address] [place] [address] Cortes Ch MD 505 [place] [address] 05/18/2025 11:15 AM EDT Procedure Visit [facility] MEDICINE [address] [place] [address] Dayna Juarez CNM [address] [place] [address] 06/15/2025 11:00 AM EDT Office Visit [address] [address] 07/07/2025 9:45 AM EST Office Visit [address] [address] Mandie Fields FNP 505 [place] [address] documented as of this encounter Visit Diagnoses Not on filedocumented in this encounter Additional Health Concerns Assessment Noted Time PHQ-9 Depression Total Score: 10 12/2 023 9:34 AM EST documented as of this encounter Care Teams Blackjack Pit Boss Relationship Specialty Start Date End Date Mandie Fields FNP [address] [place] [address] PCP - General Family Medicine 05/01/22 01/11/25 Mandie Fields FNP [address] [place] [address] PCP - General Family Medicine 01/12/25 documented as of this encounter
--- OUTSIDE RECORDS SUMMARY | 2025-05-11 16:22 | XMS_ITS | Encounter Summary ---
Author Organization [employer] Address [address] [facility] 7 [place] [address] Care Team Providers Care Sports Book Writer Name Role Phone Mandie Fields Primary Care Provider [phone] Mandie Fields Primary Care Provider [phone] Encounter Details Date Type Department Care Team (Latest Contact Info) Description 03/16/2019 Abstract [facility] CONVERSIONS Dental, Provider, DDS Social History [...] Care Team ( st Contact Info) Description 05/18/2025 10:00 AM EDT Office Visit [facility] CHC MED & PEDS 505 [place] [address] Cortes Ch MD 505 [place] [address] 05/18/2025 11:15 AM EDT Procedure Visit [facility] MEDICINE [address] [place] [address] Dayna Juarez CNM 230 [place] [address] 06/15/2025 11:00 AM EDT Office Visit [facility] MEDICINE [address] [place] [address] 07/07/2025 9:45 AM EST Office Visit [facility] MEDICINE [address] [place] [address] Mandie Fields FNP 505 [place] [address] documented as of this encounter Visit Diagnoses Not on filedocumented in this encounter Care Teams Sports Book Writer Relationship Specialty Start Date End Date Mandie Fields FNP [address] [place] [address] PCP - General Family Medicine 05/01/22 01/11/25 Mandie Fields FNP [address] [place] [address] PCP - General Family Medicine 01/12/25 documented as of this encounter
--- OUTSIDE RECORDS SUMMARY | 2025-05-11 16:22 | XMS_ITS | Encounter Summary ---
Author Organization [employer] Address 75 [facility] 7t [place] [address] Care Team Providers Care Director Of Special Education Name Role Phone Mandie Fields REHAB SERVICES AIDE Primary Care Provider [phone] Encounter Details Date Type Department Care Team (Latest Contact Info) Description 05/11/2025 Travel Social History Tobacco Use Types Packs/Day [...] Description 05/18/2025 10:00 AM EDT Office Visit [facility] CHC MED & PEDS 505 [place] [address] Cortes Ch MD 505 [place] [address] 05/18/2025 11:15 AM EDT Procedure Visit [facility] MEDICINE [address] [place] [address] Dayna Juarez CNM 230 [place] [address] 06/15/2025 11:00 AM EDT Office Visit [address] [address] 07/07/2025 9:45 AM EST Office Visit [address] [address] Mandie Fiedls FNP 505 [place] [address] documented as of this encounter Visit Diagnoses Not on filedocumented in this encounter Additional Health Concerns Assessment Noted Time PHQ-9 Depression Total Score: 11 10/28/ 025 9:09 AM EST documented as of this encounter Care Teams Director Of Special Education Relationship Specialty Start Date End Date Mandie Fields FNP [address] [place] [address] PCP - General Family Medicine 01/12/25 documented as of this encounter
--- OUTSIDE RECORDS SUMMARY | 2025-05-11 16:22 | XMS_ITS | Encounter Summary ---
Author Organization [employer] Address 75 [facility] 7 [place] [address] Care Team Providers Care Underground Distribution Engineer Name Role Phone Mandie Fields Primary Care Provider [phone] Mandie Fields Primary Care Provider [phone] Reason for Visit * Reason Comments Med Refill Encounter Details Date Type Department Care Team ([facility] Contact Info) Description 04/04/2023 Refill [facility] MEDICINE [address] [place], [place] [phone] Mandie Fields FNP [address] [place], [place] [phone] Moderate persistent asthma without complication Social History [...] Upcoming Encounters Date Type Department Care Team ([facility] Contact Info) Description 05/18/2025 10:00 AM EDT Office Visit [facility] CHC MED & PEDS 505 [place], [place] [phone] Cortes Ch MD 505 [place] [address] 05/18/2025 11:15 AM EDT Procedure Visit [address] [address] Dayna Juarez CNEmily [address] [place] [address] 06/15/2025 11:00 AM EDT Office Visit [address] [address] 07/07/2025 9:45 AM EST Office Visit [address] [address] Mandie Fields FNP 505 [place] [address] documented as of this encounter Visit Diagnoses Diagnosis Moderate persistent asthma without complication documented in this encounter Additional Health Concerns Assessment Noted Time PHQ-9 Depression Total Score: 10 022 10:45 AM EST documented as of this encounter Care Teams Underground Distribution Engineer Relationship Specialty Start Date End Date Mandie Fields FNP [address] [place] [address] PCP - General Family Medicine 05/01/22 01/11/25 Mandie Fields FNP [address] [place] [address] PCP - General Family Medicine 01/12/25 documented as of this encounter
--- OUTSIDE RECORDS SUMMARY | 2025-05-11 16:22 | XMS_ITS | Encounter Summary ---
Author Organization [employer] Address 75 [facility] 7t [place] [address] Care Team Providers Care Forming Process Line Worker Name Role Phone Mandie Fields Primary Care Provider [phone] Mandie Fields Primary Care Provider [phone] Reason for Visit * Reason Comments Med Refill Encounter Details Date Type Department Care Team ([facility] Contact Info) Description 04/10/2024 Refill [facility] CHC MED & PEDS 505 [place], [place] [phone] Mandie Fields FNP [address] [place], [place] [phone] Essential (primary) hypertension Social History Tobacco Use [...] Description 05/18/2025 10:00 AM EDT Office Visit [facility] CHC MED & PEDS 505 [place] [address] Cortes Ch MD 505 [place] [address] 05/18/2025 11:15 AM EDT Procedure Visit [address] [address] Dayna Juarez CNM [address] [place] [address] 06/15/2025 11:00 AM EDT Office Visit [address] [address] 07/07/2025 9:45 AM EST Office Visit [address] [address] Mandie Fields FNP [address] [place] [address] documented as of this encounter Visit Diagnoses Diagnosis Essential (primary) hypertension Unspecified essential hypertension documented in this encounter Additional Health Concerns Assessment Noted Time PHQ-9 Depression Total Score: 023 9:34 AM EST documented as of this encounter Care Teams Forming Process Line Worker Relationship Specialty Start Date End Date Mandie Fields FNP [address] [place] [address] PCP - General Family Medicine 05/01/22 01/11/25 Mandie Fields FNP [address] [place] [address] PCP - General Family Medicine 01/12/25 documented as of this encounter
--- OUTSIDE RECORDS SUMMARY | 2025-05-11 16:22 | XMS_ITS | Encounter Summary ---
Author Organization [employer] Address [address] [facility] 7 [place] [address] Care Team Providers Care Locker Room Clerk Name Role Phone Mandie Fields Primary Care Provider [phone] Mandie Fields Primary Care Provider Reason for Visit * Reason Comments Med Refill Encounter Details Date Type Department Care Team ([facility] Contact Info) Description 11/14/2022 Refill [facility] MED & PEDS [address] [place], [place] [phone] Mandie Fields FNP [address] [place] [address] Moderate persistent asthma without complication (Primary Dx) [...] Upcoming Encounters Date Type Department Care Team ([facility] Contact Info) Description 05/18/2025 10:00 AM EDT Office Visit [facility] CHC MED & PEDS [address] [place], [place] [phone] Cortes Ch MD 505 [place] [address] 05/18/2025 11:15 AM EDT Procedure Visit [address] [address] Dayna Juarez, CNM [address] [place] [address] 06/15/2025 11:00 AM EDT Office Visit [address] [address] 07/07/2025 9:45 AM EST Office Visit [address] [address] Mandie Fields FNP [address] [place] [address] documented as of this encounter Visit Diagnoses Diagnosis Moderate persistent asthma without complication- Primary documented in this encounter Additional Health Concerns Assessment Noted Time PHQ-9 Depression Total Score: 10 022 10:45 AM EST documented as of this encounter Care Teams Locker Room Clerk Relationship Specialty Start Date End Date Mandie Fields FNP [address] [place] [address] PCP - General Family Medicine 05/01/22 01/11/25 Mandie Fields FNP [address] [place] [address] PCP - General Family Medicine 01/12/25 documented as of this encounter
--- OUTSIDE RECORDS SUMMARY | 2025-05-11 16:22 | XMS_ITS | Clinical Summary ---
Author Organization [employer] Address [address] [place] [address] Care Team Providers Care Lobsterman Name Role Phone Mandie Fields BED MAKER Primary Care Provider [phone] Allergies Active Allergy Reactions Criticality Noted Date Comments Elias Inhibitors 03/08/2015 Other reaction(s): Cough on lisinopril Terazosin 12/08/2012 Other reaction(s): SWELLING AND TIREDNESS Medications * This document contains information received from the source organization and may not represent a complete record from that organization. betamethasone dipropionate (Diprolene) 0.05 % ointment APPLY A THIN LAYER TOPICALLY TO AFFECTED AREA(S) TWICE DAILY FOR 14 DAYS, THEN STOP FOR 1 WEEK THEN REPEAT NEEDED 45 g 2 06/18/20 23 Active ceramides (CeraVe) moisturizing creamIndications:P soriasis Apply 1 Application. topically if needed for dry skin. 453 g 11/08/19 24 Active fluticasone (Flonase) 50 MCG/ACT nasal sprayIndications:A llergic rhinitis, unspecified seasonality, unspecified trigger INSTILL 1-2 SPRAYS IN EACH NOSTRIL ONCE DAILY NEEDED 48 g 1 11/27/19 24 Active calcium citrate 250 MG tablet Take 2 tablets by mouth in the morning and 2 tablets in the evening. 12/10/19 24 Active Eye Itch Relief 0.035 % solution 11/08/19 24 Active calcipotriene (Dovonex) 0.005 % ointmentIndication s:Psoriasis APPLY A THIN LAYER TO AFFECTED AREA(S) TWICE DAILY SATURDAY a SATURDAY 60 g 1 03/06/20 24 Active Blood Pressure kitIndications:Ess ential hypertension 1 kit 2 times daily. 1 kit 04/10/20 24 Active lidocaine (Lidoderm) 5 % patchIndications:I ntercostal muscle pain APPLY 1 PATCH TOPICALLY TO SKIN, LEAVE ON FOR 12 HOURS AND OFF FOR 12 HOURS DIRECTED 30 patch 11 06/12/20 24 Active Fluticasone-Salmet portia (Advair Diskus) 500-50 MCG/ACT aerosol powderIndications: Moderate persistent asthma without complication INHALE 2 PUFFS BY MOUTH EVERY TWELVE HOURS RINSE MOUTH AFTER USING. 1 each 5 08/27/20 24 Active citalopram (CeleXA) 20 MG tabletIndications: Depressive disorder TAKE 1 TABLET BY MOUTH EVERY DAY 90 tablet 3 10/16/19 25 Active ketorolac (Acular) 0.5 % ophthalmic solution 07/23/20 24 Active omeprazole (PriLOSEC) [address] capsuleIndications :Gastroesophageal reflux disease, unspecified whether esophagitis present TAKE 1 CAPSULE BY MOUTH EVERY DAY BEFORE A MEAL 90 capsule 3 10/28/19 25 Active albuterol (Ventolin HFA) 108 (90 Base) MCG/ACT inhalerIndications :Moderate persistent asthma without complication INHALE 2 PUFFS BY MOUTH EVERY 4 TO 6 HOURS NEEDED 18 g 11 10/28/19 25 Active atorvastatin (Lipitor) 20 MG tabletIndications: Hyperlipidemia, unspecified hyperlipidemia type Take 1 tablet by mouth every evening 90 tablet 3 10/28/19 25 Active alendronate (Fosamax) 70 MG tabletIndications: Osteoporosis without current pathological fracture, unspecified osteoporosis type Take 1 tablet (70 mg) by mouth 1 (one) time per week. Take in the morning with a full glass of water, on an empty stomach, and do not take anything else by mouth or lie down for the next 30 min. 4 tablet 10/28/19 25 026 Active cholecalciferol (Vitamin D High Potency) 25 MCG (1000 UT) capsuleIndications :Vitamin D deficiency Take 1 capsule (25 mcg) by mouth in the morning. 90 capsule 3 10/28/19 25 Active cetirizine (ZyrTEC) 10 MG tabletIndications: Seasonal allergies TAKE 1 TABLET BY MOUTH EVERY DAY NEEDED FOR ALLERGIES 90 tablet 3 12/15/19 25 Active chlorthalidone (Hygroton) 25 MG tabletIndications: Essential hypertension TAKE 1 TABLET BY MOUTH EVERY DAY IN THE MORNING 90 tablet 1 12/17/19 25 Active ferrous gluconate (Fergon) 324 (38 Fe) MG tablet TAKE 1 TABLET BY MOUTH ON SATURDAY, SATURDAY AND SATURDAY WITH FULL GLASS OF WATER OR JUICE WITH VITAMINA C. TAKE 1 HOUR BEFORE MEAL OR 2 HOURS AFTER MEAL. 12 tablet 2 12/17/19 25 Active ramelteon (Rozerem) 8 MG tabletIndications: Sleep difficulties Take 1 tablet (8 mg) by mouth at bedtime. Take 30-60 minutes before bed. 90 tablet 1 01/28/20 25 026 Active losartan (Cozaar) 25 MG tablet Take 1 tablet (25 mg) by mouth Once per day. 90 tablet 1 02/10/20 25 026 Active triamcinolone (Kenalog) 0.1 % creamIndications:P soriasis MIX WITH cerave CREAM AND APPLY TO THE AFFECTED AREA(S) TOPICALLY TWICE DAILY IN THE MORNING AND AT BEDTIME NEEDED FOR PAIN OR SWELLING 80 g 2 02/20/20 25 Active busPIRone (Buspar) 15 MG tabletIndications: Depressive disorder TAKE 1 TABLET BY MOUTH TWICE DAILY 60 tablet 5 02/20/20 25 Active albuterol (2.5 MG/3ML) 0.083% nebulizer solutionIndication s:Moderate persistent asthma without complication INHALE 1 AMPULE USING A NEBULIZER EVERY 4 TO 6 HOURS NEEDED 90 mL 3 03/03/20 25 Active montelukast (Singulair) 10 MG tabletIndications: Moderate persistent asthma without complication,Seaso nal allergic rhinitis, unspecified trigger TAKE 1 TABLET BY MOUTH DAILY AT BEDTIME 90 tablet 1 03/10/20 25 Active senna (Senokot) 8.6 MG tablet TAKE 1 TO 2 TABLETS BY MOUTH EVERY TWELVE HOURS NEEDED FOR CONSTIPATION 360 tablet 1 03/10/20 25 Active traMADol (Ultram) 50 MG tabletIndications: Primary osteoarthritis of both knees Take 1 tablet (50 mg) by mouth every 12 (twelve) hours if needed for severe pain for up to 14 days. Do not start before March 24, 2025. 28 tablet 03/24/20 25 Active acetaminophen (Tylenol 8 Hour) 650 MG ER tablet TAKE 1 TABLET BY MOUTH EVERY 8 HOURS NEEDED FOR PAIN. DO NOT BREAK, CRUSH, DISSOLVE OR CHEW. 100 tablet 3 07/29/20 25 Active Levoxyl 125 MCG tablet Take 1 tablet by mouth Once per day. 03/23/20 25 Active Levoxyl 137 MCG tablet Take 1 tablet by mouth Once per day. 10/21/19 25 025 Discontin ued(Ineff ective) Active Problems Problem Noted Date Diagnosed Date Sleep difficulties 02/07/2025 Overview (02/07/2025): Continue with sleep hygiene interventions such as: Encouraged pt to use bed exclusively for sleep. Set bed time and try to stay consistent each night with hour going to sleep and waking in morning. Avoid screens or electronics ideally for 2 hours before bed. If having trouble falling asleep, get up and journal or read before trying to re-initiate sleep. Assessment & Plan (02/07/2025 1:19 PM EDT): - Plan to start ramelteon. Reviewed med safety and SE. Osteoporosis 09/08/2024 Overview (11/03/2024): December 2023 - DXA with dx osteoporosis based on T-score value -3.6 in the femoral neck. Initiated alendronate 70mg weekly 12/24/23 Endo consult May 20[place] at [facility] [place]. Reviewed DXA results and suspects DXA from December 2023 was an over-read. Suggested repeating DXA scan through PCP. Repeat ordered 11/03/24. Encouraged to continue with adequate intake of calcium and Vit D. Low weight bearing exercises. Long-term current use of opiate analgesic 2023 Overview (01/14/2025): Medication: Tramadol 50mg BID Indication: OA right knee Last INSURANCE ATTORNEY Agreement: 01/12/25 Tier II (visit every 3 months) Assessment & Plan (05/11/2025 1:02 PM EDT): Timeline: - 01/12/25: Group visit - pill count wnl, utox pos for cocaine (pt admitted to use). Plan: f/up 4 weeks. - 02/09/25: Group visit - pill count 3 short, utox as expected. Pt admitted to using a few extra d/t pain. Plan: f/up 4 weeks - 05/11/25: Group visit - pill count wnl, utox pos for cocaine --> confirmatory pending Assessment & Plan (02/11/2025 2:23 PM EDT): Timeline: - 01/12/25: Group visit - pill count wnl, utox pos for cocaine (pt admitted to use). Plan: f/up 4 weeks. - 02/09/25: Group visit - pill count 3 short, utox as expected. Pt admitted to using a few extra d/t pain. Plan: f/up 4 weeks Assessment & Plan (01/14/2025 11:53 AM EDT): Timeline: - 01/12/25: Group visit - pill count wnl, utox pos for cocaine (pt admitted to use). Plan: f/up 4 weeks. Routine health maintenance 08/03/2022 Assessment & Plan (01/27/2025 9:58 AM EDT): -Pap: 09/27/20 NIL/HPV neg -Smoking status: former -Mammo: BIRADS 2 on 01/06/25 -DEXA: December 2023, osteoporosis. Next due: December 2025. -Colonoscopy: December 2014, normal. Referral to GI placed 10/28/24 -Optometry: referral to [facility] eye care previously placed -Last comprehensive exam: 10/28/24 Assessment & Plan (11/03/2024 6:23 PM EST): -Pap: 09/27/20 NIL/HPV neg -Smoking status: former -Mammo: BIRADS 2 on 12/18/23. Noted 7-8cm encapsulated area of normal breast tissue in the anterior half of upper outer quadrant of left breast which is employee representative of a hamartoma (benign) -DEXA: December 2023, osteoporosis. Next due: December 2025. -Colonoscopy: December 2014, normal. Referral to GI placed 10/28/24 -Optometry: referral to [facility] eye care previously placed -Last comprehensive exam: 10/28/24 Assessment & Plan (09/05/2023 10:12 AM EST): -Pap: 09/27/20 NIL/HPV neg -Smoking status: former -Mammo: BIRADS 2020, repeat pending -DEXA: Jun 2019, osteopenia T-score -1.8. Re-ordered 09/05/23. -Colonoscopy: December 2014, normal. -Optometry: referral to [facility] eye care previously placed Assessment & Plan (08/15/2023 6:34 PM EST): -Pap: 09/27/20 NIL/HPV neg -Smoking status: former -Mammo: BIRADS 2020, repeat pending -DEXA: Jun 2019, osteopenia T-score -1.8 -Colonoscopy: reports UTD, although not currently in record. -Optometry: referral to [facility] eye care previously placed Assessment & Plan (03/17/2023 12:19 PM EDT): Pap/Results: 09/27/20 Smoking status: former smoker Mammo: 10/11/20 Bi-Rads 2, order placed March 2023 DEXA 06/2019: osteopenia, T-score: -1.8, on vitamin D and calcium citrate through endo C-scope: last on file 2014, per pt had recent [place] [facility], unable to find in [facility] chart Vaccine: PCV20 administered in office today Assessment & Plan (08/03/2022 10:48 AM EST): PHQ: 9, pt to f/u with behavioral health STI: Denies Pap/Results: 09/27/20 Smoking status: former smoker Mammo: 10/11/20 Bi-Rads 2 DEXA 06/2019: osteopenia, T-score: -1.8, on vitamin D and calcium citrate through endo C-scope: last on file 2014, per pt had recent colonoscopy [place] [facility], unable to find in [facility] [place] Vaccine: Received J&J, due for Booster, advised pt to go to walk-in vaccine clinic after visit to see if she can be scheduled History of malignant neoplasm of thyroid 022 Overview (11/03/2024): - 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 - Following with [facility]/Dr. Mayorga/Dr. Herzog - December 2023: Thyroid US demonstrated numerous bilateral thyroid nodules, some pathologically enlarged and further showing atypical architectural features. Reviewed by Dr. Mayorga, plan repeat December 2024. Consult May 2024: [facility] [place] - Dr. Mayorga. Med hx of [...] 50mg BID PRN severe pain. Engaged with INSURANCE ATTORNEY Program Assessment & Plan (05/11/2025 1:00 PM EDT): -Continues with Tramadol 50mg BID. Reviewed med safety and SE. -Encouraged multifactorial approach to pain control including pharm and non- pharm modalities Assessment & Plan (02/11/2025 2:23 PM EDT): -Continues with Tramadol 50mg BID. Reviewed med safety and SE. -Encouraged multifactorial approach to pain control including pharm and non- pharm modalities Assessment & Plan (02/07/2025 1:20 PM EDT): -Continues with Tramadol 50mg BID. Reviewed med safety and SE. -Utox as expected. -Encouraged multifactorial approach to pain control including pharm and non- pharm modalities Assessment & Plan (01/14/2025 11:52 AM EDT): -Continues with Tramadol 50mg BID. Reviewed med safety and SE. -Pill count as expected. Utox positive for cocaine, pt admitted to using a little on Mother's Day. Reviewed COT agreement and advised recommend against using cocaine. -Good engagement and participation with Group Medical Visit model -Encouraged multifactorial approach to pain control including pharm and non- pharm modalities Assessment & Plan (05/12/2024 7:56 PM EDT): [...] and SE. Will need to establish with INSURANCE ATTORNEY team. Interested in group visits. -Narcan PRN Assessment & Plan (08/15/2023 6:31 PM EST): -Continues with Tramadol 50mg BID. Reviewed med safety and SE. Will need to establish with INSURANCE ATTORNEY team. Interested in group visits. -Narcan PRN Vitamin D deficiency 05/27/2018 Allergic rhinitis 07/25/2015 Depressive disorder 07/25/2015 Assessment & Plan (10/28/2024 9:13 AM EST): -Continue following with behavioral health Lakisha Orellana -Cont current med regimen: buspirone 15mg BID and citalopram 20mg daily Assessment & Plan (08/14/2023 9:19 AM EST): -Continue following with behavioral health Lakisha Orellana -Cont current med regimen: buspirone 15mg BID and citalopram 20mg daily Essential hypertension 07/25/2015 Overview (02/11/2025): BP goal < 140/90 mmHg Cont chlorthalidone 25mg daily Start losartan 25mg daily Assessment & Plan (02/11/2025 2:26 PM EDT): - Olmesartan Dc'd 02/09/25 due to possible SE of water retention/swelling Assessment & Plan (11/03/2024 6:22 PM EST): [...] History of thyroid CA now followed by [facility] [place] Continues with levothyroxine 137 mcg daily TSH goal: 0.1-0.5 Assessment & Plan (09/05/2023 10:11 AM EST): -History of thyroid CA followed by [facility] -Last TSH WNL May 2022 -Continues with levothyroxine 112mcg daily -Upcoming appt scheduled Oct 2023 w/ Endo Assessment & Plan (08/13/2023 8:04 PM EST): -History of thyroid CA followed by [facility] -Last TSH WNL May 2022 -Continues with levothyroxine 112mcg daily Psoriasis 07/25/2015 Assessment & Plan (11/03/2024 6:24 PM EST): Previous tx with topicals - Dovonex and Diprolene Referral to [facility] Derm team sent 08/14/23, re-sent on 11/03/24 Follow up with any worsening or persistence of symptoms Assessment & Plan (09/04/2023 8:44 AM EST): Currently tx with topicals - Dovonex and Diprolene Referral to [facility] Derm team sent 08/14/23 Follow up with any worsening or persistence of symptoms Assessment & Plan (08/15/2023 6:34 PM EST): Currently tx with topicals - Dovonex and Diprolene Referral to [facility] Derm team sent 08/14/23 Follow up with any worsening or persistence [...] 07/25/2015 0 10/28/2024 Obesity 07/25/2015 10/28/2024 Encounters * This document contains information received from the source organization and may not represent a complete record from that organization. Date Type Department Care Team Description 05/11/2025 11:00 AM EDT Office Visit [facility] MEDICINE [address] [place] [address] Mandie Fields FNP Primary osteoarthritis of both knees (Primary Dx); Long-term current use of opiate analgesic 05/11/2025 Travel 05/07/2025 2:00 PM EDT Office Visit [facility] ADULT DENTAL [address] [place] [address] Carline Carnes 04/28/2025 Telephone [facility] MEDICINE [address] [place] [address] Mandie Fields FNP No Show 04/27/2025 Telephone [facility] MEDICINE [address] [place] [address] Mandie Fields FNP chart prep 04/02/2025 9:30 AM EDT Office Visit [facility] OPTOMETRY [address] [place] [address] Palomo, Tammy, OD 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); Hypertensive retinopathy of both eyes, grade 1; Pseudophakia of both eyes; Presbyopia of both eyes 04/02/2025 Travel 03/29/2025 Refill [facility] MEDICINE [address] [place] [address] Mandie Fields FNP 03/23/2025 Refill [facility] CHC MED & PEDS [address] [place] [address] Jalyn Calix, RN Primary osteoarthritis of both knees 03/23/2025 Telephone [facility] MED & PEDS [address] [place] [address] Mandie Fields, BED MAKER 03/11/2025 Telephone [facility] MED & PEDS [address] [place] [address] Jalyn Calix, RN 03/10/2025 Refill [facility] MEDICINE [address] [place] [phone] Phalen Mandie, BED MAKER Moderate persistent asthma without complication; Seasonal allergic rhinitis, unspecified trigger 03/02/2025 Refill [facility] MEDICINE [address] [place] [address] PhalNathan mckeonle, BED MAKER Moderate persistent asthma without complication 02/22/2025 Refill [facility] MEDICINE [address] [place] [address] Donnie Mandie, BED MAKER Primary osteoarthritis of both knees 02/18/2025 Refill [facility] MEDICINE [address] [place] [phone] Donnie Mandie, BED MAKER Psoriasis; Depressive disorder 02/09/2025 11:00 AM EDT Office Visit [facility] MEDICINE [address] [place] [phone] Phalen Mandie, BED MAKER Long-term current use of opiate analgesic (Primary Dx); Chronic pain of both knees; Primary osteoarthritis of both knees; Essential hypertension 02/09/2025 Telephone [facility] MED & PEDS [address] [place] [address] Jalyn Calix, LATRELL 02/09/2025 Travel 02/08/2025 Orders Only [facility] MED & PEDS [address] [place] [address] Mandie Fields, BED MAKER 02/08/2025 Telephone [facility] MEDICINE [address] [place] [phone] Mandie Fields, BED MAKER from Last 3 Months Immunizations Immunization Administration Dates Next Due Hep B, adult [...] Pressure 138/74 05/07/2025 2:00 PM EDT Pulse 84 01/27/2025 9:02 AM EDT Temperature 36.7 C (98 F) 01/27/2025 9:02 AM EDT Respiratory Rate 17 01/27/2025 9:02 AM EDT Oxygen Saturation 98% 10/28/2024 9:04 AM EST Inhaled Oxygen Concentration - - Weight 75.5 kg (166 lb 6 oz) 01/27/2025 9:02 AM EDT Height 154.9 cm (5' 1 ) 01/27/2025 9:02 AM EDT Body Mass Index 31.44 01/27/2025 9:02 AM EDT Plan of Treatment Upcoming Encounters Date Type Department Care Team (Late st Contact Info) Description 05/18/2025 10:00 AM EDT Office Visit [facility] CHC MED & PEDS [address] [place] [address] Cortes Ch MD [address] [place] [address] 05/18/2025 11:15 AM EDT Procedure Visit [facility] [address] [place] [address] Dayna Juarez, CNM [address] [place] [address] 06/15/2025 11:00 AM EDT Office Visit [facility] [address], [place] [phone] 07/07/2025 9:45 AM EST Office Visit [facility] [address] [place] [address] Ana LuisaMandie mckeon, BED MAKER [address] [place] [address] Health Maintenance Due Date Last Done Comments CT Colonography 1959 Dental X-Ray: Full Mouth 1960 FIT DNA/Cologuard 1960 FIT 1960 FOBT 1960 Sigmoidoscopy 1960 RSV Patients and Patients Aged 60 years or older (1 - Risk 60-74 years 1-dose series) 2019 Colonoscopy 12/02/2024 12/02/2014 Colorectal Cancer Screening 12/02/2024 Depression Monitoring 04/27/2025 10/28/2024, 025 COVID-19 Vaccine ( season) 2025 07/11/2021, 11/23/2020 Influenza Vaccine (#1) 2025 , 08/14/2023, 08/03/2022, Additional history exists Cervical Cancer Screening 10/09/2025 HPV/Cotest 10/09/2025 10/09/2020 Pap Smear 10/09/2025 10/09/2020, 11/24/2014 SDOH Screening 10/14/2025 10/14/2024 Diabetes: Hemoglobin A1C 10/28/2025 025, 10/03/2023, 07/11/2021, Additional history exists Dental Oral Exam 11/05/2025 05/07/2025 Dental Prophylaxis 11/05/2025 05/07/2025 Mammogram 01/06/2026 01/06/2025, 12/01, 10/13/2020, Additional history exists Alcohol/Substance Use Screening 01/27/2026 01/27/2025 Tobacco Screening 05/07/2026 05/07/2025 Dental X-Ray: Bitewings 05/08/2026 05/07/2025 Lipid Panel 10/28/2029 10/28/2024, 02/0 09/2023, 07/11/2021, Additional history exists DTaP/Tdap/Td Vaccines (4 - Td or Tdap) 03/21/2033 03/21/2023, 04/29/2019, 04/27/2009, Additional history exists Hepatitis B Vaccines Completed 05/27/2018, 06/28/2017, 05/29/2017 Zoster Vaccines Completed 10/26/2019, 08/25/2019 Pneumococcal Vaccine: 50+ Years Completed 03/15/2023, 06/23/1997 Hepatitis C Screening Completed 10/28/2024, 024 HIB Vaccines Aged Out No longer eligi [...] patient's age to complete this topic Meningococcal B Vaccine Aged Out No l onger eligible based on patient's age to complete [...] EDT Long-term current use of opiate analgesic PERIODIC ORAL EVALUATION - ESTABLISHED PATIENT Routine 05/07/2025 2:00 PM EDT INTRAORAL - PERIAPICAL EACH ADDITIONAL RADIOGRAPHIC IMAGE Routine 05/07/2025 2:00 PM EDT PROPHYLAXIS - ADULT Routine 05/07/2025 2 :00 PM EDT INTRAORAL - PERIAPICAL FIRST RADIOGRAPHIC IMAGE Routine 05/07/2025 2:00 PM EDT BITEWINGS - 4 RADIOGRAPHIC IMAGES Routine 05/07/2025 2:00 PM EDT CASE PRESENTATION, DETAILED AND EXTENSIVE TREATMENT PLANNING Routine 05/07/2025 2:00 PM EDT OCT, OPTIC NERVE - OU - BOTH EYES Routine 04/02/2025 9:30 AM EDT 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 POCT REGGIE-14 URINE DRUG SCREEN Routine 02/09/2025 11:54 AM EDT Chronic pain of both knees BI MAMMOGRAM SCREENING TOMOSYNTHESIS BILATERAL Routine 01/06/2025 12:52 PM EDT Encounter for screening mammogram for malignant neoplasm of breast HEPATITIS C VIRAL RNA, QUANTITATIVE, REAL-TIME PCR Routine 10/28/2024 10:15 AM EST Routine health maintenance HEMOGLOBIN A1C Routine 10/28/2024 10:15 AM EST Routine health maintenance LIPID PANEL, STANDARD Routine 10/28/2024 10:15 AM EST Routine health maintenance ZZZ HISTORICAL HPV DNA, HIGH RISK, CERVICAL Routine 10/09/2020 3:12 PM EST THINPREP PAP Routine 10/09/2020 3:12 PM EST HM COLONOSCOPY Routine 12/02/2014 from Last 3 Months or Most Recently Relevant to Health Maintenance Results * (ABNORMAL) POCT REGGIE-14 Urine Drug Screen (05/11/2025 11:32 AM EDT) Only the most recent of2 resultswithin the time period is included. THC Positive Negative Cocaine Screen, Urine Positive(A) [...] / Unknown 05/11/2025 11:32 AM EDT Ana Nye, RN - 05/11/2025 11:32 AM EDT UTOX cup Lot#[id number] Exp. 06/08/26 Internal Pass Control Mandie Fields BED MAKER POINT OF CARE TEST ENTER/EDIT ORDERABLES Final Result * OCT, Optic Nerve - OU - Both Eyes (04/02/2025 9:30 AM EDT) Tammy Bashir, OD - 04/20/2025 1:47 PM EDT Images from the original result were not included. Right Eye Images reviewed. To assess optic nerve function and for use in future follow-up. Reliability: good and adequate. Left Eye Images reviewed. To assess optic nerve function and for use in future follow-up. Reliability: good and adequate. Notes OCT OPTIC NERVE INTERPRETATION Optical Coherence Tomography Interpretation Report Test Details: Measurements: OD OS C/D Horizontal 0.64 0.63 C/D Vertical 0.62 0.71 Disc area 2.20 mm 2 2.23 mm 2 RNFL Average 97 microns 102 microns Test findings: OD: Normal RNFL thickness in all quadrants. OS: Normal RNFL thickness in all quadrants. Impression and Plan: No suspicion for glaucoma at this time. Will monitor at her next exam. Tammy Culver OD OPHTH TOMOGRAPHY Final Result * BI Mammogram Screening Tomosynthesis Bilateral (01/06/2025 12:52 PM EDT) Anatomical Region Laterality Modality Breast Bilateral Mammography 01/06/2025 12:5 2 PM EDT Narrative 01/11/2025 3:35 PM EDT [facility] [address] [place] [address] Dr. Hernandez, [place]YDA [address] Mammography Report Signed Patient: Anneliese Stern MR#: [id number] : 1960 Acct:[id number] Age/Sex: 64 / F ADM Date: 01/06/25 Loc: HO.MAMMO Attending Dr: Mandie Fields BED MAKER Ordering Physician: Mandie Fields BED MAKER Results: 2Benig n Findings Date of Service: 01/06/25 Follow Up: 1 Year From Orig ina Mammogram Procedure(s): MM tomosynthesis screening BI Accession Number(s): [id number] cc: Mandie Fields EXAMINATION: MM SCREENING DIGITAL BREAST TOMOSYNTHESIS, BILATERAL CLINICAL INFORMATION: Screening. Asymptomatic. COMPARISON: Mammography: Comparison is made with available priors TECHNIQUE: Digital breast mammography with tomosynthesis is performed in both the craniocaudal and mediolateral oblique views along with computer-aided detection (CAD). FINDINGS: There are scattered areas of fibroglandular density (ACR BI-RADS breast composition Category b). Left post surgical changes are stable. Left biopsy clip. There are no significant masses, abnormal calcifications, or other abnormalities. MM/MM tomosynthesis screening BI IMPRESSION: No mammographic evidence of malignancy. ASSESSMENT: BI-RADS BI-RADS 2 - Benign Findings RECOMMENDATION: Routine annual mammography screening. 1 year F/U This examination should not preclude the clinical evaluation of a suspicious palpable abnormality. This patient's information was entered into a reminder system with a target due date for their next mammogram. Electronically signed by: Essence Campoverde DO 01/11/2025 03:32 PM EDT Dictated By: Essence Campoverde DO Signed By: <Electronically signed by Essence Campoverde DO in OV> 01/11/25 1532 DD/ 1252 TD/TT: 01/06/25 1302 [employer]: Procedure Note Donotuseinterpreter, Image - [facility] [address] [place], [place] [address] Mammography Report Signed Patient: Anneliese SternMR#: [id number] : 1960Acct:[id number] Age/Sex: 64 / FADM Date: 01/06/25 Loc: MAMMO Attending Dr: Mandie Fields BED MAKER Ordering Physician: Mandie Fields FNPResults: 2Benig n Findings Date of Service: 01/06/25Follow Up: 1 Year From Orig inal Mammogram Procedure(s): MM tomosynthesis screening BI Accession Number(s): [id number] cc: Mandie Fields EXAMINATION: MM SCREENING DIGITAL BREAST TOMOSYNTHESIS, BILATERAL CLINICAL INFORMATION: Screening. Asymptomatic. COMPARISON: Mammography: Comparison is made with available priors TECHNIQUE: Digital breast mammography with tomosynthesis is performed in both the craniocaudal and mediolateral oblique views along with computer-aided detection (CAD). FINDINGS: There are scattered areas of fibroglandular density (ACR BI-RADS breast composition Category b). Left post surgical changes are stable. Left biopsy clip. There are no significant masses, abnormal calcifications, or other abnormalities. MM/MM tomosynthesis screening BI IMPRESSION: No mammographic evidence of malignancy. ASSESSMENT: BI-RADS BI-RADS 2 - Benign Findings RECOMMENDATION: Routine annual mammography screening. 1 year F/U This examination should not preclude the clinical evaluation of a suspicious palpable abnormality. This patient's information was entered into a reminder system with a target due date for their next mammogram. Electronically signed by: Essence Campoverde DO 01/11/2025 03:32 PM EDT Dictated By: Essence Campoverde DO Signed By: <Electronically signed by Essence Campoverde DO in OV> 01/11/25 1532 DD/ 1252 TD/TT: 01/06/25 1302 [employer]: Mandie Fiedls BED MAKER IMG BI PROCEDURES Final Result * Hepatitis C Viral RNA, Quantitative, Real-Time PCR (10/28/2024 10:15 AM EST) Hepatitis C Viral Load <15 NOT DETECTED NOT DETECTED IU/mL [facility] HCV Log PCR <1.18 NOT DETECTED NOT DETECTED Log IU/mL [facility] Comment:For additional infor mation, please refer [email or web address]/faq/[email or web address](This link is being provided for informational/educational purposes only.)THIS TEST WAS PERFORMED AT:[facility] [place] [phone] BUSBY MD Blood 10/28/2024 10:1 5 AM EST 10/28/2024 11:08 AM EST Mandie Fields BED MAKER LAB BLOOD ORDERABLES Final Res ult Performing Organization Address [facility] Co de Phone Number [facility] [address] [place] [phone] * Hemoglobin A1c (10/28/2024 10:15 AM EST) Hemoglobin A1c 5.8 <6.0 % [facility] Comment:Hemoglobin A1C Refer ence Range Adults: 4.8 - 6.0 % Non diabetic: < 6.0 % Goal: < 7.0 %Additional Action Suggested: > 8.0 %Note: Hemoglobin A1c results are invalid for patients with abnormal amounts of HbF. Blood transfusions may impact the HbA1c concentration in the patient sample. Estimated Average Glucose 120 mg/dL [facility] Comment:eAG = Estimated ave rage glucose which is %A1C expressed asaverage glucose, using the formula of the U2W-SvzpxmpQbdhazw Glucose study (ADAG), Diabetes Care, Vol.31,#8,Apr. 2007 Blood Venous blood specimen / Unknown 10/28/2024 10:15 AM EST 10/28/2024 11:08 AM EST Mandie Fields [facility] BLOOD ORDERABLES Final Res ult Performing Organization Address [facility] Co de Phone Number [facility] [address] [place] [phone] * Lipid Panel, Standard (10/28/2024 10:15 AM EST) Triglycerides 93 <150 mg/dL [facility] Comment:Desirable Triglyceri de: less than 150 mg/dLBorderline High Triglyceride 150-199 mg/dLHigh Triglyceride: 200-499 mg/dLVery High Triglyceride: greater than or equal to 5OO mg/dL Cholesterol 172 <200 mg/dL [facility] Comment:Desirable Cholestero l: less than 200 mg/dLBorderline High Cholesterol: 200-239 mg/dLHigh Cholesterol: greater than 239 mg/dL LDL Cholesterol Calculated 97 <100 mg/dL [facility] Comment:Desirable LDL: less than 100 mg/dLNear Optimal/Above Optimal LDL: 110- 129 mg/dLBorderline High LDL: 130-159 mg/dLHigh LDL: 160-189 mg/dLVery High LDL: greater than or equal to 190 mg/dL HDL Cholesterol 57 >40 mg/dL [facility] Comment:Desirable HDL: great er than 40 mg/dL Note: This HDL assay may give artificially low results in patients with liver disease. Blood Venous blood specimen / Unknown 10/28/2024 10:15 AM EST 10/28/2024 11:08 AM EST Mandie Fields BED MAKER LAB BLOOD ORDERABLES Final Res ult Performing Organization Address [facility] de Phone Number [facility] [address] [place] [phone] * HPV DNA, HIGH RISK, CERVICAL (10/09/2020 3:12 PM EST) HPV DNA, HIGH RISK, CERVICAL Not Detected NOT DETECTED [facility] Comment: Not Detected High Risk HPV types (16,18,31,33,35,39,45,51,52, 56,58,59,66,68) were not detected. Other HPV types which cause anogenital lesions may be present. The significance of the other types of HPV in malignant processes has not been established. Methodology: Real Time PCR NO COLLECTION DATE RECEIVED. WE HAVE USED THE DATE THE SPECIMEN WAS RECEIVED BY THIS LABORATORY THE COLLECTION DATE. IF THIS IS INCORRECT, PLEASE CONTACT CLIENT SERVICES. PHONE NUMBER: 10/09/2020 3:12 PM EST Nathaly Lazaro CNA INSTRUCTOR HISTORICAL/NON ORDERABLE LABS Fi nal Result Performing Organization Address [facility]/ZIP Co de Phone Number [facility] [address] [place] [address], * THINPREP PAP (10/09/2020 3:12 PM EST) Clinical Information: None given [facility] COMMENT SEE COMMENT [facility] Comment: EXPLANATORY NOTE: The Pap is a screening test for cervical cancer. It is not a diagnostic test and is subject to false negative and false positive results. It is most reliable when a satisfactory sample, regularly obtained, is submitted with relevant clinical findings and history, and when the Pap result is evaluated along with historic and current clinical information. Divine Healer: SEE COMMENT [facility] Comment: SXA, CT(ASCP) CT screening location: [place] [address] Interpretation/Res ult: SEE COMMENT [facility] Comment: Negative for intraepithelial [...] NP LAB PATHOLOGY ORDERABLES Final R esult [facility] [address] [place] [address], * Hm Colonoscopy (12/02/2014) Colonoscopy Normal Repeat in 10 yrs Historical Provider HEALTH MAINTENANCE Edited Result - Final from Last 3 Months or Most Recently Relevant to Health Maintenance Insurance [facility] STANDARD [facility] ALF OPTIONS (HMO D-SNP) DENTAL [facility] Care Teams Lobsterman Relationship Specialty Start Date End Date Mandie Fields FNP [address] [place], [place] PCP - General Family Medicine 01/12/25
== END 2025-05-11 13:47 | disposition home or self-care (01) ==
LOC: HO.HHCLNP 13:46
PROVIDERS: Visit Provider Registered Nurse
DX: Z79.891 Long term (current) use of opiate analgesic (principal)
CPT/HCPCS: 36415; 80353

== ENCOUNTER 2025-05-18 11:30 | Outpatient (REF) | payer OTHER, SELFPAY ==
--- OUTSIDE RECORDS SUMMARY | 2025-02-01 07:00 | XMS_ITS ---
Author Organization [facility] Address [address] [place] [phone] Care Team Providers Care Liquefaction And Regasification Helper Name Role Phone EILEEN TAVAREZ, RAMON Primary Care Provider Miguel Ángel Torres Jr, Delon Cook REASON FOR VISIT Patient presents today for a COLON SCREENING Encounters Encounter Location Date Provider Diagnosis [facility] [address] [place] [phone] 02/01/2025 Delon Torres Jr Plan Of Treatment No Information Progress Notes * ANGEL HERRERADOB:1960 (64 yo F)Acc No.[id number]:02/01/2025 Progress Notes Patient: ANGEL GUZMAN Provider: Bonnie Torres MD :1960 A ge:64 Y S ex:Female Date:02/01/2025 Address:[address] [place], [place] [phone] Pcp:RAMON ARELLANO MD Subjective: * Chief Complaints: [...] Date: 02/01/2025 Generated for Zeus hu/Oz/Salvadoritting on: 05/19/2025 03:55 PM EDT
--- OUTSIDE RECORDS SUMMARY | 2025-05-18 11:15 | XMS_ITS | Encounter Summary ---
Author Organization [employer] Address [address] [facility] [address]t [place] [address] Care Team Providers Care Machine Applicator Cementer Name Role Phone Mandie Fields IVANIA Primary Care Provider [phone] Reason for Visit * Reason Comments pap Encounter Details Date Type Department Care Team (Latest Contact Info) Description 05/18/2025 11:15 AM EDT Procedure Visit [facility] [address] [place], [place] [phone] Dayna Juarez CNM [address] [place], [place] [phone] Routine cervical smear (Primary Dx); Sebaceous cyst of skin of left breast Social History Tobacco Use Types Packs/Day Years Used Date Smoking Tobacco: Never Smokeless Tobacco: Never Alcohol Use Standard Drinks/Week Comments Yes 2 (1 standard drink = 0.6 oz pur e alcohol) Special occasions Depression Answer Date Recorded Patient Health Questionnaire-9 Score 14 05/18/2025 Patient Health Questionnaire-9 Score 14 05/18/2025 Last PHQ-9: Questionnaire Data Not on file 0 05/18/2025 Housing Stability Answer Date Recorded What is [...] Date Recorded Patient Health Questionnaire-2 Score 4 05/18/2025 Internet Access Answer Date Recorded Internet Access Q1 No 10/14/2024 Internet Access Q2 I do not want or need it 10/03 Comments No Sex and Gender Information Value Date Recorded Sex Assigned at Female 07/02/2022 10:14 AM EDT Legal Sex Female 10:14 AM EDT Gender Identity Female 07/02/2022 10:14 AM EDT Sexual Orientation Don't know 07/02/2022 10 :14 AM EDT documented as of this encounter Last Filed Vital Signs Vital Sign Reading Time Taken Comments Blood Pressure 160/74 05/18/2025 11:08 AM EDT Pulse 79 05/18/2025 11:08 AM EDT Temperature 36.7 C (98 F) 05/18/2025 11:08 AM EDT Respiratory Rate 16 05/18/2025 11:0 8 AM EDT Oxygen Saturation 99% 05/18/2025 11: 08 AM EDT Inhaled Oxygen Concentration - - Weight 77.9 kg (171 lb 12.8 oz) 025 11:08 AM EDT Height - - Body Mass Index 32.46 01/27/2025 9:02 AM EDT documented in this encounter Functional Status * Over the past 2 weeks, how often have you been bothered by any of the following problems? Question Answer Date of Assessment Author Patient Health Questionnaire -2 Score 4 05/18/2025 11:10 AM EDT Adela Lopez MA * Little interest or pleasure in doing things Answer Date of Assessment Author More than half the days 05/18/2025 11:10 AM EDT Adela Lopez MA * Feeling down, depressed, or hopeless Answer Date of Assessment Author More than half the days 05/18/2025 11:10 AM EDT Adela Lopez MA * Trouble falling or staying asleep, or sleeping too much Answer Date of Assessment Author More than half the days 05/18/2025 11:10 AM EDT Adela Lopze MA * Feeling tired or having little energy Answer Date of Assessment Author More than half the days 05/18/2025 11:10 AM Adela Martinez MA * Poor appetite or overeating Answer Date of Assessment Author Not at all 05/18/2025 11:10 AM EDT Adela Lopez MA * Feeling bad about yourself - or that you are a failure or have let yourself or your family down Answer Date of Assessment Author More than half the days 05/18/2025 11:10 AM EDT Adela Lopez MA * Trouble concentrating on things, such as reading the newspaper or watching television Answer Date of Assessment Author More than half the days 05/18/2025 11:10 AM Adela Martinez MA * Moving or speaking so slowly that other people could have noticed? Or the opposite - being so fidgety or restless that you have been moving around a lot more than usual. Answer Date of Assessment Author More than half the days 05/18/2025 11:10 AM EDAdela Huber MA * Thoughts that you would be better off or hurting yourself in some way Answer Date of Assessment Author Not at all 05/18/2025 11:10 AM Adela Martinez MA * Patient Health Questionnaire-9 Score Answer Date of Assessment Author 14 05/18/2025 11:10 AM Adela Martinez MA * How difficult have these problems made it for you to do your work, take care of things at home, or get along with other people? Answer Date of Assessment Author Somewhat difficult 05/18/2025 11:10 AM EDT Adela Ventura MA documented as of this encounter Progress Notes * Dayna Juarez CNM - 05/18/2025 11:15 AM EDT Subjective Patient ID: Anneliese Stern is a 64 y.o. female who presents for pap Here for routine INTERVENTIONAL PHYSIATRIST visit. Pap NIL/HPV neg 10/2020. Mammogram BIRADS 2, cat b 10/2024. BMD ordered 10/2024, hasn't had appointment. Menopausal at 46. No current partner. Lives with brother, no safety concerns. No vaginal or urinarysymptoms. Notes painful lump on left breast for past few weeks. No other breast symptoms. Review of Systems Genitourinary: Negative for dyspareunia, dysuria, frequency, genital sores, hematuria, menstrual problem, pelvic pain, urgency, vaginal bleeding, vaginal discharge and vaginal pain. No abnormal pap, no abnormal bleeding, no nipple discharge Objective BP (!) 160/74 (BP Location: Left arm, Patient Position: Sitting, BP Cuff Size: Adult) Pulse 79 Temp 98 ??F (36.7 ??C) (Oral) Resp 16 Wt 171 lb 12.8 oz (77.9 kg) SpO2 99% BMI 32.46 kg/m?? Physical Exam Outbound Sales Professional present: declines announcer. Constitutional: Appearance: Normal appearance. Chest: Breasts: Right: Normal. No swelling, bleeding, inverted nipple, mass, nipple discharge, skin change or tenderness. Left: Mass and tenderness present. No swelling, bleeding, inverted nipple, nipple discharge or skinchange. Comments: BB sized sebaceous cyst 11 oclock left breast. No exudate or erythema Abdominal: General: A surgical scar is present. Genitourinary: General: Normal vulva. Labia: Right: No rash, tenderness, lesion or injury. Left: No rash, tenderness, lesion or injury. Vagina: Normal. No signs of injury and foreign body. No vaginal discharge, erythema, tenderness, bleeding or lesions. Cervix: No cervical motion tenderness, discharge, friability, lesion, erythema, cervical bleeding or eversion. Uterus: Normal. Not enlarged and not tender. Adnexa: Right adnexa normal and left adnexa normal. Right: No mass, tenderness or fullness. Left: No mass, tenderness or fullness. Comments: Ovaries non palpable bilaterally. Lymphadenopathy: Upper Body: Right upper body: No supraclavicular or axillary adenopathy. Left upper body: No supraclavicular or axillary adenopathy. Neurological: Mental Status: She is alert. Psychiatric: Mood and Affect: Mood normal. Behavior: Behavior normal. Assessment/Plan Diagnoses and all orders for this visit: Routine cervical smear - Pap Smear Co-test 5 years if normal/HPV negative. May also discuss discontinuing screening as no prior abnormal and last pap NIL/HPV neg. Routine mammography. Report bleeding. Will have [place] refax BMD order. Sebaceous cyst of skin of left breast Reassured, not worrisome. Trial hot compresses for next week. If not resolved, and still bothersome, can refer to surgeon for removal. documented in this encounter Plan of Treatment Upcoming Encounters Date Type Department Care Team (Late st Contact Info) Description 06/15/2025 11:00 AM EDT Office Visit [address] [address] 07/07/2025 9:45 AM EST Office Visit [address] [address] Mandie Fields FNP [address] [place] [address] Scheduled Orders Name Type Priority Associated Diagnoses Orde r Schedule Pap Smear Pathology and Cytology Routine Routine cervical smear Ordered: 05/18/2025 documented as of this encounter Visit Diagnoses Diagnosis Routine cervical smear- Primary Screening for malignant neoplasm of the cervix Sebaceous cyst of skin of left breast documented in this encounter Additional Health Concerns Assessment Noted Time PHQ-9 Depression Total Score: 14 025 11:10 AM EDT documented as of this encounter Care Teams Machine Applicator Cementer Relationship Specialty Start Date End Date Mandie Fields FNP [address] [place] [phone] PCP - General Family Medicine 01/12/25 documented as of this encounter
--- OUTSIDE RECORDS SUMMARY | 2025-05-19 15:55 | XMS_ITS | Encounter Summary ---
Author Organization [employer] Address [address] [facility] 7t [place] [address] Care Team Providers Care Telecommunications Facility Examiner Name Role Phone Mandie Fields Primary Care Provider [phone] Mandie Fields Primary Care Provider [phone] Reason for Visit * Reason Comments Med Refill Encounter Details Date Type Department Care Team ([facility] [place] Contact Info) Description 03/29/2023 Refill [facility] [address] [place] [phone] Mandie Fields FNP [address] [place] [address] Moderate persistent asthma without complication Social History [...] Upcoming Encounters Date Type Department Care Team ([facility] Contact Info) Description 06/15/2025 11:00 AM EDT Office Visit [facility] [address] [place] [phone] 07/07/2025 9:45 AM EST Office Visit [facility] [address] [place] [address] Mandie Fields FNP [address] [place] [address] documented as of this encounter Visit Diagnoses Diagnosis Moderate persistent asthma without complication documented in this encounter Additional Health Concerns Assessment Noted Time PHQ-9 Depression Total Score: 10 022 10:45 AM EST documented as of this encounter Care Teams Telecommunications Facility Examiner Relationship Specialty Start Date End Date Mandie Fields FNP [address] [place] [address] PCP - General Family Medicine 05/01/22 01/11/25 Mandie Fields FNP [address] [place] [address] PCP - General Family Medicine 01/12/25 documented as of this encounter
--- OUTSIDE RECORDS SUMMARY | 2025-05-19 15:55 | XMS_ITS | Encounter Summary ---
Author Organization [employer] Address [address] [facility] [address] [place] [address] Care Team Providers Care Project Development Engineer Name Role Phone Mandie Fields Primary Care Provider [phone] Mandie Fields Primary Care Provider [phone] Encounter Details Date Type Department Care Team ([facility] st Contact Info) Description 08/15/2023 Abstract [facility] [address] [place] [address] Mandie Fields FNP [address] [place], [place] [phone] Social History Tobacco Use Types Packs/Day Years [...] Description 06/15/2025 11:00 AM EDT Office Visit [address] [address] 07/07/2025 9:45 AM EST Office Visit [address] [address] Mandie Fields FNP [address] [place] [phone] documented as of this encounter Visit Diagnoses Not on filedocumented in this encounter Additional Health Concerns Assessment Noted Time PHQ-9 Depression Total Score: 10 023 9:34 AM EST documented as of this encounter Care Teams Project Development Engineer Relationship Specialty Start Date End Date Mandie Fields FNP [address] [place] [phone] PCP - General Family Medicine 05/01/22 01/11/25 Mandie Fields FNP [address] [place] [address] PCP - General Family Medicine 01/12/25 documented as of this encounter
--- OUTSIDE RECORDS SUMMARY | 2025-05-19 15:55 | XMS_ITS | Encounter Summary ---
Author Organization [employer] Address [address] [facility] 7t [place] [address] Care Team Providers Care Network Lead Name Role Phone Mandie Fields IVANIA Primary Care Provider [phone] Reason for Visit * Reason Onset Date Comments chart prep 05/17/2025 Encounter Details Date Type Department Care Team ([facility] st Contact Info) Description 05/17/2025 Telephone [facility] [address] [place] [address] Dayna Juarez CNM [address] [place] [address] chart prep Social History Tobacco Use Types Packs/Day Years [...] encounter Miscellaneous Notes * Telephone Encounter - Candelaria Conroy MA - 05/17/2025 10:05 AM EDT Chart Prep Labs: not applicable Images: not applicable Referrals: not applicable Vaccines due: Flu and RSV Screenings: pap smear Overdue care gaps: PHQ-9 and Disability screen documented in this encounter Plan of Treatment Upcoming Encounters Date Type Department Care Team ([facility] st Contact Info) Description 06/15/2025 11:00 AM EDT Office Visit [facility] [address] [place] [phone] 07/07/2025 9:45 AM EST Office Visit [facility] [address] [place] [phone] Mandie Fields FNP [address] [place] [address] documented as of this encounter Visit Diagnoses Not on filedocumented in this encounter Additional Health Concerns Assessment Noted Time PHQ-9 Depression Total Score: 11 025 9:09 AM EST documented as of this encounter Care Teams Network Lead Relationship Specialty Start Date End Date Mandie Fields FNP [address] [place] [phone] PCP - General Family Medicine 01/12/25 documented as of this encounter
--- OUTSIDE RECORDS SUMMARY | 2025-05-19 15:55 | XMS_ITS | Clinical Summary ---
Author Organization [employer] Address [address] [facility] 7t [place] [address] Care Team Providers Care Preflight Inspector Name Role Phone Mandie Fields APRN Primary Care Provider [phone] Allergies Active Allergy Reactions Criticality Noted Date [...] mouth Once per day. 03/23/20 25 Active Active Problems Problem Noted Date Diagnosed Date [...] weekly 12/24/23 Endo consult May 2024 at [facility] - Dr. Mayorga. Reviewed DXA results and suspects DXA from December 2023 was an over-read. Suggested repeating DXA scan through PCP. Repeat ordered 11/03/24. Encouraged to continue with adequate intake of calcium and Vit D. Low weight bearing exercises. Long-term current use of opiate analgesic 2023 Overview (01/14/2025): Medication: Tramadol 50mg BID Indication: OA right knee Last DEVELOPER PROGRAMMER Agreement: 01/12/25 Tier II (visit every 3 [...] to GI placed 10/28/24 -Optometry: referral to [facility] eye care previously placed -Last comprehensive exam: 10/28/24 Assessment & Plan (11/03/2024 6:23 PM EST): -Pap: 09/27/20 NIL/HPV neg -Smoking status: former -Mammo: BIRADS 2 on 12/18/23. Noted 7-8cm encapsulated area of normal breast tissue in the anterior half of upper outer quadrant of left breast which is veterans contact representative of a hamartoma (benign) -DEXA: December 2023, osteoporosis. Next due: December 2025. -Colonoscopy: December 2014, normal. Referral to GI placed 10/28/24 -Optometry: referral to [facility] eye care previously placed -Last comprehensive exam: 10/28/24 Assessment & Plan (09/05/2023 10:12 AM EST): -Pap: 09/27/20 NIL/HPV neg -Smoking status: former -Mammo: BIRADS 2020, repeat pending -DEXA: Jun 2019, osteopenia T-score -1.8. Re-ordered 09/05/23. -Colonoscopy: December 2014, normal. -Optometry: referral to [facility] eye care previously placed Assessment & Plan (08/15/2023 6:34 PM EST): -Pap: 09/27/20 NIL/HPV neg -Smoking status: former -Mammo: BIRADS 2020, repeat pending -DEXA: Jun 2019, osteopenia T-score -1.8 -Colonoscopy: reports UTD, although not currently in record. -Optometry: referral to [facility] eye care previously placed Assessment & Plan (03/17/2023 12:19 PM EDT): Pap/Results: 09/27/20 Smoking status: former smoker Mammo: 10/11/20 Bi-Rads 2, order placed March 2023 DEXA 06/2019: osteopenia, T-score: -1.8, on vitamin D and calcium citrate through endo C-scope: last on file 2014, per pt had recent colonoscopy at [facility], unable to find in [facility] chart Vaccine: PCV20 administered in office today Assessment & Plan (08/03/2022 10:48 AM EST): PHQ: 9, pt to f/u with behavioral health STI: Denies Pap/Results: 09/27/20 Smoking status: former smoker Mammo: 10/11/20 Bi-Rads 2 DEXA 06/2019: osteopenia, T-score: -1.8, on vitamin D and calcium citrate through endo C-scope: last on file 2014, per pt had recent colonoscopy at [facility], unable to find in [facility] chart Vaccine: Received J&J, due for Booster, advised pt to go to walk-in vaccine clinic after visit to see if she can be scheduled History of malignant neoplasm of thyroid 022 Overview (11/03/2024): - 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 - Following with [facility] Endo/Dr. Mayorga/Dr. Herzog - December 2023: Thyroid US demonstrated numerous bilateral thyroid nodules, some pathologically enlarged and further showing atypical architectural features. Reviewed by Dr. Mayorga, plan repeat December 2024. Consult May 2024: [facility] Endo - Dr. Mayorga. Med hx of [...] 50mg BID PRN severe pain. Engaged with DEVELOPER PROGRAMMER Program Assessment & Plan (05/11/2025 1:00 PM [...] and SE. Will need to establish with DEVELOPER PROGRAMMER team. Interested in group visits. -Narcan PRN Assessment & Plan (08/15/2023 6:31 PM EST): -Continues with Tramadol 50mg BID. Reviewed med safety and SE. Will need to establish with DEVELOPER PROGRAMMER team. Interested in group visits. -Narcan PRN Vitamin D deficiency 05/27/2018 Allergic rhinitis 07/25/2015 Depressive disorder 07/25/2015 Assessment & Plan (10/28/2024 9:13 AM EST): -Continue following with [facility] Reyna -Cont current med regimen: buspirone 15mg BID and citalopram 20mg daily Assessment & Plan (08/14/2023 9:19 AM EST): -Continue following with [facility] Reyna -Cont current med regimen: buspirone 15mg [...] History of thyroid CA now followed by [facility] Endo Continues with levothyroxine 137 mcg daily TSH goal: 0.1-0.5 Assessment & Plan (09/05/2023 10:11 AM EST): -History of thyroid CA followed by [facility] Endo -Last TSH WNL May 2022 -Continues with levothyroxine 112mcg daily -Upcoming appt scheduled Oct 2023 w/ Endo Assessment & Plan (08/13/2023 8:04 PM EST): -History of thyroid CA followed by [facility] Endo -Last TSH WNL May 2022 -Continues with levothyroxine 112mcg daily Psoriasis 07/25/2015 Assessment & Plan (11/03/2024 6:24 PM EST): Previous tx with topicals - Dovonex and Diprolene Referral to [facility] Derm team sent 08/14/23, re-sent on 11/03/24 Follow up with any worsening or persistence of symptoms Assessment & Plan (09/04/2023 8:44 AM EST): Currently tx with topicals - Dovonex and Diprolene Referral to [facility] Derm team sent 08/14/23 Follow up with any worsening or persistence of symptoms Assessment & Plan (08/15/2023 6:34 PM EST): Currently tx with topicals - Dovonex and Diprolene Referral to [facility] Derm team sent 08/14/23 Follow up with [...] organization. Date Type Department Care Team Description 05/18/2025 11:15 AM EDT Procedure Visit [facility] [address] [place] [address] Dayna Juarez CNM Routine cervical smear (Primary Dx); Sebaceous cyst of skin of left breast 05/18/2025 Travel 05/17/[address] [facility] [address] [place] [address] Dayna Juarez CNM chart prep 05/11/2025 11:00 AM EDT Office Visit [facility] [address] [place] [address] Mandie Fields FNP Primary osteoarthritis of both knees (Primary Dx); Long-term current use of opiate analgesic 05/11/2025 Travel 05/07/2025 2:00 PM EDT Office Visit [facility] ADULT DENTAL [address] [place] [address] Carline Carnes 04/28/2025 Telephone [facility] MEDICINE [address] [place] [address] Mandie Fields FNP No Show 04/27/[address] 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); Hypertensive retinopathy of both eyes, grade 1; Pseudophakia of both eyes; Presbyopia of both eyes 04/02/2025 Travel 03/29/2025 Refill [facility] [address] [place] [address] Mandie Fields, APRN 03/23/2025 Refill [facility] [address] [place] [address] Jalyn Calix, RN Primary osteoarthritis of both knees 03/23/2025 Telephone [facility] [address] [place] [address] Mandie Fields, APRN 03/11/2025 Telephone [facility] [address] [place] [address] Jalyn Calix RN 03/10/2025 Refill [facility] [address] [place] [address] Mandie Fields, APRN Moderate persistent asthma without complication; Seasonal allergic rhinitis, unspecified trigger 03/02/2025 Refill [facility] [address] [place] [address] Mandie Fields, APRN Moderate persistent asthma without complication 02/22/2025 Refill [facility] [address] [place] [address] Donnie Mandie, APRN Primary osteoarthritis of both knees 02/18/2025 Refill [facility] [address] [place] [address] Mandie Fields, APRN Psoriasis; Depressive disorder from Last 3 Months Immunizations Immunization Administration [...] 12.8 oz) 025 11:08 AM EDT Height 154.9 cm (5' 1 ) 01/27/2025 9:02 AM EDT Body Mass Index 32.46 01/27/2025 9:02 AM EDT Plan of Treatment Upcoming Encounters Date Type Department Care Team (Late st Contact Info) Description 06/15/2025 11:00 AM EDT Office Visit [facility] MEDICINE [address] [place] [phone] 07/07/2025 9:45 AM EST Office Visit [facility] MEDICINE [address] [place] [phone] Mandie Fields, APRN [address] [place] [address] Health Maintenance Due Date Last Done Comments CT Colonography 1959 Dental X-Ray: Full Mouth 1960 FIT DNA/Cologuard 1960 FIT 1960 FOBT 1960 Sigmoidoscopy 1960 RSV Patients and Patients Aged 60 years or older (1 - Risk 60-74 years 1-dose series) 2019 Colonoscopy 12/02/2024 12/02/2014 Colorectal Cancer Screening 12/02/2024 COVID-19 Vaccine ( season) 2025 07/11/2021, 11/23/2020 Influenza Vaccine (#1) 2025 , 08/14/2023, 08/03/2022, Additional history exists Cervical Cancer Screening 10/09/2025 HPV/Cotest 10/09/2025 10/09/2020 Pap Smear 10/09/2025 10/09/2020, 11/24/2014 SDOH Screening 10/14/2025 10/14/2024 Diabetes: Hemoglobin A1C 10/28/2025 025, 10/03/2023, 07/11/2021, Additional history exists Dental Oral Exam 11/05/2025 05/07/2025 Dental Prophylaxis 11/05/2025 05/07/2025 Depression Monitoring 11/15/2025 05/18/2025, 025 Mammogram 01/06/2026 01/06/2025, 041 03/2024, 10/13/2020, Additional history exists Alcohol/Substance Use Screening 01/27/2026 01/27/2025 Dental X-Ray: Bitewings 05/08/2026 05/07/2025 Tobacco Screening 05/18/2026 05/18/2025 Lipid Panel 10/28/2029 10/28/2024, 02/0 09/2023, 07/11/2021, [...] EDT Long-term current use of opiate analgesic DRUG MONITOR, COCAINE METAB, QN, URINE Routine 05/11/2025 11:00 AM EDT Long-term current use of opiate [...] 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 06/08/26 Internal Pass Control Mandie Fields APRN POINT OF CARE TEST ENTER/EDIT ORDERABLES Final Result * Drug Monitoring, Cocaine Metabolite, Quantitative, Urine (05/11/2025 11:00 AM EDT) Benzoylecgonine 160 [facility] Comment:CUTOFF 100 NG/MLPERF [facility] SITE:[employer] [facility], [address] [place], [place] [id number] Academic Coach: LAYTON BUSBY MD, CLIA:[id number] Cocaine Comments SEE NOTE [facility] Comment:This drug testing is for medical treatment only. Analysiswas performed as non-forensic testing and these resultsshould be used only by healthcare providers to renderdiagnosis or treatment, or to monitor progress of medicalconditions.Benzoylecgonine detected is consistent with the use of thedrug Cocaine.Confirmation tests were developed and their analyticalperformance characteristics have been determined by [employer]. It has not been cleared or approved by the FDA.This assay has been validated pursuant to the CLIAregulations and is used for clinical purposes.Healthcare Providers needing Interpretation assistance,please contact us at [phone] ( ) M-F,8am to 10pm EST Urine (Urine, Random) 05/11/2025 11:00 AM EDT 05/11/2025 1:47 PM EDT Mandie Fields [facility] URINE ORDERABLES Final Res ult [facility] [address] [place] [phone] * OCT, Optic Nerve - OU - Both Eyes (04/02/2025 9:30 AM EDT) Narrative Tammy Culver, OD - 04/20/2025 1:47 PM EDT Images [...] time. Will monitor at her next exam. us Tammy Culver OD OPHTH TOMOGRAPHY Final Result * BI Mammogram Screening Tomosynthesis Bilateral (01/06/2025 12:52 PM EDT) Anatomical Region Laterality Modality Breast Bilateral Mammography 01/06/2025 12:5 2 PM EDT Narrative 01/11/2025 3:35 PM EDT [facility] [address] [place], [place] [address] Mammography Report Signed Patient: Anneliese Stern MR#: [id number] : 1960 Acct:[id number] Age/Sex: 64 / F ADM Date: 01/06/25 Loc: HO.MAMMO Attending Dr: Mandie Fields APRN Ordering Physician: Mandie Fields APRN Results: 2Benig n Findings Date of Service: 01/06/25 Follow Up: 1 Year From Orig inal Mammogram Procedure(s): MM tomosynthesis screening BI Accession Number(s): [id number] cc: Mandie Fields APRN EXAMINATION: MM SCREENING DIGITAL BREAST TOMOSYNTHESIS, BILATERAL [...] 01/11/25 1532 DD/ 1252 TD/TT: 01/06/25 1302 Network Firewall Engineer: Procedure Note Donotuseinterpreter, Image - 01/11/2025 [facility] [address] [place] [address] [place] [address] Mammography Report Signed Patient: Anneliese SternMR#: [id number] : 1960Acct:[id number] Age/Sex: 64 / FADM Date: 01/06/25 Loc: HO.MAMMO Attending Dr: Mandie Fields APRN Ordering Physician: Mandie Fields FNPResults: 2Benig n Findings Date of Service: 01/06/25Follow Up: 1 Year From Orig inal Mammogram Procedure(s): MM tomosynthesis screening BI Accession Number(s): [id number] cc: Mandie Fields EXAMINATION: MM SCREENING DIGITAL [...] 01/11/25 1532 DD/ 1252 TD/TT: 01/06/25 1302 Network Firewall Engineer: Mandie GONZALESP IMG BI PROCEDURES Final Result * Hepatitis C Viral RNA, Quantitative, Real-Time PCR (10/28/2024 10:15 AM EST) Hepatitis C Viral Load <15 NOT DETECTED NOT DETECTED IU/mL [facility] HCV Log PCR <1.18 NOT DETECTED NOT DETECTED Log IU/mL [facility] Comment:For additional infor melchor, please refer tohttp://education.[employer]/faq/OVU16i2(This link is being provided for informational/educational purposes only.)THIS TEST WAS PERFORMED AT:[facility] [place] [phone] BUSBY MD Blood 10/28/2024 10:1 5 AM EST 10/28/2024 11:08 AM EST Mandie Fields [facility] BLOOD ORDERABLES Final Res ult Performing Organization Address [facility] de Phone Number [facility] [address] [place] [phone] * Hemoglobin A1c (10/28/2024 10:15 AM EST) Hemoglobin A1c 5.8 <6.0 % [facility] Comment:Hemoglobin A1C Refer ence Range Adults: 4.8 - 6.0 % Non diabetic: < 6.0 % Goal: < 7.0 %Additional Action Suggested: > 8.0 %Note: Hemoglobin A1c results are invalid for patients with abnormal amounts of HbF. Blood transfusions may impact the HbA1c concentration in the patient sample. Estimated Average Glucose 120 mg/dL [facility] Comment:eAG = Estimated ave rage glucose which is %A1C expressed asaverage glucose, using the formula of the F5A-YxofarzEruvrvm Glucose study (ADAG), Diabetes Care, Vol.31,#8,2007 Blood Venous blood specimen / Unknown 10/28/2024 10:15 AM EST 10/28/2024 11:08 AM EST Mandie Fields APRN LAB BLOOD ORDERABLES Final Res ult Performing Organization Address [facility] Co de Phone Number [facility] [address] [place] [address] [phone] * Lipid Panel, Standard (10/28/2024 10:15 AM EST) Triglycerides 93 <150 mg/dL [facility] Comment:Desirable Triglyceri de: less than 150 mg/dLBorderline High Triglyceride 150-199 mg/dLHigh Triglyceride: 200-499 mg/dLVery High Triglyceride: greater than or equal to 5OO mg/dL Cholesterol 172 <200 mg/dL [facility] Comment:Desirable Cholestero l: less than 200 mg/dLBorderline High Cholesterol: 200-239 mg/dLHigh Cholesterol: greater than 239 mg/dL LDL Cholesterol Calculated 97 <100 mg/dL [facility] Comment:Desirable LDL: less than 100 mg/dLNear Optimal/Above Optimal LDL: 110- 129 mg/dLBorderline High LDL: 130-159 mg/dLHigh LDL: 160-189 mg/dLVery High LDL: greater than or equal to 190 mg/dL HDL Cholesterol 57 >40 mg/dL [facility] Comment:Desirable HDL: great er than 40 mg/dL Note: This HDL assay may give artificially low results in patients with liver disease. Blood Venous blood specimen / Unknown 10/28/2024 10:15 AM EST 10/28/2024 11:08 AM EST us Mandie Fields [facility] LAB BLOOD ORDERABLES Final Res ult [facility] [address] [place] [phone] * HPV DNA, HIGH RISK, CERVICAL [...] NUMBER: 10/09/2020 3:12 PM EST Nathaly Lazaro NP HISTORICAL/NON ORDERABLE LABS Fi nal Result Performing Organization Address [facility] Co de Phone Number [facility] [address] [place] [address], * THINPREP PAP (10/09/2020 3:12 PM EST) [...] along with historic and current clinical information. Eyelet Punch Operator: SEE COMMENT [facility] Comment: SXA, CT(ASCP) CT screening location: [place] [address] Interpretation/Res ult: SEE COMMENT [facility] [...] NP LAB PATHOLOGY ORDERABLES Final R esult Performing Organization Address [facility] Co de Phone Number [facility] [address] [place] [address], * Hm Colonoscopy (12/02/2014) Colonoscopy Normal Repeat in 10 yrs Historical Provider HEALTH MAINTENANCE Edited Result - Final from Last 3 Months or Most Recently Relevant to Health Maintenance Insurance [facility] STANDARD [facility] M[employer] OPTIONS (HMO D-SNP) DENTAL [facility] Care Teams Preflight Inspector Relationship Specialty Start Date End Date Mandie Fields FNP [address] [place] [address] PCP - General Family Medicine 01/12/25
--- OUTSIDE RECORDS SUMMARY | 2025-05-19 15:55 | XMS_ITS | Encounter Summary ---
Author Organization [employer] Address [address] [facility] 7t [place] [address] Care Team Providers Care Outpatient Surgery Rn Name Role Phone Mandie Fields Primary Care Provider [phone] Mandie Fields Primary Care Provider [phone] Reason for Visit * Reason Comments Med Refill Encounter Details Date Type Department Care Team ([facility] Contact Info) Description 04/04/2023 Refill [facility] MEDICINE [address] [place] [phone] Mandie Fields FNP [address] [place] [address] Moderate persistent asthma without complication Social History [...] Upcoming Encounters Date Type Department Care Team ([facility] Contact Info) Description 06/15/2025 11:00 AM EDT Office Visit [facility] MEDICINE [address] [place] [phone] 07/07/2025 9:45 AM EST Office Visit [facility] MEDICINE [address] [place] [address] Mandie Fields FNP [address] [place] [address] documented as of this encounter Visit Diagnoses Diagnosis Moderate persistent asthma without complication documented in this encounter Additional Health Concerns Assessment Noted Time PHQ-9 Depression Total Score: 10 022 10:45 AM EST documented as of this encounter Care Teams Outpatient Surgery Rn Relationship Specialty Start Date End Date Mandie Fields FNP [address] [place] [address] PCP - General Family Medicine 05/01/22 01/11/25 Mandie Fields FNP [address] [place] [address] PCP - General Family Medicine 01/12/25 documented as of this encounter
--- OUTSIDE RECORDS SUMMARY | 2025-05-19 15:55 | XMS_ITS | Encounter Summary ---
Author Organization [employer] Address [address] [facility] 7t [place] [address] Care Team Providers Care Esthetician Name Role Phone Mandie Fields LIGHT CLEANER Primary Care Provider [phone] Encounter Details Date Type Department Care Team (Latest Contact Info) Description 05/18/2025 Travel Social History Tobacco Use Types Packs/Day [...] AM EDT Adela Lopez MA * Feeling tired or having little energy Answer Date of Assessment Author More than half the days 05/18/2025 11:10 AM EDT Adela Lopez MA * Poor appetite or overeating Answer [...] 11:10 AM EDT Adela Lopez MA * Moving or speaking so slowly that other people could have noticed? Or the opposite - being so fidgety or restless that you have been moving around a lot more than usual. Answer Date of Assessment Author More than half the days 05/18/2025 11:10 AM EDT Adela Lopez MA * Thoughts that you would be better off or hurting yourself in some way Answer Date of Assessment Author Not at all 05/18/2025 11:10 AM EDT Adela Lopez MA * Patient Health Questionnaire-9 Score Answer Date of Assessment Author 14 05/18/2025 11:10 AM EDT Adela Lopez MA * How difficult have these problems made it for you to do your work, take care of things at home, or get along with other people? Answer Date of Assessment Author Somewhat difficult 05/18/2025 11:10 AM EDT Adela Ventura MA documented as of this encounter Plan of Treatment Upcoming Encounters Date Type Department Care Team (Late st Contact Info) Description 06/15/2025 11:00 AM EDT Office Visit [address] [address] 07/07/2025 9:45 AM EST Office Visit [address] [address] Mandie Fields FNP [address] [place] [address] documented as of this encounter Visit Diagnoses Not on filedocumented in this encounter Additional Health Concerns Assessment Noted Time PHQ-9 Depression Total Score: 025 11:10 AM EDT documented as of this encounter Care Teams Esthetician Relationship Specialty Start Date End Date Mandie Fields FNP [address] [place] [phone] PCP - General Family Medicine 01/12/25 documented as of this encounter
--- OUTSIDE RECORDS SUMMARY | 2025-05-19 15:55 | XMS_ITS | Encounter Summary ---
Author Organization [employer] Address [address] [facility] 7t [place] [address] Care Team Providers Care Wet Process Assistant Head Miller Name Role Phone Mandie Fields Primary Care Provider Mandie Fields Primary Care Provider [phone] Reason for Visit * Reason Onset Date Comments partialsl broke again 02/13/2023 Encounter Details Date Type Department Care Team ([facility] st Contact Info) Description 02/13/2023 Telephone [facility] ADULT DENTAL [address] [place] [address] Desmond Chun, DMD [address] [place] [address] partialsl broke again Social History Tobacco Use [...] Description 06/15/2025 11:00 AM EDT Office Visit [facility] MEDICINE [address] [place] [phone] 07/07/2025 9:45 AM EST Office Visit [address] [address] Mandie Fields FNP [address] [place] [phone] documented as of this encounter Visit Diagnoses Not on filedocumented in this encounter Additional Health Concerns Assessment Noted Time PHQ-9 Depression Total Score: 10 022 10:45 AM EST documented as of this encounter Care Teams Wet Process Assistant Head Miller Relationship Specialty Start Date End Date Mandie Fields FNP [address] [place] [phone] PCP - General Family Medicine 05/01/22 01/11/25 Mandie Fields FNP [address] [place] [address] PCP - General Family Medicine 01/12/25 documented as of this encounter
--- OUTSIDE RECORDS SUMMARY | 2025-05-19 15:55 | XMS_ITS | Patient Health Record ---
Author Organization [facility] Address [address] [place] [address] Care Team Providers Care Architectural Technologist Name Role Phone RAMON ARELLANO MD Primary Care Provider Delon Dobson Jr [phone] Reason For Referral No Information Encounters Encounter Location Date Provider Diagnosis [facility] [address] [place] [phone] 12/24/2024 Delon Torres Jr [facility] [address] [place] [address] 02/01/2025 Delon Torres Jr Plan Of Treatment No Information Insurance Providers Payer Name Payer Address Payer Phone Subscriber Number Group Number Insured Name Patient Relationship to Insured Coverage Start Date Coverage End Date [facility] [address] [address] [place] [address] [phone] [id number] ANGEL HERRERA Self - patient is the insured
--- OUTSIDE RECORDS SUMMARY | 2025-05-19 15:56 | XMS_ITS | Encounter Summary ---
Author Organization [employer] Address [address] [facility] 7t [place] [address] Care Team Providers Care Supervisor Varnish Name Role Phone Mandie Fields Primary Care Provider [phone] Mandie Fields Primary Care Provider [phone] Reason for Visit * Reason Comments Med Refill Encounter Details Date Type Department Care Team ([facility] Contact Info) Description 11/14/2022 Refill [facility] CHC MED & PEDS [address] [place], [place] [phone] Mandie Fields FNP [address] [place] [address] Moderate persistent asthma without complication (Primary Dx) [...] Upcoming Encounters Date Type Department Care Team ([facility] Contact Info) Description 06/15/2025 11:00 AM EDT Office Visit [facility] MEDICINE [address] [place], [place] [phone] 07/07/2025 9:45 AM EST Office Visit [facility] MEDICINE [address] [place] [address] Mandie Fields FNP [address] [place] [address] documented as of this encounter Visit Diagnoses Diagnosis Moderate persistent asthma without complication- Primary documented in this encounter Additional Health Concerns Assessment Noted Time PHQ-9 Depression Total Score: 10 022 10:45 AM EST documented as of this encounter Care Teams Supervisor Varnish Relationship Specialty Start Date End Date Mandie Fields FNP [address] [place] [address] PCP - General Family Medicine 05/01/22 01/11/25 Mandie Fields FNP [address] [place] [address] PCP - General Family Medicine 01/12/25 documented as of this encounter
--- OUTSIDE RECORDS SUMMARY | 2025-05-19 15:56 | XMS_ITS | Encounter Summary ---
Author Organization [employer] Address [address] [facility] 7t [place] [address] Care Team Providers Care Fruit Inspector Name Role Phone Mandie Fields Primary Care Provider [phone] Mandie Fields Primary Care Provider [phone] Encounter Details Date Type Department Care Team (Latest Contact Info) Description 03/16/2019 Abstract [facility] CONVERSION[facility] Dental, Provider, DDS Social History Tobacco [...] Care Team ( st Contact Info) Description 06/15/2025 11:00 AM EDT Office Visit [facility] MEDICINE [address] [place] [address] 07/07/2025 9:45 AM EST Office Visit [facility] [address] [place] [address] Mandie Fields FNP [address] [place] [address] documented as of this encounter Visit Diagnoses Not on filedocumented in this encounter Care Teams Fruit Inspector Relationship Specialty Start Date End Date Mandie Fields FNP [address] [place] [address] PCP - General Family Medicine 05/01/22 01/11/25 Mandie Fields FNP [address] [place] [address] PCP - General Family Medicine 01/12/25 documented as of this encounter
--- OUTSIDE RECORDS SUMMARY | 2025-05-19 15:56 | XMS_ITS | Encounter Summary ---
Author Organization [employer] Address [address] [facility] 7t [place] [address] Care Team Providers Care Cooker Sulfate Name Role Phone Mandie Fields Primary Care Provider [phone] Mandie Fields Primary Care Provider [phone] Reason for Visit * Reason Onset Date Comments FYI 12/26/2023 Encounter Details Date Type Department Care Team (Late st Contact Info) Description 12/26/[address] [facility] MEDICINE [address] [place] [address] Mandie Fields FNP [address] [place], [place] [phone] FYI Social History Tobacco Use Types Packs/Day [...] - 12/30/2023 9:08 AM EDT Call to [facility], at [phone], no answer, call continues to ring and does not forward to . * Telephone Encounter - Luisa Cox RN - 12/30/2023 9:06 AM EDT Call returned to [facility] at [phone] for triage. No answer, unable;e to [facility] as is full. Left SMS notification to return call to [facility] triage line [phone]. * Telephone Encounter - IVANIA Boswell - 12/30/2023 6:26 AM EDT Please attempt to call pt for triage s/p fall at home. Thank you! * Telephone Encounter - Wing Delbert RN - 12/27/2023 1:52 PM EDT Just as a FYI. Tc to [facility] regarding pt's fall. Unable to reach her and left message for her to callback. Attempted to call pt using [employer] [place], [place] [id number]. Housekeeping Associate unable to leave messagedue to mailbox being full. * Telephone Encounter - Esthela Paiz - 12/26/2023 4:15 PM EDT Tc from [facility] with caring [facility] calling to advise provider pt had a fall in home yesterday (12/24). States pt sustained no injuries. documented in this encounter Plan of Treatment Upcoming Encounters Date Type Department Care Team (Late st Contact Info) Description 06/15/2025 11:00 AM EDT Office Visit [address] [address] 07/07/2025 9:45 AM EST Office Visit [address] [address] Mandie Fields FNP [address] [place] [address] documented as of this encounter Visit Diagnoses Not on filedocumented in this encounter Additional Health Concerns Assessment Noted Time PHQ-9 Depression Total Score: 10 08/14/ 023 9:34 AM EST documented as of this encounter Care Teams Cooker Sulfate Relationship Specialty Start Date End Date Mandie Fields FNP [address] [place] [address] PCP - General Family Medicine 05/01/22 01/11/25 Mandie Fields FNP [address] [place] [address] PCP - General Family Medicine 01/12/25 documented as of this encounter
--- OUTSIDE RECORDS SUMMARY | 2025-05-19 15:56 | XMS_ITS | Encounter Summary ---
Author Organization [employer] Address [address] [facility] 7[address] [place] [address] Care Team Providers Care Carbon Electrodes Supervisor Name Role Phone Mandie Fields Primary Care Provider [phone] Mandie Fields Primary Care Provider [phone] Reason for Visit * Reason Comments Med Refill Encounter Details Date Type Department Care Team ([facility] Contact Info) Description 04/10/2024 Refill [facility] CHC MED & PEDS [address] [place], [place] [phone] Mandie Fields FNP [address] [place], [place] [phone] Essential (primary) hypertension Social History Tobacco Use [...] Description 06/15/2025 11:00 AM EDT Office Visit [address] [address] 07/07/2025 9:45 AM EST Office Visit [address] [address] Mandie Fields FNP [address] [place] [address] documented as of this encounter Visit Diagnoses Diagnosis Essential (primary) hypertension Unspecified essential hypertension documented in this encounter Additional Health Concerns Assessment Noted Time PHQ-9 Depression Total Score: 10 023 9:34 AM EST documented as of this encounter Care Teams Carbon Electrodes Supervisor Relationship Specialty Start Date End Date Mandie Fields FNP [address] [place] [address] PCP - General Family Medicine 05/01/22 01/11/25 Mandie Fields FNP [address] [place] [address] PCP - General Family Medicine 01/12/25 documented as of this encounter
== END 2025-05-18 11:31 | disposition home or self-care (01) ==
LOC: HO.LNP 11:30
PROVIDERS: Visit Provider Advanced Practice Midwife
DX: Z12.4 Encounter for screening for malignant neoplasm of cervix (principal); Z11.51 Encounter for screening for human papillomavirus (HPV)
CPT/HCPCS: 87626; 88175

== ENCOUNTER 2025-08-21 16:32 | Emergency (ER) | payer OTHER, SELFPAY ==
--- OUTSIDE RECORDS SUMMARY | 2025-02-01 06:00 | XMS_ITS ---
Author Organization [facility] Address [address] [place] [phone] Care Team Providers Care Shift Production Associate Name Role Phone EILEEN TAVAREZ, RAMON Primary Care Provider Delon Dobson Jr REASON FOR VISIT Patient presents today for a COLON SCREENING Encounters Encounter Location Date Provider Diagnosis [facility] [address] [place] [phone] 02/01/2025 Delon Torres Jr Plan Of Treatment No Information Progress Notes * ANGEL HERRERADOB:1960 (64 yo F)Acc No.[id number]:02/01/2025 Progress Notes Patient: ANGEL GUZMAN Provider: Bonnie Torres MD :1960 A ge:64 Y S ex:Female Date:02/01/2025 Address:[address] [place] [address], [id number] Pcp:RAMON ARELLANO MD Subjective: * Chief Complaints: * P atient presents today for a COLON SCREENING * The named appointment provid er may or may not be the originator of this progress note, and it is not deemed complete until electronically signed by the appointment provider. Sign off status: Pending * Provider: Bonnie Torres MD Date: 0 02/01/2025 Generated for Zeus hu/Oz/Salvadoritting on: 10/22/2024 07:15 PM EST
[2025-08-21] VITALS (8 sets, daily range): BP systolic 174–212; BP diastolic 71–98; PULSE 68–84; RESP 14–20; TEMP 36.6–37.1; O2SAT 96–97; BMI 29.8
--- NOTE | 2025-08-21 | ECG_ITS ---
Test Reason : CP Blood Pressure : */* mmHG Vent. Rate : 84 BPM Atrial Rate : 84 BPM P-R Int : 118 ms QRS Dur : 82 ms QT Int : 382 ms P-R-T Axes : 50 33 36 degrees QTcB Int : 451 ms Normal sinus rhythm Nonspecific ST and T wave abnormality Abnormal ECG When compared with ECG of 23-Nov-2022 12:47, Nonspecific T wave abnormality no longer evident in Inferior leads QT has lengthened Referred By: Generic ED Physician Electronically Signed By: Jace Medina
--- NOTE | ~2025-08-21 | XR_ITS ---
CLINICAL HISTORY: chest pain 2 view chest x-ray Comparison: CR/PA/SR - XR RIBS 4 VIEWS BILATERAL WITH PA CHEST - 11/23/22 13:27 EDT Findings: No consolidation or effusion. Normal size heart. No acute fracture. IMPRESSION: 1. No acute findings. This document has been electronically signed by: Rik Stokes MD on 08/21/2025 17:46:36
--- NOTE | 2025-08-21 17:18 | ED.CHESTPAIN ---
HPI - Chest Pain General Chief Complaint: Chest Pain Stated Complaint: chest pain Time Seen by Provider: 08/21/25 19:09 History of Present Illness HPI narrative: patient is a 64-year-old female presents today with having chest pain. The chest pain is on the left side. It is not associated with shortness of breath or diaphoresis. Patient is from home. There is no fever no chills. There is no history of diabetes. Positive history of hypertension high cholesterol. Positive history of marijuana use. Never cigarettes. No heart attack. No family history of CA. the pain lasts 1-2 seconds is worse with turning her body to the left side. There is no pain on turning a body to the right. There is no new leg swelling. There is no travel history. Has a remote history of thyroid cancer over 10 years ago had surgery. Has not been on medication. No travel history. Patient is from home. Related Data Home Medications ?Medication ?Instructions ?Recorded ?Confirmed albuterol sulfate 90 mcg/actuation 2 puff inhalation Q6H PRN Wheezing 07/12/20 12/17/24 aerosol inhaler (ProAir HFA) buspirone 15 mg tablet 15 mg PO BID 07/12/20 12/17/24 citalopram 20 mg tablet 20 mg PO DAILY 07/12/20 12/17/24 calcipotriene 0.005 % topical 1 appl topical DAILY 10/19/21 12/17/24 ointment ferrous sulfate 325 mg (65 mg 325 mg PO DAILY 10/19/21 12/17/24 iron) tablet (FeroSul) albuterol sulfate 2.5 mg/3 mL 1 amp inhalation Q4-6H PRN SOB 11/16/22 12/17/24 (0.083 %) solution for nebulization atorvastatin 20 mg tablet 1 tab PO QPM 11/16/22 12/17/24 cholecalciferol (vitamin D3) 25 1 cap PO QAM 11/16/22 12/17/24 mcg (1,000 unit) capsule (Vitamin D3) fluticasone 500 mcg-salmeterol 50 1 puff inhalation Q12H 11/16/22 12/17/24 mcg/dose blistr powdr for inhalation (Advair Diskus) hydrochlorothiazide 25 mg tablet 1 tab PO DAILY 11/16/22 12/17/24 montelukast 10 mg tablet 1 tab PO BEDTIME 11/16/22 12/17/24 omeprazole 20 mg capsule,delayed 1 cap PO DAILY 11/16/22 12/17/24 release sennosides 8.6 mg tablet (senna) 1 - 2 tab PO QD-BID 11/16/22 12/17/24 tramadol 50 mg tablet 1 tab PO Q12H PRN severe pain 11/16/22 12/17/24 betamethasone dipropionate 0.05 % topical 10/08/23 12/17/24 topical ointment cetirizine 10 mg tablet 10 mg PO DAILY PRN allergies 10/08/23 12/17/24 fluticasone propionate 50 1 - 2 spray intranasal DAILY PRN 10/08/23 12/17/24 mcg/actuation nasal spray,suspension lidocaine 5 % topical patch patch topical 10/08/23 12/17/24 potassium chloride 20 mEq 20 meq PO Q4H 10/08/23 12/17/24 tablet,extended release(part/cryst) alendronate 70 mg tablet mg PO 05/19/24 12/17/24 olmesartan 20 mg tablet 20 mg PO DAILY 05/19/24 12/17/24 Previous Rx's ?Medication ?Instructions ?Recorded calcium citrate 500 mg (2 x 250 mg calcium) PO BID 07/27/25 #120 tabs Levoxyl 125 mcg tablet 125 mcg PO DAILY #30 tabs 08/03/25 (levothyroxine) Allergies Allergy/AdvReac Type Severity Reaction Status Date / Time acetaminophen (Percocet) Allergy Unknown Sneezing Verified 08/21/25 17:19 oxycodone (Percocet) Allergy Unknown Sneezing Verified 08/21/25 17:19 terazosin Allergy Unknown swelling/ti Uncoded 12/17/24 10:31 redness Review of Systems Review of Systems: Positive chest pain Yes all other systems are reviewed and are negative PMFSH Past Medical History Attestation statement: The following information was validated with the patient. Medical History Osteoporosis Depression Anxiety Asthma Dyslipidemia Hypertension Osteopenia Post-surgical hypothyroidism Primary thyroid cancer Surgical History Hx of breast surgery Hx of knee surgery Hx of thyroidectomy Family History Family History Father Unknown family medical history Mother Osteoporosis Diabetes Hypertension Social History Social History Household Members: Children Housing: Apartment Do you presently have visiting nurse or other home services: Yes (WORKFORCE MANAGER 1 HOUR /WEEK) Alcohol intake: current Alcohol intake frequency: holidays/special occasions only Alcohol type: beer Patient Tobacco Use Status: Former Tobacco user Substance Use Type: Marijuana Advance Directives: No Advance Directives Information Provided: No Do you have a plan to hurt others: No Plan service: No Current occupational status: retired Physical Exam Exam: Exam: Appearance: Alert. Oriented X3. No acute distress. Eyes: Pupils equal, round and reactive to light. ENT: Pharynx normal. Neck: Normal inspection. Neck supple. No lymph nodes noted. No crepitus CVS: Normal heart rate and rhythm. Pulses normal. Normal S1 and S2 Respiratory: No respiratory distress. Breath sounds normal. No Wheezing. No rales Abdomen: Soft and nontender. No rigidity. No distention. good BS x4 Skin: Skin warm and dry. Normal skin color. Normal skin turgor. Extremities: No lower extremity edema. Neurovascular intact to all extremities. No Lacerations. No Rash Neuro: Oriented X 3. No motor deficit. No sensory deficit. Moving all extermities. No slurred speech Vital Signs: Vital Signs: Last Vital Signs Temp 97.9 F 08/21/25 21:28 Pulse 76 08/21/25 21:28 Resp 16 08/21/25 21:28 BP 193/71 H 08/21/25 22:01 Pulse Ox 97 08/21/25 21:28 O2 Del Method Room Air 08/21/25 21:28 BMI result Body Mass Index 29.8 Course Course Course Narrative: Nancy Cortez FORMS ANALYST 08/21 1720 This is a rapid medical exam. deferred additional HPI, ROS and PE to primary provider. 64 yo female with history of thyroid cancer s/p treatment, asthma, HLD, HTN here with complaints of left sided chest pain x 5 days. Will obtain labs, EKG, CXR. VSS Medications Administered Discontinued Medications Generic Name Dose Route Start Last Admin Trade Name Freq PRN Reason Stop Dose Admin Hydrochlorothiazide 12.5 mg 08/21/25 21:16 08/21/25 21:32 Hydrochlorothiazide 12.5 Mg Tablet PO 08/21/25 21:17 12.5 mg ONCE ONE Administration Protocol Losartan Potassium 50 mg 08/21/25 21:16 08/21/25 21:32 Losartan Potassium 50 Mg Tablet PO 08/21/25 21:17 50 mg ONCE ONE Administration Protocol Medical Decision Making Medical Decision Making [facility] Narrative: My interpretation patient's EKG showed a sinus rhythm heart rate is 80 DE QRS QTC normal there is no acute ST segment elevation noted. Two sets of cardiac enzymes were done. They were negative. My interpretation patient's chest x-ray is grossly negative. There is no pneumonia there is no pneumothorax is no rib fracture. Patient's pain not consistent with PE. Low risk given history and exam not consistent. Will discharge patient home. Close follow-up advised. Patient's pain last 1-2 seconds atypical 2 sets of enzymes are negative she is slightly overweight she is 64 her heart score is a 3. Will need follow-up with cardiology on an outpatient basis. patient's blood pressure Improved but is still high. But blood pressure 193/73. Will discharge patient home. Ask patient to do repeat blood pressure check in a.m.. Ask patient to take her normal blood pressure medication. Close follow-up with her primary physician on an outpatient basis. Differential Diagnosis Differential Diagnoses: The differential diagnosis associated with the presentation includes Pneumonia, PE, ACS, PE Admission/Observation Consideration of admission/observation: Escalation of care including admission/observation considered Lab Data [facility] Lab Attestation statement: I reviewed the patient's lab results. 08/21/25 18:05 08/21/25 18:05 Labs: Lab Results 08/21/25 08/21/25 Range/Units 18:05 19:52 WBC 6.2 (4.8-10.8) X10*3/uL RBC 4.69 (4.20-5.50) X10*6/uL Hgb 12.7 (12.0-16.0) g/dl Hct 38.1 (37.0-47.0) % MCV 81.2 (80.0-98.0) fL MCH 27.1 (27.0-33.0) pg MCHC 33.3 (31.0-35.0) g/dl RDW 13.8 (11.0-16.0) % Plt Count 332 (160-400) X10*3/uL MPV 9.5 (9.4-12.3) fL Immature Gran % (Auto) 0.2 (0.0-0.4) % Neut % (Auto) 59.5 (45-73) % Lymph % (Auto) 22.8 (20-40) % [place] % (Auto) 8.8 (2-11) % Eos % (Auto) 7.9 H (0-4) % Baso % (Auto) 0.8 (0-2) % Lymph # (Auto) 1.4 (1.2-4.9) X10*3/uL Montgomery # (Auto) 0.6 (0.1-1.2) X10*3/uL Eos # (Auto) 0.5 H (0.0-0.4) X10*3/uL Baso # (Auto) 0.1 (0.0-0.2) X10*3/uL Abs Immat Gran (auto) 0.01 (0.00-0.03) X10*3/uL Absolute Neuts (auto) 3.7 (2.0-8.3) x10*3/uL Absolute Nucleated RBC 0.000 (0.0-0.012) X10*3/uL Nucleated RBC % (auto) 0.0 (0.0-0.2) /100WBC Sodium 142 (135-145) mmol/L Potassium 3.5 (3.3-5.1) mmol/L Chloride 109 H (96-108) mmol/L Carbon Dioxide 22 (22-29) mmol/L Anion Gap 15 (12-20) BUN 11 (9-16) mg/dL Creatinine 0.71 (0.5-1.4) mg/dL Estim Creat Clear Calc 74.4 Estimated GFR > 60 Random Glucose 94 (60-115) mg/dL Calcium 9.6 (8.4-10.2) mg/dL Total Bilirubin 0.8 (0.0-1.0) mg/dL Direct Bilirubin 0.3 (0.0-0.5) mg/dL AST 24 (5-31) U/L ALT 21 (0-31) U/L Alkaline Phosphatase 74 (39-117) U/L Troponin I High Sens 5.3 D < 2.7 (<3.5-17.0) ng/L Total Protein 7.7 (6.5-8.0) g/dL Albumin 4.6 (3.5-5.0) g/dL Independent Interpretation I performed an independent interpretation of an: EKG ( my interpretation patient's EKG as above) and Plain X-Ray ( my interpretation patient's chest x-ray is grossly negative) Radiology Impression Discussion of test interpretation with radiology: I have reviewed the radiologist's reading. Independent Historian family Chronic Conditions Patient?s care impacted by: Hypertension high cholesterol Social Determinants Patient?s care significantly limited by Social Determinants of Health including: Problems related to primary support group Discharge Plan Discharge Clinical Impression: Chest pain, Hypertension Patient Disposition: Home, Self-Care Instructions: Chest Pain (ED) Additional Instructions: Please take your high blood pressure medications Prescriptions: No Action calcium citrate 250 mg calcium tablet 500 mg PO BID Qty: 120 5RF levothyroxine [Levoxyl] 125 mcg tablet 125 mcg PO DAILY Qty: 30 6RF sennosides [senna] 8.6 mg tablet 1 - 2 tab PO QD-BID atorvastatin 20 mg tablet 1 tab PO QPM albuterol sulfate 2.5 mg /3 mL (0.083 %) solution for nebulization 1 amp inhalation Q4-6H PRN (Reason: SOB ) tramadol 50 mg tablet 1 tab PO Q12H PRN (Reason: severe pain) fluticasone propion-salmeterol [Advair Diskus] 500-50 mcg/dose blister with device 1 puff inhalation Q12H omeprazole 20 mg capsule,delayed release(DR/EC) 1 cap PO DAILY montelukast 10 mg tablet 1 tab PO BEDTIME hydrochlorothiazide 25 mg tablet 1 tab PO DAILY cholecalciferol (vitamin D3) [Vitamin D3] 25 mcg (1,000 unit) capsule 1 cap PO QAM citalopram 20 mg tablet 20 mg PO DAILY albuterol sulfate [ProAir HFA] 90 mcg/actuation HFA aerosol inhaler 2 puff inhalation Q6H PRN (Reason: Wheezing) buspirone 15 mg tablet 15 mg PO BID calcipotriene 0.005 % ointment 1 appl topical DAILY ferrous sulfate [FeroSul] 325 mg (65 mg iron) tablet 325 mg PO DAILY potassium chloride 20 mEq tablet,ER particles/crystals 20 meq PO Q4H betamethasone dipropionate 0.05 % ointment topical cetirizine 10 mg tablet 10 mg PO DAILY PRN (Reason: allergies) fluticasone propionate 50 mcg/actuation spray,suspension 1 - 2 spray intranasal DAILY PRN lidocaine 5 % adhesive patch,medicated topical olmesartan 20 mg tablet 20 mg PO DAILY alendronate 70 mg tablet PO Referrals: Jace Medina MD [Physician, Cardiology] - 08/24/25 Print Language: Irish
[2025-08-21 18:17] LABS: MANUAL DIFF FLAG NO
[2025-08-21 18:22] LABS: Hematocrit 38.1 % (37.0-47.0); Hemoglobin 12.7 g/dl (12.0-16.0); Imm Gran Abs Auto 0.01 X10*3/uL (0.00-0.03); Imm Gran Pct Auto 0.2 % (0.0-0.4); Lymphocytes Absolute Auto 1.4 X10*3/uL (1.2-4.9); Mean Corpuscular HGB Conc 33.3 g/dl (31.0-35.0); Mean Corpuscular Hemoglobin 27.1 pg (27.0-33.0); Mean Corpuscular Volume 81.2 fL (80.0-98.0); NRBC Abs Auto 0.000 X10*3/uL (0.0-0.012); NRBC Pct Auto 0.0 /100WBC (0.0-0.2); Platelet Count 332 X10*3/uL (160-400); Red Blood Count 4.69 X10*6/uL (4.20-5.50); White Blood Count 6.2 X10*3/uL (4.8-10.8)
--- NOTE | 2025-08-21 18:29 | PC.NURSE ---
Patient presents to the ED with 10/10 chest pain in left chest. Denies any radiation of pain. Patient states pain begun 3 days ago and has been ongoing. Patient on monitor, VSS on RA.#20 established in L FA.
[2025-08-21 18:34] LABS: Alanine Aminotransferase 21 U/L (0-31); Albumin Level 4.6 g/dL (3.5-5.0); Alkaline Phosphatase 74 U/L (39-117); Anion Gap 15 (12-20); Aspartate Amino Transferase 24 U/L (5-31); Blood Urea Nitrogen 11 mg/dL (9-16); Calcium 9.6 mg/dL (8.4-10.2); Carbon Dioxide 22 mmol/L (22-29); Chloride 109 mmol/L (96-108); Creatinine Clr Calc Pharmacy 74.4; Estimated Glomerular Filt Rate > 60; Potassium 3.5 mmol/L (3.3-5.1); Sodium 142 mmol/L (135-145); Total Protein 7.7 g/dL (6.5-8.0)
[2025-08-21 18:40] LABS: Troponin-I High Sensitivity 5.3 ng/L (<3.5-17.0)
--- OUTSIDE RECORDS SUMMARY | 2025-08-21 19:15 | XMS_ITS | Clinical Summary ---
Author Organization [employer] Address [address] [facility] [address] [place] [address] Care Team Providers Care Jet Operator Name Role Phone Mandie Fields Primary Care Provider Allergies Active Allergy Reactions Criticality Noted Date [...] morning and 2 tablets in the evening. 024 Active Eye Itch Relief 0.035 % solution 024 Active calcipotriene (Dovonex) 0.005 % ointmentIndicatio ns:Psoriasis APPLY A THIN LAYER TO AFFECTED AREA(S) TWICE DAILY SATURDAY a SATURDAY 60 g 1 024 Active Blood Pressure kitIndications:Es sential hypertension 1 kit 2 times daily. 1 kit 08/09/2 024 Active lidocaine (Lidoderm) 5 % patchIndications: Intercostal muscle pain APPLY 1 PATCH TOPICALLY TO SKIN, LEAVE ON FOR 12 HOURS AND OFF FOR 12 HOURS DIRECTED 30 patch Active Fluticasone-Salme terol (Advair Diskus) 500-50 MCG/ACT aerosol powderIndications :Moderate persistent asthma without complication INHALE 2 PUFFS BY MOUTH EVERY TWELVE HOURS RINSE MOUTH AFTER USING. 1 each 5 07/28/20 3:34 PM EST Active citalopram (CeleXA) 20 MG tabletIndications :Depressive disorder TAKE 1 TABLET BY MOUTH EVERY DAY 90 tablet 3 Active ketorolac (Acular) 0.5 % ophthalmic solution Active omeprazole (PriLOSEC) [address] capsuleIndication s:Gastroesophagea l reflux disease, unspecified whether esophagitis present TAKE 1 CAPSULE BY MOUTH EVERY DAY BEFORE A MEAL 90 capsule Active albuterol (Ventolin HFA) 108 (90 Base) MCG/ACT inhalerIndication s:Moderate persistent asthma without complication INHALE 2 PUFFS BY MOUTH EVERY 4 TO 6 HOURS NEEDED 18 g 07/28/20 3:34 PM EST Active atorvastatin (Lipitor) 20 MG tabletIndications :Hyperlipidemia, [...] next 30 min. 4 tablet 2025 Active cholecalciferol (Vitamin D High Potency) 25 MCG (1000 UT) capsuleIndication s:Vitamin D deficiency Take 1 capsule (25 mcg) by mouth in the morning. 90 capsule 025 Active cetirizine (ZyrTEC) 10 MG tabletIndications :Seasonal allergies TAKE 1 TABLET BY MOUTH EVERY DAY NEEDED FOR ALLERGIES 90 tablet 3 025 Active losartan (Cozaar) 25 MG tablet Take 1 tablet (25 mg) by mouth Once per day. 90 tablet 1 025 2025 Active busPIRone (Buspar) 15 MG tabletIndications :Depressive disorder TAKE 1 TABLET BY MOUTH TWICE DAILY 60 tablet 5 025 Active albuterol (2.5 MG/3ML) 0.083% nebulizer solutionIndicatio ns:Moderate persistent asthma without complication INHALE 1 AMPULE USING A NEBULIZER EVERY 4 TO 6 HOURS NEEDED 90 mL 3 07/28/20 25 3:34 PM EST 025 Active montelukast (Singulair) 10 MG tabletIndications :Moderate persistent asthma without complication,Seas onal allergic rhinitis, unspecified trigger TAKE 1 TABLET BY MOUTH DAILY AT BEDTIME 90 tablet 1 025 Active senna (Senokot) 8.6 MG tablet TAKE 1 TO 2 TABLETS BY MOUTH EVERY TWELVE HOURS NEEDED FOR CONSTIPATION 360 tablet 1 025 Active acetaminophen (Tylenol 8 Hour) 650 MG ER tablet TAKE 1 TABLET BY MOUTH EVERY 8 HOURS NEEDED FOR PAIN. DO NOT BREAK, CRUSH, DISSOLVE OR CHEW. 100 tablet 3 07/28/20 25 3:34 PM EST 025 Active Levoxyl 125 MCG tablet Take 1 tablet by mouth Once per day. 025 Active chlorthalidone (Hygroton) 25 MG tabletIndications :Essential hypertension TAKE 1 TABLET BY MOUTH EVERY MORNING 90 tablet 1 025 Active triamcinolone (Kenalog) 0.1 % creamIndications: Psoriasis MIX WITH cerave CREAM AND APPLY TO THE AFFECTED AREA(S) TOPICALLY TWICE DAILY IN THE MORNING AND AT BEDTIME NEEDED FOR PAIN OR SWELLING 80 g 2 07/28/20 3:34 PM EST 025 Active traMADol (Ultram) 50 MG tabletIndications :Primary osteoarthritis of both knees Take 1 tablet (50 mg) by mouth every 12 (twelve) hours if needed for severe pain for up to 14 days. 14 tablet 025 Active ferrous gluconate (Fergon) 324 (38 Fe) MG tablet TAKE 1 TABLET BY MOUTH ON SATURDAY, SATURDAY AND SATURDAY WITH FULL GLASS OF WATER OR JUICE WITH VITAMINA C. TAKE 1 HOUR BEFORE MEAL OR 2 HOURS AFTER MEAL. 36 tablet 2 12/02/2 025 Active ferrous gluconate (Fergon) 324 (38 Fe) MG tablet TAKE 1 TABLET BY MOUTH ON SATURDAY, SATURDAY AND SATURDAY WITH FULL GLASS OF WATER OR JUICE WITH VITAMINA C. TAKE 1 HOUR BEFORE MEAL OR 2 HOURS AFTER MEAL. 12 tablet 2 025 2024 Discontinued Active Problems Problem Noted Date Diagnosed Date [...] trying to re-initiate sleep. Assessment & Plan (07/07/2025 5:06 PM EST): - Ramelteon trial not therapeutic - Continues with loratadine nightly as says has been helpful for sleep and allergies Assessment & Plan (02/07/2025 1:19 PM EDT): - Plan to start ramelteon. Reviewed med safety and SE. Osteoporosis 09/08/2024 Overview (11/03/2024): December 2023 - DXA with dx osteoporosis based on T-score value -3.6 in the femoral neck. Initiated alendronate 70mg weekly 12/24/23 Endo consult May 2024 at [facility] - Dr. Mayorga. Reviewed DXA results and suspects DXA from December 2023 was an over-read. Suggested repeating DXA scan through PCP. Repeat ordered 11/03/24. Encouraged to continue with adequate intake of calcium and Vit D. Low weight bearing exercises. Long-term current use of opiate analgesic 2023 Overview (01/14/2025): Medication: Tramadol 50mg BID Indication: OA right knee Last FOAM DISPENSER Agreement: 01/12/25 Tier II (visit every 3 months) Assessment & Plan (07/07/2025 5:03 PM EST): Timeline: - 01/12/25: Group visit - pill count wnl, utox pos for cocaine (pt admitted to use). Plan: f/up 4 weeks. - 02/09/25: Group visit - pill count 3 short, utox as expected. Pt admitted to using a few extra d/t pain. Plan: f/up 4 weeks - 05/11/25: Group visit - pill count wnl, utox pos for cocaine (confirmed) - Reviewed FOAM DISPENSER agreement with patient, and advised cocaine use could put her tramadol prescription in jeopardy due to health concerns. Plan: Scheduled for group FOAM DISPENSER visit on 07/13/25. Assessment & Plan (05/11/2025 1:02 PM EDT): [...] Routine health maintenance 08/03/2022 Assessment & Plan (07/07/2025 6:40 AM EST): -Pap: May 2025 NIL/HPV neg -Smoking status: former -Mammo: BIRADS 2 on 01/06/25 -DEXA: December 2023, osteoporosis. Next due: December 2025. -Colonoscopy: December 2014, normal. Referral to GI placed 10/28/24 -Optometry: referral to [facility] eye care previously placed -Last comprehensive exam: 10/28/24 Assessment & Plan (01/27/2025 9:58 AM EDT): -Pap: 09/27/20 NIL/HPV neg -Smoking status: former -Mammo: BIRADS 2 on 01/06/25 -DEXA: December 2023, osteoporosis. Next due: December 2025. -Colonoscopy: December 2014, normal. Referral to GI placed 10/28/24 -Optometry: referral to [facility] eye care previously placed -Last comprehensive exam: 10/28/24 Assessment & Plan (11/03/2024 6:23 PM EST): -Pap: 09/27/20 NIL/HPV neg -Smoking status: former -Mammo: BIRADS 2 on 12/18/23. Noted 7-8cm encapsulated area of normal breast tissue in the anterior half of upper outer quadrant of left breast which is sales representative health insurance of a hamartoma (benign) -DEXA: December 2023, osteoporosis. Next due: December 2025. -Colonoscopy: December 2014, normal. Referral to GI placed 10/28/24 -Optometry: referral to [facility] eye care previously placed -Last comprehensive exam: 10/28/24 Assessment & Plan (09/05/2023 10:12 AM EST): -Pap: 09/27/20 NIL/HPV neg -Smoking status: former -Mammo: BIRADS 2020, repeat pending -DEXA: Jun 2019, osteopenia T-score -1.8. Re-ordered 09/05/23. -Colonoscopy: December 2014, normal. -Optometry: referral to [facility] eye care previously placed Assessment & Plan (08/15/2023 6:34 PM EST): -Pap: 09/27/20 NIL/HPV neg -Smoking status: former -Mammo: BIRADS 2020, repeat pending -DEXA: Jun 2019, osteopenia T-score -1.8 -Colonoscopy: reports UTD, although not currently in record. -Optometry: referral to [facility] eye care previously placed Assessment & Plan [...] anti-thyroglobulin antibodies now negative. - Following with [facility] Jerri/Dr. Mayorga/Dr. Herzog - December 2023: Thyroid US demonstrated numerous bilateral thyroid nodules, some pathologically enlarged and further showing atypical architectural features. Reviewed by Dr. Mayorga, plan repeat December 2024. Consult May 2024: [facility] Endo - Dr. Mayorga. Med hx of [...] 50mg BID PRN severe pain. Engaged with FOAM DISPENSER Program Assessment & Plan (05/11/2025 1:00 PM [...] and SE. Will need to establish with FOAM DISPENSER team. Interested in group visits. -Narcan PRN Assessment & Plan (08/15/2023 6:31 PM EST): -Continues with Tramadol 50mg BID. Reviewed med safety and SE. Will need to establish with FOAM DISPENSER team. Interested in group visits. -Narcan PRN Vitamin D deficiency 05/27/2018 Allergic rhinitis 07/25/2015 Depressive disorder 07/25/2015 Assessment & Plan (10/28/2024 9:13 AM EST): -Continue following with [facility] Reyna -Cont current med regimen: buspirone 15mg BID and citalopram 20mg daily Assessment & Plan (08/14/2023 9:19 AM EST): -Continue following with [facility] Reyna -Cont current med regimen: buspirone 15mg BID and citalopram 20mg daily Primary hypertension 07/25/2015 Overview (07/07/2025): BP goal < 140/90 mmHg Cont chlorthalidone 25mg daily Cont losartan 25mg daily Lab Results Component Value Date K 3.8 10/28/2024 CREATININE 0.78 10/28/2024 Assessment & Plan (07/07/2025 5:01 PM EST): - Well controlled with current regimen Assessment & Plan (02/11/2025 2:26 PM EDT): [...] precautions reviewed Hypercholesterolemia 07/25/2015 Hypertensive retinopathy 07/25/2015 Assessment & Plan (07/07/2025 5:05 PM EST): Reviewed importance of good BP control Moderate persistent asthma 07/25/2015 Assessment & Plan [...] History of thyroid CA now followed by [facility] Endo Continues with levothyroxine 137 mcg daily [...] topicals - Dovonex and Diprolene Referral to [facility] Derm team sent 08/14/23, re-sent on 11/03/24 Follow up with any worsening or persistence of symptoms Assessment & Plan (09/04/2023 8:44 AM EST): Currently tx with topicals - Dovonex and Diprolene Referral to [facility] Derm team sent 08/14/23 Follow up with any worsening or persistence of symptoms Assessment & Plan (08/15/2023 6:34 PM EST): Currently tx with topicals - Dovonex and Diprolene Referral to [facility] Derm team sent 08/14/23 Follow up with [...] Encounters Date Type Department Care Team Description 08/20/2025 Refill [facility] [address] [place] [phone] Mandie Fields FNP Moderate persistent asthma without complication 08/04/[address] [address] Mandie Fields FNP Durable Medical Equipment 08/02/2025 Refill [facility] [address] [place] [phone] Mandie Fields FNP 07/26/2025 Telephone [facility] [address] [place] [address] Jalyn Calix, RN 07/26/[address] [address] Mandie Fields FNP Appointment Request 07/16/2025 Telephone [facility] [address] [place] [address] Mandie Fields FNP Appointment Request 07/13/2025 Telephone [facility] [address] [place] [address] Jalyn Calix, RN 07/07/2025 9:45 AM EST Office Visit [address] [phone] Mandie Fields FNP Essential hypertension (Primary Dx); Hypertensive retinopathy of both eyes; Routine health maintenance; Encounter for immunization; Sebaceous cyst of skin of left breast; Primary osteoarthritis of both knees; Grief; Long-term current use of opiate analgesic; Sleep difficulties 07/07/2025 Travel 06/29/2025 Patient Outreach [facility] [address] [place] [phone] Mandie Fields FNP Pre-visit Planning ([facility] screening was completed on 10/14/2024) 06/23/2025 Refill [facility] [address] [place] [phone] Tim Camacho MD Psoriasis 06/15/2025 Telephone [facility] [address] [place] [address] Mandie Fields FNP Appointment Confirmation 06/14/2025 Refill [facility] [address] [place] [phone] Mandie Fields FNP Essential hypertension 06/01/2025 Refill [facility] [address] [place] [address] Jalyn Calix RN Primary osteoarthritis of both knees 06/01/2025 Telephone [facility] [address] [place] [phone] Mandie Fields FNP Med Refill 05/24/2025 Telephone [facility] [address] [place] [phone] Dania Peters 05/24/2025 Telephone [facility] [address] [place] [phone] Adela Lopez MA 05/24/2025 Results Follow-Up [facility] [address] [place] [phone] Rosario Jaramillo CNM Pap Smear from Last 3 Months Immunizations Immunization Administration Dates Next Due Hep B, adult 05/27/2018,06/28/2017,05/29/2017 Influenza Injectable Quadriv alant Preservative Free IIV4 MDCK 06/10/2020 Influenza injectable quadriv alent IIV4 with preservative 05/27/2018,05/29/2017,07/06/2016,05/26 Influenza injectable quadriv alent preservative free 08/14/2023,07/11/2021,08/11/2019 Influenza, High Dose Seasona l, Preservative Free 07/07/2025 Influenza, IIV3, injectable 08/03/2022,1 ,05/21/2011,09/21,07/22/2009 Influenza, Split [...] Female 07/02/2022 10:14 AM EDT Sexual Orientation Official Use Only; I nformation not collected 07/07/2025 5:00 PM EST Last Filed Vital Signs Vital Sign Reading Time Taken Comments Blood Pressure 130/80 07/07/2025 9:44 AM EST Pulse 85 07/07/2025 9:44 AM EST Temperature 36.4 C (97.5 F) 07/07/2025 9:44 AM EST Respiratory Rate 14 07/07/2025 9:44 AM EST Oxygen Saturation 96% 07/07/2025 9:44 AM EST Inhaled Oxygen Concentration - - Weight 76.7 kg (169 lb) 07/07/2025 9:44 AM EST Height 154.9 cm (5' 1 ) 07/07/2025 9:44 AM EST Body Mass Index 31.93 07/07/2025 9:44 AM EST Plan of Treatment Upcoming Encounters Date Type Department Care Team (Late st Contact Info) Description 08/25/2025 11:15 AM EST Office Visit [facility] [address] [place] [address] Mandie Fields, IVANIA [address] [place] [address] Health Maintenance Due Date Last Done Comments CT Colonography 1960 FIT DNA/Cologuard 1960 FIT 1960 FOBT 1960 Sigmoidoscopy 1960 RSV Patients and Patients Aged 60 years or older (1 - Risk 50-74 years 1-dose series) 2009 Dental X-Ray: Full Mouth 06/21/2024 06/20/2021 Colonoscopy 12/02/2024 12/02/2014 Colorectal Cancer Screening 12/02/2024 SDOH Screening 10/14/2025 10/14/2024 Diabetes: Hemoglobin A1C 10/28/2025 025, 10/03/2023, 07/11/2021, Additional history exists Dental Oral Exam 11/05/2025 05/07/2025 Dental Prophylaxis 11/05/2025 05/07/2025 Depression Monitoring 11/15/2025 05/18/2025, 025 Mammogram 01/06/2026 01/06/2025, 12/01, 10/13/2020, Additional history exists Alcohol/Substance Use Screening 01/27/2026 01/27/2025 Dental X-Ray: Bitewings 05/08/2026 05/07/2025 COVID-19 Vaccine ( season) 2026 07/11/2021, 11/23/2020 Postponed from 05/03/2025 (Patient Refused) Tobacco Screening 07/07/2026 07/07/2025 Lipid Panel 10/28/2029 10/28/2024, 02/0 09/2023, 07/11/2021, Additional history exists Cervical Cancer Screening 05/18/2030 HPV/Cotest 05/18/2030 05/18/2025, 10/09/2020 Pap Smear 05/18/2030 05/18/2025, 02/0 03/2021, 11/24/2014 DTaP/Tdap/Td Vaccines (4 - Td or Tdap) 03/21/2033 03/21/2023, 04/29/2019, 04/27/2009, Additional history exists Hepatitis B Vaccines Completed 05/27/2018, 06/28/2017, 05/29/2017 Zoster Vaccines Completed 10/26/2019, 08/25/2019 Pneumococcal Vaccine: 50+ Years Completed 03/15/2023, 06/23/1997 Hepatitis C Screening Completed 10/28/2024, 024 Influenza Vaccine Completed 07/07/2025, , 08/14/2023, Additional history exists HIB Vaccines Aged Out [...] Procedure Name Priority Date/Time Associated Diagnosis Comments HPV DNA, LOW/HIGH RISK Routine 12:00 AM EDT PAP SMEAR Routine 05/18/2025 12:00 AM EDT Routine cervical smear PROPHYLAXIS - ADULT Routine 05/07/2025 2 :00 PM EDT BITEWINGS - 4 RADIOGRAPHIC IMAGES Routine 05/07/2025 2:00 PM EDT PERIODIC ORAL EVALUATION - ESTABLISHED PATIENT Routine 05/07/2025 2:00 PM EDT BI MAMMOGRAM SCREENING TOMOSYNTHESIS BILATERAL Routine 01/06/2025 12:52 PM EDT Encounter for screening mammogram for malignant neoplasm of breast HEPATITIS C VIRAL RNA, QUANTITATIVE, REAL-TIME PCR Routine 10/28/2024 10:15 AM EST Routine health maintenance HEMOGLOBIN A1C Routine 10/28/2024 10:15 AM EST Routine health maintenance LIPID PANEL, STANDARD Routine 10/28/2024 10:15 AM EST Routine health maintenance HM COLONOSCOPY Routine 12/02/2014 from Last 3 Months or Most Recently Relevant to Health Maintenance Results * HPV DNA, Low/High Risk (05/18/2025 12:00 AM EDT) HPV High Risk Negative Negative [facility] HPV Genotype 16 Negative Negative [facility] HPV Genotype 18 Negative Negative [facility] Comment:HPV testing performe d at [facility] (CLIA#[id number]), [address] [place] [id number].Testing for HPV was performed using the Delicia CANDELARIA 6800system. The presence of HPV in the female genital tract isassociated with a number of diseases, including cervicalcarcinoma. The HPV DNA high risk pool tests for HPV 31, 33,35, 39, 45, 51, 52, 56, 58, 59, 66 and 68. The testing forHPV 16 and 18 genotypes has also been performed. A positiveresult indicates detection of nucleic acid sequences fromone or more subtypes, whereas a negative result indicatessuch sequences were not detected. 05/18/2025 05/19/2025 11: 40 AM EDT us Rosario Jaramillo CNM LAB BLOOD ORDERABLES Adina schrader Result [facility] [address] [place] [phone] * Pap Smear (05/18/2025 12:00 AM EDT) Swab Cervix uteri structure / Unknown 05/18/2025 05/19/2025 11:40 AM EDT Narrative [facility] - 05/21/2025 1:44 PM EDT ----- ------- Name: Anneliese Stern Age/Sex: 64/F : 1960 Unit#: [id number] Attend Dr: ROSARIO JARAMILLO CNM Re05/18/25 Status: DEP REF Location: [facility] Disch: ----- ------- SPEC : [id number] RECD: 05/19/25114 STATUS: KT AVELAR NUM: [id number] BARRY: 05/18/25-0000 [facility] DR: ROSARIO JARAMILLO CNM ENTERED: 05/19/25 SP TYPE: Pap Smr [facility] DR: ORDERED: Pap Smear Interpretation Satisfactory for evaluation. Negative for intraepithelial lesion or malignancy. Atrophic. Moderate inflammation. HPV High Risk: Negative HPV Genotyping 16: Negative HPV Genotyping 18: Negative Clinical Information LMP: Unknown date Previous PAP test: 2020, NIL, HPV negative Other history: Routine cervical smear Material Received ThinPrep-Cervical PAP Disclaimer As of June 24, 2024, the technical services to include automated prescreening performed by the ThinPrep Imaging System, PAP screening and HPV testing will be performed at [facility] (CLIA #[id number]), [address] [place] [address]. Testing for HPV was performed using the Delicia CANDELARIA 6800 system. The presence of HPV in the female genital tract is associated with a number of diseases, including cervical carcinoma. The HPV DNA high risk pool tests for HPV 31, 33, 35, 39, 45, 51, 52, 56, 58, 59, 66 and 68. The testing for HPV 16 and 18 genotypes has also been performed. A positive result indicates detection of nucleic acid sequences from one or more subtypes, whereas a negative result indicates such sequences were not detected. All professional services are performed by [facility] ([address] [place] [address], [place] [address]; ; CLIA #[id number]). The PAP Test is a screening procedure with the inherent possibility of both false negative and false positive results. Results should be interpreted in the context of historic and current clinical findings. Reliability of the PAP Test is enhanced by performing the test on a regular repetitive basis. CONTINUED ON NEXT PAGE ----- ------- Name: Anneliese Stern Age/Sex: 64/F : 1960 Unit#: [id number] Attend Dr: ROSARIO JARAIMLLO [facility] Re05/18/25 Status: DEP REF Location: [facility] Disch: ----- ------- SPEC : [id number] RECD: 05/19/25-1140 STATUS: KT AVELAR NUM: [id number] BARRY: 05/18/25-[address]: ROSARIO JARAMILLO [facility] ENTERED: 05/19/25-1157 SP TYPE: Pap Humberto FIERRO DR: ORDERED: Pap Smear ----- ------- Signed (signature on file) YARELI Henderson ([facility]) 05/21/25 1344 ----- ------- END OF REPORT Rosario Jaramillo [facility] LAB CYTOLOGY ORDERABLES F inal Result [facility] [address] [place] [phone] [phone] * BI Mammogram Screening Tomosynthesis Bilateral (01/06/2025 12:52 PM EDT) Anatomical Region Laterality Modality Breast Bilateral Mammography 01/06/2025 12:5 2 PM EDT Narrative 01/11/2025 3:35 PM EDT [address] [place] [address] Mammography Report Signed Patient: Anneliese Stern MR#: [id number] : 1960 Acct:[id number] Age/Sex: 64 / F ADM Date: 01/06/25 Loc: HO.MAMMO Attending Dr: Mandie REDD Ordering Physician: Mandie Fields Results: 2Benig n Findings Date of Service: 01/06/25 Follow Up: 1 Year From Orig inal Mammogram Procedure(s): MM tomosynthesis screening BI Accession Number(s): [id number] cc: Mandie Fields FINGERPRINT TECHNICIAN EXAMINATION: MM SCREENING DIGITAL BREAST TOMOSYNTHESIS, BILATERAL [...] Essence Campoverde DO 01/11/2025 03:32 PM EDT RP Dictated By: Essence Campoverde DO Signed By: <Electronically signed by Essence Campoverde DO in OV> 01/11/25 1532 DD/ 1252 TD/TT: 01/06/25 1302 [facility] Supervisor: Procedure Note Donotuseinterpreter, Image - 01/11/2025 [facility] [address] [place], [place] [address] Mammography Report Signed Patient: Anneliese SternMR#: [id number] : 1960Acct:[id number] Age/Sex: 64 / FADM Date: 01/06/25 Loc: HO.MAMMO Attending Dr: Mandie Fields FINGERPRINT TECHNICIAN Ordering Physician: Mandie Fields FNPResults: 2Benig n Findings Date of Service: 01/06/25Follow Up: 1 Year From Orig ina Mammogram Procedure(s): MM tomosynthesis screening BI Accession Number(s): [id number] cc: Mandie Fields FINGERPRINT TECHNICIAN EXAMINATION: MM SCREENING DIGITAL BREAST TOMOSYNTHESIS, BILATERAL [...] 01/11/25 1532 DD/ 1252 TD/TT: 01/06/25 1302 [facility] Supervisor: Mandie REDD IMG BI PROCEDURES Final Result * Hepatitis C Viral RNA, Quantitative, Real-Time PCR (10/28/2024 10:15 AM EST) Pathologist [facility] Hepatitis C Viral Load <15 NOT DETECTED NOT DETECTED IU/mL [facility] HCV Log PCR <1.18 NOT DETECTED NOT DETECTED Log IU/mL [facility] Comment:For additional infor mation, please refer tohttp://education.[employer]/faq/WLK87s4(This link is being provided for informational/educational purposes only.)THIS TEST WAS PERFORMED AT:[facility] [place] [phone] BUSBY MD Blood 10/28/2024 10:1 5 AM EST 10/28/2024 11:08 AM EST Mandie GONZALESP LAB BLOOD ORDERABLES Final Res ult [facility] [address] [place] [phone] [phone] * Hemoglobin A1c (10/28/2024 10:15 AM EST) Pathologist [facility] Hemoglobin A1c 5.8 <6.0 % [facility] Comment:Hemoglobin A1C Refer ence Range Adults: 4.8 - 6.0 % Non diabetic: < 6.0 % Goal: < 7.0 %Additional Action Suggested: > 8.0 %Note: Hemoglobin A1c results are invalid for patients with abnormal amounts of HbF. Blood transfusions may impact the HbA1c concentration in the patient sample. Estimated Average Glucose 120 mg/dL [facility] Comment:eAG = Estimated ave rage glucose which is %A1C expressed asaverage glucose, using the formula of the D4A-RfjbzjjCkvrpnc Glucose study (ADAG), Diabetes Care, Vol.31,#8,2007 Blood Venous blood specimen / Unknown 10/28/2024 10:15 AM EST 10/28/2024 11:08 AM EST us Mandie Fields FINGERPRINT TECHNICIAN LAB BLOOD ORDERABLES Final Res ult [facility] [address] [place] [phone] * Lipid Panel, Standard (10/28/2024 10:15 AM EST) Triglycerides 93 <150 mg/dL [facility] Comment:Desirable Triglyceri de: less than 150 mg/dLBorderline High Triglyceride 150-199 mg/dLHigh Triglyceride: 200-499 mg/dLVery High Triglyceride: greater than or equal to 5OO mg/dL Cholesterol 172 <200 mg/dL [facility] Comment:Desirable Cholestero l: less than 200 mg/dLBorderline High Cholesterol: 200-239 mg/dLHigh Cholesterol: greater than 239 mg/dL LDL Cholesterol Calculated 97 <100 mg/dL [facility] Comment:Desirable LDL: less than 100 mg/dLNear Optimal/Above Optimal LDL: 110- 129 mg/dLBorderline High LDL: 130-159 mg/dLHigh LDL: 160-189 mg/dLVery High LDL: greater than or equal to 190 mg/dL HDL Cholesterol 57 >40 mg/dL [facility] Comment:Desirable HDL: great er than 40 mg/dL Note: This HDL assay may give artificially low results in patients with liver disease. Blood Venous blood specimen / Unknown 10/28/2024 10:15 AM EST 10/28/2024 11:08 AM EST us Mandie Fields FINGERPRINT TECHNICIAN LAB BLOOD ORDERABLES Final Res ult [facility] [address] [place], [place] [phone] * Colonoscopy (12/02/2014) Colonoscopy Normal Repeat in 10 yrs us Historical Provider HEALTH MAINTENANCE Edited Result - Final from Last 3 Months or Most Recently Relevant to Health Maintenance Insurance [facility] OPTIONS (HMO D-SNP) DENTAL - [facility] Care Teams Jet Operator Relationship Specialty Start Date End Date Mandie Fields FNP [address] [place] [address] PCP - General Family Medicine 01/12/25
--- OUTSIDE RECORDS SUMMARY | 2025-08-21 19:15 | XMS_ITS | Encounter Summary ---
Author Organization [employer] Address [address] [place] [address] 7t [place] [address] Care Team Providers Care Delinquent Account Clerk Name Role Phone Mandie Fields Primary Care Provider [phone] Mandie Fields Primary Care Provider [phone] Reason for Visit * Reason Comments Med Refill Encounter Details Date Type Department Care Team (Late st Contact Info) Description 11/14/2022 Refill [facility] [address] [place], [place] [phone] Mandie Fields FNP [address] [place], [place] [phone] Moderate persistent asthma without complication (Primary Dx) [...] nformation not collected 07/07/2025 5:00 PM EST documented as of this encounter Plan of Treatment Upcoming Encounters Date Type Department Care Team (Late st Contact Info) Description 08/25/2025 11:15 AM EST Office Visit [facility] [address] [place], [place] [phone] Mandie Fields FNP [address] [place] [address] documented as of this encounter Visit Diagnoses Diagnosis Moderate persistent asthma without complication- Primary documented in this encounter Additional Health Concerns Assessment Noted Time PHQ-9 Depression Total Score: 10 022 10:45 AM EST documented as of this encounter Care Teams Delinquent Account Clerk Relationship Specialty Start Date End Date Mandie Fields FNP [address] [place] [address] PCP - General Family Medicine 05/01/22 01/11/25 Mandie Fields FNP [address] [place] [address] PCP - General Family Medicine 01/12/25 documented as of this encounter
--- OUTSIDE RECORDS SUMMARY | 2025-08-21 19:15 | XMS_ITS | Encounter Summary ---
Author Organization [employer] Address [address] [facility] 7t [place] [address] Care Team Providers Care Supervisor Aluminum Boat Assembly Name Role Phone Mandie Fields Primary Care Provider [phone] Mandie Fields Primary Care Provider [phone] Reason for Visit * Reason Comments Med Refill Encounter Details Date Type Department Care Team ([facility] Contact Info) Description 04/04/2023 Refill [facility] [address] [place], [place] [phone] Mandie Fields FNP 505 [place], [place] [phone] Moderate persistent asthma without complication Social History [...] Upcoming Encounters Date Type Department Care Team ([facility] Contact Info) Description 08/25/2025 11:15 AM EST Office Visit [facility] [address] [place], [place] [phone] Mandie Fields FNP 505 [place] [address] documented as of this encounter Visit Diagnoses Diagnosis Moderate persistent asthma without complication documented in this encounter Additional Health Concerns Assessment Noted Time PHQ-9 Depression Total Score: 10 022 10:45 AM EST documented as of this encounter Care Teams Supervisor Aluminum Boat Assembly Relationship Specialty Start Date End Date Mandie Fields FNP [address] [place] [address] PCP - General Family Medicine 05/01/22 01/11/25 Mandie Fields FNP [address] [place] [address] PCP - General Family Medicine 01/12/25 documented as of this encounter
--- OUTSIDE RECORDS SUMMARY | 2025-08-21 19:15 | XMS_ITS | Encounter Summary ---
Author Organization [employer] Address 75 [facility] 7t [place] [address] Care Team Providers Care Archaeologist Name Role Phone Mandie Fields Primary Care Provider [phone] Mandie Fields Primary Care Provider [phone] Reason for Visit * Reason Onset Date Comments partialsl broke again 02/13/2023 Encounter Details Date Type Department Care Team ([facility] st Contact Info) Description 02/13/2023 Telephone [facility] [address] [place] [address] Desmond Chun, DMD [address] [place] [address] partialsl broke again Social History Tobacco Use [...] nformation not collected 07/07/2025 5:00 PM EST COVID-19 Exposure Response Date Recorded In the [...] Description 08/25/2025 11:15 AM EST Office Visit [facility] [address] [place] [address] Mandie Fields FNP [address] [place] [address] documented as of this encounter Visit Diagnoses Not on filedocumented in this encounter Additional Health Concerns Assessment Noted Time PHQ-9 Depression Total Score: 10 022 10:45 AM EST documented as of this encounter Care Teams Archaeologist Relationship Specialty Start Date End Date Mandie Fields FNP [address] [place] [address] PCP - General Family Medicine 05/01/22 01/11/25 Mandie Fields FNP [address] [place] [address] PCP - General Family Medicine 01/12/25 documented as of this encounter
--- OUTSIDE RECORDS SUMMARY | 2025-08-21 19:15 | XMS_ITS | Encounter Summary ---
Author Organization [employer] Address 75 [facility] 7t [place] [address] Care Team Providers Care Glassware Verifier Name Role Phone Mandie Fields Primary Care Provider [phone] Mandie Fields Primary Care Provider [phone] Encounter Details Date Type Department Care Team (Latest Contact Info) Description 03/16/2019 Abstract [facility] CONVERSIONS Dental, Provider, DDS Social History [...] Description 08/25/2025 11:15 AM EST Office Visit [facility] [address] [place] [address] Mandie Fields FNP 505 [place] [address] documented as of this encounter Visit Diagnoses Not on filedocumented in this encounter Care Teams Glassware Verifier Relationship Specialty Start Date End Date Mandie Fields FNP [address] [place] [address] PCP - General Family Medicine 05/01/22 01/11/25 Mandie Fields FNP [address] [place] [address] PCP - General Family Medicine 01/12/25 documented as of this encounter
--- OUTSIDE RECORDS SUMMARY | 2025-08-21 19:15 | XMS_ITS | Encounter Summary ---
Author Organization [employer] Address 75 [facility] 7t [place] [address] Care Team Providers Care Application Lead Name Role Phone Mandie Fields Primary Care Provider [phone] Reason for Visit * Reason Onset Date Comments Durable Medical Equipment 08/04/2025 Encounter Details Date Type Department Care Team (Late st Contact Info) Description 08/04/2025 Telephone [facility] [address] [place] [address] Mandie Fields FNP [address] [place], [place] [phone] Durable Medical Equipment Social History Tobacco Use Types Packs/Day Years [...] PM EST documented as of this encounter Miscellaneous Notes * Telephone Encounter - Mary Kate Lynch LPN - 08/05/2025 11:18 AM EST Please schedule to discuss DME being requested below. Thank you Tc from [facility] with [facility] requesting DME for pt. DME: Bathroom Grab Bars Bed Assist Bar If rashida questions contact [facility] at [phone]. [email or web address] * Telephone Encounter - Curtis Chase - 08/04/2025 1:34 PM EST Tc from [facility] with [facility] requesting DME for pt. DME: Bathroom Grab Bars Bed Assist Bar If rashida questions contact [employer] at [phone]. [employer] documented in this encounter Plan of Treatment Upcoming Encounters Date Type Department Care Team (Late st Contact Info) Description 08/25/2025 11:15 AM EST Office Visit [facility] [address] [place] [address] Mandie Fields, IVANIA 505 [place] [address] documented as of this encounter Visit Diagnoses Not on filedocumented in this encounter Additional Health Concerns Assessment Noted Time PHQ-9 Depression Total Score: 14 025 11:10 AM EDT documented as of this encounter Care Teams Application Lead Relationship Specialty Start Date End Date Mandie Fields FNP [address] [place] [address] PCP - General Family Medicine 01/12/25 documented as of this encounter
--- OUTSIDE RECORDS SUMMARY | 2025-08-21 19:15 | XMS_ITS | Encounter Summary ---
Author Organization [employer] Address 75 [facility] 7t [place] [address] Care Team Providers Care Form Setter Steel Forms Name Role Phone Mandie Fields Primary Care Provider [phone] Mandie Fields Primary Care Provider [phone] Encounter Details Date Type Department Care Team ([facility] st Contact Info) Description 08/15/2023 Abstract [facility] [address] [place] [address] Mandie Fields FNP [address] [place], [place] [phone] Social History Tobacco Use Types Packs/Day Years [...] Description 08/25/2025 11:15 AM EST Office Visit [facility] [address] [place] [address] Mandie Fields FNP [address] [place] [address] documented as of this encounter Visit Diagnoses Not on filedocumented in this encounter Additional Health Concerns Assessment Noted Time PHQ-9 Depression Total Score: 10 023 9:34 AM EST documented as of this encounter Care Teams Form Setter Steel Forms Relationship Specialty Start Date End Date Mandie Fields FNP [address] [place] [address] PCP - General Family Medicine 05/01/22 01/11/25 Mandie Fields FNP [address] [place] [address] PCP - General Family Medicine 01/12/25 documented as of this encounter
--- OUTSIDE RECORDS SUMMARY | 2025-08-21 19:15 | XMS_ITS | Encounter Summary ---
Author Organization [employer] Address [address] [facility] 7t [place] [address] Care Team Providers Care Car Driver Name Role Phone Mandie Fields Primary Care Provider [phone] Reason for Visit * Reason Onset Date Comments Appointment Request 07/26/2025 Encounter Details Date Type Department Care Team ([facility] st Contact Info) Description 07/26/2025 Telephone [facility] [address] [place] [address] Mandie Fields FNP [address] [place], [place] [phone] Appointment Request Social History Tobacco Use Types [...] encounter Miscellaneous Notes * Telephone Encounter - Teresa Chase - 07/26/2025 3:39 PM EST Tc from pt requesting reschedule appointment 07/13 Please contact at [phone] Larry benedict documented in this encounter Plan of Treatment Upcoming Encounters Date Type Department Care Team (Late st Contact Info) Description 08/25/2025 11:15 AM EST Office Visit [facility] [address] [place] [address] Mandie Fields FNP 505 [place] [address] documented as of this encounter Visit Diagnoses Not on filedocumented in this encounter Additional Health Concerns Assessment Noted Time PHQ-9 Depression Total Score: 14 025 11:10 AM EDT documented as of this encounter Care Teams Car Driver Relationship Specialty Start Date End Date Mandie Fields FNP [address] [place] [address] PCP - General Family Medicine 01/12/25 documented as of this encounter
--- OUTSIDE RECORDS SUMMARY | 2025-08-21 19:15 | XMS_ITS | Encounter Summary ---
Author Organization [employer] Address 75 [facility] 7t [place] [address] Care Team Providers Care Scaffold Setter Name Role Phone Mandie Fields Primary Care Provider [phone] Mandie Fields Primary Care Provider [phone] Reason for Visit * Reason Comments Med Refill Encounter Details Date Type Department Care Team ([facility] Contact Info) Description 03/29/2023 Refill [facility] [address] [place], [place] [phone] Mandie Fields FNP [address] [place], [place] [phone] Moderate persistent asthma without complication Social History [...] Upcoming Encounters Date Type Department Care Team ([facility] Contact Info) Description 08/25/2025 11:15 AM EST Office Visit [facility] [address] [place], [place] [phone] Mandie Fields FNP [address] [place] [address] documented as of this encounter Visit Diagnoses Diagnosis Moderate persistent asthma without complication documented in this encounter Additional Health Concerns Assessment Noted Time PHQ-9 Depression Total Score: 10 022 10:45 AM EST documented as of this encounter Care Teams Scaffold Setter Relationship Specialty Start Date End Date Mandie Fields FNP [address] [place] [address] PCP - General Family Medicine 05/01/22 01/11/25 Mandie Fields FNP [address] [place] [address] PCP - General Family Medicine 01/12/25 documented as of this encounter
--- OUTSIDE RECORDS SUMMARY | 2025-08-21 19:15 | XMS_ITS | Encounter Summary ---
Author Organization [employer] Address [address] [facility] 7t [place] [address] Care Team Providers Care Human Resource Management Instructor Name Role Phone Mandie Fields Primary Care Provider [phone] Reason for Visit * Reason Comments Med Refill Encounter Details Date Type Department Care Team ([facility] st Contact Info) Description 08/20/2025 Refill [facility] [address] [place] [address] Mandie Fields FNP [address] [place], [place] [phone] Moderate persistent asthma without complication Social History [...] Description 08/25/2025 11:15 AM EST Office Visit [facility] [address] [place] [address] Mandie Fields FNP [address] [place] [address] documented as of this encounter Visit Diagnoses Diagnosis Moderate persistent asthma without complication documented in this encounter Additional Health Concerns Assessment Noted Time PHQ-9 Depression Total Score: 14 025 11:10 AM EDT documented as of this encounter Care Teams Human Resource Management Instructor Relationship Specialty Start Date End Date Mandie Fields FNP [address] [place] [address] PCP - General Family Medicine 01/12/25 documented as of this encounter
--- OUTSIDE RECORDS SUMMARY | 2025-08-21 19:15 | XMS_ITS | Encounter Summary ---
Author Organization [employer] Address [address] [facility] 7t [place] [address] Care Team Providers Care Global Vp Creative + Content Marketing Name Role Phone Mandie Fields Primary Care Provider [phone] Mandie Fields Primary Care Provider [phone] Reason for Visit * Reason Comments Med Refill Encounter Details Date Type Department Care Team ([facility] Contact Info) Description 04/10/2024 Refill [facility] PEDS [address] [place], [place] [phone] Mandie Fields FNP [address] [place], [place] [phone] Essential (primary) hypertension Social History Tobacco Use [...] Description 08/25/2025 11:15 AM EST Office Visit [facility] [address] [place] [address] Mandie Fields FNP [address] [place] [address] documented as of this encounter Visit Diagnoses Diagnosis Essential (primary) hypertension Unspecified essential hypertension documented in this encounter Additional Health Concerns Assessment Noted Time PHQ-9 Depression Total Score: 10 023 9:34 AM EST documented as of this encounter Care Teams Global Vp Creative + Content Marketing Relationship Specialty Start Date End Date Mandie Fields FNP [address] [place] [address] PCP - General Family Medicine 05/01/22 01/11/25 Mandie Fields FNP [address] [place] [address] PCP - General Family Medicine 01/12/25 documented as of this encounter
--- OUTSIDE RECORDS SUMMARY | 2025-08-21 19:15 | XMS_ITS | Encounter Summary ---
Author Organization [employer] Address [address] [facility] 7t [place] [address] Care Team Providers Care Oracle Database Administrator Name Role Phone Mandie Fields Primary Care Provider [phone] Mandie Fields Primary Care Provider [phone] Reason for Visit * Reason Onset Date Comments FYI 12/26/2023 Encounter Details Date Type Department Care Team (Late st Contact Info) Description 12/26/2023 Telephone [facility] [address] [place] [address] Mandie Fields FNP [address] [place], [place] [phone] FYI Social History Tobacco Use Types Packs/Day [...] - 12/30/2023 9:08 AM EDT Call to [facility], at [phone], no answer, call continues to ring and does not forward to . * Telephone Encounter - Luisa Cox RN - 12/30/2023 9:06 AM EDT Call returned to [facility] at [phone] for triage. No answer, unable;e to [facility] as is full. Left SMS notification to return call to [facility] triage line [phone]. * Telephone Encounter - IVANIA Boswell - 12/30/2023 6:26 AM EDT Please attempt to call pt for triage s/p fall at home. Thank you! * Telephone Encounter - Wing Delbert RN - 12/27/2023 1:52 PM EDT Just as a FYI. Tc to [facility] regarding pt's fall. Unable to reach her and left message for her to callback. Attempted to call pt using [facility] [place], [place] [id number]. Retail Loss Prevention Specialist unable to leave messagedue to mailbox being full. * Telephone Encounter - Esthela Piaz - 12/26/2023 4:15 PM EDT Tc from [facility] with [facility] calling to advise provider pt had a fall in home yesterday (12/24). States pt sustained no injuries. documented in this encounter Plan of Treatment Upcoming Encounters Date Type Department Care Team (Late st Contact Info) Description 08/25/2025 11:15 AM EST Office Visit [facility] [address] [place] [address] Mandie Fields FNP [address] [place] [address] documented as of this encounter Visit Diagnoses Not on filedocumented in this encounter Additional Health Concerns Assessment Noted Time PHQ-9 Depression Total Score: 10 023 9:34 AM EST documented as of this encounter Care Teams Oracle Database Administrator Relationship Specialty Start Date End Date Mandie Fields FNP [address] [place] [address] PCP - General Family Medicine 05/01/22 01/11/25 Mandie Fields FNP [address] [place] [address] PCP - General Family Medicine 01/12/25 documented as of this encounter
--- OUTSIDE RECORDS SUMMARY | 2025-08-21 19:15 | XMS_ITS | Patient Health Record ---
Author Organization [facility] Address [address] [place] [address] Care Team Providers Care Aoc Plans Intelligence Officer Name Role Phone RAMON ARELLANO MD Primary Care Provider Delon Dobson Jr [phone] Reason For Referral No Information Encounters Encounter Location Date Provider Diagnosis [facility] [address] [place] [phone] 12/24/2024 Delon Torres Jr [facility] [address] [place] [address] 02/01/2025 Delon Torres Jr Plan Of Treatment No Information Insurance Providers Payer Name Payer Address Payer Phone Subscriber Number Group Number Insured Name Patient Relationship to Insured Coverage Start Date Coverage End Date [facility] [employer] [employer] [address] [address] [place] [address] [phone] [id number] ANGEL HERRERA Self - patient is the insured
--- NOTE | 2025-08-21 19:24 | PC.NURSE ---
this rn assumed care of pt, pt resting in stretcher, no acute distress noted, waiting MD
[2025-08-21 20:24] LABS: Troponin-I High Sensitivity < 2.7 ng/L (<3.5-17.0)
--- NOTE | 2025-08-21 21:23 | PC.NURSE ---
On discharge pts vitals were taken and presented with a BP of 212/98 on both arms along with a manual pressure. MD notified and discharge cancelled and medications being ordered, pt to be monitored x1 hour.
== END 2025-08-21 22:52 | disposition home or self-care (01) ==
PROVIDERS: Nurse Practitioner Family; Emergency Provider Emergency Medicine Emergency Medical Services
DX: R07.9 Chest pain, unspecified (principal); I10 Essential (primary) hypertension; R94.31 Abnormal electrocardiogram [ECG] [EKG]; E78.5 Hyperlipidemia, unspecified; Z87.891 Personal history of nicotine dependence
CPT/HCPCS: 36415; 71046; 80048; 80076; 84484; 85025; 93005; 99283; 99284

== ENCOUNTER → 2025-08-21 16:36 | Outpatient (BNV) | payer OTHER, SELFPAY | PROVIDERS: Emergency Provider Emergency Medicine Emergency Medical Services; Visit Provider Internal Medicine Cardiovascular Disease | DX: R94.31 Abnormal electrocardiogram [ECG] [EKG] (principal); R07.9 Chest pain, unspecified | CPT/HCPCS: 93010 ==

== ENCOUNTER → 2025-08-21 17:20 | Outpatient (BNV) | payer OTHER, SELFPAY | PROVIDERS: Visit Provider Radiology Diagnostic Radiology | DX: R07.9 Chest pain, unspecified (principal) | CPT/HCPCS: 71046 ==